=== PATIENT | male | born 1960 | race Caucasian/White ===

== ENCOUNTER 2020-05-07 07:28 | Outpatient (REF) | payer OTHER, SELFPAY | END 2020-05-07 07:29 | disposition home or self-care (01) | LOC: HO.LAB 07:28 | PROVIDERS: Visit Provider Internal Medicine | DX: Z20.828 Contact with and (suspected) exposure to other viral communicable diseases (principal) | CPT/HCPCS: C9803; U0003 ==

== ENCOUNTER → 2020-07-27 07:18 | Outpatient (REF) | payer OTHER, SELFPAY ==
--- NOTE | 2020-07-27 07:35 | US_ITS ---
EXAMINATION: US ABDOMEN COMPLETE CLINICAL INFORMATION: Elevated LFTs.. COMPARISON: None TECHNIQUE: Real-time imaging of the abdominal viscera. FINDINGS: PANCREAS: Normal. ABDOMINAL AORTA: The proximal and distal segments are normal in caliber. The mid segment is not visualized INFERIOR VENA CAVA: Visualized portions are normal. LIVER: The liver is normal size, shape with mild increased echogenicity. No focal hepatic lesion. There is no intrahepatic biliary duct dilatation seen. GALLBLADDER: Normal. The gallbladder is physiologically distended without evidence of stones, sludge, polyps, wall thickening or pericholecystic fluid. COMMON BILE DUCT: Normal in caliber measuring 0.73 cm in diameter. RIGHT KIDNEY: Normal. No hydronephrosis. No renal calculi or focal parenchymal lesions. The kidney measures 11.5 cm in maximum dimension. LEFT KIDNEY: Normal. No hydronephrosis. No renal calculi or focal parenchymal lesions. The kidney measures 12.2 cm in maximum dimension. SPLEEN: Normal. The spleen measures 10.9 cm in maximum dimension. FREE FLUID: None. US/US abdomen complete IMPRESSION: Mildly echogenic liver likely fatty infiltration. No focal lesion seen. Rest of the abdominal ultrasound is unremarkable.
== END ==
LOC: HO.SL 07:18
PROVIDERS: PCP Family Medicine; Visit Provider Family Medicine
DX: R74.01 Elevation of levels of liver transaminase levels (principal); G47.33 Obstructive sleep apnea (adult) (pediatric); R49.0 Dysphonia; R63.5 Abnormal weight gain
CPT/HCPCS: 76700; 95806

== ENCOUNTER → 2020-12-09 13:26 | Outpatient (BNVA) | payer OTHER, SELFPAY | PROVIDERS: PCP Family Medicine; Visit Provider Nurse Practitioner Family | DX: M53.3 Sacrococcygeal disorders, not elsewhere classified (principal); M47.816 Spondylosis without myelopathy or radiculopathy, lumbar region | CPT/HCPCS: 99202 ==

== ENCOUNTER → 2021-08-31 12:29 | Outpatient (BNVA) | payer OTHER, SELFPAY | PROVIDERS: PCP Family Medicine; Visit Provider Nurse Practitioner Family | DX: M53.3 Sacrococcygeal disorders, not elsewhere classified (principal); M47.816 Spondylosis without myelopathy or radiculopathy, lumbar region | CPT/HCPCS: 99212 ==

== ENCOUNTER 2021-09-16 10:02 | Outpatient (REF) | payer OTHER, SELFPAY ==
--- NOTE | ~2021-09-16 | XR_ITS ---
EXAMINATION: XR HAND, LEFT CLINICAL INFORMATION: Pain status-post injury. COMPARISON: Radiographs dated 07/06/2011. TECHNIQUE: PA, lateral, and oblique views of the left hand. FINDINGS: The bones and soft tissues are normal. No fracture. Alignment is anatomic. Joint spaces are maintained. No erosions or soft tissue calcifications. XR/XR hand LT 2V IMPRESSION: Normal left hand.
== END 2021-09-16 10:03 | disposition home or self-care (01) ==
LOC: HO.XRAY 10:02
PROVIDERS: PCP Family Medicine; Visit Provider Registered Nurse Community Health
DX: M79.645 Pain in left finger(s) (principal)
CPT/HCPCS: 73120

== ENCOUNTER → 2021-10-19 09:46 | Outpatient (BNVA) | payer OTHER, SELFPAY | PROVIDERS: PCP Family Medicine; Visit Provider Physician Assistant | DX: M79.645 Pain in left finger(s) (principal) | CPT/HCPCS: 99202 ==

== ENCOUNTER → 2021-10-28 14:15 | Outpatient (RCR) | payer OTHER, SELFPAY | END | disposition home or self-care (01) | LOC: HO.PTCHIC 04-01 13:31 | PROVIDERS: PCP Family Medicine; Visit Provider Emergency Medicine | DX: M54.41 Lumbago with sciatica, right side (principal) | CPT/HCPCS: 97014; 97110; 97140 ==

== ENCOUNTER 2021-11-10 12:27 | Day surgery (SDC) | payer OTHER, SELFPAY ==
[2021-11-04 11:41] VITALS: BMI 40.2
--- NOTE | 2021-11-09 09:32 | HO.ANESPROP2 ---
Documented by User: Kelsie Bustos NP 11/09/21 09:33 HPI - Anesthesia Eval Consult details Narrative: 61yo M for Bilateral Sacroiliac Joint Steroid Injection PMFSH Active Problems Active Problems: All Active Problems (Updated 11/04/21 @ 11:33 by Kathi Trammell RN) Sacroiliac joint pain (Acute) Spondylosis of lumbar region without myelopathy or radiculopathy (Acute) Pain of left thumb (Acute) Past Medical History Medical History Asthma Elevated cholesterol GERD (gastroesophageal reflux disease) Hearing impairment HTN (hypertension) Mood disorder Sleep apnea Surgical History Surgical History H/O colonoscopy History of esophagogastroduodenoscopy (EGD) Hx laparoscopic cholecystectomy Hx of hemorrhoidectomy Social History Social History Patient Tobacco Use Status: Former Tobacco user Quit Date: 25 years ago Use of substances other than those prescribed or required for medical reasons: No Are you DNR?: No Advance Directives: No Advance Directives Information Provided: Yes Current occupational status: disabled Meds Allergies Allergy/AdvReac Type Severity Reaction Status Date / Time atorvastatin Allergy Intermediate Muscle Pain Verified 11/04/21 11:26 gemfibrozil Allergy Intermediate itching Verified 11/04/21 11:26 simvastatin Allergy Intermediate GI Verified 11/04/21 11:26 discomfort topiramate [Topiramate] Allergy Intermediate RASH,HIVES Verified 10/19/21 10:05 Home Medications Medication Instructions Recorded Confirmed Last Taken Type acetaminophen 325 mg capsule 650 mg PO Q6H PRN 12/09/20 11/04/21 Unknown History albuterol sulfate 90 mcg/actuation 2 puff INHALATION Q4-6H PRN 12/09/20 11/04/21 Unknown History aerosol inhaler (Ventolin HFA) cholecalciferol (vitamin D3) 1,250 1,250 mcg PO QWEEK 12/09/20 11/04/21 Unknown History mcg (50,000 unit) tablet famotidine 40 mg tablet 40 mg PO BEDTIME 12/09/20 11/04/21 Unknown History fluticasone propionate 110 1 puff INHALATION BID 12/09/20 11/10/21 11/10/21 10:00 History mcg/actuation HFA aerosol inhaler (Flovent HFA) fluticasone propionate 50 1 spray INTRANASAL DAILY 12/09/20 11/04/21 Unknown History mcg/actuation nasal spray,suspension gabapentin 300 mg capsule 300 mg PO BID 12/09/20 11/04/21 Unknown History ketotifen fumarate 0.025 % (0.035 1 drp OPHTHALMIC (EYE) BID 12/09/20 11/04/21 Unknown History %) eye drops levothyroxine 75 mcg capsule 75 mcg PO DAILY 12/09/20 11/04/21 Unknown History loratadine 10 mg tablet (Allergy 10 mg PO DAILY 12/09/20 11/04/21 Unknown History Relief (loratadine)) meclizine 25 mg tablet 25 mg PO BID 12/09/20 11/04/21 Unknown History olanzapine 2.5 mg tablet (Zyprexa) 5 mg PO DAILY tab 12/09/20 11/04/21 Unknown History omeprazole 40 mg capsule,delayed 40 mg PO DAILY 12/09/20 11/04/21 Unknown History release rosuvastatin 40 mg tablet (Crestor) 40 mg PO DAILY 12/09/20 11/04/21 Unknown History simethicone 125 mg capsule (Gas 125 mg PO TID-QID PRN 12/09/20 11/04/21 Unknown History Relief (simethicone)) sucralfate 1 gram tablet 1 g PO QIDACHS 12/09/20 11/04/21 Unknown History tamsulosin 0.4 mg capsule 0.4 mg PO BEDTIME 12/09/20 11/04/21 Unknown History tizanidine 4 mg capsule 4 mg PO Q8H PRN 12/09/20 11/04/21 Unknown History venlafaxine 150 mg 150 mg PO BEDTIME 12/09/20 11/04/21 Unknown History capsule,extended release 24 hr (Effexor XR) zaleplon 10 mg capsule 10 mg PO BEDTIME cap 12/09/20 11/04/21 Unknown History Exam Exam Date and Time: November 09, 2021 0932 Height,Weight and Vital Signs: Height 5 ft 5 in Weight 109.769 kg Assessment and Plan Assessment Anesthesia Assessment: Chart Reviewed Documented by User: Niurka Barber MD 11/10/21 15:07 PMFSH Past Medical History Medical History Asthma Elevated cholesterol GERD (gastroesophageal reflux disease) Hearing impairment HTN (hypertension) Mood disorder Sleep apnea Functional capacity: independent ambulation Family History Family history of problems with anesthesia: No Surgical History Surgical History H/O colonoscopy History of esophagogastroduodenoscopy (EGD) Hx laparoscopic cholecystectomy Hx of hemorrhoidectomy History of Problems with Anesthesia: No Social History Social History Patient Tobacco Use Status: Former Tobacco user Quit Date: 25 years ago Use of substances other than those prescribed or required for medical reasons: No Are you DNR?: No Advance Directives: No Advance Directives Information Provided: Yes Current occupational status: disabled Meds Allergies Allergy/AdvReac Type Severity Reaction Status Date / Time atorvastatin Allergy Intermediate Muscle Pain Verified 11/04/21 11:26 gemfibrozil Allergy Intermediate itching Verified 11/04/21 11:26 simvastatin Allergy Intermediate GI Verified 11/04/21 11:26 discomfort topiramate [Topiramate] Allergy Intermediate RASH,HIVES Verified 10/19/21 10:05 Home Medications Medication Instructions Recorded Confirmed Last Taken Type acetaminophen 325 mg capsule 650 mg PO Q6H PRN 12/09/20 11/04/21 Unknown History albuterol sulfate 90 mcg/actuation 2 puff INHALATION Q4-6H PRN 12/09/20 11/04/21 Unknown History aerosol inhaler (Ventolin HFA) cholecalciferol (vitamin D3) 1,250 1,250 mcg PO QWEEK 12/09/20 11/04/21 Unknown History mcg (50,000 unit) tablet famotidine 40 mg tablet 40 mg PO BEDTIME 12/09/20 11/04/21 Unknown History fluticasone propionate 110 1 puff INHALATION BID 12/09/20 11/10/21 11/10/21 10:00 History mcg/actuation HFA aerosol inhaler (Flovent HFA) fluticasone propionate 50 1 spray INTRANASAL DAILY 12/09/20 11/04/21 Unknown History mcg/actuation nasal spray,suspension gabapentin 300 mg capsule 300 mg PO BID 12/09/20 11/04/21 Unknown History ketotifen fumarate 0.025 % (0.035 1 drp OPHTHALMIC (EYE) BID 12/09/20 11/04/21 Unknown History %) eye drops levothyroxine 75 mcg capsule 75 mcg PO DAILY 12/09/20 11/04/21 Unknown History loratadine 10 mg tablet (Allergy 10 mg PO DAILY 12/09/20 11/04/21 Unknown History Relief (loratadine)) meclizine 25 mg tablet 25 mg PO BID 12/09/20 11/04/21 Unknown History olanzapine 2.5 mg tablet (Zyprexa) 5 mg PO DAILY tab 12/09/20 11/04/21 Unknown History omeprazole 40 mg capsule,delayed 40 mg PO DAILY 12/09/20 11/04/21 Unknown History release rosuvastatin 40 mg tablet (Crestor) 40 mg PO DAILY 12/09/20 11/04/21 Unknown History simethicone 125 mg capsule (Gas 125 mg PO TID-QID PRN 12/09/20 11/04/21 Unknown History Relief (simethicone)) sucralfate 1 gram tablet 1 g PO QIDACHS 12/09/20 11/04/21 Unknown History tamsulosin 0.4 mg capsule 0.4 mg PO BEDTIME 12/09/20 11/04/21 Unknown History tizanidine 4 mg capsule 4 mg PO Q8H PRN 12/09/20 11/04/21 Unknown History venlafaxine 150 mg 150 mg PO BEDTIME 12/09/20 11/04/21 Unknown History capsule,extended release 24 hr (Effexor XR) zaleplon 10 mg capsule 10 mg PO BEDTIME cap 12/09/20 11/04/21 Unknown History Exam Airway Mallampati Class: IV TM Dist: >3cm Neck ROM: Full Heart: RRR Lungs: CTA Other: CTA Assessment and Plan Final Anesthetic Review Family History of Problems with Anesthesia: No History of Problems with Anesthesia: No ASA Class: III Final Preanesthetic Review: No Changes in Pt Med Stat, Meds/Allgs Chart Reviewed, Consent Obtained/Reviewed and Anes Risks/Benef Reviewed Patient Risk: Low Anesthetic Plan Anesthetic Plan: MAC: Disposition: Standard PACU
--- NOTE | ~2021-11-10 | FL_ITS ---
EXAMINATION: XR FLUOROSCOPY WITH IMAGES CLINICAL INFORMATION: Pelvic pain. COMPARISON: None TECHNIQUE: Fluoroscopy performed by Dr. Thurman. Fluoroscopy time: 0.7 minutes DAP: 6.96 mGycm2 Images: 4 FINDINGS: There are at least 4 images of the SI joint obtained. There is a needle positioned along the left and right SI joints. The SI joints are otherwise symmetrical and normal. Visualized lower lumbar disc levels, L4, L5 and the sacral vertebral bodies are normal. FL/FL guidance in OR IMPRESSION: Fluoroscopy was provided to referring physician for pain management.
[2021-11-10 13:45] VITALS: BP 128/71; PULSE 54; RESP 18; TEMP 36.3; O2SAT 97; BMI 40.4
[2021-11-10] MEDS: Lactated Ringers 1,000 ML 100 ML IVCONT (13:52)
[2021-11-10 15:42] VITALS: BP 108/65; PULSE 63; RESP 12; TEMP 36.4; O2SAT 96
--- NOTE | 2021-11-10 15:48 | MHC.SHP ---
Pre-Procedural Eval Section A Date of Service: 11/10/21 The patient is an INPATIENT: No The History & Physical has been completed within 30 days and I have reviewed it.: Yes Section B Chief Complaint: Sacrococcygeal disorders, Relevant Family History (Specify if Yes): No Relevant Social History: None Present Medications: see Short Stay Collaborative assessment Medical History: No relevant PMH History of Previous Operations: No relevant previous surgery Allergies: Allergies Allergy/AdvReac Type Severity Reaction Status Date / Time atorvastatin Allergy Intermediate Muscle Pain Verified 11/04/21 11:26 gemfibrozil Allergy Intermediate itching Verified 11/04/21 11:26 simvastatin Allergy Intermediate GI Verified 11/04/21 11:26 discomfort topiramate [Topiramate] Allergy Intermediate RASH,HIVES Verified 10/19/21 10:05 Plan Diagnosis/Plan: Unchanged I have reviewed the history and physical and performed a pertinent physical examination on my patient. No changes have occurred unless specified.
--- NOTE | 2021-11-10 15:49 | PM.OP ---
Brief Operative Note Date of Service: 11/10/21 Pre-op diagnosis: Sacroiliitis Post-op diagnosis: same Procedure: Bilateral intra-articular sacroiliac joint corticosteroid injection Surgeon: Olman Parish MD Anesthesia: MAC Was an District Court Judge used for this Procedure?: No Estimated blood loss (mL): 1 Pathology: none sent Condition: stable Disposition: PACU
--- NOTE | 2021-11-10 15:50 | P.OP_ITS ---
Operative Note Operative Note Date of Service: 11/10/21 Narrative: Sacroiliac Joint Injection, Bilateral The procedure, its benefits, and its risks were explained and written informed consent was obtained from the patient. Immediately prior to starting the procedure, a time-out safety check was conducted. The patient's identification, procedure name, procedure site, and procedure laterality were confirmed with the patient. ? Patient was placed prone on the fluoroscopy table and the lumbosacral area was prepped using ChloraPrep and draped with sterile drapein standard fashion. The C-arm was rotated in a contralateral oblique fashion until the medial border of the iliac crest no longer foreshadowed the posterior sacroiliac joint line. The skin and subcutaneous tissue was anesthetized using 1 mL of 0.75% plain lidocaine with 1.5-inch 25-gauge needle in the middle region of the joint line.? A 3.5-inch 22-gauge spinal needle with small bend on the tip was slowly advanced towards the joint line, coaxial to the x-ray beam. Once bony content was obtained, the needle was easily slid into the intra-articular space.? Intra- articular needle position was confirmed using lateral fluoroscopy.? A total volume of 2 mL of solution containing 40 mg Depomedrol and rest 0.5% of ropivacaine was injected intra-articularly. The stylet was reinserted and needle was removed. The patient tolerated the procedure well. Patient denied any lower extremity weakness or numbness. Patient was observed for 30 min and was discharged after fulfilling the standard discharge criteria.
[2021-11-10 15:57] VITALS: BP 120/76; PULSE 52; RESP 12; O2SAT 96
[2021-11-10 16:12] VITALS: BP 119/75; PULSE 52; RESP 12; O2SAT 98
[2021-11-10 16:27] VITALS: BP 114/71; PULSE 56; RESP 19; TEMP 36.3; O2SAT 98
[2021-11-10 16:42] VITALS: BP 119/70; PULSE 50; RESP 18; TEMP 36.3; O2SAT 98
== END 2021-11-10 17:01 | disposition home or self-care (01) ==
PROVIDERS: PCP Family Medicine; Visit Provider Internal Medicine
PROC: 3E0U33Z Introduction of Anti-inflammatory into Joints, Percutaneous Approach (ICD-10-PCS; CPT 27096; principal; 2021-11-10 14:40)
DX: M53.3 Sacrococcygeal disorders, not elsewhere classified (principal); M47.816 Spondylosis without myelopathy or radiculopathy, lumbar region; M54.50 Low back pain, unspecified; I10 Essential (primary) hypertension; J45.909 Unspecified asthma, uncomplicated; R73.01 Impaired fasting glucose; Z79.51 Long term (current) use of inhaled steroids; Z79.899 Other long term (current) drug therapy; Z88.8 Allergy status to other drugs, medicaments and biological substances; Z87.891 Personal history of nicotine dependence
CPT/HCPCS: G0260; J1040; J2250; J2795; J3010

== ENCOUNTER → 2021-12-22 12:51 | Outpatient (BNVA) | payer OTHER, SELFPAY | PROVIDERS: PCP Family Medicine; Visit Provider Nurse Practitioner Family | DX: M48.061 Spinal stenosis, lumbar region without neurogenic claudication (principal); M53.3 Sacrococcygeal disorders, not elsewhere classified; M47.816 Spondylosis without myelopathy or radiculopathy, lumbar region; M53.9 Dorsopathy, unspecified | CPT/HCPCS: 99212 ==

== ENCOUNTER 2022-03-02 11:39 | Day surgery (SDC) | payer OTHER, SELFPAY ==
[2022-02-24 09:22] VITALS: BMI 36.6
--- NOTE | 2022-03-01 14:09 | HO.ANESPROP2 ---
Documented by User: Kelsie Bustos NP 03/01/22 14:10 HPI - Anesthesia Eval Consult details Narrative: 61yo M for Interlaminar Epidural Steroid Injection L5-S1 s/p sacroiliac joint injection 10/2021 with MAC PMFSH Active Problems Active Problems: All Active Problems (Updated 02/24/22 @ 09:15 by Kathi Trammell RN) Sacroiliac joint pain (Acute) Spondylosis of lumbar region without myelopathy or radiculopathy (Acute) Pain of left thumb (Acute) Stenosis, spinal, lumbar (Acute) Multilevel degenerative disc disease (Acute) Past Medical History Medical History (Updated 02/24/22 @ 09:15 by Kathi Trammell RN) Asthma Elevated cholesterol GERD (gastroesophageal reflux disease) Hearing impairment HTN (hypertension) Mood disorder Sacroiliac joint pain Sleep apnea Family History Family history of problems with anesthesia: No Surgical History Surgical History H/O colonoscopy History of esophagogastroduodenoscopy (EGD) Hx laparoscopic cholecystectomy Hx of hemorrhoidectomy History of Problems with Anesthesia: No Social History Social History Patient Tobacco Use Status: Former Tobacco user Quit Date: 25 years ago Use of substances other than those prescribed or required for medical reasons: No Are you DNR?: No Advance Directives: No Advance Directives Information Provided: Yes Current occupational status: disabled Meds Allergies Allergy/AdvReac Type Severity Reaction Status Date / Time atorvastatin Allergy Intermediate Muscle Pain Verified 12/22/21 12:56 gemfibrozil Allergy Intermediate itching Verified 12/22/21 12:56 simvastatin Allergy Intermediate GI Verified 12/22/21 12:56 discomfort topiramate [Topiramate] Allergy Intermediate RASH,HIVES Verified 12/22/21 12:56 Home Medications Medication Instructions Recorded Confirmed Last Taken Type acetaminophen 325 mg capsule 650 mg PO Q6H PRN Pain 12/09/20 02/24/22 Unknown History albuterol sulfate 90 mcg/actuation 2 puff inhalation Q4-6H PRN 12/09/20 02/24/22 03/02/22 History aerosol inhaler (Ventolin HFA) Wheezing cholecalciferol (vitamin D3) 1,250 1,250 mcg PO QWEEK 12/09/20 02/24/22 Unknown History mcg (50,000 unit) tablet famotidine 40 mg tablet 40 mg PO BEDTIME 12/09/20 02/24/22 Unknown History fluticasone propionate 110 1 puff inhalation BID 12/09/20 02/24/22 11/10/21 10:00 History mcg/actuation HFA aerosol inhaler (Flovent HFA) fluticasone propionate 50 1 spray intranasal DAILY 12/09/20 02/24/22 Unknown History mcg/actuation nasal spray,suspension gabapentin 300 mg capsule 300 mg PO BID 12/09/20 02/24/22 Unknown History ketotifen fumarate 0.025 % (0.035 1 drp ophthalmic (eye) BID 12/09/20 02/24/22 Unknown History %) eye drops levothyroxine 75 mcg capsule 75 mcg PO DAILY 12/09/20 02/24/22 03/02/22 History loratadine 10 mg tablet (Allergy 10 mg PO DAILY 12/09/20 02/24/22 Unknown History Relief (loratadine)) meclizine 25 mg tablet 25 mg PO BID 12/09/20 02/24/22 Unknown History olanzapine 2.5 mg tablet (Zyprexa) 5 mg PO DAILY 12/09/20 02/24/22 Unknown History omeprazole 40 mg capsule,delayed 40 mg PO DAILY 12/09/20 02/24/22 Unknown History release rosuvastatin 40 mg tablet (Crestor) 40 mg PO DAILY 12/09/20 02/24/22 Unknown History simethicone 125 mg capsule (Gas 125 mg PO TID-QID PRN 12/09/20 02/24/22 Unknown History Relief (simethicone)) Gastrointestinal Spasms Or Cramping sucralfate 1 gram tablet 1 g PO QIDACHS 12/09/20 02/24/22 Unknown History tamsulosin 0.4 mg capsule 0.4 mg PO BEDTIME 12/09/20 02/24/22 Unknown History tizanidine 4 mg capsule 4 mg PO Q8H PRN Muscle Spasm 12/09/20 02/24/22 Unknown History venlafaxine 150 mg 150 mg PO BEDTIME 12/09/20 02/24/22 Unknown History capsule,extended release 24 hr (Effexor XR) zaleplon 10 mg capsule 10 mg PO BEDTIME 12/09/20 02/24/22 Unknown History Exam Exam Date and Time: March 01, 2022 1409 Height,Weight and Vital Signs: Height 5 ft 5 in Weight 99.79 kg Assessment and Plan Assessment Anesthesia Assessment: Chart Reviewed Final Anesthetic Review Family History of Problems with Anesthesia: No History of Problems with Anesthesia: No Documented by User: Slick Cedeno MD 03/02/22 12:41 [facility] Past Medical History Medical History (Updated 02/24/22 @ 09:15 by Kathi Trammell RN) Asthma Elevated cholesterol GERD (gastroesophageal reflux disease) Hearing impairment HTN (hypertension) Mood disorder Sacroiliac joint pain Sleep apnea Surgical History Surgical History H/O colonoscopy History of esophagogastroduodenoscopy (EGD) Hx laparoscopic cholecystectomy Hx of hemorrhoidectomy Social History Social History Patient Tobacco Use Status: Former Tobacco user Quit Date: 25 years ago Use of substances other than those prescribed or required for medical reasons: No Are you DNR?: No Advance Directives: No Advance Directives Information Provided: Yes Current occupational status: disabled Meds Allergies Allergy/AdvReac Type Severity Reaction Status Date / Time atorvastatin Allergy Intermediate Muscle Pain Verified 12/22/21 12:56 gemfibrozil Allergy Intermediate itching Verified 12/22/21 12:56 simvastatin Allergy Intermediate GI Verified 12/22/21 12:56 discomfort topiramate [Topiramate] Allergy Intermediate RASH,HIVES Verified 12/22/21 12:56 Home Medications Medication Instructions Recorded Confirmed Last Taken Type acetaminophen 325 mg capsule 650 mg PO Q6H PRN Pain 12/09/20 02/24/22 Unknown History albuterol sulfate 90 mcg/actuation 2 puff inhalation Q4-6H PRN 0602/24/22 03/02/22 History aerosol inhaler (Ventolin HFA) Wheezing cholecalciferol (vitamin D3) 1,250 1,250 mcg PO QWEEK 12/09/20 02/24/22 Unknown History mcg (50,000 unit) tablet famotidine 40 mg tablet 40 mg PO BEDTIME 12/09/20 02/24/22 Unknown History fluticasone propionate 110 1 puff inhalation BID 12/09/20 02/24/22 11/10/21 10:00 History mcg/actuation HFA aerosol inhaler (Flovent HFA) fluticasone propionate 50 1 spray intranasal DAILY 12/09/20 02/24/22 Unknown History mcg/actuation nasal spray,suspension gabapentin 300 mg capsule 300 mg PO BID 12/09/20 02/24/22 Unknown History ketotifen fumarate 0.025 % (0.035 1 drp ophthalmic (eye) BID 12/09/20 02/24/22 Unknown History %) eye drops levothyroxine 75 mcg capsule 75 mcg PO DAILY 12/09/20 02/24/22 03/02/22 History loratadine 10 mg tablet (Allergy 10 mg PO DAILY 12/09/20 02/24/22 Unknown History Relief (loratadine)) meclizine 25 mg tablet 25 mg PO BID 12/09/20 02/24/22 Unknown History olanzapine 2.5 mg tablet (Zyprexa) 5 mg PO DAILY 12/09/20 02/24/22 Unknown History omeprazole 40 mg capsule,delayed 40 mg PO DAILY 12/09/20 02/24/22 Unknown History release rosuvastatin 40 mg tablet (Crestor) 40 mg PO DAILY 12/09/20 02/24/22 Unknown History simethicone 125 mg capsule (Gas 125 mg PO TID-QID PRN 12/09/20 02/24/22 Unknown History Relief (simethicone)) Gastrointestinal Spasms Or Cramping sucralfate 1 gram tablet 1 g PO QIDACHS 12/09/20 02/24/22 Unknown History tamsulosin 0.4 mg capsule 0.4 mg PO BEDTIME 12/09/20 02/24/22 Unknown History tizanidine 4 mg capsule 4 mg PO Q8H PRN Muscle Spasm 12/09/20 02/24/22 Unknown History venlafaxine 150 mg 150 mg PO BEDTIME 12/09/20 02/24/22 Unknown History capsule,extended release 24 hr (Effexor XR) zaleplon 10 mg capsule 10 mg PO BEDTIME 12/09/20 02/24/22 Unknown History Exam Airway Mallampati Class: IV TM Dist: >3cm Neck ROM: Full Partial: Upper and Lower Loose/Missing/Broken Teeth: Yes, Upper and Lower Heart: rrr Lungs: clear Assessment and Plan Final Anesthetic Review NPO: Yes ASA Class: III Final Preanesthetic Review: No Changes in Pt Med Stat, Meds/Allgs Chart Reviewed, Consent Obtained/Reviewed and Anes Risks/Benef Reviewed Patient Risk: Intermediate Procedure Risk: Low Anesthetic Plan Anesthetic Plan: MAC: Disposition: Standard PACU
--- NOTE | ~2022-03-02 | FL_ITS ---
EXAMINATION: XR FLUOROSCOPY WITH IMAGES CLINICAL INFORMATION: Pain. COMPARISON: None. TECHNIQUE: Fluoroscopy performed by Dr. Olman Parish. Fluoroscopy time: 0.2 minutes. Cumulative Dose: 7.06 mGy. DAP: 0.760 Gy-cm2. Images: 2. FINDINGS: There are 2 images obtained of lumbar spine with needle positioned at L5-S1 disc level and contrast opacifying the epidural space. Visualized L5 vertebral bodies are unremarkable. FL/FL guidance in OR IMPRESSION: Fluoroscopy guidance was provided to the referring physician for pain management.
[2022-03-02 12:08] VITALS: BP 141/71; PULSE 61; RESP 16; TEMP 36.5; O2SAT 97
[2022-03-02] MEDS: Lactated Ringers 1,000 ML 100 ML IVCONT (12:14)
--- NOTE | 2022-03-02 13:08 | MHC.SHP ---
Pre-Procedural Eval Section A Date of Service: 03/02/22 The patient is an INPATIENT: No Changes since office visit: Yes Patient answered all questions The History & Physical has been completed within 30 days and I have reviewed it.: No Section B Chief Complaint: spinal stenosis Relevant Family History (Specify if Yes): No Relevant Social History: None Present Medications: see Short Stay Collaborative assessment Medical History: No relevant PMH History of Previous Operations: No relevant previous surgery Allergies: Allergies Allergy/AdvReac Type Severity Reaction Status Date / Time atorvastatin Allergy Intermediate Muscle Pain Verified 12/22/21 12:56 gemfibrozil Allergy Intermediate itching Verified 12/22/21 12:56 simvastatin Allergy Intermediate GI Verified 12/22/21 12:56 discomfort topiramate [Topiramate] Allergy Intermediate RASH,HIVES Verified 12/22/21 12:56 Review of Systems Sugical H&P ROS: Negative: Constitution, Cardiovascular and Respiratory Exam Surgical H&P Exam: Normal: HEENT, Normal: Heart and Normal: Lungs Plan Diagnosis/Plan: Unchanged I have reviewed the history and physical and performed a pertinent physical examination on my patient. No changes have occurred unless specified.
--- NOTE | 2022-03-02 13:10 | P.BOP_ITS ---
Brief Operative Note Date of Service: 03/02/22 Pre-op diagnosis: Lumbar radiculopathy Post-op diagnosis: same Procedure: Lumbar interlaminar epidural steroid injection L5/S1 Implants: None Surgeon: Olman Parish MD Anesthesia: MAC Was an Senior Project Leader/Team Lead used for this Procedure?: No Estimated blood loss (mL): 1 Pathology: none sent Condition: stable Disposition: PACU
--- NOTE | 2022-03-02 13:11 | W.PM.OPN ---
Operative Note Operative Note Date of Service: 03/02/22 Narrative: Interlaminar epidural steroid injection, L5/S1, left parasaggital approach towards midline After obtaining written consent, pre-procedure blood pressure and heart rate were stable and recorded in the nursing record. Standard monitors were applied. Patient was sedated by the school standards coach. The patient was placed in the prone position. The lumbar area was widely prepped with chloraprep and draped in sterile fashion. Fluoroscopic guidance was used to identify the desired interlaminar space and for needle placement. Subcutaneous 0.5% lidocaine was used to anesthetize the skin overlying the target. A 20-gauge Garcia needle was advanced to the epidural space using loss of resistance to contrast technique under fluoroscopic AP and contralateral oblique views. There was no evidence of heme or CSF and no paresthesias were elicited with needle placement. Confirmation of epidural needle placement was performed with 1cc of omnipaque 180. Next 3 ml 0.5% lidocaine mixed with 80 mg methylprednisolone was administered epidurally with no pain elicited on injection. The needle tract tubing was then cleared with 1 ml of 0.5% lidocaine. The needle was removed, skin cleansed and a sterile bandage was applied. The patient tolerated the procedure well and no complications were encountered. Following the procedure the patient's vital signs were stable. The patient was discharged home in good condition with post-procedural instructions. Time Out: Immediately prior to the procedure, the following was verbally confirmed that there is a signed consent form and that the correct patient, planned procedure, site and side are consistent with documentation and that necessary equipment and/or blood products are available prior to the start of the case. Complications: none EBL: <1 cc
[2022-03-02 13:20] VITALS: BP 103/59; PULSE 77; RESP 20; TEMP 36; O2SAT 95
[2022-03-02 13:35] VITALS: BP 106/72; PULSE 65; RESP 20; O2SAT 95
[2022-03-02 13:50] VITALS: BP 117/74; PULSE 65; RESP 20; TEMP 36; O2SAT 96
== END 2022-03-02 14:29 | disposition home or self-care (01) ==
PROVIDERS: PCP Family Medicine; Visit Provider Internal Medicine
PROC: 3E0R33Z Introduction of Anti-inflammatory into Spinal Canal, Percutaneous Approach (ICD-10-PCS; CPT 62323; principal; 2022-03-02 12:30)
DX: M48.061 Spinal stenosis, lumbar region without neurogenic claudication (principal); M47.816 Spondylosis without myelopathy or radiculopathy, lumbar region; M54.50 Low back pain, unspecified; M53.9 Dorsopathy, unspecified; M53.3 Sacrococcygeal disorders, not elsewhere classified; I10 Essential (primary) hypertension; E78.00 Pure hypercholesterolemia, unspecified; G47.33 Obstructive sleep apnea (adult) (pediatric); F39 Unspecified mood [affective] disorder; R73.01 Impaired fasting glucose; H91.93 Unspecified hearing loss, bilateral; Z79.51 Long term (current) use of inhaled steroids; Z79.899 Other long term (current) drug therapy; Z88.8 Allergy status to other drugs, medicaments and biological substances; Z90.49 Acquired absence of other specified parts of digestive tract; Z87.891 Personal history of nicotine dependence
CPT/HCPCS: 62323; J2250; J3300

== ENCOUNTER → 2022-04-05 10:12 | Outpatient (BNVA) | payer OTHER, SELFPAY | PROVIDERS: PCP Family Medicine; Visit Provider Nurse Practitioner Family | DX: M53.3 Sacrococcygeal disorders, not elsewhere classified (principal); M53.9 Dorsopathy, unspecified; M48.061 Spinal stenosis, lumbar region without neurogenic claudication; M46.1 Sacroiliitis, not elsewhere classified | CPT/HCPCS: 99212 ==

== ENCOUNTER 2022-06-15 13:06 | Day surgery (SDC) | payer OTHER, SELFPAY ==
[2022-06-10 14:51] VITALS: BMI 38.4
--- NOTE | 2022-06-14 09:21 | P.CONAN_ITS ---
Documented by User: Kelsie Bustos NP 06/14/22 09:25 HPI - Anesthesia Eval Consult details Narrative: 61yo M for Left Sacroiliac Joint Steroid Injection with Lidocaine s/p epidural injection 02/2022 with MAC PMFSH Active Problems Active Problems: All Active Problems (Updated 04/05/22 @ 10:56 by ARMINDA Mahoney) Sacroiliitis (Acute) Sacroiliac joint pain (Acute) Spondylosis of lumbar region without myelopathy or radiculopathy (Acute) Pain of left thumb (Acute) Stenosis, spinal, lumbar (Acute) Multilevel degenerative disc disease (Acute) Past Medical History Medical History Asthma Elevated cholesterol GERD (gastroesophageal reflux disease) Hearing impairment HTN (hypertension) Mood disorder Sacroiliac joint pain Sleep apnea Family History Family history of problems with anesthesia: No Surgical History Surgical History H/O colonoscopy History of esophagogastroduodenoscopy (EGD) Hx laparoscopic cholecystectomy Hx of hemorrhoidectomy History of Problems with Anesthesia: No Social History Social History Patient Tobacco Use Status: Former Tobacco user Quit Date: 25 years ago Tobacco use type: Cigarette Use of substances other than those prescribed or required for medical reasons: No Are you DNR?: No Advance Directives: No Advance Directives Information Provided: Yes Current occupational status: disabled Meds Allergies Allergy/AdvReac Type Severity Reaction Status Date / Time atorvastatin Allergy Intermediate Muscle Pain Verified 04/05/22 10:24 gemfibrozil Allergy Intermediate itching Verified 04/05/22 10:24 simvastatin Allergy Intermediate GI Verified 04/05/22 10:24 discomfort topiramate [Topiramate] Allergy Intermediate RASH,HIVES Verified 04/05/22 10:24 Home Medications Medication Instructions Recorded Confirmed Last Taken Type acetaminophen 325 mg capsule 650 mg PO Q6H PRN Pain 12/09/20 02/24/22 Unknown History albuterol sulfate 90 mcg/actuation 2 puff inhalation Q4-6H PRN 12/09/20 02/24/22 03/02/22 History aerosol inhaler (Ventolin HFA) Wheezing cholecalciferol (vitamin D3) 1,250 1,250 mcg PO QWEEK 12/09/20 02/24/22 Unknown History mcg (50,000 unit) tablet famotidine 40 mg tablet 40 mg PO BEDTIME 12/09/20 02/24/22 Unknown History fluticasone propionate 110 1 puff inhalation BID 12/09/20 02/24/22 11/10/21 10:00 History mcg/actuation HFA aerosol inhaler (Flovent HFA) fluticasone propionate 50 1 spray intranasal DAILY 12/09/20 02/24/22 Unknown History mcg/actuation nasal spray,suspension gabapentin 300 mg capsule 300 mg PO BID 12/09/20 02/24/22 Unknown History ketotifen fumarate 0.025 % (0.035 1 drp ophthalmic (eye) BID 12/09/20 02/24/22 Unknown History %) eye drops levothyroxine 75 mcg capsule 75 mcg PO DAILY 12/09/20 06/15/22 06/15/22 History loratadine 10 mg tablet (Allergy 10 mg PO DAILY 12/09/20 02/24/22 Unknown History Relief (loratadine)) meclizine 25 mg tablet 25 mg PO BID 12/09/20 02/24/22 Unknown History olanzapine 2.5 mg tablet (Zyprexa) 5 mg PO DAILY 12/09/20 02/24/22 Unknown History omeprazole 40 mg capsule,delayed 40 mg PO DAILY 12/09/20 02/24/22 Unknown History release rosuvastatin 40 mg tablet (Crestor) 40 mg PO DAILY 12/09/20 02/24/22 Unknown History simethicone 125 mg capsule (Gas 125 mg PO TID-QID PRN 12/09/20 02/24/22 Unknown History Relief (simethicone)) Gastrointestinal Spasms Or Cramping sucralfate 1 gram tablet 1 g PO QIDACHS 12/09/20 02/24/22 Unknown History tamsulosin 0.4 mg capsule 0.4 mg PO BEDTIME 12/09/20 02/24/22 Unknown History tizanidine 4 mg capsule 4 mg PO Q8H PRN Muscle Spasm 12/09/20 02/24/22 Unknown History venlafaxine 150 mg 150 mg PO BEDTIME 12/09/20 02/24/22 Unknown History capsule,extended release 24 hr (Effexor XR) zaleplon 10 mg capsule 10 mg PO BEDTIME 12/09/20 02/24/22 Unknown History clotrimazole 1 % topical cream appl topical 04/05/22 Unknown History hydroxyzine HCl 25 mg tablet 25 mg PO BID 04/05/22 Unknown History tizanidine 4 mg tablet 4 mg PO TID 04/05/22 Unknown History Exam Exam Date and Time: June 14, 2022920 Height,Weight and Vital Signs: Height 5 ft 5 in Weight 104.78 kg Assessment and Plan Assessment Anesthesia Assessment: Chart Reviewed Final Anesthetic Review Family History of Problems with Anesthesia: No History of Problems with Anesthesia: No Documented by User: Giselle Pelayo MD 06/15/22 14:57 [facility] Active Problems Active Problems: All Active Problems (Updated 04/05/22 @ 10:56 by ARMINDA Mahoney) Sacroiliitis (Acute) Sacroiliac joint pain (Acute) Spondylosis of lumbar region without myelopathy or radiculopathy (Acute) Pain of left thumb (Acute) Stenosis, spinal, lumbar (Acute) Multilevel degenerative disc disease (Acute) JOLANTA. Not using CPAP Past Medical History Medical History Asthma Elevated cholesterol GERD (gastroesophageal reflux disease) Hearing impairment HTN (hypertension) Mood disorder Sacroiliac joint pain Sleep apnea Surgical History Surgical History H/O colonoscopy History of esophagogastroduodenoscopy (EGD) Hx laparoscopic cholecystectomy Hx of hemorrhoidectomy Social History Social History Patient Tobacco Use Status: Former Tobacco user Quit Date: 25 years ago Tobacco use type: Cigarette Use of substances other than those prescribed or required for medical reasons: No Are you DNR?: No Advance Directives: No Advance Directives Information Provided: Yes Current occupational status: disabled Meds Allergies Allergy/AdvReac Type Severity Reaction Status Date / Time atorvastatin Allergy Intermediate Muscle Pain Verified 04/05/22 10:24 gemfibrozil Allergy Intermediate itching Verified 04/05/22 10:24 simvastatin Allergy Intermediate GI Verified 04/05/22 10:24 discomfort topiramate [Topiramate] Allergy Intermediate RASH,HIVES Verified 04/05/22 10:24 Home Medications Medication Instructions Recorded Confirmed Last Taken Type acetaminophen 325 mg capsule 650 mg PO Q6H PRN Pain 12/09/20 02/24/22 Unknown History albuterol sulfate 90 mcg/actuation 2 puff inhalation Q4-6H PRN 12/09/20 02/24/22 03/02/22 History aerosol inhaler (Ventolin HFA) Wheezing cholecalciferol (vitamin D3) 1,250 1,250 mcg PO QWEEK 12/09/20 02/24/22 Unknown History mcg (50,000 unit) tablet famotidine 40 mg tablet 40 mg PO BEDTIME 12/09/20 02/24/22 Unknown History fluticasone propionate 110 1 puff inhalation BID 12/09/20 02/24/22 11/10/21 10:00 History mcg/actuation HFA aerosol inhaler (Flovent HFA) fluticasone propionate 50 1 spray intranasal DAILY 12/09/20 02/24/22 Unknown History mcg/actuation nasal spray,suspension gabapentin 300 mg capsule 300 mg PO BID 12/09/20 02/24/22 Unknown History ketotifen fumarate 0.025 % (0.035 1 drp ophthalmic (eye) BID 12/09/20 02/24/22 Unknown History %) eye drops levothyroxine 75 mcg capsule 75 mcg PO DAILY 12/09/20 06/15/22 06/15/22 History loratadine 10 mg tablet (Allergy 10 mg PO DAILY 12/09/20 02/24/22 Unknown History Relief (loratadine)) meclizine 25 mg tablet 25 mg PO BID 12/09/20 02/24/22 Unknown History olanzapine 2.5 mg tablet (Zyprexa) 5 mg PO DAILY 12/09/20 02/24/22 Unknown History omeprazole 40 mg capsule,delayed 40 mg PO DAILY 12/09/20 02/24/22 Unknown History release rosuvastatin 40 mg tablet (Crestor) 40 mg PO DAILY 12/09/20 02/24/22 Unknown History simethicone 125 mg capsule (Gas 125 mg PO TID-QID PRN 12/09/20 02/24/22 Unknown History Relief (simethicone)) Gastrointestinal Spasms Or Cramping sucralfate 1 gram tablet 1 g PO QIDACHS 12/09/20 02/24/22 Unknown History tamsulosin 0.4 mg capsule 0.4 mg PO BEDTIME 12/09/20 02/24/22 Unknown History tizanidine 4 mg capsule 4 mg PO Q8H PRN Muscle Spasm 12/09/20 02/24/22 Unknown History venlafaxine 150 mg 150 mg PO BEDTIME 12/09/20 02/24/22 Unknown History capsule,extended release 24 hr (Effexor XR) zaleplon 10 mg capsule 10 mg PO BEDTIME 12/09/20 02/24/22 Unknown History clotrimazole 1 % topical cream appl topical 04/05/22 Unknown History hydroxyzine HCl 25 mg tablet 25 mg PO BID 04/05/22 Unknown History tizanidine 4 mg tablet 4 mg PO TID 04/05/22 Unknown History Exam Height,Weight and Vital Signs: Height 5 ft 5 in Weight 104.78 kg Vital Signs Temp Pulse Resp BP Pulse Ox O2 Del Method 06/15/22 14:17 97.6 F 75 16 142/84 H 96 Room Air Airway Mallampati Class: III TM Dist: >3cm Neck ROM: Full (Short neck) Partial: Upper and Lower Loose/Missing/Broken Teeth: No (Denies broken or loose teeth) Heart: RRR Lungs: CTAB Assessment and Plan Assessment Anesthesia Assessment: Anesthesia Plan Discussed Final Anesthetic Review NPO: Yes ASA Class: III Final Preanesthetic Review: No Changes in Pt Med Stat, Meds/Allgs Chart Reviewed, Consent Obtained/Reviewed and Anes Risks/Benef Reviewed Patient Risk: Intermediate Procedure Risk: Low Assessment/Block/Sedation in SS: Assess/Block/Sedation-SS Anesthetic Plan Anesthetic Plan: MAC: Disposition: Standard PACU
--- NOTE | ~2022-06-15 | FL_ITS ---
EXAMINATION: XR FLUOROSCOPY WITH IMAGES CLINICAL INFORMATION: Low back/pelvic pain. Pain management procedure. COMPARISON: Fluoroscopic spot views 03/02/2022, 11/10/2021 TECHNIQUE: Fluoroscopy Supervised By: Dr. Olman Parish. Fluoroscopy Time: 0.1 minutes. Cumulative Dose: 8.18 mGy. DAP: 1.13 Gycm2. Images: 1. FINDINGS: Single lateral view coned to upper sacrum demonstrates spinal needle overlying upper sacrum from posterior approach with tip at mid sacral depth. There are mild degenerative disc changes lumbosacral junction. FL/FL guidance in OR IMPRESSION: Fluoroscopy for pain management procedure.
[2022-06-15 14:06] VITALS: BMI 41.3
[2022-06-15 14:17] VITALS: BP 142/84; PULSE 75; RESP 16; TEMP 36.4; O2SAT 96
[2022-06-15] MEDS: Lactated Ringers 1,000 ML 100 ML IVCONT (14:29)
[2022-06-15 15:23] VITALS: BP 93/55; PULSE 75; RESP 18; TEMP 36.4; O2SAT 97
[2022-06-15 15:38] VITALS: BP 140/82; PULSE 71; RESP 18; TEMP 36.1; O2SAT 97
--- NOTE | 2022-06-15 15:45 | MHC.SHP ---
Pre-Procedural Eval Section A Date of Service: 06/15/22 The patient is an INPATIENT: No Changes since office visit: Yes Patient answered all questions The History & Physical has been completed within 30 days and I have reviewed it.: Yes Section B Chief Complaint: Sacroiliitis,Sacrococcygeal disorders, Relevant Family History (Specify if Yes): No Relevant Social History: None Present Medications: see Short Stay Collaborative assessment Medical History: No relevant PMH History of Previous Operations: No relevant previous surgery Allergies: Allergies Allergy/AdvReac Type Severity Reaction Status Date / Time atorvastatin Allergy Intermediate Muscle Pain Verified 04/05/22 10:24 gemfibrozil Allergy Intermediate itching Verified 04/05/22 10:24 simvastatin Allergy Intermediate GI Verified 04/05/22 10:24 discomfort topiramate [Topiramate] Allergy Intermediate RASH,HIVES Verified 04/05/22 10:24 Review of Systems Sugical H&P ROS: Negative: Constitution, Cardiovascular and Respiratory Exam Surgical H&P Exam: Normal: HEENT, Normal: Heart and Normal: Lungs Plan Diagnosis/Plan: Unchanged I have reviewed the history and physical and performed a pertinent physical examination on my patient. No changes have occurred unless specified. Time Spent With Patient Time: Total time managing care of this patient today ____ minutes.
--- NOTE | 2022-06-15 15:46 | PM.OP ---
Brief Operative Note Date of Service: 06/15/22 Pre-op diagnosis: Sacroiliitis Post-op diagnosis: same Procedure: Intra-articular sacroiliac joint steroid injection Surgeon: Olman Parish MD Anesthesia: MAC Was an Employee Operations Examiner used for this Procedure?: No Estimated blood loss (mL): 0 Pathology: none sent Condition: stable Disposition: PACU
--- NOTE | 2022-06-15 15:46 | W.PM.OPN ---
Operative Note Operative Note Date of Service: 06/15/22 Narrative: Sacroiliac Joint Injection, Left The procedure, its benefits, and its risks were explained and written informed consent was obtained from the patient. Immediately prior to starting the procedure, a time-out safety check was conducted. The patient's identification, procedure name, procedure site, and procedure laterality were confirmed with the patient. ? Patient was placed prone on the fluoroscopy table and sedated by the corn cutter operator. The lumbosacral area was prepped using ChloraPrep and draped with sterile draped in standard fashion. The C-arm was rotated in a contralateral oblique fashion until the medial border of the iliac crest no longer foreshadowed the posterior sacroiliac joint line. The skin and subcutaneous tissue was anesthetized using 1 mL of 0.75% plain lidocaine with 1.5-inch 25-gauge needle in the middle region of the joint line.? A 3.5-inch 22-gauge spinal needle with small bend on the tip was slowly advanced towards the joint line, coaxial to the x-ray beam. Once bony content was obtained, the needle was easily slid into the intra-articular space.? Intra-articular needle position was confirmed using lateral fluoroscopy.? A total volume of 2.5mL of solution containing 40 mg Triamcinilone and rest 0.5% of ropivacaine was injected intra-articularly. The needle was flushed with lidocaine and removed. The patient tolerated the procedure well. Patient denied any lower extremity weakness or numbness. Patient was observed for 30 min in the PACU and was discharged after fulfilling the standard discharge criteria.
== END 2022-06-15 16:47 | disposition home or self-care (01) ==
PROVIDERS: PCP Family Medicine; Visit Provider Internal Medicine
PROC: 3E0U33Z Introduction of Anti-inflammatory into Joints, Percutaneous Approach (ICD-10-PCS; CPT 27096; principal; 2022-06-15 14:30)
DX: M46.1 Sacroiliitis, not elsewhere classified (principal); M53.3 Sacrococcygeal disorders, not elsewhere classified; M48.061 Spinal stenosis, lumbar region without neurogenic claudication; M53.9 Dorsopathy, unspecified; G47.33 Obstructive sleep apnea (adult) (pediatric); R73.01 Impaired fasting glucose; I10 Essential (primary) hypertension; J45.909 Unspecified asthma, uncomplicated; H91.93 Unspecified hearing loss, bilateral; H81.10 Benign paroxysmal vertigo, unspecified ear; Z79.899 Other long term (current) drug therapy; Z88.8 Allergy status to other drugs, medicaments and biological substances; Z87.891 Personal history of nicotine dependence
CPT/HCPCS: G0260; J2250; J2795; J3301; Q9965

== ENCOUNTER → 2022-07-25 14:01 | Outpatient (BNVA) | payer OTHER, SELFPAY | PROVIDERS: PCP Family Medicine; Visit Provider Internal Medicine | DX: M53.3 Sacrococcygeal disorders, not elsewhere classified (principal) | CPT/HCPCS: Q3014 ==

== ENCOUNTER 2023-01-11 19:13 | Emergency (ER) | payer OTHER, SELFPAY ==
[2023-01-11 19:33] VITALS: BP 139/83; PULSE 87; RESP 18; TEMP 36.4; O2SAT 97; BMI 41.5
--- NOTE | 2023-01-11 19:36 | ED.SKABFB ---
HPI - Skin/Abscess/Foreign Bdy General Chief complaint: Skin/Abscess/Foreign Body Stated complaint: nail in left foot Time Seen by Provider: 01/11/23 19:36 Source: patient Mode of arrival: ambulatory Limitations: no limitations History of Present Illness HPI narrative: 62-year-old male with history of sacroiliitis, multilevel degenerative disc disease, obesity who presents to the ER for evaluation after he stepped on a nail his left foot while wearing his shoes earlier today. He states he took a shower, cleaned out the wound and then came to the ER for further evaluation. He states the nail went directly through the shoe and into the foot. He was able to fully remove the nail with no residual foreign body. He is not diabetic. He reports some mild ongoing pain at the puncture site but he is ambulatory. He states his last tetanus shot was about 10 years ago complaint: other (Plantar puncture wound) Onset (ago): hour(s) Tetanus up to date: no Location: L foot Severity: mild Severity scale (1-10): 3 Quality: aching Pain Consistency: other (Improving since the injury) Relieving factors: rest Exacerbating factors: palpation Associated symptoms: denies other symptoms Treatments prior to arrival: other (Clean with soap and water) Related Data Home Medications Medication Instructions Recorded Confirmed acetaminophen 325 mg capsule 650 mg PO Q6H PRN Pain 12/09/20 02/24/22 albuterol sulfate 90 mcg/actuation 2 puff inhalation Q4-6H PRN 12/09/20 02/24/22 aerosol inhaler (Ventolin HFA) Wheezing cholecalciferol (vitamin D3) 1,250 1,250 mcg PO QWEEK 12/09/20 02/24/22 mcg (50,000 unit) tablet famotidine 40 mg tablet 40 mg PO BEDTIME 12/09/20 02/24/22 fluticasone propionate 110 1 puff inhalation BID 12/09/20 02/24/22 mcg/actuation HFA aerosol inhaler (Flovent HFA) fluticasone propionate 50 1 spray intranasal DAILY 12/09/20 02/24/22 mcg/actuation nasal spray,suspension gabapentin 300 mg capsule 300 mg PO BID 12/09/20 02/24/22 ketotifen fumarate 0.025 % (0.035 1 drp ophthalmic (eye) BID 12/09/20 02/24/22 %) eye drops levothyroxine 75 mcg capsule 75 mcg PO DAILY 12/09/20 06/15/22 loratadine 10 mg tablet (Allergy 10 mg PO DAILY 12/09/20 02/24/22 Relief (loratadine)) meclizine 25 mg tablet 25 mg PO BID 12/09/20 02/24/22 olanzapine 2.5 mg tablet (Zyprexa) 5 mg PO DAILY 12/09/20 02/24/22 omeprazole 40 mg capsule,delayed 40 mg PO DAILY 12/09/20 02/24/22 release rosuvastatin 40 mg tablet (Crestor) 40 mg PO DAILY 12/09/20 02/24/22 simethicone 125 mg capsule (Gas 125 mg PO TID-QID PRN 12/09/20 02/24/22 Relief (simethicone)) Gastrointestinal Spasms Or Cramping sucralfate 1 gram tablet 1 g PO QIDACHS 12/09/20 02/24/22 tamsulosin 0.4 mg capsule 0.4 mg PO BEDTIME 12/09/20 02/24/22 tizanidine 4 mg capsule 4 mg PO Q8H PRN Muscle Spasm 12/09/20 02/24/22 venlafaxine 150 mg 150 mg PO BEDTIME 12/09/20 02/24/22 capsule,extended release 24 hr (Effexor XR) zaleplon 10 mg capsule 10 mg PO BEDTIME 12/09/20 02/24/22 clotrimazole 1 % topical cream appl topical 04/05/22 hydroxyzine HCl 25 mg tablet 25 mg PO BID 04/05/22 tizanidine 4 mg tablet 4 mg PO TID 04/05/22 Previous Rx's Medication Instructions Recorded levofloxacin 500 mg tablet 500 mg PO DAILY #5 tabs 01/11/23 Allergies Allergy/AdvReac Type Severity Reaction Status Date / Time atorvastatin Allergy Intermediate Muscle Pain Verified 04/05/22 10:24 gemfibrozil Allergy Intermediate itching Verified 04/05/22 10:24 simvastatin Allergy Intermediate GI Verified 04/05/22 10:24 discomfort topiramate [Topiramate] Allergy Intermediate RASH,HIVES Verified 04/05/22 10:24 Review of Systems Review of Systems: Yes all other systems are reviewed and are negative PMFSH Past Medical History Medical History Asthma Elevated cholesterol GERD (gastroesophageal reflux disease) Hearing impairment HTN (hypertension) Mood disorder Sacroiliac joint pain Sleep apnea Surgical History H/O colonoscopy History of esophagogastroduodenoscopy (EGD) Hx laparoscopic cholecystectomy Hx of hemorrhoidectomy Social History Social History Patient Tobacco Use Status: Former Tobacco user Quit Date: 25 years ago Tobacco use type: Cigarette Current occupational status: disabled Physical Exam Vital Signs: Vital Signs: Last Vital Signs Temp 97.5 F 01/11/23 19:33 Pulse 87 01/11/23 19:33 Resp 18 01/11/23 19:33 BP 139/83 01/11/23 19:33 Pulse Ox 97 01/11/23 19:33 O2 Del Method Room Air 01/11/23 19:33 BMI result Body Mass Index 41.5 Appearance: Alert. Oriented X3. No acute distress. HEENT: normal inspection CVS: Normal heart rate and rhythm. Pulses normal. Respiratory: No respiratory distress. Skin: Skin warm and dry. Normal skin color. Normal skin turgor. No rashes. Extremities: plantar aspect of the left foot on the lateral ball of the foot there is a small subcentimeter puncture site with mild tenderness and redness, no drainage, no palpable FB Neuro: Oriented X 3. grossly normal Medical Decision Making Medical Decision Making MDM Narrative: 62-year-old male presents to the ER for evaluation of left plantar puncture wound after stepping on a nail through his shoe. He has tenderness and erythema to the puncture site. He is not diabetic. Area was cleaned with soap and water prior to arrival. Given the fact that the nail went through the shoe, will treat for Pseudomonas and Staph. Patient is stable for discharge home after his tetanus shot. Patient counseled on wound care and worrisome signs and symptoms that should prompt urgent re-evaluation. Differential Diagnosis Differential Diagnoses: The differential diagnosis associated with the presentation includes Puncture wound, retained foreign body, cellulitis, fracture External Record Review External record reviewed: Outpatient record and Prior outpatient labs Tests considered The following testing was considered but not selected: X-ray considered however no evidence of retained foreign body Prescription Management I considered prescription management with: Antibiotic Critical Care Time Critical Care Time Critical Care Time: No Discharge Plan Discharge Clinical Impression: Puncture wound of foot Patient Disposition: Home, Self-Care Instructions: Puncture Wound in the Foot (ED) Additional Instructions: Soak your foot in warm soapy water when you get home. Use antibiotic ointment like Neosporin or bacitracin to the area 2 times per day. Take the prescribed antibiotic as directed, complete the entire course to help prevent infection. If you develop new or worsening symptoms call 911 or come back to the ER for further evaluation. Remoje jeffries pie en agua jabonosa tibia cuando llegue a casa. Use pomada antibi?lydia dayron Neosporin o bacitracina en el ?nikki 2 veces al d?a. [place] el antibi?geneva recetado seg?n las indicaciones, complete todo el curso para ayudar a prevenir infecciones. Si desarrolla s?ntomas nuevos o que empeoran, llame al 911 o regrese a la debbie de emergencias para ly evaluaci?n adicional. Prescriptions: New levofloxacin 500 mg tablet 500 mg PO DAILY Qty: 5 0RF No Action zaleplon 10 mg capsule 10 mg PO BEDTIME tamsulosin 0.4 mg capsule 0.4 mg PO BEDTIME venlafaxine [Effexor XR] 150 mg capsule,extended release 24hr 150 mg PO BEDTIME olanzapine [Zyprexa] 2.5 mg tablet 5 mg PO DAILY cholecalciferol (vitamin D3) 1,250 mcg (50,000 unit) tablet 1,250 mcg PO QWEEK Flovent HFA 110 mcg/actuation HFA aerosol inhaler 1 puff inhalation BID loratadine [Allergy Relief (loratadine)] 10 mg tablet 10 mg PO DAILY acetaminophen 325 mg capsule 650 mg PO Q6H PRN (Reason: Pain) albuterol sulfate [Ventolin HFA] 90 mcg/actuation HFA aerosol inhaler 2 puff inhalation Q4-6H PRN (Reason: Wheezing) famotidine 40 mg tablet 40 mg PO BEDTIME meclizine 25 mg tablet 25 mg PO BID tizanidine 4 mg capsule 4 mg PO Q8H PRN (Reason: Muscle Spasm) omeprazole 40 mg capsule,delayed release(DR/EC) 40 mg PO DAILY sucralfate 1 gram tablet 1 g PO QIDACHS ketotifen fumarate 0.025 % (0.035 %) drops 1 drp ophthalmic (eye) BID Rx Instructions: administer at least 8 hours apart simethicone [Gas Relief (simethicone)] 125 mg capsule 125 mg PO TID-QID PRN (Reason: Gastrointestinal Spasms Or Cramping) gabapentin 300 mg capsule 300 mg PO BID fluticasone propionate 50 mcg/actuation spray,suspension 1 spray intranasal DAILY Rx Instructions: administer into each nostril levothyroxine 75 mcg capsule 75 mcg PO DAILY rosuvastatin [Crestor] 40 mg tablet 40 mg PO DAILY clotrimazole 1 % cream topical hydroxyzine HCl 25 mg tablet 25 mg PO BID tizanidine 4 mg tablet 4 mg PO TID
[2023-01-11] MEDS: Diphth,Pertus(ACell),Tet Adult 0.5 ML SYRINGE IM (20:04)
== END 2023-01-11 20:15 | disposition home or self-care (01) ==
LOC: HO.ED 20:06
PROVIDERS: Emergency Provider Internal Medicine
DX: S91.332A Puncture wound without foreign body, left foot, initial encounter (principal); W45.0XXA Nail entering through skin, initial encounter; Y93.9 Activity, unspecified; Y92.9 Unspecified place or not applicable; Y99.9 Unspecified external cause status
CPT/HCPCS: 90471; 90715; 99282; 99284

== ENCOUNTER 2023-03-28 09:36 | Outpatient (REF) | payer OTHER, SELFPAY ==
[2023-03-28 12:59] LABS: Free T4 (Free Thyroxine) 0.82 ng/dL (0.71-1.85); Thyroid Stimulating Hormone 5.33 uIU/mL (0.32-4.0)
== END 2023-03-28 09:37 | disposition home or self-care (01) ==
LOC: HO.HHCL 09:36
PROVIDERS: Visit Provider Family Medicine
DX: E03.8 Other specified hypothyroidism (principal); E06.3 Autoimmune thyroiditis
CPT/HCPCS: 36415; 84439; 84443

== ENCOUNTER 2023-03-31 12:43 | Outpatient (REF) | payer OTHER, SELFPAY ==
--- NOTE | ~2023-03-31 | US_ITS ---
EXAMINATION: US FOOT, SOFT TISSUES, LEFT CLINICAL INDICATION: Lateral plantar foot pain following stepping upon a nail 6 weeks prior; question radiopaque foreign body. COMPARISON: None available. TECHNIQUE: Using a linear transducer with grayscale and color modalities, ultrasound examination is performed of the area of clinical concern in the lateral plantar soft tissues of the left forefoot. FINDINGS: At the area of clinical concern within or immediately deep to the dermal surface, there is a small hyperechoic focus without associated color Doppler flow. This may represent a small focus of scarring or resolving hematoma. No foreign body is seen. There is no mass or fluid collection noted. US/US extremity nonvascular IMPRESSION: No radiopaque foreign body is noted.
== END 2023-03-31 12:44 | disposition home or self-care (01) ==
LOC: HO.HMGCX 12:43
PROVIDERS: PCP Family Medicine; Visit Provider Registered Nurse
DX: M79.672 Pain in left foot (principal)
CPT/HCPCS: 76882

== ENCOUNTER 2023-04-10 13:43 | Outpatient (AMB) | payer OTHER, SELFPAY ==
--- NOTE | 2023-04-10 14:13 | MHC.OFFVIS ---
Intake Vital Signs 04/10/23 14:18 Height 5 ft 4 in Weight 246 lb 3 oz BMI 42.3 BP 124/69 Blood Pressure Location Rt brachial Position Sitting Pulse 79 Pulse Source Pulse Oximeter Pulse Oximetry (%) 98 Oxygen Delivery Method Room Air Intake Visit Reasons: Back pain Allergies atorvastatin Allergy (Intermediate, Verified 04/10/23 14:18) Muscle Pain gemfibrozil Allergy (Intermediate, Verified 04/10/23 14:18) itching simvastatin Allergy (Intermediate, Verified 04/10/23 14:18) GI discomfort topiramate [Topiramate] Allergy (Intermediate, Verified 04/10/23 14:18) RASH,HIVES HPI HPI Comments History of Present Illness Details Patient presents today for follow for return of his lower back pain with radiation to both of his lower extremities laterally and posteriorly. He also presents with significant left SIJ and mild right SIJ pain. Denies any recent trauma, injury or falls. Patient was last seen in our office on 07/25/[address] Parish. Patient requests to repeat previous therapeutic injections under sedation only. He experiences spine-stenosis related pain with walking, prolonged standing, bending, twisting, changing positions and cold weather changes. Declined to update his lumbar spine MRI, will update lower back imaging with sacroiliac joint views. Patient reports I'm claustrophobic and I will not have back surgery. Denies any recent cough, cold, infection, fever or other significant changes in medical history since last office visit. Patient denies any bladder or bowel incontinence or saddle anesthesia. Ambulates without assisting devices, reports mild weakness in his lower extremities, worse on the left. Past Procedures: 06/15/22: Left SIJ Steroid Injection - 90% relief. 03/02/22: L5-S1 Interlaminar KELSEY ? 100% relief. 11/10/21: Bilateral Therapeutic SIJ Injections ? Minimal relief. PRIOR: Patient is a pleasant 61 years old Turkmen speaking male who presents today to assess his response to L5-S1 interlaminar KELSEY on 03/02/[address] Parish. Patient reports 100% ongoing pain relief post procedure. Patient reports his back pain is gone and denies radiation of pain to his lower extremities. He endorses significant left sacroiliac joint pain and would like to repeat therapeutic left SIJ injection. We reviewed his prevous bilateral SIJ injections with ropivucaine that provided him minimal results. Patient reports his left upper buttock and lateral hip have been increasing. Hip exam was normal and all provocative maneuvers for left SIJ were positive today. Patient would like to schedule his injection under sedation. He denies right SIJ pain. PRIOR 12/22/21 [employer]: Tristen returns to review the effectiveness of bilateral therapeutic SIJ injections performed on 11/10/[address] Parish. Unfortunately, he reported minimal relief s/p procedure. He again notes his back is located across the lower back, typically worse on the left. He does report more constant pain with radiation into BLE, L>R and would like to discuss another intervention to target this. PRIOR: Tristen is a pleasant 60 year old male who presents to the office with complaints of low back pain. He states the pain started years ago without any inciting events, but in the past few months has been more exacerbated. He reports the pain starts midline and radiates across the low back. He notes radiation to posterior bilateral legs to the level of the knee and often feels like his legs are falling asleep. Denies any numbness, tingling of bilateral feet. Denies any bowel/bladder dysfunction or weakness. The pain is worse in the morning and less severe at night time. He reports pain onset was gradual. constant and rates the pain a 10/10. He reports his pain is exacerbated by activity as well as prolonged sitting and when driving. His pain is partially alleviated with laying flat. He states the pain is interfering with sleep, activities of daily living and he cannot function normally. He has tried OTC medications without any improvement in his pain. Previously he has tried physical therapy, the last being about four months ago. After a few sessions the patient felt his symptoms were exacerbated and could not tolerate it. Denies any chiropractic manipulation, massage or acupuncture. Denies any previous back injections or surgery. He last had imaging of his lumbar spine in 2019, this report is in his chart. He presents today to discuss injections with sedation. He was evaluated at [facility] and was given ativan prior to the procedure but states his anxiety was so elevated he could not proceed with the procedure. Their office recommended he come to this office to have a procedure with sedation. His past medical history is significant for GERD, Impaired fasting glucose, BPPV, mood disorder, cholcystectomy, bilateral hearing impairment, asthma and HTN. He denies current tobacco and alcohol use. [facility] Medical History Asthma Elevated cholesterol GERD (gastroesophageal reflux disease) Hearing impairment HTN (hypertension) Mood disorder Sacroiliac joint pain Sleep apnea Surgical History H/O colonoscopy History of esophagogastroduodenoscopy (EGD) Hx laparoscopic cholecystectomy Hx of hemorrhoidectomy Social History Patient Tobacco Use Status: Former Tobacco user Quit Date: 25 years ago Tobacco use type: Cigarette Current occupational status: disabled Review of Systems Const All systems reviewed & are unremarkable except as noted in HPI and below Physical Exam Vital Signs: Last Vital Signs Pulse 79 04/10/23 14:18 BP 124/69 04/10/23 14:18 Pulse Ox 98 04/10/23 14:18 Oxygen Delivery Method Room Air 04/10/23 14:18 BMI result Body Mass Index 42.3 General: Appears afebrile. Alert and oriented. Mood and affect appropriate. Follows and participates in conversation appropriately. Respiratory effort is unlabored. Able to transition from sit to stand unassisted. Ambulates with bilaterally normal heel strike and toe off. Back/Spine/Pelvis Cervical Spine: cervical ROM normal and No Cervical spine tenderness Thoracic/Lumbar Spine: thoracic and lumbar spine normal to inspection, Lasegue's sign positive bilateral and diffuse, pain with thoraco-lumbar ROM, paraspinal muscle tenderness, thoraco-lumbar ROM limited, No thoracic spinal tenderness, lumbar spinal tenderness and straight leg raise positive bilateral at 50 degrees Sacroiliac joints: bilaterally (L>R, +Venu's, +Bennie's, +Pelvic compression, +Stinchfield) tender to palpation Results Reviewed Results Reviewed: Assessment & Plan Assessment & Plan (1) Multilevel degenerative disc disease: Code(s): M53.9 - Dorsopathy, unspecified (2) Stenosis, spinal, lumbar: Code(s): M48.061 - Spinal stenosis, lumbar region without neurogenic claudication (3) Lumbosacral spondylosis: Code(s): M47.817 - Spondylosis without myelopathy or radiculopathy, lumbosacral region (4) Sacroiliitis: Code(s): M46.1 - Sacroiliitis, not elsewhere classified (5) Sacroiliac joint pain: Code(s): M53.3 - Sacrococcygeal disorders, not elsewhere classified (6) Muscle spasm of back: Code(s): M62.830 - Muscle spasm of back Plan Lumbar spine and sacroiliac joint imaging to assess degree of degenerative changes, any subluxation, listhesis, compression fractures or pars defects. Patient had excellent results with recent L5-S1 interlaminar KELSEY on 03/02/22 and left SIJ steroid injection on 06/15/[address] Parish. Both pain generators have returned with radicular back pain worse than SIJ. Will schedule him for L5-S1 Interlaminar KELSEY injection with under sedation and with fluoroscopy per patient' request. Patient reports tizanidine causes him significant drowsiness. Will stop this and start patient on methocarbamol. Side effects and precautions were reviewed with patient. All questions were answered today and patient agreed with the plan. Follow up after injection and sooner if needed. Justification for interventional therapy: ? Patient with average pain > 6/10 ? Patient has exhausted conservative therapy The risks, consequences, alternatives, and benefits of various treatment options were discussed with the patient in great detail, including conservative management, injections and procedures. I have informed patient of hyperglycemic effects of steroids. Orders: Orders XR lumbar spine 4V min Today M47.817 - Spondylosis without myelopathy or radiculopathy, lumbosacral region, M48.061 - Spinal stenosis, lumbar region without neurogenic claudication, M53.9 - Dorsopathy, unspecified XR sacroiliac joint min 3V Today M46.1 - Sacroiliitis, not elsewhere classified, M47.817 - Spondylosis without myelopathy or radiculopathy, lumbosacral region, M53.3 - Sacrococcygeal disorders, not elsewhere classified Medications: New methocarbamol 750 mg PO Q8H PRN 90 tabs 0RF muscle spasm M47.817 - Spondylosis without myelopathy or radiculopathy, lumbosacral region, M48.061 - Spinal stenosis, lumbar region without neurogenic claudication, M62.830 - Muscle spasm of back lidocaine 5% leave on most painful area for up to 12 hrs topically daily; 30 ea 2RF pain M47.817 - Spondylosis without myelopathy or radiculopathy, lumbosacral region, M48.061 - Spinal stenosis, lumbar region without neurogenic claudication, M53.9 - Dorsopathy, unspecified Coding Level of Care Code Est Pt Level 4 (98104) Diagnoses Multilevel degenerative disc disease M53.9 Stenosis, spinal, lumbar M48.061 Lumbosacral spondylosis M47.817 Sacroiliitis M46.1 Sacroiliac joint pain M53.3 Muscle spasm of back M62.830
[2023-04-10 14:18] VITALS: BP 124/69; PULSE 79; O2SAT 98; BMI 42.3
== END 2023-04-10 14:32 | disposition home or self-care (01) ==
PROVIDERS: PCP Family Medicine; Visit Provider Nurse Practitioner Family
DX: M53.9 Dorsopathy, unspecified (principal); M48.061 Spinal stenosis, lumbar region without neurogenic claudication; M47.817 Spondylosis without myelopathy or radiculopathy, lumbosacral region; M46.1 Sacroiliitis, not elsewhere classified; M53.3 Sacrococcygeal disorders, not elsewhere classified; M62.830 Muscle spasm of back
CPT/HCPCS: 99214

== ENCOUNTER 2023-04-10 13:43 | Outpatient (REF) | payer OTHER, SELFPAY ==
--- NOTE | ~2023-04-10 | XR_ITS ---
EXAMINATION: XR LUMBOSACRAL SPINE WITH OBLIQUES CLINICAL INFORMATION: Pain. COMPARISON: 08/17/2015 TECHNIQUE: AP, both oblique, and lateral views of the lumbar spine. Lateral view of the lumbosacral junction. FINDINGS: There is straightening of lumbar lordosis and mild narrowing of L5-S1 intervertebral disc space as well as mild narrowing of L2-L1 intervertebral disc space. There is minimal marginal spurring along the lumbar spine. Oblique views revealed mild facets arthropathy at the level of L5-S1 bilaterally. Sacroiliac joints unremarkable. Soft tissues are normal. XR/XR lumbar spine 4V min IMPRESSION: Mild degenerative changes
--- NOTE | ~2023-04-10 | XR_ITS ---
EXAMINATION: XR SACROILIAC JOINTS CLINICAL INFORMATION: Radiculopathy COMPARISON: None available. TECHNIQUE: 3 views of the sacroiliac joints FINDINGS: Bones and soft tissues are normal. No fracture. Alignment is anatomic. Sacroiliac joint spaces are well-maintained without erosions or surrounding sclerosis. XR/XR sacroiliac joint min 3V IMPRESSION: Normal sacroiliac joints.
== END 2023-04-10 13:44 | disposition home or self-care (01) ==
LOC: HO.XRAY 13:43
PROVIDERS: PCP Family Medicine; Visit Provider Nurse Practitioner Family
DX: M53.9 Dorsopathy, unspecified (principal); M48.061 Spinal stenosis, lumbar region without neurogenic claudication; M46.1 Sacroiliitis, not elsewhere classified; M53.3 Sacrococcygeal disorders, not elsewhere classified; M47.817 Spondylosis without myelopathy or radiculopathy, lumbosacral region
CPT/HCPCS: 72110; 72202; 99212

== ENCOUNTER 2023-05-08 09:43 | Outpatient (REF) | payer OTHER, SELFPAY ==
[2023-05-08 11:52] LABS: Free T4 (Free Thyroxine) 0.71 ng/dL (0.71-1.85); Thyroid Stimulating Hormone 4.55 uIU/mL (0.32-4.0)
== END 2023-05-08 09:44 | disposition home or self-care (01) ==
LOC: HO.HHCL 09:43
PROVIDERS: Visit Provider Family Medicine
DX: E03.8 Other specified hypothyroidism (principal); E06.3 Autoimmune thyroiditis
CPT/HCPCS: 36415; 84439; 84443

== ENCOUNTER 2023-06-28 10:20 | Day surgery (SDC) | payer OTHER, SELFPAY ==
[2023-06-23 13:16] VITALS: BMI 42.2
--- NOTE | 2023-06-27 10:02 | HO.ANESPROP2 ---
Documented by User: Kelsie Bustos NP 06/27/23 10:03 HPI - Anesthesia Eval Consult details Narrative: 62yo M for L5-S1 Interlaminar Epidural Steroid Injection s/p same 05/2022 with [facility] Active Problems Active Problems: All Active Problems (Updated 04/10/23 @ 14:29 by ARMINDA Mahoney) Muscle spasm of back (Acute) Lumbosacral spondylosis (Acute) Sacroiliitis (Acute) Sacroiliac joint pain (Acute) Spondylosis of lumbar region without myelopathy or radiculopathy (Acute) Pain of left thumb (Acute) Stenosis, spinal, lumbar (Acute) Multilevel degenerative disc disease (Acute) Past Medical History Medical History Sacroiliac joint pain Hearing impairment Asthma Mood disorder HTN (hypertension) Sleep apnea Elevated cholesterol GERD (gastroesophageal reflux disease) Family History Family history of problems with anesthesia: No Surgical History Surgical History Hx laparoscopic cholecystectomy Hx of hemorrhoidectomy History of esophagogastroduodenoscopy (EGD) H/O colonoscopy History of Problems with Anesthesia: No Social History Social History Patient Tobacco Use Status: Former Tobacco user Quit Date: 25 years ago Tobacco use type: Cigarette Use of substances other than those prescribed or required for medical reasons: No Are you DNR?: No Advance Directives: No Advance Directives Information Provided: Yes Current occupational status: disabled Meds Allergies Allergy/AdvReac Type Severity Reaction Status Date / Time atorvastatin Allergy Intermediate Muscle Pain Verified 04/10/23 14:18 gemfibrozil Allergy Intermediate itching Verified 04/10/23 14:18 simvastatin Allergy Intermediate GI Verified 04/10/23 14:18 discomfort topiramate [Topiramate] Allergy Intermediate RASH,HIVES Verified 04/10/23 14:18 Home Medications Medication Instructions Recorded Confirmed Last Taken Type acetaminophen 325 mg capsule 650 mg PO Q6H PRN Pain 12/09/20 02/24/22 Unknown History albuterol sulfate 90 mcg/actuation 2 puff inhalation Q4-6H PRN 12/09/20 02/24/2222 History aerosol inhaler (Ventolin HFA) Wheezing cholecalciferol (vitamin D3) 1,250 1,250 mcg PO QWEEK 12/09/20 02/24/22 Unknown History mcg (50,000 unit) tablet famotidine 40 mg tablet 40 mg PO BEDTIME 12/09/20 02/24/22 Unknown History fluticasone propionate 110 1 puff inhalation BID 12/09/20 02/24/22 11/10/21 10:00 History mcg/actuation HFA aerosol inhaler (Flovent HFA) fluticasone propionate 50 1 spray intranasal DAILY 12/09/20 02/24/22 Unknown History mcg/actuation nasal spray,suspension levothyroxine 75 mcg capsule 75 mcg PO DAILY 12/09/20 06/15/22 06/28/23 06:00 History loratadine 10 mg tablet (Allergy 10 mg PO DAILY 12/09/20 02/24/22 Unknown History Relief (loratadine)) meclizine 25 mg tablet 25 mg PO BID 12/09/20 02/24/22 Unknown History olanzapine 2.5 mg tablet (Zyprexa) 5 mg PO DAILY 12/09/20 02/24/22 Unknown History omeprazole 40 mg capsule,delayed 40 mg PO DAILY 12/09/20 02/24/22 Unknown History release rosuvastatin 40 mg tablet (Crestor) 40 mg PO DAILY 12/09/20 02/24/22 Unknown History simethicone 125 mg capsule (Gas 125 mg PO TID-QID PRN 12/09/20 02/24/22 Unknown History Relief (simethicone)) Gastrointestinal Spasms Or Cramping sucralfate 1 gram tablet 1 g PO QIDACHS 12/09/20 02/24/22 Unknown History tamsulosin 0.4 mg capsule 0.4 mg PO BEDTIME 12/09/20 02/24/22 Unknown History venlafaxine 150 mg 150 mg PO BEDTIME 12/09/20 02/24/22 Unknown History capsule,extended release 24 hr (Effexor XR) zaleplon 10 mg capsule 10 mg PO BEDTIME 12/09/20 02/24/22 Unknown History clotrimazole 1 % topical cream appl topical 04/05/22 Unknown History hydroxyzine HCl 25 mg tablet 25 mg PO BID 04/05/22 Unknown History melatonin 5 mg tablet 5 mg PO BEDTIME 04/10/23 Unknown History Exam Height,Weight and Vital Signs: Height 5 ft 4 in Weight 111.584 kg Assessment and Plan Assessment Anesthesia Assessment: Chart Reviewed Final Anesthetic Review Family History of Problems with Anesthesia: No History of Problems with Anesthesia: No Documented by User: Crista Carmona MD 06/28/23 14:22 [facility] Past Medical History Medical History Sacroiliac joint pain Hearing impairment Asthma Mood disorder HTN (hypertension) Sleep apnea Elevated cholesterol GERD (gastroesophageal reflux disease) Surgical History Surgical History Hx laparoscopic cholecystectomy Hx of hemorrhoidectomy History of esophagogastroduodenoscopy (EGD) H/O colonoscopy Social History Social History Patient Tobacco Use Status: Former Tobacco user Quit Date: 25 years ago Tobacco use type: Cigarette Use of substances other than those prescribed or required for medical reasons: No Are you DNR?: No Advance Directives: No Advance Directives Information Provided: Yes Current occupational status: disabled Meds Allergies Allergy/AdvReac Type Severity Reaction Status Date / Time atorvastatin Allergy Intermediate Muscle Pain Verified 04/10/23 14:18 gemfibrozil Allergy Intermediate itching Verified 04/10/23 14:18 simvastatin Allergy Intermediate GI Verified 04/10/23 14:18 discomfort topiramate [Topiramate] Allergy Intermediate RASH,HIVES Verified 04/10/23 14:18 Home Medications Medication Instructions Recorded Confirmed Last Taken Type acetaminophen 325 mg capsule 650 mg PO Q6H PRN Pain 12/09/20 02/24/22 Unknown History albuterol sulfate 90 mcg/actuation 2 puff inhalation Q4-6H PRN 12/09/20 02/24/22 03/02/22 History aerosol inhaler (Ventolin HFA) Wheezing cholecalciferol (vitamin D3) 1,250 1,250 mcg PO QWEEK 12/09/20 02/24/22 Unknown History mcg (50,000 unit) tablet famotidine 40 mg tablet 40 mg PO BEDTIME 12/09/20 02/24/22 Unknown History fluticasone propionate 110 1 puff inhalation BID 12/09/20 02/24/22 11/10/21 10:00 History mcg/actuation HFA aerosol inhaler (Flovent HFA) fluticasone propionate 50 1 spray intranasal DAILY 12/09/20 02/24/22 Unknown History mcg/actuation nasal spray,suspension levothyroxine 75 mcg capsule 75 mcg PO DAILY 12/09/20 06/15/22 06/28/23 06:00 History loratadine 10 mg tablet (Allergy 10 mg PO DAILY 12/09/20 02/24/22 Unknown History Relief (loratadine)) meclizine 25 mg tablet 25 mg PO BID 12/09/20 02/24/22 Unknown History olanzapine 2.5 mg tablet (Zyprexa) 5 mg PO DAILY 12/09/20 02/24/22 Unknown History omeprazole 40 mg capsule,delayed 40 mg PO DAILY 12/09/20 02/24/22 Unknown History release rosuvastatin 40 mg tablet (Crestor) 40 mg PO DAILY 12/09/20 02/24/22 Unknown History simethicone 125 mg capsule (Gas 125 mg PO TID-QID PRN 12/09/20 02/24/22 Unknown History Relief (simethicone)) Gastrointestinal Spasms Or Cramping sucralfate 1 gram tablet 1 g PO QIDACHS 12/09/20 02/24/22 Unknown History tamsulosin 0.4 mg capsule 0.4 mg PO BEDTIME 12/09/20 02/24/22 Unknown History venlafaxine 150 mg 150 mg PO BEDTIME 12/09/20 02/24/22 Unknown History capsule,extended release 24 hr (Effexor XR) zaleplon 10 mg capsule 10 mg PO BEDTIME 12/09/20 02/24/22 Unknown History clotrimazole 1 % topical cream appl topical 04/05/22 Unknown History hydroxyzine HCl 25 mg tablet 25 mg PO BID 04/05/22 Unknown History melatonin 5 mg tablet 5 mg PO BEDTIME 04/10/23 Unknown History Exam Airway Mallampati Class: II TM Dist: <=3cm Neck ROM: Limited Heart: rrr Lungs: cta Assessment and Plan Assessment Anesthesia Assessment: Anesthesia Plan Discussed Final Anesthetic Review NPO: Yes ASA Class: III Final Preanesthetic Review: No Changes in Pt Med Stat, Meds/Allgs Chart Reviewed, Consent Obtained/Reviewed and Anes Risks/Benef Reviewed Patient Risk: Low Procedure Risk: Low Anesthetic Plan Anesthetic Plan: MAC: Disposition: Standard PACU
--- NOTE | ~2023-06-28 | FL_ITS ---
EXAMINATION: XR FLUOROSCOPY WITH IMAGES CLINICAL INFORMATION: L5-S1 interlaminar epidural steroid injection. COMPARISON: None available. TECHNIQUE: Fluoroscopy Supervised By: Dr. Olman Parish. Fluoroscopy Time: 0.5 minutes. Cumulative Dose: 37.2 mGy. DAP: 3.84 Gycm2. Images: 2. FINDINGS: Images demonstrate needle / probe placement and contrast injection over the lower lumbar sacral spine FL/FL guidance in OR IMPRESSION: Fluoroscopy guidance for pain management procedure.
[2023-06-28 13:14] VITALS: BMI 42.0
[2023-06-28 13:23] VITALS: BP 124/65; PULSE 66; RESP 16; O2SAT 97
--- NOTE | 2023-06-28 15:17 | PM.OP ---
Brief Operative Note Date of Service: 06/28/23 Pre-op diagnosis: Lumbar radiculopathy Post-op diagnosis: same Procedure: Attempted L5-S1 interlaminar epidural steroid injection Surgeon: Olman Parish MD Anesthesia: MAC Was an Pillowcase Sewer used for this Procedure?: No Estimated blood loss (mL): 1 Pathology: none sent Condition: stable Disposition: PACU
[2023-06-28 15:18] VITALS: BP 109/63; PULSE 72; RESP 16; TEMP 36.3; O2SAT 98
--- NOTE | 2023-06-28 15:18 | MHC.SHP ---
Pre-Procedural Eval Section A Date of Service: 06/28/23 The patient is an INPATIENT: No Changes since office visit: Yes Patient answered all questions The History & Physical has been completed within 30 days and I have reviewed it.: No Section B Chief Complaint: Other intervertebral disc degeneration,spinal sten Relevant Family History (Specify if Yes): No Relevant Social History: None Present Medications: see Short Stay Collaborative assessment Medical History: No relevant PMH History of Previous Operations: No relevant previous surgery Allergies: Allergies Allergy/AdvReac Type Severity Reaction Status Date / Time atorvastatin Allergy Intermediate Muscle Pain Verified 04/10/23 14:18 gemfibrozil Allergy Intermediate itching Verified 04/10/23 14:18 simvastatin Allergy Intermediate GI Verified 04/10/23 14:18 discomfort topiramate [Topiramate] Allergy Intermediate RASH,HIVES Verified 04/10/23 14:18 Review of Systems Sugical H&P ROS: Negative: Constitution, Cardiovascular and Respiratory Exam Surgical H&P Exam: Normal: HEENT, Normal: Heart and Normal: Lungs Plan Diagnosis/Plan: Unchanged I have reviewed the history and physical and performed a pertinent physical examination on my patient. No changes have occurred unless specified. Time Spent With Patient Time: Total time managing care of this patient today ____ minutes.
--- NOTE | 2023-06-28 15:19 | W.PM.OPN ---
Operative Note Operative Note Date of Service: 06/28/23 Narrative: Interlaminar epidural steroid injection, L5-S1 After obtaining written consent, pre-procedure blood pressure and heart rate were stable and recorded in the nursing record. Standard monitors were applied. The patient was placed in the prone position. Patient was sedated by the exhibits manager. The lumbar area was widely prepped with chloraprep and draped in sterile fashion. Fluoroscopic guidance was used to identify the desired interlaminar space and for needle placement. Subcutaneous 0.5% lidocaine was used to anesthetize the skin overlying the target. A 20-gauge Garcia needle was advanced to the epidural space using loss of resistance to contrast technique under fluoroscopic AP and contralateral oblique views. There was no evidence of heme or CSF and no paresthesias were elicited with needle placement, however contrast pattern was consistent with intrathecal spread. The needle was removed and readvanced in the L5-S1 interspace and then in the L4-5 interspace as well. Each time there was adequate loss of resistance to saline, however the contrast pattern was nonreassuring. Decision was made to abort the procedure without injecting any corticosteroid. We will reschedule the patient for potentially a caudal epidural steroid injection under sedation in the future. Following the procedure the patient's vital signs were stable. The patient was discharged home in good condition with post-procedural instructions. Time Out: Immediately prior to the procedure, the following was verbally confirmed that there is a signed consent form and that the correct patient, planned procedure, site and side are consistent with documentation and that necessary equipment and/or blood products are available prior to the start of the case. Complications: Possible dural puncture EBL: <5 cc
[2023-06-28 15:33] VITALS: BP 124/72; PULSE 61; RESP 18; TEMP 36.6; O2SAT 96
== END 2023-06-28 15:57 | disposition home or self-care (01) ==
PROVIDERS: PCP Family Medicine; Visit Provider Internal Medicine
PROC: 3E0R33Z Introduction of Anti-inflammatory into Spinal Canal, Percutaneous Approach (ICD-10-PCS; CPT 64483; principal; 2023-06-28 14:00)
DX: M51.36 Other intervertebral disc degeneration, lumbar region (principal); Z53.8 Procedure and treatment not carried out for other reasons; M48.061 Spinal stenosis, lumbar region without neurogenic claudication; M47.817 Spondylosis without myelopathy or radiculopathy, lumbosacral region; M62.830 Muscle spasm of back; M53.3 Sacrococcygeal disorders, not elsewhere classified; M46.1 Sacroiliitis, not elsewhere classified; M53.9 Dorsopathy, unspecified; G47.33 Obstructive sleep apnea (adult) (pediatric); I10 Essential (primary) hypertension; E78.00 Pure hypercholesterolemia, unspecified; J45.909 Unspecified asthma, uncomplicated
CPT/HCPCS: 64483; J1040; J2250; J2704; Q9967

== ENCOUNTER → 2023-06-28 10:20 | Outpatient (BNV) | payer OTHER, SELFPAY | PROVIDERS: PCP Family Medicine; Visit Provider Internal Medicine | DX: M48.061 Spinal stenosis, lumbar region without neurogenic claudication (principal); M51.36 Other intervertebral disc degeneration, lumbar region | CPT/HCPCS: 62323 ==

== ENCOUNTER 2023-07-17 12:20 | Outpatient (AMB) | payer OTHER, SELFPAY ==
--- NOTE | 2023-07-17 12:59 | A.OFFVIS_ITS ---
Intake Vital Signs 07/17/23 13:00 Height 5 ft 4 in Weight 245 lb 9.519 oz BMI 42.2 BP 129/71 Blood Pressure Location Lt brachial Position Sitting Pulse 75 Intake Visit Reasons: Puncture wound left foot Intake Note: This patient presents for a puncture wound on the left foot assessment. Patient c/o; reports discomfort, left foot, reports had stepped on a nail. 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 He extensive workup through the Emergency Department including tetanus shot antibiotics. He was doing well up until the last few weeks we now complaining of pain of the left forefoot. He is unclear if this is related to his puncture site. He has had no other symptoms. Chart was reviewed and patient evaluated. Patient presents with a sister. [facility] Medical History Sacroiliac joint pain Hearing impairment Asthma Mood disorder HTN (hypertension) Sleep apnea Elevated cholesterol GERD (gastroesophageal reflux disease) Surgical History Hx laparoscopic cholecystectomy Hx of hemorrhoidectomy History of esophagogastroduodenoscopy (EGD) H/O colonoscopy Social History Patient Tobacco Use Status: Former Tobacco user Quit Date: 25 years ago Tobacco use type: Cigarette Current occupational status: disabled Physical Exam Vital Signs: Last Vital Signs Pulse 75 07/17/23 13:00 BP 129/71 07/17/23 13:00 BMI result Body Mass Index 42.2 Extrem Other: Left lower extremity grossly neurovascularly intact. Patient has an indurated area of the mid left forefoot which is consistent with a plantar wart type process. There is no evidence of erythema or fluctuance. Tender to palpation. Assessment & Plan Assessment & Plan (1) Plantar wart of left foot: Code(s): B07.0 - Plantar wart Plan Current plan is to refer the patient to podiatry for further evaluation. All questions answered. Arrangements were made for this. Patient otherwise follow- up p.r.n.. Coding Level of Care Code New Pt Level 3 (73646) Diagnoses Plantar wart of left foot B07.0
[2023-07-17 13:00] VITALS: BP 129/71; PULSE 75; BMI 42.2
== END 2023-07-17 13:42 | disposition home or self-care (01) ==
PROVIDERS: PCP Family Medicine; Visit Provider Surgery
DX: B07.0 Plantar wart (principal)
CPT/HCPCS: 99203

== ENCOUNTER → 2023-07-17 12:20 | Outpatient (BNVA) | payer OTHER, SELFPAY | PROVIDERS: PCP Family Medicine; Visit Provider Surgery | DX: B07.0 Plantar wart (principal) | CPT/HCPCS: 99202 ==

== ENCOUNTER 2023-09-05 10:23 | Outpatient (REF) | payer OTHER, SELFPAY ==
--- NOTE | ~2023-09-05 | XR_ITS ---
EXAMINATION: XR ELBOW, LEFT CLINICAL INFORMATION: Pain COMPARISON: None available. TECHNIQUE: AP, lateral, and oblique views of the left elbow. FINDINGS: No acute fracture or dislocation. Insertional enthesopathy at the olecranon. XR/XR elbow LT min 3V IMPRESSION: No acute fracture or dislocation. Insertional enthesopathy at the olecranon.
== END 2023-09-05 10:24 | disposition home or self-care (01) ==
LOC: HO.HHCX 10:23
PROVIDERS: Visit Provider Family Medicine
DX: M25.522 Pain in left elbow (principal); G89.29 Other chronic pain
CPT/HCPCS: 73080

== ENCOUNTER 2023-10-04 08:34 | Outpatient (REF) | payer OTHER, SELFPAY ==
--- NOTE | ~2023-10-04 | US_ITS ---
EXAMINATION: US COMPLETE ABDOMEN WITH LIVER ELASTOGRAPHY CLINICAL INFORMATION: Nonalcoholic fatty liver disease. COMPARISON: Abdominal ultrasound 07/27/2020. TECHNIQUE: Real-time imaging of the abdominal viscera. Noninvasive ultrasound liver fibrosis assessment is performed using [place] ElastPQ point quantification shear wave elastography (2D-SWE) with a C5-2 MHz transducer. Multiple elastography samples are obtained. FINDINGS: PANCREAS: Normal. The visualized pancreatic head and body are normal in appearance. The remainder of the pancreas is obscured from visualization by the overlying bowel gas. ABDOMINAL AORTA: Visualized segments are normal in caliber. INFERIOR VENA CAVA: Visualized portions are normal. LIVER: Liver echogenicity is increased consistent with hepatic steatosis. No discrete liver mass or ductal dilatation. The right lobe measures 18.8 cm in length. The left lobe measures 10.6 cm in length. Portal flow is hepatopedal. Shear wave liver elastography median stiffness is 1.29 m/s (reference: normal median stiffness is 1.3 m/s or less). IQR/median stiffness to assess sampling precision is 0.11 (reference: good quality data set is IQR/median stiffness of 0.15 or less). GALLBLADDER: Cholecystectomy. COMMON BILE DUCT: Normal in caliber measuring 0.6 cm in diameter. RIGHT KIDNEY: Normal. No hydronephrosis. No renal calculi or focal parenchymal lesions. The kidney measures 9.9 cm in maximum dimension. LEFT KIDNEY: Normal. No hydronephrosis. No renal calculi or focal parenchymal lesions. The kidney measures 10.9 cm in maximum dimension. SPLEEN: Normal. The spleen measures 9.9 cm in maximum dimension. FREE FLUID: None. US/US abdomen comp w elastography IMPRESSION: 1. Increased hepatic echogenicity consistent with steatosis. 2. Liver elastography: Measurements are consistent with a high probability of normal liver stiffness. REFERENCE: Society of Radiologists in Ultrasound Liver Stiffness Thresholds (2020): LIVER STIFFNESS THRESHOLDS: *Liver Stiffness equal or less than 1.3 m/s: High probability of being normal. *Liver Stiffness less than 1.7 m/s: In the absence of other known clinical signs, rules out compensated advanced chronic liver disease. *Liver Stiffness 1.7-2.1 m/s: Suggestive of compensated advanced chronic liver disease but need further test for confirmation. *Liver Stiffness over 2.1 m/s: Rules in compensated advanced chronic liver disease. *Liver Stiffness over 2.4 m/s: Suggestive of clinically significant portal hypertension. QUALITY OF DATA SET: *IQR/Median value equal or less than 0.15 implies a quality data set. *IQR/Median value over 0.15 implies a poor quality data set. SIGNIFICANT CHANGE FROM PRIOR EXAM: Significant change if liver stiffness measurement is 10% or greater from prior exam. OTHER CONSIDERATIONS: The stage of liver fibrosis may be overestimated in the setting of acute hepatitis, liver inflammation, elevated liver function tests, hepatic vascular congestion, obstructive cholestasis, non-fasting state, and infiltrative diseases such as amyloidosis and lymphoma. In some patients with NAFLD, the liver stiffness thresholds for compensated advanced chronic liver disease may be lower. In causes other than viral hepatitis and NAFLD, liver stiffness thresholds are not well established.
== END 2023-10-04 08:35 | disposition home or self-care (01) ==
LOC: HO.US 08:34
PROVIDERS: PCP Family Medicine; Visit Provider Family Medicine
DX: K76.0 Fatty (change of) liver, not elsewhere classified (principal)
CPT/HCPCS: 76700; 76981

== ENCOUNTER 2023-10-11 21:50 | Emergency (ER) | payer OTHER, SELFPAY ==
[2023-10-11 22:36] VITALS: BP 151/78; PULSE 61; RESP 16; TEMP 36.6; O2SAT 96; BMI 44.1
[2023-10-12 00:52] LABS: MANUAL DIFF FLAG NO
[2023-10-12 00:57] LABS: Basophils Absolute Auto 0.1 X10*3/uL (0.0-0.2); Basophils Percent Auto 0.7 % (0-2); Eosinophils Absolute Auto 0.4 X10*3/uL (0.0-0.4); Hematocrit 47.4 % (42.0-52.0); Hemoglobin 16.2 g/dl (14.0-18.0); Imm Gran Abs Auto 0.04 X10*3/uL (0.00-0.03); Imm Gran Pct Auto 0.6 % (0.0-0.4); Lymphocytes Absolute Auto 2.3 X10*3/uL (1.2-4.9); Lymphocytes Percent Auto 31.4 % (20-40); Mean Corpuscular HGB Conc 34.2 g/dl (31.0-36.0); Mean Corpuscular Volume 90.6 fL (80.0-98.0); Mean Platelet Volume 10.2 fL (9.4-12.4); Monocytes Absolute Auto 0.9 X10*3/uL (0.1-1.2); Monocytes Percent Auto 12.4 % (2-11); Neutrophils Absolute Auto 3.6 x10*3/uL (2.0-8.3); Neutrophils Percent Auto 49.9 % (45-73); Platelet Count 175 X10*3/uL (160-400); Red Blood Count 5.23 X10*6/uL (4.60-5.80); Red Cell Distribution Width 12.3 % (11.0-16.0); White Blood Count 7.2 X10*3/uL (4.8-10.8)
[2023-10-12 00:58] LABS: Appearance Urine Turbid; Color Urine Yellow; Glucose Urine UA Negative (Negative); Leukocyte Esterase Urine Negative (Negative); Nitrite Urine Negative (Negative); PH 7.5 (5.0-9.0); Specific Gravity - Urine 1.025 (1.005-1.025); UMIC TRIGGER UACC YES; Urine Blood Negative (Negative); Urine Ketones Negative (Negative); Urine Protein 100 (2+) mg/dL (Neg-Trace)
[2023-10-12 01:00] LABS: Bacteria Urine None Seen (None Seen); Hyaline Casts Urine 0-2 /LPF (0-2); RBC Urine 0-2 /HPF (0-2); Squamous Epithelial Cell Urine 0-2 /HPF (0-2); WBC Urine 0-5 /HPF (0-5)
[2023-10-12 01:08] LABS: Anion Gap 13 (12-20); Blood Urea Nitrogen 17 mg/dL (9-16); Calcium 9.3 mg/dL (8.4-10.2); Carbon Dioxide 24 mmol/L (22-29); Chloride 108 mmol/L (96-108); Creatinine Clr Calc Pharmacy 55.9; Estimated Glomerular Filt Rate 48; Glucose Random 97 mg/dL (60-115); Lipase 24 U/L (8-78); Potassium 3.9 mmol/L (3.3-5.1); Sodium 141 mmol/L (135-145)
[2023-10-12 02:08] VITALS: BP 142/91; PULSE 65; RESP 18; TEMP 36.9; O2SAT 95
--- NOTE | 2023-10-12 02:53 | ED.ABDPAIN ---
HPI - Abdominal Pain General Chief Complaint: Abdominal Pain Stated Complaint: abd pain Time Seen by Provider: 10/12/23 02:15 Source: patient Mode of arrival: ambulatory Limitations: no limitations History of Present Illness HPI narrative: 63-year-old male history of gastritis and H pylori, patient presented with 8 days of epigastric abdominal pain feels like burning, worsening with food and fluid intake, feels better if he eats small meals, patient had similar pain in the past and was diagnosed with gastritis. Declined using any alcohol, had a history of cholecystectomy. No lower abdominal pain or discomfort. Been having frequent bowel movement loose watery no blood or black stool. Related Data Home Medications ?Medication ?Instructions ?Recorded ?Confirmed acetaminophen 325 mg capsule 650 mg PO Q6H PRN Pain 12/09/20 02/24/22 albuterol sulfate 90 mcg/actuation 2 puff inhalation Q4-6H PRN 12/09/20 02/24/22 aerosol inhaler (Ventolin HFA) Wheezing cholecalciferol (vitamin D3) 1,250 1,250 mcg PO QWEEK 12/09/20 02/24/22 mcg (50,000 unit) tablet famotidine 40 mg tablet 40 mg PO BEDTIME 12/09/20 02/24/22 fluticasone propionate 110 1 puff inhalation BID 12/09/20 02/24/22 mcg/actuation HFA aerosol inhaler (Flovent HFA) fluticasone propionate 50 1 spray intranasal DAILY 12/09/20 02/24/22 mcg/actuation nasal spray,suspension levothyroxine 75 mcg capsule 75 mcg PO DAILY 12/09/20 06/15/22 loratadine 10 mg tablet (Allergy 10 mg PO DAILY 12/09/20 02/24/22 Relief (loratadine)) meclizine 25 mg tablet 25 mg PO BID 12/09/20 02/24/22 olanzapine 2.5 mg tablet (Zyprexa) 5 mg PO DAILY 12/09/20 02/24/22 omeprazole 40 mg capsule,delayed 40 mg PO DAILY 12/09/20 02/24/22 release rosuvastatin 40 mg tablet (Crestor) 40 mg PO DAILY 12/09/20 02/24/22 simethicone 125 mg capsule (Gas 125 mg PO TID-QID PRN 12/09/20 02/24/22 Relief (simethicone)) Gastrointestinal Spasms Or Cramping sucralfate 1 gram tablet 1 g PO QIDACHS 12/09/20 02/24/22 tamsulosin 0.4 mg capsule 0.4 mg PO BEDTIME 12/09/20 02/24/22 venlafaxine 150 mg 150 mg PO BEDTIME 12/09/20 02/24/22 capsule,extended release 24 hr (Effexor XR) zaleplon 10 mg capsule 10 mg PO BEDTIME 12/09/20 02/24/22 clotrimazole 1 % topical cream appl topical 04/05/22 hydroxyzine HCl 25 mg tablet 25 mg PO BID 04/05/22 melatonin 5 mg tablet 5 mg PO BEDTIME 04/10/23 Previous Rx's ?Medication ?Instructions ?Recorded levofloxacin 500 mg tablet 500 mg PO DAILY #5 tabs 01/11/23 lidocaine 5 % topical patch See Rx Instructions topical DAILY 04/10/23 pain #30 ea omeprazole 40 mg capsule,delayed 40 mg PO DAILY #14 caps 10/12/23 release Allergies Allergy/AdvReac Type Severity Reaction Status Date / Time atorvastatin Allergy Intermediate Muscle Pain Verified 10/11/23 22:41 gemfibrozil Allergy Intermediate itching Verified 10/11/23 22:41 simvastatin Allergy Intermediate GI Verified 10/11/23 22:41 discomfort topiramate [Topiramate] Allergy Intermediate RASH,HIVES Verified 10/11/23 22:41 Review of Systems Review of Systems All other systems are reviewed and are negative Constitutional: Reports as per HPI and Reports no additional constitutional complaints Eyes: Reports as per HPI and Reports no additional eye complaints Reports system reviewed and no additional complaints, except as documented Cardiovascular: Reports as per HPI and Reports no additional cardiovascular complaints Respiratory: Reports as per HPI and Reports no additional respiratory complaints Gastrointestinal: Reports as per HPI and Reports no additional gastrointestinal complaints Genitourinary: Reports no additional female genitourinary complaints Musculoskeletal: Reports no additional musculoskeletal complaints Skin/Breast: Reports system reviewed and no additional complaints, except as docu Psychiatric: Reports no additional psychiatric complaints Endocrine: Reports no additional endocrine complaints Hematologic/Lymphatic: Reports no additional hematologic/lymphatic complaints Allergic/Immunologic: Reports no additional allergic/immunologic complaints Reports system reviewed and no additional complaints, except as documented and Reports Abnormal speech present [facility] Past Medical History Medical History Sacroiliac joint pain Hearing impairment Asthma Mood disorder HTN (hypertension) Sleep apnea Elevated cholesterol GERD (gastroesophageal reflux disease) Surgical History Hx laparoscopic cholecystectomy Hx of hemorrhoidectomy History of esophagogastroduodenoscopy (EGD) H/O colonoscopy Social History Social History Patient Tobacco Use Status: Former Tobacco user Quit Date: 25 years ago Tobacco use type: Cigarette Advance Directives: No Advance Directives Information Provided: Yes Current occupational status: disabled Physical Exam ED Vital Signs: Vital Signs - 24 hr 10/11/23 22:36 10/12/23 02:08 10/12/23 06:00 Temperature 97.8 F 98.4 F 98.7 F Pulse Rate 61 65 63 Respiratory Rate 16 18 18 Blood Pressure 151/78 H 142/91 H 113/72 Pulse Oximetry 96 95 96 Oxygen Delivery Method Room Air Room Air Room Air BMI result Body Mass Index 44.1 Vital signs have been reviewed and appear to be correct. Blood pressure elevated. Heart rate normal. Respiratory rate normal. Temperature normal. Oxygen saturation normal. Appearance: Alert. Oriented X3. No acute distress. Head: Normal external exam. Normocephalic. Atraumatic. No Griffin signs noted. No raccoon eyes noted Eyes: PERRLA. EOMI. Conjunctiva and sclera normal. Eyelids normal. ENT: TM's Normal. Pharynx normal. Uvula midline. Moist mucous membranes. No trismus noted. No drooling noted. No muffled voice noted. Neck: Normal inspection. Neck supple. FROM. No adenopathy. Thyroid Normal. No meningeal signs. No neck mass noted. CVS: Normal heart rate and rhythm. Heart sound normal. No murmurs noted. Pulses normal throughout. Respiratory: No respiratory distress. Painless inspiration. Breath sounds normal. No wheezes/rales/rhonchi noted. Chest nontender. No accessory muscle usage noted or decreased air movement noted. Abdomen: Soft, mild epigastric tenderness, no guarding, no rebound tenderness. Bowel sounds normal in all 4 quadrants. No distention noted. No organomegaly noted. No visible injury noted. Back: No CVA tenderness. Full range of motion noted. Skin: Skin warm and dry. Normal skin color. Normal skin turgor. No rashes/lesions/lacerations noted. Extremities: No lower extremity edema. Extremities exhibit normal range of motion. Extremities nontender. Neuro: Oriented X 3. Cranial nerve exam: II-XII are grossly intact No motor deficit. No sensory deficit. Reflexes normal. Course Reevaluation(s) Reevaluation #1: Patient found to be in BIANCA admit to using creatinine at go to his job patient also admits that he has not drinking enough fluid, I explained to the patient to stop taking external creatinine add started Reg plenty of fluids, BUN/creatinine has improved after IV hydration. Patient original symptoms has improved with Maalox/Pepcid in the ED patient was instructed to follow-up with his GI to arrange for upper endoscopy, will start the patient on Prilosec. Time: 06:22 Medical Decision Making Differential Diagnosis Differential Diagnoses: The differential diagnosis associated with the presentation includes (BIANCA, electrolyte derangement, severe anemia, gastritis, ACS, dehydration.) Admission/Observation Consideration of admission/observation: Escalation of care including admission/observation considered Lab Data MDM Lab Attestation statement: I reviewed the patient's lab results. 10/12/23 00:47 10/12/23 04:27 Labs: Lab Results 10/12/23 10/12/23 10/12/23 Range/Units 00:47 00:48 04:27 WBC 7.2 (4.8-10.8) X10*3/uL RBC 5.23 (4.60-5.80) X10*6/uL Hgb 16.2 (14.0-18.0) g/dl Hct 47.4 (42.0-52.0) % MCV 90.6 (80.0-98.0) fL MCH 31.0 (27.0-33.0) pg MCHC 34.2 (31.0-36.0) g/dl RDW 12.3 (11.0-16.0) % Plt Count 175 (160-400) X10*3/uL MPV 10.2 (9.4-12.4) fL Immature Gran % (Auto) 0.6 H (0.0-0.4) % Neut % (Auto) 49.9 (45-73) % Lymph % (Auto) 31.4 (20-40) % [place] % (Auto) 12.4 H (2-11) % Eos % (Auto) 5.0 H (0-4) % Baso % (Auto) 0.7 (0-2) % Lymph # (Auto) 2.3 (1.2-4.9) X10*3/uL [place] # (Auto) 0.9 (0.1-1.2) X10*3/uL Eos # (Auto) 0.4 (0.0-0.4) X10*3/uL Baso # (Auto) 0.1 (0.0-0.2) X10*3/uL Abs Immat Gran (auto) 0.04 H (0.00-0.03) X10*3/uL Absolute Neuts (auto) 3.6 (2.0-8.3) x10*3/uL Absolute Nucleated RBC 0.000 (0.0-0.012) X10*3/uL Nucleated RBC % (auto) 0.0 (0.0-0.2) /100WBC Sodium 141 141 (135-145) mmol/L Potassium 3.9 3.8 (3.3-5.1) mmol/L Chloride 108 110 H (96-108) mmol/L Carbon Dioxide 24 24 (22-29) mmol/L Anion Gap 13 11 L (12-20) BUN 17 H 18 H (9-16) mg/dL Creatinine 1.48 H 1.38 (0.5-1.4) mg/dL Estim Creat Clear Calc 55.9 60.0 Estimated GFR 48 52 Random Glucose 97 133 H (60-115) mg/dL Calcium 9.3 8.8 (8.4-10.2) mg/dL Troponin I High Sens < 2.7 (<3.5-35.0) ng/L Lipase 24 (8-78) U/L Urine Color Yellow Urine Appearance Turbid Urine pH 7.5 (5.0-9.0) Ur Specific [place] 1.025 (1.005-1.025) Urine Protein 100 (2+) H (Neg-Trace) mg/dL Urine Glucose (UA) Negative (Negative) mg/dL Urine Ketones Negative (Negative) mg/dL Urine Blood Negative (Negative) Urine Nitrite Negative (Negative) Ur Leukocyte Esterase Negative (Negative) Urine RBC 0-2 (0-2) /HPF Urine WBC 0-5 (0-5) /HPF Ur Squamous Epith Cells 0-2 (0-2) /HPF Urine Bacteria None Seen (None Seen) Hyaline Casts 0-2 (0-2) /LPF Chronic Conditions Patient?s care impacted by: Other (Gastritis) Medications Administered Discontinued Medications Generic Name Dose Route Start Last Admin Trade Name Zachq PRN Reason Stop Dose Admin Al Hydroxide/Mg Hydroxide 30 ml 10/12/23 02:52 10/12/23 03:16 Magnesium Hydrox/Alum Hydrox 30 Ml Oral.Susp PO 10/12/23 02:53 30 ml ONCE ONE Administration Famotidine 20 mg 10/12/23 02:52 10/12/23 03:16 Famotidine/Pf 20 Mg/2 Ml Vial IVPUSH 10/12/23 02:53 20 mg ONCE ONE Administration Sodium Chloride 1,000 mls @ 999 mls/hr 10/12/23 02:52 10/12/23 04:15 Ns IV 10/12/23 03:52 Infused .Q1H1M ONE Infusion Discharge Plan Discharge Clinical Impression: Gastritis, Acute dehydration, BIANCA (acute kidney injury) Patient Disposition: Home, Self-Care Instructions: Dehydration (ED), Acute Kidney Injury (DC) Additional Instructions: Drink plenty of fluids. Stop taking creatinine orally and drink plenty of fluids. Prescriptions: New omeprazole 40 mg capsule,delayed release(DR/EC) 40 mg PO DAILY Qty: 14 0RF No Action levofloxacin 500 mg tablet 500 mg PO DAILY Qty: 5 0RF zaleplon 10 mg capsule 10 mg PO BEDTIME tamsulosin 0.4 mg capsule 0.4 mg PO BEDTIME venlafaxine [Effexor XR] 150 mg capsule,extended release 24hr 150 mg PO BEDTIME olanzapine [Zyprexa] 2.5 mg tablet 5 mg PO DAILY cholecalciferol (vitamin D3) 1,250 mcg (50,000 unit) tablet 1,250 mcg PO QWEEK Flovent HFA 110 mcg/actuation HFA aerosol inhaler 1 puff inhalation BID loratadine [Allergy Relief (loratadine)] 10 mg tablet 10 mg PO DAILY acetaminophen 325 mg capsule 650 mg PO Q6H PRN (Reason: Pain) albuterol sulfate [Ventolin HFA] 90 mcg/actuation HFA aerosol inhaler 2 puff inhalation Q4-6H PRN (Reason: Wheezing) famotidine 40 mg tablet 40 mg PO BEDTIME meclizine 25 mg tablet 25 mg PO BID omeprazole 40 mg capsule,delayed release(DR/EC) 40 mg PO DAILY sucralfate 1 gram tablet 1 g PO QIDACHS simethicone [Gas Relief (simethicone)] 125 mg capsule 125 mg PO TID-QID PRN (Reason: Gastrointestinal Spasms Or Cramping) fluticasone propionate 50 mcg/actuation spray,suspension 1 spray intranasal DAILY Rx Instructions: administer into each nostril levothyroxine 75 mcg capsule 75 mcg PO DAILY rosuvastatin [Crestor] 40 mg tablet 40 mg PO DAILY clotrimazole 1 % cream topical hydroxyzine HCl 25 mg tablet 25 mg PO BID melatonin 5 mg tablet 5 mg PO BEDTIME lidocaine 5 % adhesive patch,medicated See Rx Instructions topical DAILY Qty: 30 2RF Rx Instructions: leave on most painful area for up to 12 hrs topically daily; Referrals: Cynthia Minor MD [Primary Care Provider] - Print Language: Venezuelan
--- NOTE | 2023-10-12 02:55 | ECG_ITS ---
Test Reason : ABD PAIN Blood Pressure : / mmHG Vent. Rate : 057 BPM Atrial Rate : 057 BPM P-R Int : 154 ms QRS Dur : 072 ms QT Int : 410 ms P-R-T Axes : 043 063 048 degrees QTc Int : 399 ms Sinus bradycardia Otherwise normal ECG No significant changes when compared with the previous EKG of 19 jul 2017 Referred By: Ashley Luna Electronically Signed By:YASMIN CURRY
[2023-10-12] MEDS: 0.9 % Sodium Chloride 1,000 ML 999 ML IV (03:15)
[2023-10-12] MEDS: Magnesium Hydrox/Alum Hydrox 30 ML ORAL.SUSP PO (03:16)
[2023-10-12] MEDS: Famotidine/PF 20 MG/2 ML VIAL IVPUSH (03:16)
[2023-10-12 03:24] LABS: Troponin-I High Sensitivity < 2.7 ng/L (<3.5-35.0)
[2023-10-12 04:44] LABS: Anion Gap 11 (12-20); Blood Urea Nitrogen 18 mg/dL (9-16); Calcium 8.8 mg/dL (8.4-10.2); Carbon Dioxide 24 mmol/L (22-29); Chloride 110 mmol/L (96-108); Estimated Glomerular Filt Rate 52; Glucose Random 133 mg/dL (60-115); Potassium 3.8 mmol/L (3.3-5.1); Sodium 141 mmol/L (135-145)
[2023-10-12 06:00] VITALS: BP 113/72; PULSE 63; RESP 18; TEMP 37.1; O2SAT 96
[2023-10-12 07:04] VITALS: BP 113/72; PULSE 63; RESP 18; TEMP 37.1; O2SAT 96
== END 2023-10-12 07:05 | disposition home or self-care (01) ==
PROVIDERS: Emergency Provider Emergency Medicine; PCP Family Medicine
DX: K29.70 Gastritis, unspecified, without bleeding (principal); E86.0 Dehydration; N17.9 Acute kidney failure, unspecified; I10 Essential (primary) hypertension; J45.909 Unspecified asthma, uncomplicated
CPT/HCPCS: 36415; 80048; 81001; 83690; 84484; 85025; 93005; 96361; 96374; 99284

== ENCOUNTER → 2023-10-12 02:55 | Outpatient (BNV) | payer OTHER, SELFPAY | PROVIDERS: Emergency Provider Emergency Medicine; PCP Family Medicine; Visit Provider Internal Medicine | DX: R00.1 Bradycardia, unspecified (principal) | CPT/HCPCS: 93010 ==

== ENCOUNTER 2023-10-13 11:57 | Outpatient (REF) | payer OTHER, SELFPAY | END 2023-10-13 11:58 | disposition home or self-care (01) | LOC: HO.HHCLNP 11:57 | PROVIDERS: Visit Provider Emergency Medicine | DX: Z13.89 Encounter for screening for other disorder (principal) ==

== ENCOUNTER 2023-11-02 09:33 | Outpatient (AMB) | payer OTHER, SELFPAY ==
--- NOTE | 2023-11-02 09:43 | A.OFFVIS_ITS ---
Vital Signs 11/02/23 09:44 Height 5 ft 2 in Weight 240 lb BMI 43.9 Intake Visit Reasons: New Prob - Left Elbow Pain Intake Note: Tristen is a 63 year old male who presents today for a evaluation of his left elbow pain. Patient reports ongoing pain for more than a year with no previous treatment. He states that his pain is on the whole elbow and he finds some relief with ice. Pain is worse when applying weight to his elbow and when lifting heavy items. Allergies atorvastatin Allergy (Intermediate, Verified 11/02/23 09:46) Muscle Pain gemfibrozil Allergy (Intermediate, Verified 11/02/23 09:46) itching simvastatin Allergy (Intermediate, Verified 11/02/23 09:46) GI discomfort topiramate [Topiramate] Allergy (Intermediate, Verified 11/02/23 09:46) RASH,HIVES HPI HPI New Prob - Left Elbow Pain: Details: 63-year-old right hand dominant male who presents in the office today for an evaluation left elbow pain. Patient reports ongoing pain for more than a year, since 2022. He denies any prior treatments. He claims the pain is located in the area of the triceps attachment posterior elbow. Confirms relief with ice. Increase in pain when weight is applied to the elbow. He does not recall any injury to the left elbow. Reports a good amount of inflammation and states he has not taken any medication for this. Denies numbness or tingling in the left hand. Patient confirms a medical history with kidney complications. Patient is not interested in a cortisone injection. FORMERLY [facility], [facility]1983 Medical History Sacroiliac joint pain Hearing impairment Asthma Mood disorder HTN (hypertension) Sleep apnea Elevated cholesterol GERD (gastroesophageal reflux disease) Surgical History Hx laparoscopic cholecystectomy Hx of hemorrhoidectomy History of esophagogastroduodenoscopy (EGD) H/O colonoscopy Social History Patient Tobacco Use Status: Former Tobacco user Quit Date: 25 years ago Tobacco use type: Cigarette Current occupational status: disabled Review of Systems Const All systems reviewed & are unremarkable except as noted in HPI and below Physical Exam Vital Signs: BMI result Body Mass Index 43.9 Const General: cooperative, healthy appearing and no acute distress Resp Effort & Inspection: normal respiratory effort and able to speak in complete sen tences Cardio Rate: regular rate Peripheral pulses: Peripheral pulses 2+ throughout GI Palpation (GI): Soft to palpation Skin Lesions: no lesions Rashes: no rashes Extrem Other: Left elbow: Normal to inspection. No ecchymosis, erythema, or edema. No tenderness to palpation over the olecranon. No tenderness to the medial or lateral epicondyle. Slight tenderness to palpation over the triceps attachment. NVI. Assessment & Plan Assessment & Plan (1) Tendinitis of left triceps: Code(s): M77.8 - Other enthesopathies, not elsewhere classified Category: Medical Plan Mr. Georges Villeda is a 63-year-old right hand dominant male who presents in the office today for an evaluation left elbow pain. Patient reports ongoing pain for more than a year, since 2022. He denies any prior treatments. He claims the pain is located in the area of the triceps attachment posterior elbow. Confirms relief with ice. Increase in pain when weight is applied to the elbow. He does not recall any injury to the left elbow. Reports a good amount of inflammation and states he has not taken any medication for this. Denies numbness or tingling in the left hand. Patient confirms a medical history with kidney complications. Patient is not interested in a cortisone injection. A referral for PT will be placed in the office today to work on ROM and strengthening of the left elbow. Follow up will be in 6-8 weeks, or sooner if needed. X-rays of the left elbow which were obtained while in the office today and were reviewed by me, Chaya Stephens PA-C, revealed no acute fracture or dislocation. Patient Instructions: Scribed by Gini Restrepo diploma medical assistant, for Chaya Stephens PA-C on 11/02/2023 at 9:38 am, EST. Coding Level of Care Code Est Pt Level 3 (77063) Diagnoses Tendinitis of left triceps M77.8
[2023-11-02 09:44] VITALS: BMI 43.9
== END 2023-11-02 09:55 | disposition home or self-care (01) ==
PROVIDERS: PCP Family Medicine; Visit Provider Physician Assistant
DX: M77.8 Other enthesopathies, not elsewhere classified (principal)
CPT/HCPCS: 99213

== ENCOUNTER → 2023-11-02 09:33 | Outpatient (BNVA) | payer OTHER, SELFPAY | PROVIDERS: PCP Family Medicine; Visit Provider Physician Assistant | DX: M77.8 Other enthesopathies, not elsewhere classified (principal) | CPT/HCPCS: 99212 ==

== ENCOUNTER 2023-12-05 09:21 | Outpatient (REF) | payer OTHER, SELFPAY ==
[2023-12-05 11:16] LABS: MANUAL DIFF FLAG NO
[2023-12-05 11:22] LABS: Appearance Urine Clear; Color Urine Yellow; Glucose Urine UA Negative (Negative); Leukocyte Esterase Urine Negative (Negative); Nitrite Urine Negative (Negative); PH 5.5 (5.0-9.0); UMIC TRIGGER UACC YES; Urine Blood Negative (Negative); Urine Ketones Negative (Negative); Urine Protein 100 (2+) mg/dL (Neg-Trace)
[2023-12-05 11:25] LABS: Bacteria Urine None Seen (None Seen); Hyaline Casts Urine 0-2 /LPF (0-2); RBC Urine 0-2 /HPF (0-2); Squamous Epithelial Cell Urine 0-2 /HPF (0-2); WBC Urine 0-5 /HPF (0-5)
[2023-12-05 11:28] LABS: Basophils Absolute Auto 0.1 X10*3/uL (0.0-0.2); Basophils Percent Auto 0.8 % (0-2); Eosinophils Absolute Auto 0.3 X10*3/uL (0.0-0.4); Eosinophils Percent Auto 4.1 % (0-4); Hematocrit 47.3 % (42.0-52.0); Hemoglobin 16.9 g/dl (14.0-18.0); Imm Gran Abs Auto 0.06 X10*3/uL (0.00-0.03); Imm Gran Pct Auto 0.8 % (0.0-0.4); Lymphocytes Absolute Auto 1.9 X10*3/uL (1.2-4.9); Lymphocytes Percent Auto 27.2 % (20-40); Mean Corpuscular HGB Conc 35.7 g/dl (31.0-36.0); Mean Corpuscular Hemoglobin 32.2 pg (27.0-33.0); Mean Corpuscular Volume 90.1 fL (80.0-98.0); Mean Platelet Volume 10.9 fL (9.4-12.4); Monocytes Absolute Auto 0.7 X10*3/uL (0.1-1.2); Neutrophils Absolute Auto 4.1 x10*3/uL (2.0-8.3); Neutrophils Percent Auto 57.1 % (45-73); Platelet Count 182 X10*3/uL (160-400); Red Blood Count 5.25 X10*6/uL (4.60-5.80); Red Cell Distribution Width 12.3 % (11.0-16.0); White Blood Count 7.1 X10*3/uL (4.8-10.8)
[2023-12-05 11:33] LABS: Estimated Average Glucose 111 mg/dL; Hemoglobin A1c % 5.5 % (<6.0)
[2023-12-05 12:04] LABS: Syphilis Screen Nonreactive (Nonreactive)
[2023-12-05 12:14] LABS: Folate 10.8 ng/mL (> or = 4.0); Vitamin B12 586 pg/mL (200-900)
[2023-12-05 12:20] LABS: Alanine Aminotransferase 25 U/L (0-40); Albumin Level 4.4 g/dL (3.5-5.0); Alkaline Phosphatase 65 U/L (39-117); Anion Gap 9 (12-20); Aspartate Amino Transferase 30 U/L (5-37); Bilirubin Total 0.6 mg/dL (0.0-1.0); Blood Urea Nitrogen 14 mg/dL (9-16); Calcium 9.6 mg/dL (8.4-10.2); Carbon Dioxide 32 mmol/L (22-29); Chloride 105 mmol/L (96-108); Cholesterol 119 mg/dL (<200); Estimated Glomerular Filt Rate > 60; Glucose Random 95 mg/dL (60-115); HDL Cholesterol 46 mg/dL (>40); LDL Cholesterol Calculated 56 mg/dL (<100); Sodium 142 mmol/L (135-145); Total Protein 7.4 g/dL (6.5-8.0); Triglycerides 85 mg/dL (<150)
[2023-12-05 12:21] LABS: Free T4 (Free Thyroxine) 0.83 ng/dL (0.71-1.85); Thyroid Stimulating Hormone 4.75 uIU/mL (0.32-4.0)
[2023-12-05 12:54] LABS: Reflex LDLD? No
== END 2023-12-05 09:22 | disposition home or self-care (01) ==
LOC: HO.HHCL 09:21
PROVIDERS: Visit Provider Family Medicine
DX: G31.84 Mild cognitive impairment of uncertain or unknown etiology (principal); E03.8 Other specified hypothyroidism; E06.3 Autoimmune thyroiditis; R73.03 Prediabetes; E78.2 Mixed hyperlipidemia; E78.5 Hyperlipidemia, unspecified
CPT/HCPCS: 36415; 80053; 80061; 81001; 82607; 82746; 83036; 84439; 84443; 85025; 86780

== ENCOUNTER 2024-01-17 08:38 | Outpatient (REF) | payer OTHER, SELFPAY ==
[2024-01-17 12:32] LABS: TSH reflex Free T4 4.32 uIU/mL (0.32-4.0)
[2024-01-17 14:38] LABS: Free T4 (Free Thyroxine) 0.89 ng/dL (0.71-1.85)
== END 2024-01-17 08:39 | disposition home or self-care (01) ==
LOC: HO.HHCL 08:38
PROVIDERS: Visit Provider Family Medicine
DX: E03.8 Other specified hypothyroidism (principal); E06.3 Autoimmune thyroiditis
CPT/HCPCS: 36415; 84439; 84443

== ENCOUNTER 2024-01-21 19:13 | Emergency (ER) | payer OTHER, SELFPAY ==
[2024-01-21 19:18] VITALS: BP 154/87; PULSE 85; RESP 20; TEMP 37.1; O2SAT 95; BMI 42.5
[2024-01-21 19:56] VITALS: BP 145/85; PULSE 86; RESP 20; TEMP 37.2; O2SAT 95
[2024-01-21 20:07] LABS: IDNOW Serial# 08D9AD1C; Strep A Nucleic Acid Negative (Negative)
--- NOTE | 2024-01-21 20:20 | ED.GENADULT ---
HPI - General Adult General Chief complaint: Upper Respiratory Symptoms Stated complaint: sinus pressure Time Seen by Provider: 01/21/24 19:48 Source: patient Mode of arrival: ambulatory Limitations: no limitations History of Present Illness ED Provider: Miki Nation PA-C HPI narrative: 63 yold male Multilevel degenerative disc disease, GERD, high cholesterol presents to the ED for sinus pressure. Patient states no fever or chills. patient denies shortness of breath, coughing, headache, head truama, loss of vision, chest pain, coughing, dizziness, nuasea, vomitting, slurrred speech, facial droop, or paralyis of extremites. Patient states sinus pressure occurred after exposure to cleaning products. patient states also sinus congestion. patient denies drug use. Patient admits to history of rhinosinusitits due to pollen and dirt during spring and summer that usually improves with nasal steroids. Patient believes he may have another sinusitis flare up. Related Data Home Medications ?Medication ?Instructions ?Recorded ?Confirmed acetaminophen 325 mg capsule 650 mg PO Q6H PRN Pain 12/09/20 02/24/22 albuterol sulfate 90 mcg/actuation 2 puff inhalation Q4-6H PRN 12/09/20 02/24/22 aerosol inhaler (Ventolin HFA) Wheezing cholecalciferol (vitamin D3) 1,250 1,250 mcg PO QWEEK 12/09/20 02/24/22 mcg (50,000 unit) tablet famotidine 40 mg tablet 40 mg PO BEDTIME 12/09/20 02/24/22 fluticasone propionate 110 1 puff inhalation BID 12/09/20 02/24/22 mcg/actuation HFA aerosol inhaler (Flovent HFA) fluticasone propionate 50 1 spray intranasal DAILY 12/09/20 02/24/22 mcg/actuation nasal spray,suspension levothyroxine 75 mcg capsule 75 mcg PO DAILY 12/09/20 06/15/22 loratadine 10 mg tablet (Allergy 10 mg PO DAILY 12/09/20 02/24/22 Relief (loratadine)) meclizine 25 mg tablet 25 mg PO BID 12/09/20 02/24/22 olanzapine 2.5 mg tablet (Zyprexa) 5 mg PO DAILY 12/09/20 02/24/22 omeprazole 40 mg capsule,delayed 40 mg PO DAILY 12/09/20 02/24/22 release rosuvastatin 40 mg tablet (Crestor) 40 mg PO DAILY 12/09/20 02/24/22 simethicone 125 mg capsule (Gas 125 mg PO TID-QID PRN 12/09/20 02/24/22 Relief (simethicone)) Gastrointestinal Spasms Or Cramping sucralfate 1 gram tablet 1 g PO QIDACHS 12/09/20 02/24/22 tamsulosin 0.4 mg capsule 0.4 mg PO BEDTIME 12/09/20 02/24/22 venlafaxine 150 mg 150 mg PO BEDTIME 12/09/20 02/24/22 capsule,extended release 24 hr (Effexor XR) zaleplon 10 mg capsule 10 mg PO BEDTIME 12/09/20 02/24/22 clotrimazole 1 % topical cream appl topical 04/05/22 hydroxyzine HCl 25 mg tablet 25 mg PO BID 04/05/22 melatonin 5 mg tablet 5 mg PO BEDTIME 04/10/23 Previous Rx's ?Medication ?Instructions ?Recorded levofloxacin 500 mg tablet 500 mg PO DAILY #5 tabs 01/11/23 lidocaine 5 % topical patch See Rx Instructions topical DAILY 04/10/23 pain #30 ea omeprazole 40 mg capsule,delayed 40 mg PO DAILY #14 caps 10/12/23 release triamcinolone acetonide 55 mcg 2 spray intranasal DAILY 1 week 01/21/24 nasal spray aerosol (Nasacort) #16.9 mL Allergies Allergy/AdvReac Type Severity Reaction Status Date / Time atorvastatin Allergy Intermediate Muscle Pain Verified 01/21/24 19:23 gemfibrozil Allergy Intermediate itching Verified 01/21/24 19:23 simvastatin Allergy Intermediate GI Verified 01/21/24 19:23 discomfort topiramate [Topiramate] Allergy Intermediate RASH,HIVES Verified 01/21/24 19:23 Review of Systems Review of Systems: Yes all other systems are reviewed and are negative PMFSH Past Medical History Medical History Sacroiliac joint pain Hearing impairment Asthma Mood disorder HTN (hypertension) Sleep apnea Elevated cholesterol GERD (gastroesophageal reflux disease) Surgical History Hx laparoscopic cholecystectomy Hx of hemorrhoidectomy History of esophagogastroduodenoscopy (EGD) H/O colonoscopy Social History Social History Patient Tobacco Use Status: Former Tobacco user Tobacco use type: Cigarette Advance Directives: No Advance Directives Information Provided: No Current occupational status: disabled Physical Exam ED Vital Signs: Vital Signs - 24 hr 01/21/24 19:18 01/21/24 19:56 Temperature 98.7 F 98.9 F Pulse Rate 85 86 Respiratory Rate 20 20 Blood Pressure 154/87 H 145/85 H Pulse Oximetry 95 95 Oxygen Delivery Method Room Air Room Air BMI result Body Mass Index 42.5 Const General: cooperative, healthy appearing, comfortable and no acute distress Orientation/consciousness: patient oriented x3 HENMT Head: Yes normal to inspection, Yes No palpable skull fracture present, Yes normocephalic and Yes atraumatic Ears: hearing grossly normal bilaterally, external ears normal, TM's normal bilaterally, TM normal on the right, TM normal on the left, EAC's normal, mastoids normal and no periauricular adenopathy Face and sinus: Yes sinus tenderness (maxillary) Throat: Yes posterior oropharynx normal, Yes tonsils normal and Yes uvula midline Eyes General: appearance normal, both eyes and all related structures Neck Neck: Yes normal visual inspection, Yes full ROM, Yes no lymphadenopathy, Yes no meningeal signs, Yes trachea midline, Yes supple, No anterior neck swelling and No tender Chest Chest palpation & inspection: normal inspection of the chest and normal palpation of entire chest wall Resp Effort & Inspection: normal respiratory effort and able to speak in complete sentences Auscultation: clear to auscultation bilaterally Cardio Jugular venous distension: no JVD Heart sounds: S1 normal heart sound present and S2 normal heart sound present GI Inspection: Yes normal to inspection Palpation (GI): Soft to palpation, not firm, nontender, no guarding and not rigid General: No CVA tenderness and Yes no CVA tenderness Back/Spine/Pelvis Back: no CVA tenderness, No CVA tenderness and No back tenderness Skin General skin exam: no rashes or lesions noted, elasticity normal and turgor normal Neuro General: patient oriented x3, gait normal, tone normal, moves all extremities, no meningeal signs, no focal motor deficits, CN's II-XI intact bilaterally and normal sensation to monofilament Extrem General: Yes normal to inspection, Yes full ROM and Yes capillary refill normal Psych Appearance: grossly normal, well kempt and not disheveled Medical Decision Making Medical Decision Making MDM Narrative: 63 male presents to ED for sinus pressure and nasal congestion without any fever, chills, chest pain, shortness of breath, slurred speech, facial droop, paralysis of extremities, headache, weakness, or dizziness. Physical exam normal and benign besides maxillary sinus tenderness on palpation. Patient believes symptoms started after placing plaster on the ground, but has history of rhinosusitis and believes summer heat/pollen is causing another exacerbation.. SARs strep negative. Patient explained worrisome signs informed to follow up with primary care provider. Not suspecting osteomyelitis, brain bleed, skull fracture, foreign body, myocardial infarction, smoke inhalation, stroke, glaucoma, temporal arteritis, cluster headache, meningitis, episcleritis, globe rupture, nasal fracture, pnuemonia, air bone disease/particle exposure, severe sinusitis, peritonsillar abscess, cellulitis, or any other life-threatening etiology Differential Diagnosis Differential Diagnoses: The differential diagnosis associated with the presentation includes (Sinusitis, COVID, influenza) Admission/Observation Consideration of admission/observation: Escalation of care including admission/observation considered Lab Data [facility] Lab Attestation statement: I reviewed the patient's lab results. Labs: Lab Results 01/21/24 Range/Units 19:53 Influenza Type A (PCR) NEGATIVE (Negative) Influenza Type B (PCR) NEGATIVE (Negative) RSV RNA Qual (PCR) NEGATIVE (Negative) SARS-CoV-2 RNA (RT-PCR) NEGATIVE (Negative) S. pyogenes GrpA ROSELIA Negative (Negative) Independent Historian Clinical information obtained from an independent historian. History obtained from or confirmed by: Other (patient) External Record Review External record reviewed: Other (prior visists) Prescription Management I considered prescription management with: Other (nasacort) Discharge Plan Discharge Clinical Impression: Sinusitis Patient Disposition: Home, Self-Care Instructions: Sinusitis (ED) Additional Instructions: Recommend follow-up with your primary care provider. Return to the ED for nasal discharge/drainage, headache, eye pain, photophobia, fever, chills, headache, dizziness, chest pain, shortness of breath, worsening facial pain, or any other concerning symptoms. Prescriptions: New triamcinolone acetonide [Nasacort] 55 mcg aerosol,spray 2 spray intranasal DAILY 7 Days Qty: 16.9 0RF Rx Instructions: administer into each nostril No Action levofloxacin 500 mg tablet 500 mg PO DAILY Qty: 5 0RF omeprazole 40 mg capsule,delayed release(DR/EC) 40 mg PO DAILY Qty: 14 0RF zaleplon 10 mg capsule 10 mg PO BEDTIME tamsulosin 0.4 mg capsule 0.4 mg PO BEDTIME venlafaxine [Effexor XR] 150 mg capsule,extended release 24hr 150 mg PO BEDTIME olanzapine [Zyprexa] 2.5 mg tablet 5 mg PO DAILY cholecalciferol (vitamin D3) 1,250 mcg (50,000 unit) tablet 1,250 mcg PO QWEEK Flovent HFA 110 mcg/actuation HFA aerosol inhaler 1 puff inhalation BID loratadine [Allergy Relief (loratadine)] 10 mg tablet 10 mg PO DAILY acetaminophen 325 mg capsule 650 mg PO Q6H PRN (Reason: Pain) albuterol sulfate [Ventolin HFA] 90 mcg/actuation HFA aerosol inhaler 2 puff inhalation Q4-6H PRN (Reason: Wheezing) famotidine 40 mg tablet 40 mg PO BEDTIME meclizine 25 mg tablet 25 mg PO BID omeprazole 40 mg capsule,delayed release(DR/EC) 40 mg PO DAILY sucralfate 1 gram tablet 1 g PO QIDACHS simethicone [Gas Relief (simethicone)] 125 mg capsule 125 mg PO TID-QID PRN (Reason: Gastrointestinal Spasms Or Cramping) fluticasone propionate 50 mcg/actuation spray,suspension 1 spray intranasal DAILY Rx Instructions: administer into each nostril levothyroxine 75 mcg capsule 75 mcg PO DAILY rosuvastatin [Crestor] 40 mg tablet 40 mg PO DAILY clotrimazole 1 % cream topical hydroxyzine HCl 25 mg tablet 25 mg PO BID melatonin 5 mg tablet 5 mg PO BEDTIME lidocaine 5 % adhesive patch,medicated See Rx Instructions topical DAILY Qty: 30 2RF Rx Instructions: leave on most painful area for up to 12 hrs topically daily; Interventions: ED Discharge Assessment Last Done: 01/21/24 21:19 Discharge Date/Time: 01/21/24 21:20 Print Language: Icelandic
[2024-01-21 20:38] LABS: Influenza A PCR NEGATIVE (Negative); Influenza B PCR NEGATIVE (Negative); Resp Syncy Virus RNA Qual PCR NEGATIVE (Negative); SARS COV2 PCR INHOUSE NEGATIVE (Negative)
[2024-01-21 21:19] VITALS: BP 145/85; PULSE 86; RESP 20; TEMP 37.2; O2SAT 95
== END 2024-01-21 21:20 | disposition home or self-care (01) ==
PROVIDERS: Emergency Provider Emergency Medicine; PCP Family Medicine
DX: J32.9 Chronic sinusitis, unspecified (principal); Z03.818 Encounter for observation for suspected exposure to other biological agents ruled out
CPT/HCPCS: 0241U; 87651; 99282

== ENCOUNTER 2024-03-13 09:28 | Outpatient (REF) | payer OTHER, SELFPAY ==
[2024-03-13 11:53] LABS: Hepatitis A Antibody IgG REACTIVE (Nonreactive); ~Hepatitis A Antibody IgG 12.46 S/CO (0.00-0.99)
[2024-03-13 12:33] LABS: TSH reflex Free T4 2.11 uIU/mL (0.32-4.0)
== END 2024-03-13 09:29 | disposition home or self-care (01) ==
LOC: HO.HHCL 09:28
PROVIDERS: Visit Provider Family Medicine
DX: Z01.84 Encounter for antibody response examination (principal); E03.8 Other specified hypothyroidism; E06.3 Autoimmune thyroiditis
CPT/HCPCS: 36415; 84443; 86708

== ENCOUNTER 2024-06-28 13:24 | Outpatient (REF) | payer OTHER, SELFPAY ==
[2024-06-28 17:56] LABS: Influenza A PCR NEGATIVE (Negative); Influenza B PCR NEGATIVE (Negative); Resp Syncy Virus RNA Qual PCR NEGATIVE (Negative); SARS COV2 PCR INHOUSE NEGATIVE (Negative)
== END 2024-06-28 13:25 | disposition home or self-care (01) ==
LOC: HO.LAB 13:24
PROVIDERS: PCP Family Medicine; Visit Provider Physician Assistant
DX: J06.9 Acute upper respiratory infection, unspecified (principal)
CPT/HCPCS: 0241U; 99202

== ENCOUNTER 2024-06-28 13:24 | Outpatient (AMB) | payer OTHER, SELFPAY ==
--- NOTE | 2024-06-28 14:11 | AM.OFFWIN_ITS ---
Intake Vital Signs 06/28/24 14:13 Height 5 ft 2 in Weight 242 lb BMI 44.3 BP 140/80 H Blood Pressure Location Lt brachial Position Sitting Pulse 68 Pulse Source Pulse Oximeter Temp 97.4 F Temp Source Oral Pulse Oximetry (%) 98 Oxygen Delivery Method Room Air Intake Visit Reasons: EP dry cough, tight chest, congested Intake Note: Patient here for dry cough, chest tightness, congestion since 06/19 Patient Tobacco Use Status: Former Tobacco user Allergies atorvastatin Allergy (Intermediate, Verified 06/28/24 14:13) Muscle Pain gemfibrozil Allergy (Intermediate, Verified 06/28/24 14:13) itching simvastatin Allergy (Intermediate, Verified 06/28/24 14:13) GI discomfort topiramate [Topiramate] Allergy (Intermediate, Verified 06/28/24 14:13) RASH,HIVES Do you need a note to return to daycare/school/sports/work: No HPI HPI Comments History of Present Illness Details History - The patient is a 63-year-old male pres enting with an acute cough and associated symptoms. - The cough started on June 19 and has intensified, particularly at night, affecting his sleep. - He experiences nasal congestion and th roat discomfort, with cough-related chest pressure. - The patient has attempted using NyQuil and nasal sprays, without noted improvement. - He reported having a fever on June 21, which has now resolved. - There is no recent COVID-19 test, but a past COVID-19 infection was reported and resolved. - He has a history of asthma, with recen t inhaler use providing no symptom relief. - He lives alone and no other household members are reported to be sick. Physical Exam General: Cooperative, healthy appearing, comfortable and no acute distress Orientation/consciousness: Patient oriented x3 Limitations: No limitations Head: Normal to inspection Ears: Hearing grossly normal bilaterally, external ears normal. Right TM with fluid, left TM with bulging and erythema Nose: Normal external nose present, Normal nares present and No nasal discharge present Face and sinus: Normal facial exam and Yes sinuses nontender Mouth: Normal oral and palatal mucosa present and moist mucous membranes Throat: Yes tonsils normal, Yes uvula midline. Posterior oropharynx erythema Eyes: Appearance normal, both eyes and all related structures Neck: Normal visual inspection Respiratory: Clear to auscultation bilaterally. Normal respiratory effort, able to speak in complete sentences, Actively coughing, no respiratory distress, not tachypneic, no tripod positioning and no use of accessory muscles Cardiovascular: Regular rate and rhythm. Normal S1 and S2 Skin: No rashes or lesions noted Neuro: Patient oriented x3 Extremities: Normal to inspection and Yes no clubbing, cyanosis or edema PFSH Medical History Sacroiliac joint pain Hearing impairment Asthma Mood disorder HTN (hypertension) Sleep apnea Elevated cholesterol GERD (gastroesophageal reflux disease) Surgical History Hx laparoscopic cholecystectomy Hx of hemorrhoidectomy History of esophagogastroduodenoscopy (EGD) H/O colonoscopy Social History Patient Tobacco Use Status: Former Tobacco user Tobacco use type: Cigarette Current occupational status: disabled Review of Systems Const All systems reviewed & are unremarkable except as noted in HPI and below Physical Exam Vital Signs: Last Vital Signs Temp 97.4 F 06/28/24 14:13 Pulse 68 06/28/24 14:13 BP 140/80 H 06/28/24 14:13 Pulse Ox 98 06/28/24 14:13 Oxygen Delivery Method Room Air 06/28/24 14:13 BMI result Body Mass Index 44.3 Assessment & Plan Assessment & Plan (1) URI, acute: Code(s): J06.9 - Acute upper respiratory infection, unspecified Plan: as below (2) Otitis media of left ear: Code(s): H66.92 - Otitis media, unspecified, left ear Qualifiers: Otitis media type: mucoid Chronicity: acute Qualified Code(s): H65.192 - Other acute nonsuppurative otitis media, left ear Plan: I plan to address the patient?s symptomatology by prescribing Amoxicillin for the left ear infection and providing a nighttime cough suppressant. Continued use of qchf-byr-hhywplo medications, such as NyQuil, is recommended for symptom management. A [id number] diagnostic test for flu, COVID-19, and RSV is conducted, with follow-up on the result planned. The patient should continue using his inhaler before bed to manage asthma symptoms. If viral test results indicate a positive test, further treatment adjustments will be considered based on viral etiology. Patient was informed and verbally consented to the use of an ambient scribe for clinic note documentation during this visit Orders: Orders SARS-CoV2/FLU/RSV Today J06.9 - Acute upper respiratory infection, unspecified Medications: New benzonatate 200 mg PO TID PRN 14 caps 0RF cough amoxicillin 875 mg PO Q12H 10 tabs 0RF Coding Level of Care Code New Pt Level 4 (64331) Diagnoses URI, acute J06.9 Acute mucoid otitis media of left ear H65.192 Otitis media type: mucoid Chronicity: acute
[2024-06-28 14:13] VITALS: BP 140/80; PULSE 68; TEMP 36.3; O2SAT 98; BMI 44.3
== END 2024-06-28 14:39 | disposition home or self-care (01) ==
PROVIDERS: PCP Family Medicine; Visit Provider Physician Assistant
DX: J06.9 Acute upper respiratory infection, unspecified (principal); H65.192 Other acute nonsuppurative otitis media, left ear

== ENCOUNTER 2024-07-02 09:46 | Outpatient (REF) | payer OTHER, SELFPAY ==
[2024-07-02 11:55] LABS: Estimated Average Glucose 117 mg/dL; Hemoglobin A1C 147.4393 umol/L; Hemoglobin A1c % 5.7 % (<6.0); Total Hemoglobin (HGBA1C) 3829.0907 umol/L
[2024-07-02 11:57] LABS: Alanine Aminotransferase 39 U/L (0-40); Albumin Level 4.3 g/dL (3.5-5.0); Anion Gap 11 (12-20); Aspartate Amino Transferase 61 U/L (5-37); Bilirubin Total 0.5 mg/dL (0.0-1.0); Blood Urea Nitrogen 20 mg/dL (9-16); Calcium 9.2 mg/dL (8.4-10.2); Carbon Dioxide 26 mmol/L (22-29); Chloride 107 mmol/L (96-108); Cholesterol 123 mg/dL (<200); Estimated Glomerular Filt Rate > 60; Glucose Random 133 mg/dL (60-115); HDL Cholesterol 40 mg/dL (>40); LDL Cholesterol Calculated 54 mg/dL (<100); Potassium 3.9 mmol/L (3.3-5.1); Sodium 140 mmol/L (135-145); Total Protein 7.4 g/dL (6.5-8.0); Triglycerides 147 mg/dL (<150)
[2024-07-02 12:24] LABS: Alkaline Phosphatase 58 U/L (39-117); TSH reflex Free T4 5.71 uIU/mL (0.32-4.0)
[2024-07-02 13:20] LABS: Reflex LDLD? No
[2024-07-02 14:06] LABS: Free T4 (Free Thyroxine) 0.94 ng/dL (0.71-1.85)
== END 2024-07-02 09:47 | disposition home or self-care (01) ==
LOC: HO.HHCL 09:46
PROVIDERS: Visit Provider Family Medicine
DX: E78.2 Mixed hyperlipidemia (principal); E78.5 Hyperlipidemia, unspecified; R73.03 Prediabetes; E06.3 Autoimmune thyroiditis
CPT/HCPCS: 36415; 80053; 80061; 83036; 84439; 84443

== ENCOUNTER 2024-09-17 12:36 | Outpatient (REF) | payer OTHER, SELFPAY ==
[2024-09-17 14:52] LABS: TSH reflex Free T4 2.68 uIU/mL (0.32-4.0)
== END 2024-09-17 12:37 | disposition home or self-care (01) ==
LOC: HO.HHCL 12:36
PROVIDERS: Visit Provider Family Medicine
DX: E06.3 Autoimmune thyroiditis (principal)
CPT/HCPCS: 36415; 84443

== ENCOUNTER 2025-01-06 13:46 | Outpatient (AMB) | payer OTHER, SELFPAY ==
--- NOTE | 2025-01-06 13:49 | A.OFFVIS_ITS ---
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 Services: Paint Mixer Hand Present Paint Mixer Hand Name: Angel #[id number] Information Interpreted: non-clinical & clinical Accompanied by: Self / Same As Patient Allergies atorvastatin Allergy (Intermediate, Verified 01/06/25 13:56) Muscle Pain gemfibrozil Allergy (Intermediate, Verified 01/06/25 13:56) itching simvastatin Allergy (Intermediate, Verified 01/06/25 13:56) GI discomfort topiramate (Topiramate) Allergy (Intermediate, Verified 01/06/25 13:56) RASH,HIVES Medication List - Last Reconciled 01/06/25 by ARMINDA Mahoney acetaminophen 650 mg PO Q6H PRN albuterol sulfate 90 mcg/actuation (Ventolin HFA) 2 puffs inhalation Q4-6H PRN amoxicillin 875 mg PO Q12H benzonatate 200 mg PO TID PRN cholecalciferol (vitamin D3) 1,250 mcg PO QWEEK clotrimazole 1% appl topical cyclobenzaprine 5 mg PO BID PRN famotidine 40 mg PO BEDTIME fluticasone propionate 50 mcg/actuation 1 spray intranasal DAILY fluticasone propionate 110 mcg/actuation (Flovent HFA) 1 puff inhalation BID hydroxyzine HCl 25 mg PO BID levofloxacin 500 mg PO DAILY levothyroxine 112 mcg PO QAM lidocaine 5% leave on most painful area for up to 12 hrs topically daily; loratadine (Allergy Relief (loratadine)) 10 mg PO DAILY meclizine 25 mg PO BID melatonin 5 mg PO BEDTIME olanzapine (Zyprexa) 5 mg PO DAILY omeprazole 40 mg PO DAILY omeprazole 40 mg PO DAILY rosuvastatin (Crestor) 40 mg PO DAILY simethicone (Gas Relief (simethicone)) 125 mg PO TID-QID PRN sucralfate 1 g PO QIDACHS tamsulosin 0.4 mg PO BEDTIME triamcinolone acetonide (Nasacort) 2 sprays intranasal DAILY 1 week venlafaxine ER (Effexor XR) 150 mg PO BEDTIME zaleplon 10 mg PO BEDTIME HPI Comments Details: The patient is a 64-year-old male presenting with chronic low back pain. The pain initially improved following an L5-S1 interlaminar injection administered on June 28, 2023, but has recently returned. The patient reports that the pain has been recurring for about a week, and it is exacerbated by sitting and certain movements. Denies any recent trauma, injury or falls. The patient also experiences leg pain with numbness and tingling, which sometimes affects his ability to stand properly. He denies using a cane for ambulation. Denies any recent cough, cold, infection, fever or any significant changes in medical history since last office visit. The patient has a history of thyroid disorder for which he takes levothyroxine 112 mg daily. He reports weight loss associated with this medication. - Onset: Pain returned approximately one week ago, chronic - Quality: Pain is exacerbated by sitting and certain movements; shooting, throbbing, aching, heavy - Location: Pain in the lower back, radiating to the legs posteriorly - Radiation: Pain radiates to the legs with associated numbness and tingling - Interference: Pain affects ability to stand properly, sleep, perform daily activities - Affect: Pain impacts daily activities, particularly sitting and standing - Analgesia: Previously used methocarbamol, now prescribed Flexeril - Adverse Effects: Insurance issues with medication coverage (methocarbamol) - Activities of Daily Living: Pain interferes with sitting, bending, lifting and standing - Aberrant Drug Related Behaviors: None reported Past Procedures: 06/28/23: Interlaminar epidural steroid injection, L5-S1-100% for >12 months 06/15/22: Left SIJ Steroid Injection - 90% relief. 03/02/22: L5-S1 Interlaminar KELSEY ? 100% relief. 11/10/21: Bilateral Therapeutic SIJ Injections ? Minimal relief. PRIOR: Patient is a pleasant 61 years old Uzbek speaking male who presents today to assess his response to L5-S1 interlaminar KELSEY on 03/02/[address] Parish. Patient reports 100% ongoing pain relief post procedure. Patient reports his back pain is gone and denies radiation of pain to his lower extremities. He endorses significant left sacroiliac joint pain and would like to repeat therapeutic left SIJ injection. We reviewed his prevous bilateral SIJ injections with ropivucaine that provided him minimal results. Patient reports his left upper buttock and lateral hip have been increasing. Hip exam was normal and all provocative maneuvers for left SIJ were positive today. Patient would like to schedule his injection under sedation. He denies right SIJ pain. 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 Parish. Unfortunately, he reported minimal relief s/p procedure. He again notes his back is located across the lower back, typically worse on the left. He does report more constant pain with radiation into BLE, L>R and would like to discuss another intervention to target this. PRIOR: Tristen is a pleasant 60 year old male who presents to the office with complaints of low back pain. He states the pain started years ago without any inciting events, but in the past few months has been more exacerbated. He reports the pain starts midline and radiates across the low back. He notes radiation to posterior bilateral legs to the level of the knee and often feels like his legs are falling asleep. Denies any numbness, tingling of bilateral feet. Denies any bowel/bladder dysfunction or weakness. The pain is worse in the morning and less severe at night time. He reports pain onset was gradual. constant and rates the pain a 10/10. He reports his pain is exacerbated by activity as well as prolonged sitting and when driving. His pain is partially alleviated with laying flat. He states the pain is interfering with sleep, activities of daily living and he cannot function normally. He has tried OTC medications without any improvement in his pain. Previously he has tried physical therapy, the last being about four months ago. After a few sessions the patient felt his symptoms were exacerbated and could not tolerate it. Denies any chiropractic manipulation, massage or acupuncture. Denies any previous back injections or surgery. He last had imaging of his lumbar spine in 2019, this report is in his chart. He presents today to discuss injections with sedation. He was evaluated at [facility] and was given ativan prior to the procedure but states his anxiety was so elevated he could not proceed with the procedure. Their office recommended he come to this office to have a procedure with sedation. His past medical history is significant for GERD, Impaired fasting glucose, BPPV, mood disorder, cholcystectomy, bilateral hearing impairment, asthma and HTN. He denies current tobacco and alcohol use. [facility] Medical History Sacroiliac joint pain Hearing impairment Asthma Mood disorder HTN (hypertension) Sleep apnea Elevated cholesterol GERD (gastroesophageal reflux disease) Surgical History Hx laparoscopic cholecystectomy Hx of hemorrhoidectomy History of esophagogastroduodenoscopy (EGD) H/O colonoscopy Social History Patient Tobacco Use Status: Former Tobacco user Tobacco use type: Cigarette Current occupational status: disabled Review of Systems Const Details: - Musculoskeletal: Reports chronic low back pain, leg pain with numbness and tingling - Neurological: Reports numbness and tingling in legs, denies use of cane. Denies weakness, footdrop, bladder or bowel dysfunction or saddle anesthesia. - Endocrine: Reports weight loss with levothyroxine use All systems reviewed & are unremarkable except as noted in HPI and below Physical Exam Vital Signs: Last Vital Signs Pulse 67 01/06/25 13:55 BP 134/71 01/06/25 13:55 Pulse Ox 98 01/06/25 13:55 Oxygen Delivery Method Room Air 01/06/25 13:55 BMI result Body Mass Index 42.1 General: Appears afebrile. Alert and oriented. Mood and affect appropriate. Follows and participates in conversation appropriately. Respiratory effort is unlabored. Able to transition from sit to stand unassisted. Ambulates with bilaterally normal heel strike and toe off. Back/Spine/Pelvis Other: Limited lumbar ROM due to pain. Lumbar extension and flexion reproduces moderate pain, unable to bend forward due to pain. Demonstrates 5/5 strength of quadriceps bilaterally as well as flexion/dorsiflexion of bilateral feet against resistance. 2+ pedal pulses bilaterally. Straight leg rise with dorsiflexion positive bilaterally. +1 patellar and achilles reflexes bilaterally. Facet loading test positive bilaterally. Venu sign, Bennie?s, Gaenslen, Pelvic compression and Stinchfield tests are positive bilaterally. No groin pain with I/E hip rotations. Valsalva maneuver is positive for pain increase. Cervical Spine: cervical ROM normal and No Cervical spine tenderness Thoracic/Lumbar Spine: thoracic and lumbar spine normal to inspection, Lasegue's sign positive bilateral and localized, pain with thoraco-lumbar ROM, paraspinal muscle tenderness, thoraco-lumbar ROM limited, No thoracic spinal tenderness and lumbar spinal tenderness (L4-S1) Sacroiliac joints: bilaterally (left>right) tender to palpation Results Reviewed Results Reviewed: Assessment & Plan Assessment & Plan (1) Stenosis, spinal, lumbar: Code(s): M48.061 - Spinal stenosis, lumbar region without neurogenic claudication Category: Medical (2) Multilevel degenerative disc disease: Code(s): M53.9 - Dorsopathy, unspecified Category: Medical (3) Lumbosacral spondylosis: Code(s): M47.817 - Spondylosis without myelopathy or radiculopathy, lumbosacral region Category: Medical (4) Muscle spasm of back: Code(s): M62.830 - Muscle spasm of back Category: Medical (5) Chronic low back pain with sciatica: Code(s): M54.40 - Lumbago with sciatica, unspecified side; G89.29 - Other chronic pain Category: Medical Plan Continue Flexeril as a muscle relaxant to manage his chronic low back pain, replacing the previously used metocarbamol due to insurance coverage issues. An updated MRI is recommended to assess the current status of the lumbar spine and follow up on previous MRI findings, given the recurrence of pain and previous L5-S1 interlaminar injection. The patient will be contacted for a follow-up appointment to discuss the MRI results and potential adjustments to the treatment plan, including the possibility of further injections vs neurosurgical evaluation if necessary. Patient is aware to call if pain worsens or if he develops any red flag symptoms to seek emergency care. Patient denies any cauda equina syndrome symptoms at this time. Patient was informed and verbally consented to the use of an ambient scribe for clinic note documentation during this visit. Orders: Orders 2 MR lumbar spine wo con 01/06/25 G89.29 - Other chronic pain, M47.817 - Spondylosis without myelopathy or radiculopathy, lumbosacral region, M48.061 - Spinal stenosis, lumbar region without neurogenic claudication, M53.9 - Dorsopathy, unspecified, M54.40 - Lumbago with sciatica, unspecified side Medications: New 2 cyclobenzaprine 5 mg PO BID PRN 60 tabs 0RF muscle spasm M47.817 - Spondylosis without myelopathy or radiculopathy, lumbosacral region, M48.061 - Spinal stenosis, lumbar region without neurogenic claudication, M53.9 - Dorsopathy, unspecified, M62.830 - Muscle spasm of back Coding Level of Care Code Est Pt Level 4 (39009) Complex EM visit Add On G2211 Diagnoses Stenosis, spinal, lumbar M48.061 Multilevel degenerative disc disease M53.9 Lumbosacral spondylosis M47.817 Muscle spasm of back M62.830 Chronic low back pain with sciatica M54.40; G89.29
[2025-01-06 13:55] VITALS: BP 134/71; PULSE 67; O2SAT 98; BMI 42.1
--- OUTSIDE RECORDS SUMMARY | 2025-01-06 14:59 | XMS_ITS | Patient Health Record ---
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 RINSE MOUTH AFTER USING. Inhalation; Duration: 30 Days Active Gas Relief Extra Strength 125 MG TAKE 1 CAPSULE BY MOUTH UP TO THREE TIMES DAILY WITH MEALS NEEDED Oral; Duration: 30 Days Active Vitamin C Active Fiber Active Mometasone Furoate 0.1 % External; Durat ion: 30 Days Active Zaleplon 10 MG Oral; Duration: 30 Days Active Fluconazole 150 MG Oral; Duration: 1 Days Active Social History Tobacco Use: Social History Observation Description Date Details (start date - stop date) Former Smoker NA - NA Tobacco Use/Smoking Question Answer Notes Are you a: former smoker Additional Findings: Tobacco Non-User Current no n-smoker Alcohol Screen Question Answer Notes Did you have a drink containing alcohol in the p ast year? No Points 0 Interpretation Negative Tobacco use other than smoking: Question Answer Notes Are you an other tobacco user? No Problems Problem Type SNOMED Code ICD Code Onset Dates Problem Status W/U Status Risk Notes Problem Plantar wart (41683217) Plantar wart (B07.0) Active confirmed Encounters Encounter Location Date Provider Diagnosis [facility] [address] [place] [address] 11/13/2024 Mee Ellison Plan Of Treatment Pending Test Test Name Order Date X ray : Foot, left 3V 10/10/2023 Next Appt Details Provider Name:Mee Ott Derrick ott, 01/24/2025 12:30:00 PM, [address] [facility], [place], [address], Insurance Providers Payer Name Payer Address Payer Phone Subscriber Number Group Number Insured Name Patient Relationship to Insured Coverage Start Date Coverage End Date [facility] [employer] Claims [address] [place] [id number] Tristen Su Self - patient is the insured Medical (General) History Medical History History ICD Code Anxiety Back,Hip,and Knee pain Depression Headaches/Migraines Liver disease Chicken pox Surgical History Surgery Date(Month/Year) Hand Surgery 1991 Gall bladder surgery 2018 colonoscopy Hospitalization History Reason Date(Month/Year) [facility] 10/11/23
--- OUTSIDE RECORDS SUMMARY | 2025-01-06 14:59 | XMS_ITS | Encounter Summary ---
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 Name Role Phone Cynthia Minor MD Primary Care Provider [phone] Encounter Details Date Type Department Care Team ([facility] Contact Info) Description 12/06/2023 Orders Only [facility] [address], [place] [phone] Cynthia Minor MD [address], [place] [phone] Social History Tobacco Use Types Packs/Day Years Used Date Smoking Tobacco: Never Passive Smoke Exposure: Never Smokeless Tobacco: Never Alcohol Use Standard Drinks/Week Comments Never 0 (1 standard drink = 0.6 oz pur e alcohol) Depression Answer Date Recorded Patient Health Questionnaire-9 Score 0 03/28/2023 Housing Stability Answer Date Recorded What is your housing situation today? I have chapito apple 04/10/[address] you li ve. Do you have problems with any of the following? None of the above 04/10/2023 Food Insecurity Answer Date Recorded Within the past 12 months, y ou worried that your food would run out before you got money to buy more: Never True 04/10/2023 Within the past 12 months,th e food you bought just didn't last and you didn't have enough money to get more: Never True Transportation Answer Date Recorded In the past 12 months, has l ack of transportation kept you from medical appts, meetings, work or from getting things needed for daily living? No 04/10/2023 Utilities Answer Date Recorded In the past 12 months, has t he electric, gas, oil or water company threatened to shut off services in your home? No 04/10/2023 Depression Answer Date Recorded Patient Health Questionnaire-2 Score 0 03/28/2023 Sex and Gender Information Value Date Recorded Sex Assigned at Male 04/25/2022 10:14 AM EDT Legal Sex Male 10:14 AM EDT Gender Identity Male 04/25/2022 10:14 AM EDT Sexual Orientation Straight 04/25/2022 10 :14 AM EDT documented as of this encounter Plan of Treatment Upcoming Encounters Date Type Department Care Team (Late st Contact Info) Description 01/27/2025 9:00 AM EDT Office Visit [facility] [address] [place], [place] [phone] Macario Gonzalez DDS [address] [place] [address] 02/20/2025 10:00 AM EDT Office Visit [facility] [address] [place] [address] Bib, Catrina [address] [place] [address] documented as of this encounter Visit Diagnoses Not on filedocumented in this encounter Additional Health Concerns Assessment Noted Time PHQ-9 Depression Total Score: 0 03/28/20 23 8:55 AM EDT documented as of this encounter Care Teams Roller Skate Assembler Relationship Specialty Start Date End Date Cynthia Minor MD [address] [place] [address] PCP - General Family Medicine 06/26/18 documented as of this encounter
== END 2025-01-06 14:10 | disposition home or self-care (01) ==
LOC: HO.PMC 13:47
PROVIDERS: PCP Family Medicine; Visit Provider Nurse Practitioner Family
DX: M48.061 Spinal stenosis, lumbar region without neurogenic claudication (principal); M53.9 Dorsopathy, unspecified; M47.817 Spondylosis without myelopathy or radiculopathy, lumbosacral region; M62.830 Muscle spasm of back; M54.40 Lumbago with sciatica, unspecified side; G89.29 Other chronic pain
CPT/HCPCS: 99214; G2211

== ENCOUNTER → 2025-01-06 13:46 | Outpatient (BNVA) | payer OTHER, SELFPAY | PROVIDERS: PCP Family Medicine; Visit Provider Nurse Practitioner Family | DX: M48.061 Spinal stenosis, lumbar region without neurogenic claudication (principal); M53.9 Dorsopathy, unspecified; M47.817 Spondylosis without myelopathy or radiculopathy, lumbosacral region; M62.830 Muscle spasm of back; M54.40 Lumbago with sciatica, unspecified side; G89.29 Other chronic pain | CPT/HCPCS: 99212 ==

== ENCOUNTER 2025-03-07 09:26 | Outpatient (AMB) | payer OTHER, SELFPAY ==
--- OUTSIDE RECORDS SUMMARY | 2023-11-22 05:00 | XMS_ITS ---
Author Organization [facility] Address [address] [place] [address] Care Team Providers Care Solar Process Engineer Name Role Phone Cynthia Minor Primary Care Provider Mee Figueroa Unavailable [phone] Encounters Encounter Location Date Provider Diagnosis [address] [address] 11/22/2023 Mee Ellison Plan Of Treatment No Information Progress Notes * Mera REICHOB: 2 (64 yo M)Acc No.[id number]:11/22/2023 Patient: Tristen GUTIERREZ Provider: Latisha Ellison DPM :1960 A ge:63 Y S ex:Male Date:11/22/2023 Address:[address] [place], [place] [id number] Pcp:Cynthia Minor Subjective: * Chief Complaints: * [...] Date: 11/22/2023 Generated for Lucius ng/Faanabelg/eTransmitting on: 0 03/07/2025 10:30 AM EDT
--- OUTSIDE RECORDS SUMMARY | 2024-11-13 05:00 | XMS_ITS ---
Author Organization [facility] Address [address] [place] [address] Care Team Providers Care Typewriter Aligner Name Role Phone Cyntiha Minor Primary Care Provider Mee Figueroa Unavailable [phone] Allergies Allergen (clinical drug ingredient) Drug/Non Drug [...] Active Encounters Encounter Location Date Provider Diagnosis [facility] [address] [place] [address] 11/13/2024 Mee Ellison Plan Of Treatment No Information Progress Notes * Ricardo REICHJessicaOB: 2 (64 yo M)Acc No.[id number]:11/13/2024 Progress Note Patient: Tristen GUTIERREZ Provider: Latisha Ellison DPM :1960 A ge:64 Y S ex:Male Date:11/13/2024 Address:[address] [place] [address] [id number] Pcp:Cynthia Minor Subjective: * Chief Complaints: * [...] 11/13/2024 Generated for Lucius sawyer/Rocco/King on: 0 03/07/2025 10:30 AM EDT History and Physical Notes * HPI (History of Present Illness) Category Sub-Category Detail Notes Category Not es Skin problems Pt States PCP Visit: DATE: 03/27/2023
--- NOTE | 2025-03-07 09:41 | MHC.OFFVIS ---
Vital Signs 03/07/25 09:46 Height 5 ft 2 in Weight 230 lb 4 oz BMI 42.1 BP 137/69 Blood Pressure Location Lt brachial Position Sitting Pulse 62 Pulse Source Pulse Oximeter Pulse Oximetry (%) 98 Oxygen Delivery Method Room Air Intake Visit Reasons: Discuss MRI Results Intake Note: Pain today 04/04 Accompanied by: Self / Same As Patient Allergies atorvastatin Allergy (Intermediate, Verified 03/07/25 09:47) Muscle Pain gemfibrozil Allergy (Intermediate, Verified 03/07/25 09:47) itching simvastatin Allergy (Intermediate, Verified 03/07/25 09:47) GI discomfort topiramate (Topiramate) Allergy (Intermediate, Verified 03/07/25 09:47) RASH,HIVES HPI Comments Details: Patient presents today to discuss recent lumbar spine MRI results. He reports his symptoms have progressed from moderate to severe, causing back pain that radiates to the back of the legs. Previously, the patient received injections at the L5-S1 level, which provided temporary relief. The patient is considering further injections or surgical decompression as potential interventions. The MRI findings indicate significant narrowing at the L5 level, with nerve compression on both sides, more pronounced on the left. The patient reports that walking does not exacerbate the pain, and there is no heaviness in the legs during ambulation.Denies any recent cough, cold, infection, fever or any significant changes in medical history since last office visit. PRIOR: The patient is a 64-year-old male presenting with chronic low back pain. The pain initially improved following an L5-S1 interlaminar injection administered on June 28, 2023, but has recently returned. The patient reports that the pain has been recurring for about a week, and it is exacerbated by sitting and certain movements. Denies any recent trauma, injury or falls. The patient also experiences leg pain with numbness and tingling, which sometimes affects his ability to stand properly. He denies using a cane for ambulation. Denies any recent cough, cold, infection, fever or any significant changes in medical history since last office visit. The patient has a history of thyroid disorder for which he takes levothyroxine 112 mg daily. He reports weight loss associated with this medication. - Onset: Pain returned approximately one week ago, chronic - Quality: Pain is exacerbated by sitting and certain movements; shooting, throbbing, aching, heavy - Location: Pain in the lower back, radiating to the legs posteriorly - Radiation: Pain radiates to the legs with associated numbness and tingling - Interference: Pain affects ability to stand properly, sleep, perform daily activities - Affect: Pain impacts daily activities, particularly sitting and standing - Analgesia: Previously used methocarbamol, now prescribed Flexeril - Adverse Effects: Insurance issues with medication coverage (methocarbamol) - Activities of Daily Living: Pain interferes with sitting, bending, lifting and standing - Aberrant Drug Related Behaviors: None reported Past Procedures: 06/28/23: Interlaminar epidural steroid injection, L5-S1-100% for >12 months 06/15/22: Left SIJ Steroid Injection - 90% relief. 03/02/22: L5-S1 Interlaminar KELSEY ? 100% relief. 11/10/21: Bilateral Therapeutic SIJ Injections ? Minimal relief. PRIOR: Patient is a pleasant 61 years old Romanian speaking male who presents today to assess his response to L5-S1 interlaminar KELSEY on 03/02/[address] Parish. Patient reports 100% ongoing pain relief post procedure. Patient reports his back pain is gone and denies radiation of pain to his lower extremities. He endorses significant left sacroiliac joint pain and would like to repeat therapeutic left SIJ injection. We reviewed his prevous bilateral SIJ injections with ropivucaine that provided him minimal results. Patient reports his left upper buttock and lateral hip have been increasing. Hip exam was normal and all provocative maneuvers for left SIJ were positive today. Patient would like to schedule his injection under sedation. He denies right SIJ pain. PRIOR 12/22/21 Eun MATTHEWSP: Tristen returns to review the effectiveness of bilateral therapeutic SIJ injections performed on 11/10/[address] Parish. Unfortunately, he reported minimal relief s/p procedure. He again notes his back is located across the lower back, typically worse on the left. He does report more constant pain with radiation into BLE, L>R and would like to discuss another intervention to target this. PRIOR: Tristen is a pleasant 60 year old male who presents to the office with complaints of low back pain. He states the pain started years ago without any inciting events, but in the past few months has been more exacerbated. He reports the pain starts midline and radiates across the low back. He notes radiation to posterior bilateral legs to the level of the knee and often feels like his legs are falling asleep. Denies any numbness, tingling of bilateral feet. Denies any bowel/bladder dysfunction or weakness. The pain is worse in the morning and less severe at night time. He reports pain onset was gradual. constant and rates the pain a 10/10. He reports his pain is exacerbated by activity as well as prolonged sitting and when driving. His pain is partially alleviated with laying flat. He states the pain is interfering with sleep, activities of daily living and he cannot function normally. He has tried OTC medications without any improvement in his pain. Previously he has tried physical therapy, the last being about four months ago. After a few sessions the patient felt his symptoms were exacerbated and could not tolerate it. Denies any chiropractic manipulation, massage or acupuncture. Denies any previous back injections or surgery. He last had imaging of his lumbar spine in 2019, this report is in his chart. He presents today to discuss injections with sedation. He was evaluated at [facility] and was given ativan prior to the procedure but states his anxiety was so elevated he could not proceed with the procedure. Their office recommended he come to this office to have a procedure with sedation. His past medical history is significant for GERD, Impaired fasting glucose, BPPV, mood disorder, cholcystectomy, bilateral hearing impairment, asthma and HTN. He denies current tobacco and alcohol use. [facility] Medical History Sacroiliac joint pain Hearing impairment Asthma Mood disorder HTN (hypertension) Sleep apnea Elevated cholesterol GERD (gastroesophageal reflux disease) Surgical History Hx laparoscopic cholecystectomy Hx of hemorrhoidectomy History of esophagogastroduodenoscopy (EGD) H/O colonoscopy Social History Patient Tobacco Use Status: Former Tobacco user Tobacco use type: Cigarette Current occupational status: disabled Review of Systems Const All systems reviewed & are unremarkable except as noted in HPI and below Physical Exam Vital Signs: Last Vital Signs Pulse 62 03/07/25 09:46 BP 137/69 03/07/25 09:46 Pulse Ox 98 03/07/25 09:46 Oxygen Delivery Method Room Air 03/07/25 09:46 BMI result Body Mass Index 42.1 General: Appears afebrile. Alert and oriented. Mood and affect appropriate. Follows and participates in conversation appropriately. Respiratory effort is unlabored. Able to transition from sit to stand unassisted. Ambulates with bilaterally normal heel strike and toe off. General: Yes no CVA tenderness Back/Spine/Pelvis Other: Limited lumbar ROM due to pain. Lumbar extension and flexion reproduces moderate pain, unable to bend forward due to pain. Demonstrates 5/5 strength of quadriceps bilaterally as well as flexion/dorsiflexion of bilateral feet against resistance. 2+ pedal pulses bilaterally. Straight leg rise with dorsiflexion positive bilaterally. +1 patellar and achilles reflexes bilaterally. Facet loading test positive bilaterally. Venu sign, Bennie?s, Gaenslen, Pelvic compression and Stinchfield tests are positive bilaterally. No groin pain with I/E hip rotations. Valsalva maneuver is positive for pain increase. Back: no CVA tenderness Cervical Spine: cervical ROM normal and No Cervical spine tenderness Thoracic/Lumbar Spine: thoracic and lumbar spine normal to inspection, Lasegue's sign positive bilateral and localized, pain with thoraco-lumbar ROM, paraspinal muscle tenderness, thoraco-lumbar ROM limited, No thoracic spinal tenderness and lumbar spinal tenderness (L4-S1) Sacroiliac joints: bilaterally (left>right) tender to palpation Extrem General: Yes capillary refill normal, Yes no clubbing, cyanosis or edema and Yes no calf tenderness Results Reviewed Results Reviewed: MR LUMBAR SPINE WITHOUT CONTRAST 02/19/25 RAYUS INDICATION: Spinal stenosis, without neurogenic claudication, lumbar spondylosis TECHNIQUE: Standard lumbar spine protocol without contrast COMPARISON: Lumbar spine MRI report from March 2020. Images are not available for direct comparison, and could not be retrieved. FINDINGS: Vertebral bodies demonstrate normal height and alignment. Small right-sided renal cyst is present. Conus demonstrates normal contour and signal and terminates at L1 level. L1-2 level is unremarkable. L2-L3 level shows central and foraminal disc bulge and mild disc degeneration with endplate shows node formation. The canal and foramina are patent. L3-L4 level shows minor disc bulge, and disc desiccation with anterior endplate spurring. The canal, recesses and foramina are patent. L4-L5 level shows developing Schmorl's node formation overlying the lower L4 endplate with endplate marrow edema. Mild facet arthrosis is seen. The canal, recesses and foramina are patent. At L5-S1 level, there is central and foraminal disc osteophyte complex, mild disc degeneration and moderate facet arthrosis. Slight anterolisthesis of L5 on S1 is seen. The canal and recesses are preserved. There is moderate to severe bilateral osseous foraminal stenosis, encroaching on the exiting L5 nerve roots. Early endplate changes are seen due to mild disc degeneration. IMPRESSION: Multilevel lumbar spondylotic changes, most pronounced at L5-S1 level, where there is moderate to severe bilateral osseous foraminal stenosis as discussed. Other changes of lumbar spondylosis. No significant central canal stenosis is present. Assessment & Plan Assessment & Plan (1) Multilevel degenerative disc disease: Code(s): M53.9 - Dorsopathy, unspecified Category: Medical (2) Lumbosacral spondylosis: Code(s): M47.817 - Spondylosis without myelopathy or radiculopathy, lumbosacral region Category: Medical (3) Muscle spasm of back: Code(s): M62.830 - Muscle spasm of back Category: Medical (4) Chronic low back pain with sciatica: Code(s): M54.40 - Lumbago with sciatica, unspecified side; G89.29 - Other chronic pain Category: Medical (5) Stenosis, spinal, lumbar: Code(s): M48.061 - Spinal stenosis, lumbar region without neurogenic claudication Category: Medical Plan The plan includes considering further injections at the L5-S1 level to manage the spinal stenosis. Alternatively, referral to a Neurosurgeon for surgical decompression is an option if the patient desires a surgical option. Schedule Bilateral L5-S1 TFESI with sedation and fluoroscopy. Expectations, risks and benefits were reviewed. Patient is aware she will be contacted to schedule this procedure. Patient is aware to call if pain worsens or if he develops any red flag symptoms to seek emergency care. All questions and concerns have been answered and patient agreed with the treatment plan. Follow up after injection and sooner as needed. Patient was informed and verbally consented to the use of an ambient scribe for clinic note documentation during this visit. Coding Level of Care Code Est Pt Level 4 (32745) Complex EM visit Add On G2211 Diagnoses Multilevel degenerative disc disease M53.9 Lumbosacral spondylosis M47.817 Muscle spasm of back M62.830 Chronic low back pain with sciatica M54.40; G89.29 Stenosis, spinal, lumbar M48.061
[2025-03-07 09:46] VITALS: BP 137/69; PULSE 62; O2SAT 98; BMI 42.1
--- OUTSIDE RECORDS SUMMARY | 2025-03-07 10:30 | XMS_ITS | Encounter Summary ---
Author Organization [employer] Address [address] [facility] [address]t [place] [address] Care Team Providers Care Child Care Attendant School Name Role Phone Cynthia Minor MD Primary Care Provider [phone] Encounter Details Date Type Department Care Team ([facility] Contact Info) Description 02/02/2023 Orders Only [facility] CHC MED & PEDS [address] [place], [place] [phone] Zara Galicia LPN Social History Tobacco Use Types Packs/Day Years Used Date Smoking Tobacco: Never Passive Smoke Exposure: Never Smokeless Tobacco: Never Alcohol Use Standard Drinks/Week Comments Never 0 (1 standard drink = 0.6 oz pur e alcohol) Sex and Gender Information Value Date Recorded Sex Assigned at Male 04/25/2022 10:14 AM EDT Legal Sex Male 10:14 AM EDT Gender Identity Male 04/25/2022 10:14 AM EDT Sexual Orientation Straight 04/25/2022 10 :14 AM EDT documented as of this encounter Plan of Treatment Upcoming Encounters Date Type Department Care Team (Late Contact Info) Description 03/12/2025 9:00 AM EDT Office Visit [facility] MEDICINE [address] [place] [address] Cynthia Minor MD [address] [place] [address] 04/07/2025 10:15 AM EDT Office Visit [facility] ADULT DENTAL [address] [place] [address] Catrina Mccartney [address] [place] [address] documented as of this encounter Visit Diagnoses Not on filedocumented in this encounter Care Teams Child Care Attendant School Relationship Specialty Start Date End Date Cynthia Minor MD [address] [place] [id number] PCP - General Family Medicine 06/26/18 documented as of this encounter
--- OUTSIDE RECORDS SUMMARY | 2025-03-07 10:30 | XMS_ITS | Encounter Summary ---
Author Organization [employer] Address [address] [facility] [address] [place] [address] Care Team Providers Care Remote Operations Producer Name Role Phone Cynthia Minor MD Primary Care Provider [phone] Encounter Details Date Type Department Care Team ([facility] Contact Info) Description 12/06/2023 Orders Only [facility] MEDICINE [address] [place], [place] [phone] Cynthia Minor MD [address] [place], [place] [phone] Social History Tobacco Use Types Packs/Day Years [...] Care Team (Late st Contact Info) Description 03/12/2025 9:00 AM EDT Office Visit [facility] MEDICINE [address] [place] [address] Cynthia Minor MD [address] [place] [address] 04/07/2025 10:15 AM EDT Office Visit [facility] ADULT DENTAL [address] [place] [address] Bib, Catrina [address] [place] [address] documented as of this encounter Visit Diagnoses Not on filedocumented in this encounter Additional Health Concerns Assessment Noted Time PHQ-9 Depression Total Score: 0 03/28/20 23 8:55 AM EDT documented as of this encounter Care Teams Remote Operations Producer Relationship Specialty Start Date End Date Cynthia Minor MD [address] [place] [phone] PCP - General Family Medicine 06/26/18 documented as of this encounter
--- OUTSIDE RECORDS SUMMARY | 2025-03-07 10:31 | XMS_ITS | Encounter Summary ---
Author Organization [employer] Address [address] [facility] [address] [place] [address] Care Team Providers Care Fabrication Manager Name Role Phone Cynthia Minor MD Primary Care Provider [phone] Encounter Details Date Type Department Care Team (Late Contact Info) Description 08/01/2022 Orders Only [facility] CHC MED & PEDS [address] [place] [address] Zara Galicia LPN Social History Tobacco Use [...] Orientation Straight 04/25/2022 10 :14 AM EDT COVID-19 Exposure Response Date Recorded In the last 10 days, have yo u been in contact with someone who was confirmed or suspected to have Coronavirus/COVID-19? No / Unsure 07/12/2022 9:29 AM EST documented as of this encounter Plan of Treatment Upcoming Encounters Date Type Department Care Team ([facility] Contact Info) Description 03/12/2025 9:00 AM EDT Office Visit [facility] MEDICINE [address] [place], [place] [phone] Cynthia Minor MD [address] [place], [place] [phone] 04/07/2025 10:15 AM EDT Office Visit [facility] ADULT DENTAL [address] [place] [address] Catrina Mccartney [address] [place], [place] [phone] documented as of this encounter Visit Diagnoses Not on filedocumented in this encounter Care Teams Fabrication Manager Relationship Specialty Start Date End Date Cynthia Minor MD [address] [place] [address] PCP - General Family Medicine 06/26/18 documented as of this encounter
--- OUTSIDE RECORDS SUMMARY | 2025-03-07 10:31 | XMS_ITS | Encounter Summary ---
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 I have [employer] apple 07/02/[address] you li ve. Do you have problems with any of the following? None of the above 07/02/2024 Food Insecurity Answer Date Recorded Within the past 12 months, y ou worried that your food would run out before you got money to buy more: Never True 07/02/2024 Within the past 12 months,th e food you bought just didn't last and you didn't have enough money to get more: Never True 12/2024 Transportation Answer Date Recorded In the past 12 months, has l ack of transportation kept you from medical appts, meetings, work or from getting things needed for daily living? No 07/02/2024 Utilities Answer Date Recorded In the past 12 months, has t he electric, gas, oil or water company threatened to shut off services in your home? No 07/02/2024 Depression Answer Date Recorded Patient Health Questionnaire-2 Score 5 07/02/2024 Sex and Gender Information Value Date Recorded Sex Assigned at Male 04/25/2022 10:14 AM EDT Legal Sex Male 10:14 AM EDT Gender Identity Male 04/25/2022 10:14 AM EDT Sexual Orientation Straight 04/25/2022 10 :14 AM EDT documented as of this encounter Plan of Treatment Upcoming Encounters Date Type Department Care Team (Late st Contact Info) Description 03/12/2025 9:00 AM EDT Office Visit [facility] MEDICINE [address] [place] [address] Cynthia Minor MD [address] [place] [address] 04/07/2025 10:15 AM EDT Office Visit [facility] ADULT DENTAL [address] [place] [address] Ricky Mccartneyaris [address] [place] [address] documented as of this encounter Procedures Procedure Name Priority Date/Time Associated Diagnosis Comments TSH W/REFLEX TO FT4 Routine 09/17/2024 1 2:40 PM EDT 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 documented in this encounter Results * TSH with Reflex to Free T4 (09/17/2024 12:40 PM EDT) TSH reflex Free T4 2.68 0.32 - 4.0 uIU/mL [facility] Blood 09/17/2024 12:4 0 PM EDT 09/17/2024 2:15 PM EDT us Cynthia Minor MD LAB BLOOD ORDERABLES Final Resul t [facility] [address] [place] [address] [phone] documented in this encounter Visit Diagnoses Diagnosis 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
--- OUTSIDE RECORDS SUMMARY | 2025-03-07 10:31 | XMS_ITS | Encounter Summary ---
Author Organization [employer] Address [address] [facility] [address] [place] [address] Care Team Providers Care Pile Driving Setter Name Role Phone Cynthia Minor MD Primary Care Provider [phone] Reason for Visit * Reason Onset Date Comments Call Back Request 08/30/2023 Encounter Details Date Type Department Care Team ([facility] Contact Info) Description 08/30/2023 Telephone [facility] MEDICINE [address] [place], [place] [phone] Cynthia Minor MD [address] [place], [place] [phone] Call Back Request Social History Tobacco Use Types Packs/Day Years [...] AM EDT documented as of this encounter Miscellaneous Notes * Telephone Encounter - July Knox RN - 08/31/2023 11:51 AM EST Telephone call to patient's daughter. Patients daughter has concerns of patient being forgetful andrepeating himself--patient realizes he is repeating himself. Daughter does not know if it is memoryissues or if it might be his medications and wants them reviewed also wanted PCP to know patient istaking pre-workout power before working out. Daughter wants PCP to bring up memory in visit--so patient tells PCP about it. * Telephone Encounter - Edi Lafleur - 08/30/2023 11:47 AM EST Tc from the patients daughter calling to request a call back to discuss some concerns she feels like the patient is going through early sign a Dementia and would like to see if the patient can get evaluated please call the daughter at [phone] documented in this encounter Plan of Treatment Upcoming Encounters Date Type Department Care Team (Late st Contact Info) Description 03/12/2025 9:00 AM EDT Office Visit [facility] MEDICINE [address] [place] [address] Cynthia Minor MD [address] [place] [address] 04/07/2025 10:15 AM EDT Office Visit [facility] ADULT DENTAL [address] [place] [address] Catrina Mccartney [address] [place] [address] documented as of this encounter Visit Diagnoses Not on filedocumented in this encounter Additional Health Concerns Assessment Noted Time PHQ-9 Depression Total Score: 0 03/28/20 23 8:55 AM EDT documented as of this encounter Care Teams Pile Driving Setter Relationship Specialty Start Date End Date Cynthia Minor MD [address] [place] [address] PCP - General Family Medicine 06/26/18 documented as of this encounter
--- OUTSIDE RECORDS SUMMARY | 2025-03-07 10:31 | XMS_ITS | Clinical Summary ---
Author Organization [employer] Address [address] [place] [address] [address] [place] [address] Care Team Providers Care Hydrodynamics Professor Name Role Phone Jeanne Minor MD Primary Care Provider [phone] Allergies Active Allergy Reactions Criticality Noted Date Comments Atorvastatin 09/01/2022 Topiramate 08/08/2022 Medications hydrOXYzine HCl (Atarax) 25 MG tablet TAKE 1/2 TO 1 TABLET BY MOUTH UP TO TWICE DAILY NEEDED FOR ANXIETY 023 Active zaleplon (Sonata) 10 MG capsule Take 20 mg by mouth at bedtime. 023 Active lidocaine (Xylocaine) 5 % ointmentIndicati ons:Pain Apply to affected area once or twice daily 44 g 3 023 Active Methylcellulose, Laxative, (SM Fiber Laxative) 500 MG tabletIndication s:Constipation, unspecified constipation type Take 1 tablet by mouth 2 times daily. 60 tablet 3 023 Active melatonin 5 MG tablet Take 1 tablet by mouth at bedtime. 023 Active OLANZapine (ZyPREXA) 10 MG tablet Take 1 tablet by mouth at bedtime. 023 Active venlafaxine XR (Effexor XR) 150 MG 24 hr capsule TAKE 1 CAPSULE BY MOUTH EVERY MORNING DIRECTED 023 Active clotrimazole (Lotrimin) 1 % creamIndications :Tinea pedis, unspecified laterality APPLY TO AFFECTED AREA(S) AND SURROUNDING AREA(S) TWICE DAILY IN THE MORNING AND EVENING 60 g 1 023 Active tiZANidine (Zanaflex) 4 MG tablet TAKE 1 TABLET BY MOUTH EVERY 6 TO 8 HOURS NEEDED FOR BACKACHE NO MORE THAN 3 TABLETS DAILY 60 tablet 3 023 Active OLANZapine (ZyPREXA) 5 MG tablet TAKE 1/2 TABLET BY MOUTH EVERY DAY IN THE MORNING AND TAKE 1/2 TABLET BY MOUTH NEEDED EVERY DAY Active cetirizine (ZyrTEC) 10 MG tablet Take 1 tablet (10 mg) by mouth Once per day. 30 tablet 11 024 Active omeprazole (PriLOSEC) [address] capsule Take 1 capsule (40 mg) by mouth before breakfast. Do not crush or chew. 90 capsule 3 024 Active fluticasone (Flonase) 50 MCG/ACT nasal sprayIndications :Facial pressure Administer 1 spray into each nostril Once per day. Shake gently. Before first use, prime pump. After use, clean tip and replace cap. 16 g 11 024 Active acetaminophen (Tylenol 8 Hour) 650 MG ER tabletIndication s:Facial pressure Take 1 tablet (650 mg) by mouth every 8 (eight) hours if needed for mild pain. Do not crush, chew, or split. 30 tablet 1 024 Active Crestor 40 MG tabletIndication s:Dyslipidemia Take 1 tablet (40 mg) by mouth at bedtime. 90 tablet 3 025 Active Arnuity Ellipta 100 MCG/ACT inhaler INHALE 1 PUFF ONCE DAILY. RINSE MOUTH AFTER USING. 30 each Active Ketotifen Fumarate 0.035 % solutionIndicati ons:Pruritus of both eyes Administer 1 drop into affected eye(s) if needed in the morning and at bedtime (eye redness, itching). 10 mL 025 Active ibuprofen 600 MG tablet Take 1 tablet (600 mg) by mouth every 6 (six) hours if needed for mild pain for up to 20 doses. 20 tablet 025 Active tamsulosin (Flomax) 0.4 MG 24 hr capsuleIndicatio ns:Benign prostatic hyperplasia with urinary frequency TAKE 1 CAPSULE BY MOUTH ONCE DAILY AT BEDTIME 90 capsule 3 025 Active sucralfate (Carafate) 1 g tablet Take 1 tablet by mouth three times daily as needed 270 tablet 1 06/17/2 025 Active Ventolin HFA 108 (90 Base) MCG/ACT inhaler INHALE 2 PUFFS BY MOUTH EVERY 4 HOURS NEEDED FOR WHEEZING OR SHORTNESS OF BREATH 18 g 3 Active simethicone (GAS RELIEF) 125 MG capsuleIndicatio ns:Excessive gas TAKE 1 CAPSULE BY MOUTH THREE TIMES DAILY NEEDED WITH MEALS 90 capsule 2 Active FT Fiber Laxative 625 MG tablet TAKE 1 TABLET BY MOUTH TWICE DAILY 60 tablet 2 Active chlorhexidine (Peridex) 0.12 % solution SWISH 15 ML BY MOUTH FOR 30 SECONDS THEN SPIT OUT . USE TWICE DAILY IN THE MORNING AND IN THE EVENING AFTER BRUSHING TEETH. SPIT OUT, DO NOT SWALLOW Active oxyCODONE (Roxicodone) 5 MG immediate release tablet TAKE 1 TABLET BY MOUTH EVERY 6 HOURS NEEDED BREAKTHROUGH PAIN Active PEG [id number]-N aCl-NaSulf (PEG-3350/Electr olytes) 236 g reconstituted solution FOLLOW INSTRUCTION SHEET GIVEN TO YOU AT YOUR DOCTOR'S OFFICE DIRECTED. Active benzocaine (Orajel) 10 % mucosal gelIndications:D ry socket Use in the mouth or throat if needed for mucositis. 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 30 tablet 11 024 2024 Discontinued Active Problems Problem Noted Date Diagnosed Date Encounter for screening colonoscopy 01/21/2025 History of colonic polyps 01/21/2025 Hypertension 01/21/2025 Atypical odontalgia 10/22/2024 Fractured dental spiritism with loss of materi al 09/16/2024 Localized gingival recession 04/05/2024 Generalized gingival recession 02/05/2024 Dental plaque 02/05/2024 Missing teeth, acquired 02/05/2024 Sensitivity of root structure of tooth 4 Mild cognitive impairment 09/05/2023 Assessment & Plan (09/18/2023 5:27 AM EDT): -MMSE-2 score 13. Limited dues to patient's education level and difficulty comprehending instructions. Unable to compare to baseline. -Possibly due to stress -Consider MRI in near future or referral to neurologist -Obtain psychiatrist's opinion regarding to his cognition and behavior. Constipation 11/26/2022 Assessment & Plan (12/05/2023 9:53 AM EDT): -Cont Fiber Rich Diet -Cont Fiber supplements -Colonoscopy 01/2020; Pathology report of Tubular Adenoma, repeat in 5 yrs. -Maintain euthyroid state Assessment & Plan (11/26/2022 6:53 AM EDT): -Cont Fiber Rich Diet -Cont Fiber supplements -Colonoscopy 01/2020; Pathology report of Tubular Adenoma, repeat in 5 yrs. Chronic low back pain 11/16/2022 Assessment & Plan (12/05/2023 10:27 AM EDT): -Pt has SI joint pain and pain from Spinal Stenosis -pt was seen by [facility] provider in 04/2020, pt was scheduled for injection tx and given tizanidine but pt requested procedure to be done under general anesthesia or stronger sedation; pt was recommended to find another specialist who can treat him. -pt was seen [place] [facility] -Recieved SIJ injection treatment on 11/10/21; received Intralaminar steroid injection. -03/02/22 L5-S1 interlaminar steroid injection with sedation and fluoroscopy by Dr. Olman Parish. -continue judicious use of tizanidine -continue home back exercise -recommended physical therapy for evaluation whether recliner is appropriate; patient is requesting a home PT Assessment & Plan (11/26/2022 6:51 AM EDT): -Pt has SI joint pain and pain from Spinal Stenosis -pt was seen by [facility] provider in 04/2020, pt was scheduled for injection tx and given tizanidine but pt requested procedure to be done under general anesthesia or stronger sedation; pt was recommended to find another specialist who can treat him. -pt was seen by [facility] -Recieved SIJ injection treatment on 11/10/21; received Intralaminar steroid injection. -03/02/22 L5-S1 interlaminar steroid injection with sedation and fluoroscopy by Dr. Olman Parish. -continue judicious use of tizanidine -continue home back exercise -recommended physical therapy for evaluation whether recliner is appropriate Chronic left shoulder pain 11/16/2022 Assessment & Plan (11/16/2022 10:11 AM EDT): Will refer to Physical therapy History of kidney stones 08/14/2022 Assessment & Plan (09/17/2024 8:56 AM EDT): -adequate hydration -Flomax for BPH -patient states he will contact his urologist for an appointment Assessment & Plan (12/05/2023 9:56 AM EDT): -adequate hydration -Flomax for BPH -patient states he will contact his urologist for an appointment Assessment & Plan (11/16/2022 10:09 AM EDT): -adequate hydration -Flomax for BPH Assessment & Plan (08/14/2022 5:12 AM EST): -adequate hydration -Flomax for BPH Allergic rhinitis 08/08/2022 Anxiety 08/08/2022 History of cholecystectomy 08/08/2022 Obesity 08/08/2022 Assessment & Plan (12/10/2024 12:57 PM EDT): -He is physically active and exercises everyday -Continue staying physically active -Work on improving diet Assessment & Plan (07/03/2024 2:49 PM EST): -He is physically active and exercises everyday -Continue staying physically active -Work on improving diet Assessment & Plan (04/03/2023 5:27 PM EDT): -He is physically active and exercises everyday -Continue staying physically active -Work on improving diet Assessment & Plan (08/14/2022 5:09 AM EST): -He does not want to lose weight -He is physically active and exercises everyday -Continue staying physically active -Work on improving diet 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 Assessment & Plan (12/10/2024 9:54 AM EDT): -current replacement: levothyroxine 112 mcg daily, started in Feb 2024 -most recent thyroid function test: 09/17/24 TSH 2.68 -continue current replacement Assessment & Plan (09/17/2024 9:28 AM EDT): -current replacement: levothyroxine 112 mcg daily, started in Feb 2024 -most recent thyroid function test: 07/02/24 TSH 5.71 -continue current replacement Assessment & Plan (07/03/2024 2:50 PM EST): -current replacement: levothyroxine 88 mcg daily, started in September 2019 -most recent thyroid function test: 01/17/24 TSH 4.32 -continue current replacement Assessment & Plan (03/12/2024 11:53 AM EDT): -current replacement: levothyroxine 88 mcg daily, started in September 2019 -most recent thyroid function test: 01/17/24 TSH 4.32 -continue current replacement Assessment & Plan (12/05/2023 4:54 AM EDT): -current replacement: levothyroxine 88 mcg daily, started in September 2019 -most recent thyroid function test: 11/16/22 TSH 4.44 (08/08/22 TSH 1.80) -continue current replacement Assessment & Plan (09/05/2023 4:56 AM EDT): -current replacement: levothyroxine 88 mcg daily, started in September 2019 -most recent thyroid function test: 11/16/22 TSH 4.44 (08/08/22 TSH 1.80) -continue current replacement Assessment & Plan (04/03/2023 5:20 PM EDT): -current replacement: levothyroxine 88 mcg daily, started in September 2019 -most recent thyroid function test: 11/16/22 TSH 4.44 (08/08/22 TSH 1.80) -continue current replacement Assessment & Plan (11/26/2022 6:22 AM EDT): -current replacement: levothyroxine 88 mcg daily, started in September 2019 -most recent thyroid function test: 08/08/22 TSH 1.80 -continue current replacement Assessment & Plan (08/14/2022 5:10 AM EST): -current replacement: levothyroxine 88 mcg daily, started in September 2019 -most recent thyroid function test: 04/28/22 TSH 3.85 -continue current replacement Dyspepsia 08/08/2022 Overview (08/08/2022): Pt attributes to COVID booster (3rd vaccine). But, unlikely. -Pt has h/o GERD and asthma. -Cont treatment for GERD and asthma. -Avoid triggers such as, NSAIDs or caffiene. Assessment & Plan (11/26/2022 6:54 AM EDT): Pt attributes to COVID booster (3rd vaccine). But, unlikely. -Pt has h/o GERD and asthma. -Cont treatment for GERD and asthma. -Avoid triggers such as, NSAIDs or caffiene. -Consider referring back to [facility] for further evaluation Skin tag 08/02/2018 Asthma 10/19/2016 Assessment & Plan (09/17/2024 8:55 AM EDT): -Last exacerbation requiring steroid and/antibiotic > 1 year -Continue Flovent as maintenance. -Continue albuterol HFA as rescue. Assessment & Plan (07/03/2024 3:05 PM EST): -Last exacerbation requiring steroid and/antibiotic > 1 year -Continue Flovent as maintenance. -Continue albuterol HFA as rescue. Assessment & Plan (03/12/2024 11:42 AM EDT): -Last exacerbation requiring steroid and/antibiotic > 1 year -Continue Flovent as maintenance. -Continue albuterol HFA as rescue. Assessment & Plan (12/05/2023 4:53 AM EDT): -Last exacerbation requiring steroid and/antibiotic > 1 year -Continue Flovent as maintenance. -Continue albuterol HFA as rescue. Assessment & Plan (04/03/2023 5:07 PM EDT): -Last exacerbation requiring steroid and/antibiotic > 1 year -Continue Flovent as maintenance. -Continue albuterol HFA as rescue. Assessment & Plan (08/08/2022 11:58 AM EST): -Last exacerbation requiring steroid and/antibiotic > 1 year -Continue Flovent as maintenance. -Continue albuterol HFA as rescue. Hearing loss 04/11/2016 Benign prostatic hyperplasia 11/03/2015 Assessment & Plan (12/10/2024 9:56 AM EDT): -Followed by [facility]. Last seen in August 2024 -Continue tamsulosin -Reduce caffeine intake Assessment & Plan (09/17/2024 8:55 AM EDT): -Followed by [facility]. Last seen in November 2023. -Continue tamsulosin -Reduce caffeine intake Assessment & Plan (03/22/2024 11:12 AM EDT): -Followed by [facility]. Last seen in November 2023. -Continue tamsulosin -Reduce caffeine intake Assessment & Plan (12/05/2023 9:57 AM EDT): -Annual follow-up with urologist -Continue tamsulosin -Reduce caffeine intake Assessment & Plan (11/16/2022 10:08 AM EDT): -Annual follow-up with urologist -Continue tamsulosin -Reduce caffeine intake Assessment & Plan (08/14/2022 5:07 AM EST): -Annual follow-up with urologist -Continue tamsulosin -Reduce caffeine intake Tubular adenoma of colon 11/03/2015 Assessment & Plan (12/10/2024 12:58 PM EDT): -Followed by [facility] -Colonoscopy on 09/11/15 tubular adenoma -Colonoscopy on 09/06/19 tubular adenoma Assessment & Plan (09/17/2024 8:55 AM EDT): -Followed by [facility] -Colonoscopy on 09/11/15 tubular adenoma -Colonoscopy on 09/06/19 tubular adenoma Assessment & Plan (07/08/2024 5:29 AM EST): -Followed by [facility] -Colonoscopy on 09/11/15 tubular adenoma -Colonoscopy on 09/06/19 tubular adenoma Assessment & Plan (11/26/2022 6:53 AM EDT): -Followed by [facility] -Colonoscopy on 09/11/15 tubular adenoma -Colonoscopy on 09/06/19 tubular adenoma Assessment & Plan (08/14/2022 5:12 AM EST): -Followed by [facility] -Colonoscopy on 09/11/15 tubular adenoma -Colonoscopy on 09/06/19 tubular adenoma Benign paroxysmal positional vertigo 04/21/2015 Mood disorder 04/21/2015 Assessment & Plan (12/10/2024 12:58 PM EDT): - Diagnosis: Bipolar disorder. ?not confirmed with S provider, pt states bipolar -S provider: [facility] -Current medications: Effexor 150 mg daily; Zyprexa 5 mg qhs; Zalepron 10 mg qhs (pt also seems to be taking melatonin and hydroxyzine) -Continue current treatment plan. Assessment & Plan (09/17/2024 8:56 AM EDT): - Diagnosis: Bipolar disorder. ?not confirmed with S provider, pt states bipolar -[facility] provider: [facility] -Current medications: Effexor 150 mg daily; Zyprexa 5 mg qhs; Zalepron 10 mg qhs (pt also seems to be taking melatonin and hydroxyzine) -Continue current treatment plan. Assessment & Plan (07/03/2024 2:50 PM EST): - Diagnosis: Bipolar disorder. ?not confirmed with S provider, pt states bipolar -[facility] provider: [facility] -Current medications: Effexor 150 mg daily; Zyprexa 5 mg qhs; Zalepron 10 mg qhs (pt also seems to be taking melatonin and hydroxyzine) -Continue current treatment plan. Assessment & Plan (03/12/2024 11:46 AM EDT): - Diagnosis: Bipolar disorder. ?not confirmed with [facility] provider, pt states bipolar -[facility] provider: [facility] -Current medications: Effexor 150 mg daily; Zyprexa 5 mg qhs; Zalepron 10 mg qhs (pt also seems to be taking melatonin and hydroxyzine) -Continue current treatment plan. Assessment & Plan (12/05/2023 4:55 AM EDT): - Diagnosis: Bipolar disorder. ?not confirmed with [facility] provider, pt states bipolar -[facility] provider: [facility] -Current medications: Effexor 150 mg daily; Zyprexa 5 mg qhs; Zalepron 10 mg qhs (pt also seems to be taking melatonin and hydroxyzine) -Continue current treatment plan. Assessment & Plan (09/05/2023 4:55 AM EDT): - Diagnosis: Bipolar disorder. ?not confirmed with [facility] provider, pt states bipolar -[facility] provider: [facility] -Current medications: Effexor 150 mg daily; Zyprexa 5 mg qhs; Zalepron 10 mg qhs (pt also seems to be taking melatonin and hydroxyzine) -Continue current treatment plan. Assessment & Plan (04/03/2023 5:21 PM EDT): - Diagnosis: Bipolar disorder. ?not confirmed with S provider, pt states bipolar -S provider: [facility] -Current medications: Effexor 150 mg daily; Zyprexa 5 mg qhs; Zalepron 10 mg qhs (pt also seems to be taking melatonin and hydroxyzine) -Continue current treatment plan. Assessment & Plan (11/26/2022 6:36 AM EDT): - Diagnosis: Bipolar disorder. ?not confirmed with S provider, pt states bipolar -S provider: [facility] -Current medications: Effexor 150 mg daily; Zyprexa 5 mg qhs; Zalepron 10 mg qhs (pt also seems to be taking melatonin and hydroxyzine) -Continue current treatment plan. Metabolic dysfunction-associ ated steatotic liver disease (MASLD) 07/09/2013 Assessment & Plan (12/10/2024 12:58 PM EDT): -FIB4 index 2.04 -Most recent US with elastography on 10/06/23. Normal liver stiffness. Fatty liver. No focal lesion. -Last hepatitis profile negative in 2019 -Encouraged to work on lifestyle modifications and lose weight - on statin since 2011. Within acceptable range to continue statin therapy. Hx of alcoholic hepatitis / transaminitis in 1999. He is no longer drinking. Taking GMC protein supplement. Avoid hepatotoxic drugs, substances, and behaviors. H. pylori was negative. Assessment & Plan (09/17/2024 8:55 AM EDT): -FIB4 index 2.04 -Most recent US with elastography on 10/06/23. Normal liver stiffness. Fatty liver. No focal lesion. -Last hepatitis profile negative in 2019 -Encouraged to work on lifestyle modifications and lose weight - on statin since 2011. Within acceptable range to continue statin therapy. Hx of alcoholic hepatitis / transaminitis in 1999. He is no longer drinking. Taking GMC protein supplement. Avoid hepatotoxic drugs, substances, and behaviors. H. pylori was negative. Assessment & Plan (03/12/2024 11:42 AM EDT): -FIB4 index 2.04 -Most recent US with elastography on 10/06/23. Normal liver stiffness. Fatty liver. No focal lesion. -Last hepatitis profile negative in 2019 -Encouraged to work on lifestyle modifications and lose weight - on statin since 2011. Within acceptable range to continue statin therapy. Hx of alcoholic hepatitis / transaminitis in 1999. He is no longer drinking. Taking GMC protein supplement. Avoid hepatotoxic drugs, substances, and behaviors. H. pylori was negative. Assessment & Plan (12/06/2023 3:09 PM EDT): -FIB4 index 2.04 -Most recent US with elastography on 10/06/23. Normal liver stiffness. Fatty liver. No focal lesion. -Last hepatitis profile negative in 2019 -Encouraged to work on lifestyle modifications and lose weight - on statin since 2011. Within acceptable range to continue statin therapy. Hx of alcoholic hepatitis / transaminitis in 1999. He is no longer drinking. Taking GMC protein supplement. Avoid hepatotoxic drugs, substances, and behaviors. H. pylori was negative. Assessment & Plan (09/05/2023 4:58 AM EDT): -Most recent LFT: 11/16/22 AST 58; ALT 49 -US: 12/2016 diffuse hepatic steatosis and non-focal liver lesions -US on 07/27/20 showed mild echogenic liver, likely fatty liver, no focal lesion -Last hepatitis profile negative in 2019 -Likely non-alcoholic liver disease -Encouraged to follow up with GI and will notify -Encouraged to work on lifestyle modifications and lose weight - on statin since 2011. Within acceptable range to continue statin therapy. Hx of alcoholic hepatitis / transaminitis in 1999. He is no longer drinking. Taking GMC protein supplement. Avoid hepatotoxic drugs, substances, and behaviors. H. pylori was negative. Update abdominal US Assessment & Plan (03/12/2024 5:31 AM EDT): >>ASSESSMENT AND PLAN FOR METABOLIC DYSFUNCTION-ASSOCIATED STEATOTIC LIVER DISEASE (MASLD) WRITTEN ON 04/03/2023 5:16 PM BY JEANNE MINOR MD -Most recent LFT: 11/16/22 AST 58; ALT 49 -US: 12/2016 diffuse hepatic steatosis and non-focal liver lesions -US on 07/27/20 showed mild echogenic liver, likely fatty liver, no focal lesion -Last hepatitis profile negative in 2019 -Likely non-alcoholic liver disease -Encouraged to follow up with GI and will notify -Encouraged to work on lifestyle modifications and lose weight - on statin since 2011. Within acceptable range to continue statin therapy. Hx of alcoholic hepatitis / transaminitis in 1999. He is no longer drinking. Taking GMC protein supplement. Avoid hepatotoxic drugs, substances, and behaviors. H. pylori was negative. Update abdominal US >>ASSESSMENT AND PLAN FOR TRANSAMINITIS WRITTEN ON 04/03/2023 5:20 PM BY JEANNE MINOR MD -Most recent LFT: 11/16/22 AST 58; ALT 49 -US: 12/2016 diffuse hepatic steatosis and non-focal liver lesions -US on 07/27/20 showed mild echogenic liver, likely fatty liver, no focal lesion -Last hepatitis profile negative in 2019 -Likely non-alcoholic liver disease -Encouraged to follow up with GI and will notify -Encouraged to work on lifestyle modifications and lose weight - on statin since 2011. Within acceptable range to continue statin therapy. Hx of alcoholic hepatitis / transaminitis in 1999. He is no longer drinking. Taking GMC protein supplement. Avoid hepatotoxic drugs, substances, and behaviors. H. pylori was negative. Update abdominal US Assessment & Plan (03/12/2024 5:31 AM EDT): >>ASSESSMENT AND PLAN FOR METABOLIC DYSFUNCTION-ASSOCIATED STEATOTIC LIVER DISEASE (MASLD) WRITTEN ON 11/26/2022 6:57 AM BY JEANNE MINOR MD -Most recent LFT: 11/16/22 AST 58; ALT 49 -US: 12/2016 diffuse hepatic steatosis and non-focal liver lesions -US on 07/27/20 showed mild echogenic liver, likely fatty liver, no focal lesion -Last hepatitis profile negative in 2019 -Likely non-alcoholic liver disease -Encouraged to follow up with GI and will notify -Encouraged to work on lifestyle modifications and lose weight - on statin since 2011. Within acceptable range to continue statin therapy. Hx of alcoholic hepatitis / transaminitis in 1999. He is no longer drinking. Taking GMC protein supplement. Avoid hepatotoxic drugs, substances, and behaviors. H. pylori was negative. Update abdominal US >>ASSESSMENT AND PLAN FOR TRANSAMINITIS WRITTEN ON 11/26/2022 6:47 AM BY JEANNE MINOR MD -Most recent LFT: 11/16/22 AST 58; ALT 49 -US: 12/2016 diffuse hepatic steatosis and non-focal liver lesions -US on 07/27/20 showed mild echogenic liver, likely fatty liver, no focal lesion -Last hepatitis profile negative in 2019 -Likely non-alcoholic liver disease -Encouraged to follow up with GI and will notify -Encouraged to work on lifestyle modifications and lose weight - on statin since 2011. Within acceptable range to continue statin therapy. Hx of alcoholic hepatitis / transaminitis in 1999. He is no longer drinking. Taking GMC protein supplement. Avoid hepatotoxic drugs, substances, and behaviors. H. pylori was negative. Update abdominal US Gastroesophageal reflux disease 02/13/2012 Assessment & Plan (12/10/2024 9:55 AM EDT): - normal EGD in 2016 - continue omeprazole - Pt has been taking sucralfate 1 g with meal as needed. - Prescribed refill today Assessment & Plan (09/17/2024 8:55 AM EDT): - normal EGD in 2016 - continue omeprazole Assessment & Plan (11/26/2022 6:56 AM EDT): - normal EGD in 2016 - continue omeprazole Generalized pruritus 02/13/2012 Hemorrhoids 02/13/2012 Pre-diabetes 02/13/2012 Assessment & Plan (12/10/2024 12:58 PM EDT): - A1c 5.7% on 07/02/24 slight increase from A1c 5.5% on 12/05/2023 -[facility] hx of diabetes. -Continue annual screening -Continue working on lifestyle modifications. Assessment & Plan (09/17/2024 9:26 AM EDT): - A1c 5.7% on 07/02/24 slight increase from A1c 5.5% on 12/05/2023 -[facility] hx of diabetes. -Continue annual screening -Continue working on lifestyle modifications. Assessment & Plan (07/03/2024 2:49 PM EST): A1c 5.5% on 12/05/2023, 5.8% on 11/16/22, 5.6% on 04/28/22, 5.5% on 08/11/21, trending up -[facility] family [facility] hx of diabetes. -Continue annual screening -Continue working on lifestyle modifications. Assessment & Plan (03/12/2024 11:44 AM EDT): A1c 5.5% on 12/05/2023, 5.8% on 11/16/22, 5.6% on 04/28/22, 5.5% on 08/11/21, trending up -[facility] hx of diabetes. -Continue annual screening -Continue working on lifestyle modifications. Assessment & Plan (12/06/2023 7:44 AM EDT): A1c 5.5% on 12/05/2023, 5.8% on 11/16/22, 5.6% on 04/28/22, 5.5% on 08/11/21, trending up -[facility] family [facility] hx of diabetes. -Continue annual screening -Continue working on lifestyle modifications. Assessment & Plan (09/05/2023 4:56 AM EDT): A1c 5.8% on 11/16/22, 5.6% on 04/28/22, 5.5% on 08/11/21, trending up -[facility] hx of diabetes. -Continue annual screening -Continue working on lifestyle modifications. Assessment & Plan (04/03/2023 5:26 PM EDT): A1c 5.8% on 11/16/22, 5.6% on 04/28/22, 5.5% on 08/11/21, trending up -[facility] hx of diabetes. -Continue annual screening -Continue working on lifestyle modifications. Assessment & Plan (11/26/2022 6:22 AM EDT): A1c 5.6% on 04/28/22, stable from 5.5% on 08/11/21 -[facility] family [facility] hx of diabetes. -Continue annual screening -Continue working on lifestyle modifications. Assessment & Plan (08/08/2022 12:22 PM EST): A1c 5.6% on 04/28/22, stable from 5.5% on 08/11/21 -[facility] family [facility] hx of diabetes. -Continue screening Blood Glucose. -Continue working on lifestyle modifications. Mixed hyperlipidemia 02/13/2012 Assessment & Plan (12/10/2024 12:57 PM EDT): - last lipid profile: 07/02/24 TC 123; TG 147; HDL 40; LDL 54; AST 61; ALT 39 -Current medication: Crestor (Brand name only) 40 mg qhs -Treatment Hx: Abdominal pain with generic rosuvastatin -Continue Crestor 40mg qhs and work on lifestyle modification -According to ACC/AHA guideline, 10-year ASCVD risk is 5% with current statin therapy adherence. He is on high-intensity statin therapy. -He has Hx of transaminitis, which has been acceptable levels for statin treatment. His recent LFT shows improvement. Continue monitoring. Assessment & Plan (12/10/2024 4:48 AM EDT): >>ASSESSMENT AND PLAN FOR DYSLIPIDEMIA WRITTEN ON 03/12/2024 11:46 AM BY FILEMON TAPIA - last lipid profile: 12/05/23 TC 119; TG 85; HDL 46; LDL 56; AST 30; ALT 25 -Current medication: Crestor (Brand name only) 40 mg qhs -Treatment Hx: Abdominal pain with generic rosuvastatin -Continue Crestor 40mg qhs and work on lifestyle modification -According to ACC/AHA guideline, 10-year ASCVD risk is 5% with current statin therapy adherence. He is on high-intensity statin therapy. -He has Hx of transaminitis, which has been acceptable levels for statin treatment. His recent LFT shows improvement. Continue monitoring. Assessment & Plan (09/17/2024 9:39 AM EDT): - last lipid profile: 07/02/24 TC 123; TG 147; HDL 40; LDL 54; AST 61; ALT 39 -Current medication: Crestor (Brand name only) 40 mg qhs -Treatment Hx: Abdominal pain with generic rosuvastatin -Continue Crestor 40mg qhs and work on lifestyle modification -According to ACC/AHA guideline, 10-year ASCVD risk is 5% with current statin therapy adherence. He is on high-intensity statin therapy. -He has Hx of transaminitis, which has been acceptable levels for statin treatment. His recent LFT shows improvement. Continue monitoring. Assessment & Plan (07/03/2024 2:50 PM EST): - last lipid profile: 11/16/22 TC 125; TG 115; HDL 46; LDL 59; AST 58; ALT 49 -Current medication: Crestor (Brand name only) 40 mg qhs -Treatment Hx: Abdominal pain with generic rosuvastatin -Continue Crestor 40mg qhs and work on lifestyle modification -According to ACC/AHA guideline, 10-year ASCVD risk is 5% with current statin therapy adherence. He is on high-intensity statin therapy. -He has Hx of transaminitis, which has been acceptable levels for statin treatment. His recent LFT shows improvement. Continue monitoring. Assessment & Plan (12/10/2024 4:48 AM EDT): >>ASSESSMENT AND PLAN FOR MIXED HYPERLIPIDEMIA WRITTEN ON 12/05/2023 4:55 AM BY JEANNE MINOR MD - last lipid profile: 11/16/22 TC 125; TG 115; HDL 46; LDL 59; AST 58; ALT 49 -Current medication: Crestor (Brand name only) 40 mg qhs -Treatment Hx: Abdominal pain with generic rosuvastatin -Continue Crestor 40mg qhs and work on lifestyle modification -According to ACC/AHA guideline, 10-year ASCVD risk is 5% with current statin therapy adherence. He is on high-intensity statin therapy. -He has Hx of transaminitis, which has been acceptable levels for statin treatment. His recent LFT shows improvement. Continue monitoring. >>ASSESSMENT AND PLAN FOR DYSLIPIDEMIA WRITTEN ON 12/05/2023 4:54 AM BY JEANNE MINOR MD - last lipid profile: 11/16/22 TC 125; TG 115; HDL 46; LDL 59; AST 58; ALT 49 -Current medication: Crestor (Brand name only) 40 mg qhs -Treatment Hx: Abdominal pain with generic rosuvastatin -Continue Crestor 40mg qhs and work on lifestyle modification -According to ACC/AHA guideline, 10-year ASCVD risk is 5% with current statin therapy adherence. He is on high-intensity statin therapy. -He has Hx of transaminitis, which has been acceptable levels for statin treatment. His recent LFT shows improvement. Continue monitoring. Assessment & Plan (12/10/2024 4:48 AM EDT): >>ASSESSMENT AND PLAN FOR MIXED HYPERLIPIDEMIA WRITTEN ON 09/05/2023 4:55 AM BY JEANNE MINOR MD - last lipid profile: 11/16/22 TC 125; TG 115; HDL 46; LDL 59; AST 58; ALT 49 -Current medication: Crestor (Brand name only) 40 mg qhs -Treatment Hx: Abdominal pain with generic rosuvastatin -Continue Crestor 40mg qhs and work on lifestyle modification -According to ACC/AHA guideline, 10-year ASCVD risk is 5% with current statin therapy adherence. He is on high-intensity statin therapy. -He has Hx of transaminitis, which has been acceptable levels for statin treatment. His recent LFT shows improvement. Continue monitoring. >>ASSESSMENT AND PLAN FOR DYSLIPIDEMIA WRITTEN ON 09/05/2023 4:55 AM BY JEANNE MINOR MD - last lipid profile: 11/16/22 TC 125; TG 115; HDL 46; LDL 59; AST 58; ALT 49 -Current medication: Crestor (Brand name only) 40 mg qhs -Treatment Hx: Abdominal pain with generic rosuvastatin -Continue Crestor 40mg qhs and work on lifestyle modification -According to ACC/AHA guideline, 10-year ASCVD risk is 5% with current statin therapy adherence. He is on high-intensity statin therapy. -He has Hx of transaminitis, which has been acceptable levels for statin treatment. His recent LFT shows improvement. Continue monitoring. Assessment & Plan (12/10/2024 4:48 AM EDT): >>ASSESSMENT AND PLAN FOR MIXED HYPERLIPIDEMIA WRITTEN ON 04/03/2023 5:23 PM BY JEANNE MINOR MD - last lipid profile: 11/16/22 TC 125; TG 115; HDL 46; LDL 59; AST 58; ALT 49 -Current medication: Crestor (Brand name only) 40 mg qhs -Treatment Hx: Abdominal pain with generic rosuvastatin -Continue Crestor 40mg qhs and work on lifestyle modification -According to ACC/AHA guideline, 10-year ASCVD risk is 5% with current statin therapy adherence. He is on high-intensity statin therapy. -He has Hx of transaminitis, which has been acceptable levels for statin treatment. His recent LFT shows improvement. Continue monitoring. >>ASSESSMENT AND PLAN FOR DYSLIPIDEMIA WRITTEN ON 04/03/2023 5:24 PM BY JEANNE MINOR MD - last lipid profile: 11/16/22 TC 125; TG 115; HDL 46; LDL 59; AST 58; ALT 49 -Current medication: Crestor (Brand name only) 40 mg qhs -Treatment Hx: Abdominal pain with generic rosuvastatin -Continue Crestor 40mg qhs and work on lifestyle modification -According to ACC/AHA guideline, 10-year ASCVD risk is 5% with current statin therapy adherence. He is on high-intensity statin therapy. -He has Hx of transaminitis, which has been acceptable levels for statin treatment. His recent LFT shows improvement. Continue monitoring. Assessment & Plan (12/10/2024 4:48 AM EDT): >>ASSESSMENT AND PLAN FOR MIXED HYPERLIPIDEMIA WRITTEN ON 11/26/2022 6:40 AM BY JEANNE MINOR MD - last lipid profile: 04/28/22 TC 124 ; TG 110; HDL 46; LDL 58 -Current medication: Crestor 40 mg qhs -Treatment Hx: Abdominal pain with generic rosuvastatin -Continue Crestor 40mg qhs and work on lifestyle modification -According to ACC/AHA guideline, 10-year ASCVD risk is 5% with current statin therapy adherence. He is on high-intensity statin therapy. -He has Hx of transaminitis, which has been acceptable levels for statin treatment. His recent LFT shows improvement. Continue monitoring. --Follow-up in 3 months >>ASSESSMENT AND PLAN FOR DYSLIPIDEMIA WRITTEN ON 11/16/2022 10:08 AM BY VARGHESE MOORE FLP: 04/28/22 TC 124 ; TG 110; HDL 46; LDL 58 -Current medication: Crestor 40 mg qhs -Treatment Hx: Abdominal pain with generic rosuvastatin -Continue Crestor 40mg qhs and work on lifestyle modification -According to ACC/AHA guideline, 10-year ASCVD risk is 5% with current statin therapy adherence. He is on high-intensity statin therapy. -He has Hx of transaminitis, which has been acceptable levels for statin treatment. His recent LFT shows improvement. Continue monitoring. --Follow-up in 3 months Assessment & Plan (12/10/2024 4:48 AM EDT): >>ASSESSMENT AND PLAN FOR MIXED HYPERLIPIDEMIA WRITTEN ON 08/08/2022 12:23 PM BY VARGHESE MOORE FLP: 04/28/22 TC 124 ; TG 110; HDL 46; LDL 58 -Current medication: Crestor 40 mg qhs -Treatment Hx: Abdominal pain with generic rosuvastatin -Continue Crestor 40mg qhs and work on lifestyle modification -According to ACC/AHA guideline, 10-year ASCVD risk is 5% with current statin therapy adherence. He is on high-intensity statin therapy. -He has Hx of transaminitis, which has been acceptable levels for statin treatment. His recent LFT shows improvement. Continue monitoring. --Follow-up in 3 months >>ASSESSMENT AND PLAN FOR DYSLIPIDEMIA WRITTEN ON 08/08/2022 12:23 PM BY VARGHESE MOORE FLP: 04/28/22 TC 124 ; TG 110; HDL 46; LDL 58 -Current medication: Crestor 40 mg qhs -Treatment Hx: Abdominal pain with generic rosuvastatin -Continue Crestor 40mg qhs and work on lifestyle modification -According to ACC/AHA guideline, 10-year ASCVD risk is 5% with current statin therapy adherence. He is on high-intensity statin therapy. -He has Hx of transaminitis, which has been acceptable levels for statin treatment. His recent LFT shows improvement. Continue monitoring. --Follow-up in 3 months Allen weinberg 02/13/2012 Assessment & Plan (12/05/2023 9:56 AM EDT): - seen by newspaper deliverer in September 2023 Assessment & Plan (09/18/2023 5:25 AM EDT): Patient was referred to newspaper deliverer Resolved Problems Problem Noted Date Diagnosed Date Resolved Date Weight gain 11/16/2022 12/05/2023 Assessment & Plan (04/03/2023 5:27 PM EDT): -Will check TSH -pt recommended to stay physically active and practice healthy diet regimen -pt was interested in Weight Loss medication and will check to see if it is covered by insurance -Pt was advised that practicing exercise and healthy diet are more important than achieving BMI < 25. Assessment & Plan (11/26/2022 6:24 AM EDT): -Will check TSH -pt recommended to stay physically active and practice healthy diet regimen -pt was interested in Weight Loss medication and will check to see if it is covered by insurance -Pt was advised that practicing exercise and healthy diet are more important than achieving BMI < 25. Oral candidiasis 09/01/2022 11/26/2022 History of hypertension 08/08/2022 07/02/2025 Assessment & Plan (04/03/2023 5:23 PM EDT): -Goal BP < 150/90 per JNC-8 and < 130/80 per ACC/AHA guideline -BP within acceptable range today -Continue working on lifestyle modifications -Recommended self-monitoring BP. -He is no longer on BP med -Treatment Hx: Previously on metoprolol and isosorbide dinitrate, which he self-discontinued as his BP improved and started having hypotension -Follow up in 6 mo, sooner if any problem arises Assessment & Plan (11/26/2022 6:20 AM EDT): -Goal BP < 150/90 per JNC-8 and < 130/80 per ACC/AHA guideline -BP within acceptable range today -Continue working on lifestyle modifications -Recommended self-monitoring BP. 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 01/21/2025 5:20 PM EDT Office Visit [facility] [address] [place] [phone] Maria Del Rosario Ly MD Dry socket (Primary Dx) 01/21/2025 Travel 01/02/2025 Refill [facility] MED[facility]INE [address] [place] [phone] Jeanne Minor MD Excessive gas 12/20/2024 Refill [facility] [address] [place] [address] [phone] Jeanne Minor MD 12/10/2024 9:15 AM EDT Office Visit [facility] MEDICINE [address] [place] [address] [phone] Jeanne Minor MD Mixed hyperlipidemia (Primary Dx); Pre-diabetes; 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; Class 3 severe obesity due to excess calories with serious comorbidity and body mass index (BMI) of 40.0 to 44.9 in adult; Tubular adenoma of colon; Metabolic dysfunction-associated steatotic liver disease (MASLD); Gastroesophageal reflux disease, unspecified whether esophagitis present; Mood disorder (CMS/HCC); Benign prostatic hyperplasia with urinary frequency 12/10/2024 Telephone [facility] [address] [place] [phone] Jeanne Minor MD Record Request 12/10/2024 Travel 12/06/[address] [phone] Emilia Kebede MA chart prep from Last 3 Months Immunizations Immunization Administration Dates Next Due Hep B, adult 02/21/2007,08/30/2006,08/02/2006 INFLUENZA VACCINE QUADRIVALE NT RECOMBINANT PRESERVATIVE FREE RIV4 03/24/2021 Influenza injectable quadriv alent IIV4 with preservative 03/14/2019,04/04/2018,04/21/2015 Influenza injectable quadriv alent preservative free 03/10/2023,03/24/2022,03/13/2020,04/04,03/29/2016 Influenza, IIV3, injectable 03/25/2014,0 02/16/2011,03/18/2010,03/20,04/30/2008,05/02/2007,04/12/2006 ,05/14/2004,04/15/2003,04/17/2002,03/27,04/25/2000,03/31/1999, 8,04/08/1997,03/26/1996 Influenza, Split (incl. maribeth fied surface antigen) 03/26/2013,05/21/2012 Influenza, seasonal, injecta ble, preservative free 03/12/2024 Pfizer Covid-19 Vaccine 12+ 05/03/2024, Pfizer Covid-19 Vaccine 12+ Bivalent 05/17/2022 Pfizer Covid-19 Vaccine 12+ rick-sucrose (Amaro Cap) 11/23/2021 Pneumococcal Conjugate PCV 20 07/20/2023 Pneumococcal Polysaccharide PPSV23 10/20/2009, RSV Bivalent 07/20/2023 TD (adult), 2 Lf tetanus tox oid, preservative free, adsorbed 05/02/2007,03/05/1996 Tdap 01/11/2023,11/16/2022,05/21/2012 Zoster, Recombinant 03/30/2020,01/27/2020 Social History Tobacco Use Types Packs/Day Years Used Date Smoking Tobacco: Never Passive Smoke Exposure: Never Smokeless Tobacco: Never Tobacco Cessation:Counseling Given: Not Answered Alcohol Use Standard Drinks/Week Comments Never 0 (1 standard drink = 0.6 oz pur e alcohol) Depression Answer Date Recorded Patient Health Questionnaire-9 Score 14 07/02/2024 Patient Health Questionnaire-9 Score 14 07/02/2024 Last PHQ-9: Questionnaire Data Not on file 0 07/02/2024 Housing Stability Answer Date Recorded What is your housing situation today? I have chapito sing 07/02/[address] you li [...] Recorded Patient Health Questionnaire-2 Score 5 07/02/2024 Internet Access Answer Date Recorded Internet Access Q1 Yes 09/17/2024 Internet Access Q2 Not on file 09/17/2024 Sex and Gender Information Value Date Recorded Sex Assigned at Male 04/25/2022 10:14 AM EDT Legal Sex Male 10:14 AM EDT Gender Identity Male 04/25/2022 10:14 AM EDT Sexual Orientation Straight 04/25/2022 10 :14 AM EDT Last Filed Vital Signs Vital Sign Reading Time Taken Comments Blood Pressure 138/76 01/21/2025 5:14 PM EDT Pulse 65 01/21/2025 5:14 PM EDT Temperature 36.8 C (98.3 F) 01/21/2025 5:14 PM EDT Respiratory Rate 21 01/21/2025 5:14 PM EDT Oxygen Saturation 96% 01/21/2025 5:14 PM EDT Inhaled Oxygen Concentration - - Weight 105 kg (232 lb) 01/21/2025 5:14 PM EDT Height 162.6 cm (5' 4 ) 01/21/2025 5:14 PM EDT Body Mass Index 39.82 01/21/2025 5:14 PM EDT Plan of Treatment Upcoming Encounters Date Type Department Care Team (Late st Contact Info) Description 03/12/2025 9:00 AM EDT Office Visit [facility] MEDICINE [address] [place] [address] Jeanne Minor MD [address] [place] [address] 04/07/2025 10:15 AM EDT Office Visit [facility] ADULT DENTAL [address] [place] [phone] Catrina Mccartney [address] [place] [address] Health Maintenance Due Date Last Done Comments CT Colonography 1961 FIT DNA/Cologuard 1961 FIT 1961 FOBT 1961 Sigmoidoscopy 1961 Dental Oral Exam 08/08/2024 02/05/2024 Colonoscopy 09/05/2024 09/06/2019, 09/06/2019 Colorectal Cancer Screening 09/05/2024 Depression Monitoring 12/30/2024 07/02/2024, 025 Dental X-Ray: Bitewings 02/05/2025 02/05/2024 Dental Prophylaxis 02/14/2025 08/16/2024, 0 02/05/2024, 10/27/2022 Influenza Vaccine (#1) 2025 , 03/10/2023, 03/24/2022, Additional history exists Dental X-Ray: Full Mouth 03/22/2025 03/21/2022 Alcohol/Substance Use Screening 07/02/2025 07/02/2024 Diabetes: Hemoglobin A1C 07/02/2025 025, 12/05/2023, 11/16/2022, Additional history exists Disability Screening 09/17/2025 09/17/2024 SDOH Screening 09/17/2025 09/17/2024 Tobacco Screening 01/21/2026 01/21/2025 Lipid Panel 07/02/2029 07/02/2024, 11/24, 11/16/2022, Additional history exists DTaP/Tdap/Td Vaccines (4 - Td or Tdap) 01/11/2033 01/11/2023, 11/16/2022, 05/21/2012, Additional history exists Hepatitis B Vaccines Completed 02/21/2007, 08/30/2006, 08/02/2006 Zoster Vaccines Completed 03/30/2020, 01/27/2020 Pneumococcal Vaccine: 50+ Years Completed 07/20/2023, 10/20/2009, 03/26/1996 RSV Patients and Patients Aged 60 years or older Completed 07/20/2023 COVID-19 Vaccine Completed 05/03/2024, 07/2022, 05/17/2022, Additional history exists HIB Vaccines Aged Out No longer eligi ble based on patient's age to complete this topic HIV Screening Discontinued HPV Vaccines Aged Out No longer eligi ble based on patient's age to complete this topic Hepatitis A Vaccines Discontinued Hepatitis C Screening Discontinued IPV Vaccines Aged Out No longer eligi ble based on patient's age to complete this topic Meningococcal B Vaccine Aged Out No l onger eligible based on patient's age to complete this topic Meningococcal Vaccine Aged Out No shane ronak eligible based on patient's age to complete this topic RSV under 20 months Aged Out No longe r eligible based on patient's age to complete this topic Rotavirus Vaccines Aged Out No longer eligible based on patient's age to complete this topic Procedures Procedure Name Priority Date/Time Associated Diagnosis Comments PROPHYLAXIS - ADULT Routine 08/16/2024 1 1:00 AM EST Dental plaque LIPID PANEL WITH REFLEX TO DIRECT LDL Routine 07/02/2024 9:48 AM EST Mixed hyperlipidemia Dyslipidemia HEMOGLOBIN A1C Routine 07/02/2024 9:47 AM EST Pre-diabetes BITEWINGS - 4 RADIOGRAPHIC IMAGES Routine 02/05/2024 10:00 AM EDT Generalized gingival recession Dental plaque Missing teeth, acquired Sensitivity of root structure of tooth PERIODIC ORAL EVALUATION - ESTABLISHED PATIENT Routine 02/05/2024 10:00 AM EDT HM COLONOSCOPY Routine 09/06/2019 from Last 3 Months or Most Recently Relevant to Health Maintenance Results * (ABNORMAL) Lipid Panel with Reflex to Direct LDL (07/02/2024 9:48 AM EST) Triglycerides 147 <150 mg/dL [facility] Comment:Desirable Triglyceri de: less than 150 mg/dLBorderline High Triglyceride 150-199 mg/dLHigh Triglyceride: 200-499 mg/dLVery High Triglyceride: greater than or equal to 5OO mg/dL Cholesterol 123 <200 mg/dL [facility] Comment:Desirable Cholestero l: less than 200 mg/dLBorderline High Cholesterol: 200-239 mg/dLHigh Cholesterol: greater than 239 mg/dL LDL Cholesterol Calculated 54 <100 mg/dL [facility] Comment:Desirable LDL: less than 100 mg/dLNear Optimal/Above Optimal LDL: 110- 129 mg/dLBorderline High LDL: 130-159 mg/dLHigh LDL: 160-189 mg/dLVery High LDL: greater than or equal to 190 mg/dL HDL Cholesterol 40(L) >40 mg/dL [facility] Comment:Desirable HDL: great er than 40 mg/dL Note: This HDL assay may give artificially low results in patients with liver disease. Blood 07/02/2024 9:48 AM EST 07/02/2024 11:15 AM EST Jeanne Minor MD LAB BLOOD ORDERABLES Final Resul t Performing Organization Address [facility] Co de Phone Number [facility] [address] [place] [address] [phone] * Hemoglobin A1c (07/02/2024 9:47 AM EST) Hemoglobin A1c 5.7 <6.0 % [facility] Comment:Hemoglobin A1C Refer ence Range Adults: 4.8 - 6.0 % Non diabetic: < 6.0 % Goal: < 7.0 %Additional Action Suggested: > 8.0 %Note: Hemoglobin A1c results are invalid for patients with abnormal amounts of HbF. Blood transfusions may impact the HbA1c concentration in the patient sample. Estimated Average Glucose 117 mg/dL [facility] Comment:eAG = Estimated ave rage glucose which is %A1C expressed asaverage glucose, using the formula of the C4R-[id number] Glucose study (ADAG), Diabetes Care, Vol.31,#8,Jan. 2007 Blood Venous blood specimen / Unknown 07/02/2024 9:47 AM EST 07/02/2024 11:46 AM EST Jeanne Minor MD LAB BLOOD ORDERABLES Final Resul t Performing Organization Address [facility] Co de Phone Number [facility] [address] [place] [address] [phone] * Hm Colonoscopy (09/06/2019) Colonoscopy Normal Normal, Abnormal, BIRADS 0 , BIRADS 1 , BIRADS 2, BIRADS 3 , BIRADS 4+ us Historical Provider HEALTH MAINTENANCE Edited Result - Final from Last 3 Months or Most Recently Relevant to Health Maintenance Insurance [facility] Care Teams Hydrodynamics Professor Relationship Specialty Start Date End Date Jeanne Minor MD [address] [place] [phone] PCP - General Family Medicine 06/26/18
--- OUTSIDE RECORDS SUMMARY | 2025-03-07 10:31 | XMS_ITS | Encounter Summary ---
Author Organization [employer] Address [address] [place] [address] Care Team Providers Care Hooker Operator Name Role Phone Cynthia Minor MD Primary Care Provider [phone] Reason for Visit * Reason Comments Med Refill Encounter Details Date Type Department Care Team ([facility] Contact Info) Description 05/11/2024 Refill [facility] W[facility] [address] [place], [place] [phone] Kym Bella NP [address] [place] [address] Facial pressure Social History Tobacco Use Types Packs/Day Years [...] 9:00 AM EDT Office Visit [facility] MEDICINE [address] [place] [address] Cynthia Minor MD [address] [place] [address] 04/07/2025 10:15 AM EDT Office Visit [facility] ADULT DENTAL [address] [place] [address] Bib, Catrina [address] [place] [address] documented as of this encounter Visit Diagnoses Diagnosis Facial pressure documented in this encounter Additional Health Concerns Assessment Noted Time PHQ-9 Depression Total Score: 0 03/28/20 23 8:55 AM EDT documented as of this encounter Care Teams Hooker Operator Relationship Specialty Start Date End Date Cynthia Minor MD [address] [place] [phone] PCP - General Family Medicine 06/26/18 documented as of this encounter
--- OUTSIDE RECORDS SUMMARY | 2025-03-07 10:31 | XMS_ITS | Encounter Summary ---
Author Organization [employer] [facility] Address [address] [facility] 7t [place] [address] Care Team Providers Care Podiatrist Assistant Name Role Phone Cynthia Minor MD Primary Care Provider [phone] Encounter Details Date Type Department Care Team (Latest Contact Info) Description 09/17/2021 Abstract [facility] CONVERSIONS Dental, Provider, DDS Social History Tobacco Use Types Packs/Day Years Used Date Smoking Tobacco: Never Assessed Sex and Gender Information Value Date Recorded Sex Assigned at Male 04/25/2022 10:14 AM EDT Legal Sex Male 10:14 AM EDT Gender Identity Male 04/25/2022 10:14 AM EDT Sexual Orientation Straight 04/25/2022 10 :14 AM EDT documented as of this encounter Plan of Treatment Upcoming Encounters Date Type Department Care Team ( st Contact Info) Description 03/12/2025 9:00 AM EDT Office Visit [facility] MEDICINE [address] [place] [address] Cynthia Minor MD [address] [place] [address] 04/07/2025 10:15 AM EDT Office Visit [facility] ADULT DENTAL [address] [place] [address] Catrina Mccartney [address] [place] [address] documented as of this encounter Visit Diagnoses Not on filedocumented in this encounter Care Teams Podiatrist Assistant Relationship Specialty Start Date End Date Cynthia Minor MD [address] [place] [address] PCP - General Family Medicine 06/26/18 documented as of this encounter
--- OUTSIDE RECORDS SUMMARY | 2025-03-07 10:31 | XMS_ITS | Encounter Summary ---
Author Organization [employer] Address [address] [facility] 7t [place] [address] Care Team Providers Care Orthodontist Assistant Name Role Phone Cynthia Minor MD Primary Care Provider [phone] Encounter Details Date Type Department Care Team ([facility] Contact Info) Description 07/20/2022 Telephone [facility] MEDICINE [address] [place] [address] [phone] Cynthia Minor MD [address] [place] [address] [phone] Social History Tobacco Use Types Packs/Day Years [...] Upcoming Encounters Date Type Department Care Team ([facility] Contact Info) Description 03/12/2025 9:00 AM EDT Office Visit [facility] MEDICINE [address] [place] [address] [phone] Cynthia Minor MD [address] [place] [address] [phone] 04/07/2025 10:15 AM EDT Office Visit [facility] ADULT DENTAL [address] [place], [place] [phone] Ricky Mccartneyaris [address] [place] [address] documented as of this encounter Visit Diagnoses Not on filedocumented in this encounter Care Teams Orthodontist Assistant Relationship Specialty Start Date End Date Cynthia Minor MD [address] [place] [address] PCP - General Family Medicine 06/26/18 documented as of this encounter
--- OUTSIDE RECORDS SUMMARY | 2025-03-07 10:31 | XMS_ITS | Encounter Summary ---
Author Organization [facility] Address [address] [facility] 7t [place] [address] Care Team Providers Care Operational Trainer Name Role Phone Cynthia Minor MD Primary Care Provider [phone] Encounter Details Date Type Department Care Team (Latest Contact Info) Description 08/20/2020 Abstract [facility] CONVERSIONS Dental, Provider, DDS Social History Tobacco [...] Description 03/12/2025 9:00 AM EDT Office Visit [facility] MEDICINE [address] [place] [address] Cynthia Minor MD [address] [place] [address] 04/07/2025 10:15 AM EDT Office Visit [facility] ADULT DENTAL [address] [place] [address] Catrina Mccartney [address] [place] [address] documented as of this encounter Visit Diagnoses Not on filedocumented in this encounter Care Teams Operational Trainer Relationship Specialty Start Date End Date Cynthia Minor MD [address] [place] [address] PCP - General Family Medicine 06/26/18 documented as of this encounter
--- OUTSIDE RECORDS SUMMARY | 2025-03-07 10:31 | XMS_ITS | Encounter Summary ---
Author Organization [employer] Address [address] [facility] 7t [place] [address] Care Team Providers Care Risk Management Specialist Name Role Phone Cynthia Minor MD Primary Care Provider [phone] Encounter Details Date Type Department Care Team (Latest Contact Info) Description 07/16/2019 Abstract [facility] CONVERSIONS Dental, Provider, DDS Social History Tobacco [...] Description 03/12/2025 9:00 AM EDT Office Visit [facility] MEDICINE [address] [place] [address] Cynthia Minor MD [address] [place] [address] 04/07/2025 10:15 AM EDT Office Visit [facility] ADULT DENTAL [address] [place] [address] Catrina Mccartney [address] [place] [address] documented as of this encounter Visit Diagnoses Not on filedocumented in this encounter Care Teams Risk Management Specialist Relationship Specialty Start Date End Date Cynthia Minor MD [address] [place] [address] PCP - General Family Medicine 06/26/18 documented as of this encounter
--- OUTSIDE RECORDS SUMMARY | 2025-03-07 10:31 | XMS_ITS | Patient Health Record ---
Author Organization [facility] [place] Address [address] [place] [address] Care Team Providers Care Clam Shovel Operator Name Role Phone Mily Cynthia Primary Care Provider Mee Figueroa Unavailable [phone] Allergies Allergen (clinical drug ingredient) Drug/Non Drug Allergy documented on EMR Reaction Allergy Type Onset Date Status atorvastatin Lipitor Unknown Drug Allergy Acti ve topiramate Topamax Unknown Drug Allergy Active Reason For Referral No Information Medications Medication SIG (Take, Route, Frequency, Duration) Notes Start Date End Date Status Fiber Active Vitamin D3 Active Arnuity Ellipta 100 MCG/ACT [...] MG Oral; Duration: 1 Days Active Vitamin C Active Immunizations Vaccine Route Administration Date Status Comme nts Influenza Unknown 03/26/2024 Administered Social History Tobacco Use: Social History Observation Description Date Details (start date - stop date) Never Smoker NA - NA Alcohol Screen Question Answer Notes Did you have a drink containing alcohol in the p ast year? No Points 0 Interpretation Negative Tobacco use other than smoking: Question Answer Notes Are you an other tobacco user? No Tobacco Control (Standard) Question Answer Notes Tobacco use: Nonsmoker AUDIT-C (Standard) Question Answer Notes Did you have a drink containing alcohol in the p ast year? No Points 0 Interpretation Negative Problems Problem Type SNOMED Code ICD Code Onset Dates Problem Status W/U Status Risk Notes Problem Plantar wart (15180773) Plantar wart (B07.0) Active confirmed Vital Signs Blood pressure diastolic 81 mm Hg 01/24/2025 Height 5ft2in in 01/24/2025 Blood pressure systolic 132 mm Hg 01/24/2025 Weight 240 lbs 01/24/2025 BMI 43.89 kg/m2 01/24/2025 Encounters Encounter Location Date Provider Diagnosis [facility] [address] 01/24/2025 Mee Ellison Plantar wart B07.0 ; Metatarsalgia, left foot M77.42 ; Left foot pain M79.672 and Pain in right foot M79.[address] [address] 11/13/2024 Mee Ellison [address] [address] 01/24/2025 Mee Ellison Assessments Encounter Date Diagnosis (ICD Code) Assessment Notes Treatment Notes Treatment Clinical Notes Section Notes 01/24/2025 Plantar wart (ICD-10 - B07.0) 01/24/2025 Metatarsalgia, left foot (ICD-10 - M77.42) 01/24/2025 Left foot pain (ICD-10 - M79.672) 01/24/2025 Pain in right foot (ICD-10 - M79.671) Plan Of Treatment Pending Test Test Name Order Date X ray : Foot, left 3V 10/10/2023 Insurance Providers Payer Name Payer Address Payer Phone Subscriber Number Group Number Insured Name Patient Relationship to Insured Coverage Start Date Coverage End Date [facility] [employer] Claims [address] [place] [phone] [id number] Tristen Su Self - patient is the insured Medical (General) History Medical History History ICD Code Anxiety Back,Hip,and Knee pain Depression Headaches/Migraines Liver disease Chicken pox Surgical History Surgery Date(Month/Year) Hand Surgery 1991 Gall bladder surgery 2018 colonoscopy Hospitalization History Reason Date(Month/Year) [facility] 10/11/23
--- OUTSIDE RECORDS SUMMARY | 2025-03-07 10:31 | XMS_ITS | Encounter Summary ---
Author Organization [employer] Address [address] [facility] 7t [place] [address] Care Team Providers Care Receipt And Report Clerk Name Role Phone Cynthia Minor MD Primary Care Provider [phone] Reason for Visit * Reason Onset Date Comments Dr. Benz referral 10/21/2024 Encounter Details Date Type Department Care Team ([facility] st Contact Info) Description 10/21/2024 Telephone [facility] ADULT DENTAL [address] [place], [place] [phone] Liang Benz, ETHEL [address] [place], [place] [phone] Dr. Benz referral Social History Tobacco Use Types Packs/Day Years [...] encounter Miscellaneous Notes * Telephone Encounter - Rosalba Xiong - 10/21/2024 1:37 PM EDT Message for Dr. Benz Patient is requesting referral to go to [place] to extract tooth that he has had trouble with recently and that has been filled in the past. He doesn't want to come in. He just wanted extraction for GA in [place] documented in this encounter Plan of Treatment Upcoming Encounters Date Type Department Care Team (Late st Contact Info) Description 03/12/2025 9:00 AM EDT Office Visit [facility] MEDICINE [address] [place] [address] Cynthia Minor MD [address] [place] [address] 04/07/2025 10:15 AM EDT Office Visit [facility] ADULT DENTAL [address] [place] [address] Catrina Mccartney [address] [place] [address] documented as of this encounter Visit Diagnoses Not on filedocumented in this encounter Additional Health Concerns Assessment Noted Time PHQ-9 Depression Total Score: 14 025 9:11 AM EST documented as of this encounter Care Teams Receipt And Report Clerk Relationship Specialty Start Date End Date Cynthia Minor MD [address] [place] [address] PCP - General Family Medicine 06/26/18 documented as of this encounter
--- OUTSIDE RECORDS SUMMARY | 2025-03-07 10:31 | XMS_ITS | Encounter Summary ---
Author Organization [facility] Address [address] [place] [address] 7t [place] [address] Care Team Providers Care Truck Rental Clerk Name Role Phone Cynthia Minor MD Primary Care Provider Encounter Details Date Type Department Care Team (Late st Contact Info) Description 05/23/2022 Abstract [facility] ADULT DENTAL [address] [place] [address] Dental, Provider, DDS Social History Tobacco Use [...] Description 03/12/2025 9:00 AM EDT Office Visit [facility] MEDICINE [address] [place] [address] Cynthia Minor MD [address] [place] [address] 04/07/2025 10:15 AM EDT Office Visit [facility] ADULT DENTAL [address] [place] [address] Catrina Mccartney [address] [place] [address] documented as of this encounter Procedures Procedure Name Priority Date/Time Associated Diagnosis Comments 17 O COMPOSITE FILLING Routine 05/23/2022 12:00 AM EST 12 DO COMPOSITE FILLING Routine 05/23/2022 12:00 AM EST documented in this encounter Visit Diagnoses Not on filedocumented in this encounter Care Teams Truck Rental Clerk Relationship Specialty Start Date End Date Cnythia Minor MD [address] [place] [phone] PCP - General Family Medicine 06/26/18 documented as of this encounter
--- OUTSIDE RECORDS SUMMARY | 2025-03-07 10:31 | XMS_ITS | Encounter Summary ---
Author Organization [employer] Address [address] [place] [address] 7t [place] [address] Care Team Providers Care Adjunct Professor Name Role Phone Cynthia Minor MD Primary Care Provider [phone] Encounter Details Date Type Department Care Team (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) Social History Tobacco Use Types Packs/Day Years Used Date Smoking Tobacco: Never Passive Smoke Exposure: Never Smokeless Tobacco: Never Alcohol Use Standard Drinks/Week Comments Never 0 (1 standard drink = 0.6 oz pur e alcohol) Depression Answer Date Recorded Patient Health Questionnaire-9 Score 0 03/28/2023 Depression Answer Date Recorded Patient Health Questionnaire-2 Score 0 03/28/2023 Sex and Gender Information Value Date Recorded Sex Assigned at Male 04/25/2022 10:14 AM EDT Legal Sex Male 10:14 AM EDT Gender Identity Male 04/25/2022 10:14 AM EDT Sexual Orientation Straight 04/25/2022 10 :14 AM EDT documented as of this encounter Plan of Treatment Upcoming Encounters Date Type Department Care Team ([facility] Contact Info) Description 03/12/2025 9:00 AM EDT Office Visit [facility] MEDICINE [address] [place] [address] [phone] Cynthia Minor MD [address] [place] [address] [phone] 04/07/2025 10:15 AM EDT Office Visit [facility] ADULT DENTAL [address] [place] [address] Ricky Mccartneyaris [address] [place] [address] documented as of this encounter Procedures Procedure Name Priority Date/Time Associated Diagnosis Comments TSH Routine 05/08/2023 9:45 AM EST 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 T4, FREE Routine 05/08/2023 9:45 AM EST 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 XR SACROILIAC JOINTS 3+ VIEWS Routine 04/10/2023 3:06 PM EDT XR LUMBAR SPINE COMPLETE 4+ VIEWS Routine 04/10/2023 3:06 PM EDT US EXTREMITY NON-VASCULAR Routine 03/31/2023 1:25 PM EDT documented in this encounter Results * T4, Free (05/08/2023 9:45 AM EST) Free T4 (Free Thyroxine) 0.71 0.71 - 1.85 ng/dL [facility] Blood Venous blood specimen / Unknown 05/08/2023 9:45 AM EST 05/08/2023 10:59 AM EST us Cynthia Minor MD LAB BLOOD ORDERABLES Final Resul t [facility] [address] [place] [address] [phone] * (ABNORMAL) TSH (05/08/2023 9:45 AM EST) Thyroid Stimulating Hormone 4.55(H) 0.32 - 4.0 uIU/mL [facility] Comment:Note: A sustained TS H level above 2.5 uIU/mL may warrant further investigation. TSH 3rd Generation ([facility]) Blood Venous blood specimen / Unknown 05/08/2023 9:45 AM EST 05/08/2023 10:59 AM EST Cynthia Mnior MD LAB BLOOD ORDERABLES Final Resul t [facility] [address] [place] [phone] * XR Sacroiliac Joints 3+ Views (04/10/2023 3:06 PM EDT) Anatomical Region Laterality Modality Sacroiliac joint, Pelvis Radiogr aphic Imaging 04/10/2023 3:06 PM EDT Narrative 04/13/2023 9:52 AM EDT [address] [address] XRay Report Signed Patient: Tristen Rome MR#: [id number] : 1960 Acct:[id number] Age/Sex: 62 / M ADM Date: 04/10/23 Loc: [facility] Attending Dr: Odessa HILLIARD Ordering Physician: Odessa Ulrich Date of Service: 04/10/23 Procedure(s): XR sacroiliac joint min 3V Accession Number(s): [id number] cc: Odessa Ulrich; Cynthia Minor MD EXAMINATION: XR SACROILIAC JOINTS CLINICAL INFORMATION: Radiculopathy COMPARISON: None available. TECHNIQUE: 3 views of the sacroiliac joints FINDINGS: Bones and soft tissues are normal. No fracture. Alignment is anatomic. Sacroiliac joint spaces are well-maintained without erosions or surrounding sclerosis. XR/XR sacroiliac joint min 3V IMPRESSION: Normal sacroiliac joints. Dictated By: Kev Santos MD Signed By: <Electronically signed by Kev Santos MD in OV> 04/13/23 0948 DD/ 1506 TD/TT: Mobile Heavy Equipment Operator: Procedure Note Donotuseinterpreter, Image - 04/13/[address] [address] XRay Report Signed Patient: Tristen RomeMR#: [id number] : 1960cct:[id number] Age/Sex: 62 / MADM Date: 04/10/23 Loc: [facility] Attending Dr: Odessa HILLIARD Ordering Physician: Odessa Ulrich Date of Service: 04/10/23 Procedure(s): XR sacroiliac joint min 3V Accession Number(s): [id number] cc: Odessa Ulrich; Cynthia Minor MD EXAMINATION: XR SACROILIAC JOINTS CLINICAL INFORMATION: Radiculopathy COMPARISON: None available. TECHNIQUE: 3 views of the sacroiliac joints FINDINGS: Bones and soft tissues are normal. No fracture. Alignment is anatomic. Sacroiliac joint spaces are well-maintained without erosions or surrounding sclerosis. XR/XR sacroiliac joint min 3V IMPRESSION: Normal sacroiliac joints. Dictated By: Kev Santos MD Signed By: <Electronically signed by Kev Santos MD in OV> 04/13/23 0948 DD/ 1506 TD/TT: Mobile Heavy Equipment Operator: [facility] External Provider IMG XR PROCEDURES Final Result * XR Lumbar Spine Complete 4+ Views (04/10/2023 3:06 PM EDT) Anatomical Region Laterality Modality Spine, L-spine Radiographic Sammi ging 04/10/2023 3:06 PM EDT Narrative 04/13/2023 9:50 AM EDT [address] [address] XRay Report Signed Patient: Tristen Rome MR#: [id number] : 1960 Acct:[id number] Age/Sex: 62 / M ADM Date: 04/10/23 Loc: [facility] Attending Dr: Odessa HILLIARD Ordering Physician: Odessa Ulrich Date of Service: 04/10/23 Procedure(s): XR lumbar spine 4V min Accession Number(s): [id number] cc: Odessa Ulrich; Cynthia Minor MD EXAMINATION: XR LUMBOSACRAL SPINE WITH OBLIQUES CLINICAL INFORMATION: Pain. COMPARISON: 08/17/2015 TECHNIQUE: AP, both oblique, and lateral views of the lumbar spine. Lateral view of the lumbosacral junction. FINDINGS: There is straightening of lumbar lordosis and mild narrowing of L5-S1 intervertebral disc space as well as mild narrowing of L2-L1 intervertebral disc space. There is minimal marginal spurring along the lumbar spine. Oblique views revealed mild facets arthropathy at the level of L5-S1 bilaterally. Sacroiliac joints unremarkable. Soft tissues are normal. XR/XR lumbar spine 4V min IMPRESSION: Mild degenerative changes Dictated By: Kev Santos MD Signed By: <Electronically signed by Kev Santos MD in OV> 04/13/23 0947 DD/ 1506 TD/TT: Mobile Heavy Equipment Operator: Procedure Note Donotuseinterpreter, Image - 04/13/[address] [address] XRay Report Signed Patient: Arleen Rome#: [id number] : 1960cct:[id number] Age/Sex: 62 / MADM Date: 04/10/23 Loc: [facility] Attending Dr: Odessa HILLIARD Ordering Physician: Odessa Ulrich Date of Service: 04/10/23 Procedure(s): XR lumbar spine 4V min Accession Number(s): [id number] cc: Odessa Ulrich; Cynthia Minor MD EXAMINATION: XR LUMBOSACRAL SPINE WITH OBLIQUES CLINICAL INFORMATION: Pain. COMPARISON: 08/17/2015 TECHNIQUE: AP, both oblique, and lateral views of the lumbar spine. Lateral view of the lumbosacral junction. FINDINGS: There is straightening of lumbar lordosis and mild narrowing of L5-S1 intervertebral disc space as well as mild narrowing of L2-L1 intervertebral disc space. There is minimal marginal spurring along the lumbar spine. Oblique views revealed mild facets arthropathy at the level of L5-S1 bilaterally. Sacroiliac joints unremarkable. Soft tissues are normal. XR/XR lumbar spine 4V min IMPRESSION: Mild degenerative changes Dictated By: Kev Santos MD Signed By: <Electronically signed by Kev Santos MD in OV> 04/13/23 0947 DD/ 1506 TD/TT: Mobile Heavy Equipment Operator: us [facility] External Provider IMG XR PROCEDURES Final Result * US Extremity Non Vascular (03/31/2023 1:25 PM EDT) Anatomical Region Laterality Modality Ultrasound 03/31/2023 1:25 PM EDT Narrative 04/05/2023 7:11 PM EDT [facility] Primary Care [facility] [place] [address] Ultrasound Report Signed Patient: Tristen Rome MR#: [id number] : 1960 Acct:[id number] Age/Sex: 62 / M ADM Date: 03/31/23 Loc: HO.HMGCX Attending Dr: Hannah HILLIARD Ordering Physician: Hannah Hudson Date of Service: 03/31/23 Procedure(s): US extremity nonvascular Accession Number(s): [id number] cc: Hannah Hudson; Cynthia Minor MD EXAMINATION: US FOOT, SOFT TISSUES, LEFT CLINICAL INDICATION: Lateral plantar foot pain following stepping upon a nail 6 weeks prior; question radiopaque foreign body. COMPARISON: None available. TECHNIQUE: Using a linear transducer with grayscale and color modalities, ultrasound examination is performed of the area of clinical concern in the lateral plantar soft tissues of the left forefoot. FINDINGS: At the area of clinical concern within or immediately deep to the dermal surface, there is a small hyperechoic focus without associated color Doppler flow. This may represent a small focus of scarring or resolving hematoma. No foreign body is seen. There is no mass or fluid collection noted. US/US extremity nonvascular IMPRESSION: No radiopaque foreign body is noted. Dictated By: Jem Sun MD Signed By: <Electronically signed by Jem Sun MD in OV> 04/05/231906 DD/ 24 TD/TT: Mobile Heavy Equipment Operator: DARRYL Procedure Note Donotuseinterpreter, Image - 04/05/2023 [facility] Adult Primary Care [facility] [place] [address] Ultrasound Report Signed Patient: Tristen RomeMR#: [id number] : 2Acct:[id number] Age/Sex: 62 / MADM Date: 03/31/23 [facility]: Hannah HILLIARD Ordering Physician: Hannah Hudson Date of Service: 03/31/23 Procedure(s): US extremity nonvascular Accession Number(s): [id number] cc: Hannah Hudson; Cynthia Minor MD EXAMINATION: US FOOT, SOFT TISSUES, LEFT CLINICAL INDICATION: Lateral plantar foot pain following stepping upon a nail 6 weeks prior; question radiopaque foreign body. COMPARISON: None available. TECHNIQUE: Using a linear transducer with grayscale and color modalities, ultrasound examination is performed of the area of clinical concern in the lateral plantar soft tissues of the left forefoot. FINDINGS: At the area of clinical concern within or immediately deep to the dermal surface, there is a small hyperechoic focus without associated color Doppler flow. This may represent a small focus of scarring or resolving hematoma. No foreign body is seen. There is no mass or fluid collection noted. US/US extremity nonvascular IMPRESSION: No radiopaque foreign body is noted. Dictated By: Jem Sun MD Signed By: <Electronically signed by Jem Sun MD in OV> 04/05/231906 DD/ 1325 TD/TT: Mobile Heavy Equipment Operator: DARRYL us Hannah MATTHEWSP IMG US PROCEDURES Edited R esult - Final documented in this encounter Visit Diagnoses Diagnosis 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- Primary documented in this encounter Additional Health Concerns Assessment Noted Time PHQ-9 Depression Total Score: 0 03/28/20 23 8:55 AM EDT documented as of this encounter Care Teams Adjunct Professor Relationship Specialty Start Date End Date Cynthia Minor MD [address] [place] [address] PCP - General Family Medicine 06/26/18 documented as of this encounter
== END 2025-03-07 09:58 | disposition home or self-care (01) ==
PROVIDERS: PCP Family Medicine; Visit Provider Nurse Practitioner Family
DX: M53.9 Dorsopathy, unspecified (principal); M47.817 Spondylosis without myelopathy or radiculopathy, lumbosacral region; M62.830 Muscle spasm of back; M54.40 Lumbago with sciatica, unspecified side; G89.29 Other chronic pain; M48.061 Spinal stenosis, lumbar region without neurogenic claudication
CPT/HCPCS: 99214; G2211

== ENCOUNTER → 2025-03-07 09:26 | Outpatient (BNVA) | payer OTHER, SELFPAY | PROVIDERS: PCP Family Medicine; Visit Provider Nurse Practitioner Family | DX: Z71.2 Person consulting for explanation of examination or test findings (principal); M47.817 Spondylosis without myelopathy or radiculopathy, lumbosacral region; M62.830 Muscle spasm of back; M53.9 Dorsopathy, unspecified; M54.40 Lumbago with sciatica, unspecified side; M48.061 Spinal stenosis, lumbar region without neurogenic claudication | CPT/HCPCS: 99212 ==

== ENCOUNTER 2025-03-12 09:29 | Outpatient (REF) | payer OTHER, SELFPAY ==
--- OUTSIDE RECORDS SUMMARY | 2023-11-22 05:00 | XMS_ITS ---
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 Name Role Phone Cynthia Minor Primary Care Provider Mee Figueroa Unavailable [phone] Encounters Encounter Location Date Provider Diagnosis [address] [address] 11/22/2023 Mee Ellison Plan Of Treatment No Information Progress Notes * Mera REICHOB: 2 (64 yo M)Acc No.[id number]:11/22/2023 Patient: Tristen GUTIERREZ Provider: Latisha Ellison DPM :1960 A ge:63 Y S ex:Male Date:11/22/2023 Address:[address] [place], [place] [id number] Pcp:Cynthia Minor Subjective: * Chief Complaints: * * Medical History: Objective: * Vitals: Assessment: Plan: * Treatment: * Images: * The named appointment provid er may or may not be the originator of this progress note, and it is not deemed complete until electronically signed by the appointment provider. Sign off status: Pending * Provider: Latisha Ellison DPM Date: 11/22/2023 Generated for Lucius ng/Faanabelg/eTransmitting on: 03/12/2025 04:36 AM EDT
--- OUTSIDE RECORDS SUMMARY | 2024-11-13 05:00 | XMS_ITS ---
Author Organization [facility] Address [address] [place] [address] Care Team Providers Care Smt Operator Name Role Phone Cynthia Minor Primary Care Provider Mee Figueroa Unavailable [phone] Allergies Allergen (clinical drug ingredient) Drug/Non Drug Allergy documented on EMR Reaction Allergy Type Onset Date Status atorvastatin Lipitor Unknown Drug Allergy Acti ve topiramate Topamax Unknown Drug Allergy Active Medications Medication SIG (Take, Route, Frequency, Duration) Notes Start Date End Date Status Arnuity Ellipta 100 MCG/ACT INHALE 1 PUF F ONCE DAILY. RINSE MOUTH AFTER USING. Inhalation; Duration: 30 Days Active Gas Relief Extra Strength 125 MG TAKE 1 CAPSULE BY MOUTH UP TO THREE TIMES DAILY WITH MEALS NEEDED Oral; Duration: 30 Days Active Mometasone Furoate 0.1 % External; Durat ion: 30 Days Active Zaleplon 10 MG Oral; Duration: 30 Days Active Fluconazole 150 MG Oral; Duration: 1 Days Active Vitamin D3 Active Vitamin C Active Fiber Active Encounters Encounter Location Date Provider Diagnosis [facility] [address] [place] [address] 11/13/2024 Mee Ellison Plan Of Treatment No Information Progress Notes * Ricardo REICHJessicaOB: 2 (64 yo M)Acc No.[id number]:11/13/2024 Progress Note Patient: Tristen GUTIERREZ Provider: Latisha Ellison DPM :1960 A ge:64 Y S ex:Male Date:11/13/2024 Address:[address] [place] [address] [id number] Pcp:Cynthia Minor Subjective: * Chief Complaints: * * HPI: S kin problems: Pt States PCP Visit: Lior ATE 1 * Medical History: A nxiety, Back,Hip,and Knee pain, Depression, Headaches/Migraines, Liver disease, Chicken pox. * Medications: T aking Vitamin C , Taking Fiber , Taking Vitamin D3 , Taking Arnuity Ellipta 100 MCG/ACT Aerosol Powder Breath Activated INHALE 1 PUFF ONCE DAILY. RINSE MOUTH AFTER USING. Inhalation , Taking Gas Relief Extra Strength 125 MG Capsule TAKE 1 CAPSULE BY MOUTH UP TO THREE TIMES DAILY WITH MEALS NEEDED Oral , Taking Mometasone Furoate 0.1 % Ointment External , Taking Zaleplon 10 MG Capsule Oral , Taking Fluconazole 150 MG Tablet Oral * Allergies: L ipitor, Topamax. Objective: * Vitals: Assessment: Plan: * Treatment: * Images: * The named appointment provid er may or may not be the originator of this progress note, and it is not deemed complete until electronically signed by the appointment provider. Sign off status: Pending * Provider: Latisha Ellison DPM Date: 0 11/13/2024 Generated for Lucius sawyer/Rocco/King on: 0 03/12/2025 04:36 AM EDT History and Physical Notes * HPI (History of Present Illness) Category Sub-Category Detail Notes Category Not es Skin problems Pt States PCP Visit: DATE: 03/27/2023
--- OUTSIDE RECORDS SUMMARY | 2025-03-12 09:00 | XMS_ITS | Encounter Summary ---
Author Organization [employer] Address [address] [facility] 7t [place] [address] Care Team Providers Care Pharmacy Laboratory Technician Name Role Phone Cynthia Minor MD Primary Care Provider [phone] Encounter Details Date Type Department Care Team ([facility] st Contact Info) Description 03/12/2025 9:00 AM EDT Office Visit [facility] [address] [place], [place] [phone] Cynthia Minor MD [address] [place], [place] [phone] Elevated BP without diagnosis of hypertension (Primary Dx); Hearing loss, unspecified hearing loss type, unspecified laterality; Allergic rhinitis, unspecified seasonality, unspecified trigger; Pre-diabetes; 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; Tubular adenoma of colon; Metabolic dysfunction-associate d steatotic liver disease (MASLD); Gastroesophageal reflux disease, unspecified whether esophagitis present; Chronic low back pain, unspecified back pain laterality, unspecified whether sciatica present; Multilevel degenerative disc disease; Spondylosis of lumbosacral region without myelopathy or radiculopathy; Spinal stenosis of lumbar region without neurogenic claudication; Mixed hyperlipidemia; Dyslipidemia; Excessive gas; Benign prostatic hyperplasia with urinary frequency Social History Tobacco Use Types Packs/Day Years Used Date Smoking Tobacco: Never Passive Smoke Exposure: Never Smokeless Tobacco: Never Alcohol Use Standard Drinks/Week Comments Never 0 (1 standard drink = 0.6 oz pur e alcohol) Depression Answer Date Recorded Patient Health Questionnaire-9 Score 24 03/12/2025 Patient Health Questionnaire-9 Score 24 03/12/2025 Last PHQ-9: Questionnaire Data Not on file 0 03/12/2025 Housing Stability Answer Date Recorded What is [...] Answer Date Recorded Patient Health Questionnaire-2 Score 6 03/12/2025 Internet Access Answer Date Recorded Internet Access Q1 Yes 09/17/2024 Internet Access Q2 Not on file 09/17/2024 Sex and Gender Information Value Date Recorded Sex Assigned at Male 04/25/2022 10:14 AM EDT Legal Sex Male 10:14 AM EDT Gender Identity Male 04/25/2022 10:14 AM EDT Sexual Orientation Straight 04/25/2022 10 :14 AM EDT documented as of this encounter Last Filed Vital Signs Vital Sign Reading Time Taken Comments Blood Pressure 124/82 03/12/2025 9:03 AM EDT Pulse 65 03/12/2025 9:03 AM EDT Temperature 36 C (96.8 F) 03/12/2025 9:03 AM EDT Respiratory Rate 15 03/12/2025 9:03 AM EDT Oxygen Saturation 98% 03/12/2025 9:03 AM EDT Inhaled Oxygen Concentration - - Weight 106 kg (233 lb) 03/12/2025 9:03 AM EDT Height 162.6 cm (5' 4 ) 03/12/2025 9:03 AM EDT Body Mass Index 39.99 03/12/2025 9:03 AM EDT documented in this encounter Functional Status * Over the past 2 weeks, how often have you been bothered by any of the following problems? Question Answer Date of Assessment Author Patient Health Questionnaire -2 Score 6 03/12/2025 9:03 AM Lupe Jose MA * Little interest or pleasure in doing things Answer Date of Assessment Author Nearly every day 03/12/2025 9:03 AM Emilia Jose MA * Feeling down, depressed, or hopeless Answer Date of Assessment Author Nearly every day 03/12/2025 9:03 AM Emilia Jose MA * Trouble falling or staying asleep, or sleeping too much Answer Date of Assessment Author Nearly every day 03/12/2025 9:03 AM Emilia Jose MA * Feeling tired or having little energy Answer Date of Assessment Author Nearly every day 03/12/2025 9:03 AM Emilia Jose MA * Poor appetite or overeating Answer Date of Assessment Author Nearly every day 03/12/2025 9:03 AM Emilia Jose MA * Feeling bad about yourself - or that you are a failure or have let yourself or your family down Answer Date of Assessment Author Nearly every day 03/12/2025 9:03 AM Emilia Jose MA * Trouble concentrating on things, such as reading the newspaper or watching television Answer Date of Assessment Author Nearly every day 03/12/2025 9:03 AM Emilia Jose MA * Moving or speaking so slowly that other people could have noticed? Or the opposite - being so fidgety or restless that you have been moving around a lot more than usual. Answer Date of Assessment Author Nearly every day 03/12/2025 9:03 AM Emilia Jose MA * Thoughts that you would be better off or hurting yourself in some way Answer Date of Assessment Author Not at all 03/12/2025 9:03 AM Emilia Jose MA * Patient Health Questionnaire-9 Score Answer Date of Assessment Author 24 03/12/2025 9:03 AM Emilia Jose MA documented as of this encounter Miscellaneous Notes * Assessment & Plan Note - Cynthia Minor MD - 03/12/2025 4:46 AM EDTAssociated Problem(s): Metabolic dysfunction-associated steatotic liver disease (MASLD) -FIB4 index 2.04 -Most recent [place] with [...] substances, and behaviors. H. pylori was negative. 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 -Continue annual screening -Continue working on lifestyle modifications. * Assessment & Plan Note - Cynthia Minor MD - 03/12/2025 4:43 AM EDTAssociated Problem(s): Elevated BP without diagnosis of hypertension -Goal BP < 130/80 per ACC/AHA guideline (Treatment threshold >=140/90) -Continue working on lifestyle modifications -Recommended self-monitoring BP. 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 Expected: 03/12/2025 (Approximate), Expires: 03/12/2026 Comprehensive Metabolic Panel Lab Routine Elevated BP without diagnosis of hypertension Expected: 03/12/2025 (Approximate), Expires: 03/12/2026 Lipid Panel with Reflex to Direct LDL Lab Routine Mixed hyperlipidemia Expected: 03/12/2025 (Approximate), Expires: 03/12/2026 documented as of this encounter Visit Diagnoses Diagnosis Elevated BP without diagnosis of hypertension- Primary Hearing loss, unspecified hearing loss type, unspecified laterality Allergic rhinitis, unspecified seasonality, unspecified trigger Pre-diabetes Other abnormal glucose 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 Tubular adenoma of colon Benign neoplasm of colon Metabolic dysfunction-associated steatotic liver disease (MASLD) Gastroesophageal reflux disease, unspecified whether esophagitis present Chronic low back pain, unspecified back pain laterality, unspecified whether sciatica present Multilevel degenerative disc disease Spondylosis of lumbosacral region without myelopathy or radiculopathy Spinal stenosis of lumbar region without neurogenic claudication Mixed hyperlipidemia Dyslipidemia Other and unspecified hyperlipidemia Excessive gas Benign prostatic hyperplasia with urinary frequency documented in this encounter Additional Health Concerns Assessment Noted Time PHQ-9 Depression Total Score: 24 025 9:03 AM EDT documented as of this encounter Care Teams Pharmacy Laboratory Technician Relationship Specialty Start Date End Date Cynthia Minor MD [address] [place] [address] PCP - General Family Medicine 06/26/18 documented as of this encounter
--- OUTSIDE RECORDS SUMMARY | 2025-03-12 11:15 | XMS_ITS | Encounter Summary ---
Author Organization [employer] Address [address] [place] [address] 7t [place] [address] Care Team Providers Care Digital Strategy Manager Name Role Phone Cynthia Minor MD Primary Care Provider [phone] Encounter Details Date Type Department Care Team ([facility] Contact Info) Description 03/29/[address] 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 ADULT DENTAL [address] [place] [address] Catrina Mccartney [address] [place] [address] documented as of this encounter Procedures Procedure [...] Thyroxine) 0.71 0.71 - 1.85 ng/dL [facility] Blood Venous blood specimen / Unknown 05/08/2023 9:45 AM EST 05/08/2023 10:59 AM EST Cynthia Minor MD LAB BLOOD ORDERABLES Final Resul t Performing Organization Address City/[facility] Co de Phone Number [facility] [address] [place] [phone] * (ABNORMAL) TSH (05/08/2023 9:45 AM EST) Thyroid Stimulating Hormone 4.55(H) 0.32 - 4.0 uIU/mL [facility] Comment:Note: A sustained TS H level above 2.5 uIU/mL may warrant further investigation. TSH 3rd Generation ([facility]) Blood Venous blood specimen / Unknown 05/08/2023 9:45 AM EST 05/08/2023 10:59 AM EST Cynthia Minor MD LAB BLOOD ORDERABLES Final Resul t [facility] [address] [place] [phone] * XR Sacroiliac Joints 3+ Views (04/10/2023 3:06 PM EDT) Anatomical Region Laterality Modality Sacroiliac joint, Pelvis Radiogr aphic Imaging 04/10/2023 3:06 PM EDT Narrative 04/13/2023 9:52 AM EDT [address] [address] XRay Report Signed Patient: Tristen Rome MR#: [id number] : 1960 Acct:[id number] Age/Sex: 62 / M ADM Date: 04/10/23 Loc: EDIL[facility] Attending Dr: Odessa HILLIARD Ordering Physician: Odessa Ulrich Date of Service: 04/10/23 Procedure(s): XR sacroiliac joint min 3V Accession Number(s): [id number] cc: Odessa Ulrich; Cynthia Minor MD EXAMINATION: [...] in OV> 04/13/23 0948 DD/ 1506 TD/TT: [employer]: Procedure Note Donamyinterpreter, Image - 04/13/[address] [address] XRay Report Signed Patient: Tristen RomeMR#: [id number] : 1960cct:[id number] Age/Sex: 62 / MADM Date: 04/10/23 Loc: EDIL[facility] Attending Dr: Odessa HILLIARD Ordering Physician: Odessa Ulrich Date of Service: 04/10/23 Procedure(s): XR sacroiliac joint min 3V Accession Number(s): [id number] cc: Odessa Ulrich; Cynthia Minor MD EXAMINATION: [...] in OV> 04/13/23 0948 DD/ 1506 TD/TT: Press[employer]: [facility] External Provider IMG XR PROCEDURES Final Result * XR Lumbar Spine Complete 4+ Views (04/10/2023 3:06 PM EDT) Anatomical Region Laterality Modality Spine, L-spine Radiographic Sammi ging 04/10/2023 3:06 PM EDT Narrative 04/13/2023 9:50 AM EDT [address] [address] XRay Report Signed Patient: Tristen Rome MR#: [id number] : 1960 Acct:[id number] Age/Sex: 62 / M ADM Date: 04/10/23 Loc: EDILSON Attending Dr: Odessa HILLIARD Ordering Physician: Odessa Ulrich Date of Service: 04/10/23 Procedure(s): XR lumbar spine 4V min Accession Number(s): [id number] cc: Odessa Ulrich; Cynthia Minor MD EXAMINATION: [...] in OV> 04/13/23 0947 DD/ 1506 TD/TT: [employer]: Procedure Note Donotuseinterpreter, Image - 04/13/2023 [place] [address] XRay Report Signed Patient: Tristen Rome#: [id number] : 2Acct:[id number] Age/Sex: 62 / MADM Date: 04/10/23 Loc: EDILSON Attending Dr: Odessa HILLIARD Ordering Physician: Odessa Ulrich Date of Service: 04/10/23 Procedure(s): XR lumbar spine 4V min Accession Number(s): [id number] cc: Odessa Ulrich; Cynthia Minor MD EXAMINATION: [...] in OV> 04/13/23 0947 DD/ 1506 TD/TT: [employer]: [facility] External Provider IMG XR PROCEDURES Final Result * US Extremity Non Vascular (03/31/2023 1:25 PM EDT) Anatomical Region Laterality Modality Ultrasound 03/31/2023 1:25 PM EDT Narrative 04/05/2023 7:11 PM EDT [facility] [address] [facility] [place] [address] Ultrasound Report Signed Patient: Tristen Rome MR#: [id number] : 1960 Acct:[id number] Age/Sex: 62 / M ADM Date: 03/31/23 [facility] Dr: Hannah Hudson MECHANICAL DOOR REPAIRER Ordering Physician: Hannah Hudson Date of Service: 03/31/23 Procedure(s): US extremity nonvascular Accession Number(s): [id number] cc: Hannah HudsonP; Cynthia Minor MD EXAMINATION: US FOOT, SOFT [...] signed by Jem Sun MD in OV> 04/05/23 1907 DD/ 1325 TD/TT: [employer]: DARRYL Procedure Note Donotuseinterpreter, Image - 04/05/2023 [facility] 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
--- OUTSIDE RECORDS SUMMARY | 2025-03-12 11:15 | XMS_ITS | Encounter Summary ---
Author Organization [employer] Address [address] [facility] [address] 7t [place] [address] Care Team Providers Care Shipping & Receiving Lead Name Role Phone Cynthia Minor MD Primary Care Provider [phone] Reason for Visit * Reason Comments Med Refill Encounter Details Date Type Department Care Team ([facility] Contact Info) Description 05/11/2024 Refill [facility] [address] [place], [place] [phone] Kym Bella NP [address] [place] [address] Facial pressure Social History Tobacco Use Types [...] Description 04/07/2025 10:15 AM EDT Office Visit [facility] ADULT DENTAL [address] [place] [address] Catrina Mccartney [address] [place] [address] documented as of this encounter Visit Diagnoses Diagnosis Facial pressure documented in this encounter Additional Health Concerns Assessment Noted Time PHQ-9 Depression Total Score: 0 03/28/20 23 8:55 AM EDT documented as of this encounter Care Teams Shipping & Receiving Lead Relationship Specialty Start Date End Date Cynthia Minor MD [address] [place] [address] PCP - General Family Medicine 06/26/18 documented as of this encounter
--- OUTSIDE RECORDS SUMMARY | 2025-03-12 11:15 | XMS_ITS | Encounter Summary ---
Author Organization [employer] Address [address] [facility] 7t [place] [address] Care Team Providers Care Tow Operator Name Role Phone Cynthia Minor MD Primary Care Provider [phone] Encounter Details Date Type Department Care Team (Late Contact Info) Description 08/01/2022 Orders Only [facility]EDS [address] [place] [address] Zara Galicia LPN Social History Tobacco Use [...] Department Care Team (Late Contact Info) Description 04/07/2025 10:15 AM EDT Office Visit [facility] ADULT DENTAL [address] [place], [place] [phone] Bib, Catrina [address] [place], [place] [phone] documented as of this encounter Visit Diagnoses Not on filedocumented in this encounter Care Teams Tow Operator Relationship Specialty Start Date End Date Cynthia Minor MD [address] [place] [address] PCP - General Family Medicine 06/26/18 documented as of this encounter
--- OUTSIDE RECORDS SUMMARY | 2025-03-12 11:15 | XMS_ITS | Patient Health Record ---
Author Organization [facility] [place] Address [address] [place] [address] Care Team Providers Care Warehouse Order Selector Name Role Phone Mily Cynthia Primary Care Provider Mee Figueroa Unavailable [phone] Allergies Allergen (clinical drug ingredient) Drug/Non Drug [...] W/U Status Risk Notes Problem Plantar wart (31270903) Plantar wart (B07.0) Active confirmed Vital Signs Blood pressure diastolic 81 mm Hg 01/24/2025 Height 5ft2in in 01/24/2025 Blood pressure systolic 132 mm Hg 01/24/2025 Weight 240 lbs 01/24/2025 BMI 43.89 kg/m2 01/24/2025 Encounters Encounter Location Date Provider Diagnosis [facility] [address] 01/24/2025 Mee Ellison Plantar wart B07.0 ; Metatarsalgia, left foot M77.42 ; Left foot pain M79.672 and Pain in right foot M79.[address] [address] 11/13/2024 Mee Ellison [address] [address] 01/24/2025 Mee Ellison Assessments Encounter Date Diagnosis [...] Insured Coverage Start Date Coverage End Date [facility] [employer] Claims [address] [place] [id number] rTisten Su Self - patient is the insured Medical (General) History Medical History History ICD Code Anxiety Back,Hip,and Knee pain Depression Headaches/Migraines Liver disease Chicken pox Surgical History Surgery Date(Month/Year) Hand Surgery 1991 Gall bladder surgery 2018 colonoscopy Hospitalization History Reason Date(Month/Year) [facility], kidney 10/11/23
--- OUTSIDE RECORDS SUMMARY | 2025-03-12 11:15 | XMS_ITS | Encounter Summary ---
Author Organization [employer] Address [address] [facility] 7t [place] [address] Care Team Providers Care Prop Drawer Name Role Phone Cynthia Minor MD Primary Care Provider [phone] Encounter Details Date Type Department Care Team (Latest Contact Info) Description 07/16/2019 Abstract [facility] CONVERSIONS Dental, Provider, DDS Social History Tobacco [...] Care Team ( st Contact Info) Description 04/07/2025 10:15 AM EDT Office Visit [facility] ADULT DENTAL [address] [place] [address] Bib, Catrina [address] [place] [address] documented as of this encounter Visit Diagnoses Not on filedocumented in this encounter Care Teams Prop Drawer Relationship Specialty Start Date End Date Cynthia Minor MD [address] [place] [address] PCP - General Family Medicine 06/26/18 documented as of this encounter
--- OUTSIDE RECORDS SUMMARY | 2025-03-12 11:15 | XMS_ITS | Encounter Summary ---
Author Organization [employer] Address [address] [facility] 7t [place] [address] Care Team Providers Care Unix Engineer Name Role Phone Cynthia Minor MD Primary Care Provider [phone] Encounter Details Date Type Department Care Team ([facility] Contact Info) Description 12/06/2023 Orders Only [facility] [address] [place], [place] [phone] Cynthia Minor MD [address] [place], [place] [phone] Social History Tobacco Use Types Packs/Day Years [...] Description 04/07/2025 10:15 AM EDT Office Visit [facility] ADULT DENTAL [address] [place] [address] Catrina Mccartney [address] [place] [address] documented as of this encounter Visit Diagnoses Not on filedocumented in this encounter Additional Health Concerns Assessment Noted Time PHQ-9 Depression Total Score: 0 03/28/20 23 8:55 AM EDT documented as of this encounter Care Teams Unix Engineer Relationship Specialty Start Date End Date Cynthia Minor MD [address] [place] [address] PCP - General Family Medicine 06/26/18 documented as of this encounter
--- OUTSIDE RECORDS SUMMARY | 2025-03-12 11:15 | XMS_ITS | Encounter Summary ---
Author Organization [employer] Address [address] [facility] 7t [place] [address] Care Team Providers Care Family Independence Case Manager Name Role Phone Cynthia Minor MD Primary Care Provider [phone] Reason for Visit * Reason Onset Date Comments Call Back Request 08/30/2023 Encounter Details Date Type Department Care Team ([facility] Contact Info) Description 08/30/2023 Telephone [facility] [address] [place], [place] [phone] Cynthia Minor MD [address] [place], [place] [phone] Call Back Request Social History Tobacco Use [...] get evaluated please call the daughter at [phone] documented in this encounter Plan of Treatment Upcoming Encounters Date Type Department Care Team (Late st Contact Info) Description 04/07/2025 10:15 AM EDT Office Visit [facility] ADULT DENTAL [address] [place] [address] Bib Catrina [address] [place] [address] documented as of this encounter Visit Diagnoses Not on filedocumented in this encounter Additional Health Concerns Assessment Noted Time PHQ-9 Depression Total Score: 0 03/28/20 23 8:55 AM EDT documented as of this encounter Care Teams Family Independence Case Manager Relationship Specialty Start Date End Date Cynthia Minor MD [address] [place] [address] PCP - General Family Medicine 06/26/18 documented as of this encounter
--- OUTSIDE RECORDS SUMMARY | 2025-03-12 11:15 | XMS_ITS | Encounter Summary ---
Author Organization [employer] Address [address] [facility] 7t [place] [address] Care Team Providers Care Hosiery Mater Name Role Phone Cynthia Minor MD Primary Care Provider [phone] Encounter Details Date Type Department Care Team (Latest Contact Info) Description 03/12/2025 Travel Social History Tobacco Use Types Packs/Day Years [...] AM EDT documented as of this encounter Functional Status * Over the [...] Author Not at all 03/12/2025 9:03 AM EDT Emilia Kebede MA * Patient Health Questionnaire-9 Score Answer Date of Assessment Author 24 03/12/2025 9:03 AM EDT Emilia Kebede [place] documented as of this encounter Plan of Treatment Upcoming Encounters Date Type Department Care Team (Late st Contact Info) Description 04/07/2025 10:15 AM EDT Office Visit [facility] ADULT DENTAL [address] [place] [address] Bib Catrina [address] [place] [address] documented as of this encounter Visit Diagnoses Not on filedocumented in this encounter Additional Health Concerns Assessment Noted Time PHQ-9 Depression Total Score: 025 9:03 AM EDT documented as of this encounter Care Teams Hosiery Mater Relationship Specialty Start Date End Date Cynthia Minor MD [address] [place] [address] PCP - General Family Medicine 06/26/18 documented as of this encounter
--- OUTSIDE RECORDS SUMMARY | 2025-03-12 11:15 | XMS_ITS | Encounter Summary ---
Author Organization [employer] Address [address] [facility] 7t [place] [address] Care Team Providers Care Shoe Salesman Name Role Phone Cynthia Minor MD Primary Care Provider [phone] Encounter Details Date Type Department Care Team (Latest Contact Info) Description 08/20/2020 Abstract [facility] CONVERSIONS Dental, Provider, DDS Social History [...] Description 04/07/2025 10:15 AM EDT Office Visit [facility] ADULT DENTAL [address] [place] [address] Bib, Catrina [address] [place] [address] documented as of this encounter Visit Diagnoses Not on filedocumented in this encounter Care Teams Shoe Salesman Relationship Specialty Start Date End Date Cynthia Minor MD [address] [place] [address] PCP - General Family Medicine 06/26/18 documented as of this encounter
--- OUTSIDE RECORDS SUMMARY | 2025-03-12 11:15 | XMS_ITS | Encounter Summary ---
Author Organization [employer] Address [address] [facility] 7t [place] [address] Care Team Providers Care Solar Consultant Name Role Phone Cynthia Minor MD Primary Care Provider [phone] Encounter Details Date Type Department Care Team (Latest Contact Info) Description 09/17/2021 Abstract [facility] CONVERSIONS Dental, Provider, DDS Social History Tobacco [...] Description 04/07/2025 10:15 AM EDT Office Visit [facility] ADULT DENTAL [address] [place] [address] Bib, Catrina [address] [place] [address] documented as of this encounter Visit Diagnoses Not on filedocumented in this encounter Care Teams Solar Consultant Relationship Specialty Start Date End Date Cynthia Minor MD [address] [place] [address] PCP - General Family Medicine 06/26/18 documented as of this encounter
--- OUTSIDE RECORDS SUMMARY | 2025-03-12 11:15 | XMS_ITS | Encounter Summary ---
Author Organization [employer] Address [address] [facility] 7t [place] [address] Care Team Providers Care Hydrant Setter Name Role Phone Cynthia Minor MD Primary Care Provider [phone] Reason for Visit * Reason Onset Date Comments CHART PREP 03/11/2025 Encounter Details Date Type Department Care Team ([facility] Contact Info) Description 03/11/2025 Telephone [facility] MEDICINE [address] [place], [place] [phone] Cynthia Minor MD [address] [place], [place] [phone] CHART PREP Social History Tobacco Use Types Packs/Day Years [...] encounter Miscellaneous Notes * Telephone Encounter - Gordo Morales [place] - 03/11/2025 7:25 PM EDT Chart Prep Labs: done Images: not applicable Referrals: not applicable Vaccines due: Flu Screenings: colonoscopy Overdue care gaps: PHQ-9 documented in this encounter Plan of Treatment Upcoming Encounters Date Type Department Care Team (Late st Contact Info) Description 04/07/2025 10:15 AM EDT Office Visit [facility] ADULT DENTAL [address] [place] [address] Bib, Catrina [address] [place] [address] documented as of this encounter Visit Diagnoses Not on filedocumented in this encounter Additional Health Concerns Assessment Noted Time PHQ-9 Depression Total Score: 14 025 9:11 AM EST documented as of this encounter Care Teams Hydrant Setter Relationship Specialty Start Date End Date Cynthia Minor MD [address] [place] [address] PCP - General Family Medicine 06/26/18 documented as of this encounter
--- OUTSIDE RECORDS SUMMARY | 2025-03-12 11:15 | XMS_ITS | Encounter Summary ---
Author Organization [employer] [facility] Address [address] [place] [address] 7[address] [place] [address] Care Team Providers Care Clinical Dermatologist Name Role Phone Cynthia Minor MD Primary Care Provider [phone] Encounter Details Date Type Department Care Team (Late st Contact Info) Description 05/23/2022 Abstract [facility] ADULT DENTAL [address] [place] [address] Dental, Provider, DDS Social History Tobacco Use [...] Description 04/07/2025 10:15 AM EDT Office Visit [facility] ADULT DENTAL [address] [place] [address] Catrina Mccartney [address] [place] [address] documented as of this encounter Procedures Procedure Name Priority Date/Time Associated Diagnosis Comments 17 O COMPOSITE FILLING Routine 05/23/2022 12:00 AM EST 12 DO COMPOSITE FILLING Routine 05/23/2022 12:00 AM EST documented in this encounter Visit Diagnoses Not on filedocumented in this encounter Care Teams Clinical Dermatologist Relationship Specialty Start Date End Date Cynthia Minor MD [address] [place], [place] [phone] PCP - General Family Medicine 06/26/18 documented as of this encounter
--- OUTSIDE RECORDS SUMMARY | 2025-03-12 11:15 | XMS_ITS | Encounter Summary ---
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) [...] Description 04/07/2025 10:15 AM EDT Office Visit [facility] ADULT DENTAL [address] [place] [address] Bib, Catrina [address] [place] [address] documented as of this encounter Procedures Procedure Name Priority Date/Time Associated Diagnosis Comments TSH W/REFLEX TO FT4 Routine 09/17/2024 1 2:40 PM EDT 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 documented in this encounter Results * TSH with Reflex to Free T4 (09/17/2024 12:40 PM EDT) TSH reflex Free T4 2.68 0.32 - 4.0 uIU/mL [facility] Blood 09/17/2024 12:4 0 PM EDT 09/17/2024 2:15 PM EDT us Cynthia Minor MD LAB BLOOD ORDERABLES Final Resul t [facility] [address] [place] [address] [phone] documented in this encounter Visit Diagnoses Diagnosis 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- Primary documented in this encounter Additional Health Concerns Assessment Noted Time PHQ-9 Depression Total Score: 14 025 9:11 AM EST documented as of this encounter Care Teams Entry Level Accountant Relationship Specialty Start Date End Date Cynthia Minor MD [address] [place] [address] PCP - General Family Medicine 06/26/18 documented as of this encounter
--- OUTSIDE RECORDS SUMMARY | 2025-03-12 11:15 | XMS_ITS | Encounter Summary ---
Author Organization [employer] Address [address] [facility] 7t [place] [address] Care Team Providers Care Surgery Attendant Name Role Phone Cynthia Minor MD Primary Care Provider [phone] Encounter Details Date Type Department Care Team ([facility] Contact Info) Description 07/20/2022 Telephone [facility] MEDICINE [address] [place], [place] [phone] Cynthia Minor MD [address] [place], [place] [phone] Social History Tobacco Use Types Packs/Day Years [...] Upcoming Encounters Date Type Department Care Team ([facility] Contact Info) Description 04/07/2025 10:15 AM EDT Office Visit [facility] ADULT DENTAL [address] [place], [place] [phone] Catrina Mccartney [address] [place], [place] [phone] documented as of this encounter Visit Diagnoses Not on filedocumented in this encounter Care Teams Surgery Attendant Relationship Specialty Start Date End Date Cynthia Minor MD [address] [place] [address] PCP - General Family Medicine 06/26/18 documented as of this encounter
--- OUTSIDE RECORDS SUMMARY | 2025-03-12 11:15 | XMS_ITS | Encounter Summary ---
Author Organization [employer] Address [address] [facility] 7t [place] [address] Care Team Providers Care Emergency Dispatcher Name Role Phone Cynthia Minor MD Primary Care Provider [phone] Reason for Visit * Reason Onset Date Comments Dr. Benz referral 10/21/2024 Encounter Details Date Type Department Care Team ([facility] st Contact Info) Description 10/21/2024 Telephone [facility] ADULT DENTAL [address] [place], [place] [phone] Liang Benz, ETHEL [address] [place], [place] [phone] Dr. Benz referral Social History Tobacco Use [...] Patient is requesting referral to go to [place] to extract tooth that he has had trouble with recently and that has been filled in the past. He doesn't want to come in. He just wanted extraction for GA in [place] documented in this encounter Plan of Treatment Upcoming Encounters Date Type Department Care Team (Late st Contact Info) Description 04/07/2025 10:15 AM EDT Office Visit [facility] ADULT DENTAL [address] [place] [address] Bib, Catrina [address] [place] [address] documented as of this encounter Visit Diagnoses Not on filedocumented in this encounter Additional Health Concerns Assessment Noted Time PHQ-9 Depression Total Score: 14 025 9:11 AM EST documented as of this encounter Care Teams Emergency Dispatcher Relationship Specialty Start Date End Date Cynthia Minor MD [address] [place] [address] PCP - General Family Medicine 06/26/18 documented as of this encounter
--- OUTSIDE RECORDS SUMMARY | 2025-03-12 11:15 | XMS_ITS | Clinical Summary ---
Author Organization [employer] Address [address] [place] [address] [address] [place] [address] Care Team Providers Care Insulation Foreman Name Role Phone Cynthia Minor MD Primary Care Provider [phone] Allergies Active Allergy Reactions Criticality Noted Date [...] mouth Once per day. 30 tablet 11 Active fluticasone (Flonase) 50 MCG/ACT nasal sprayIndications :Facial pressure Administer 1 spray into each nostril Once per day. Shake gently. Before first use, prime pump. After use, clean tip and replace cap. 16 g Active acetaminophen (Tylenol 8 Hour) 650 MG ER tabletIndication s:Facial pressure Take 1 tablet (650 mg) by mouth every 8 (eight) hours if needed for mild pain. Do not crush, chew, or split. 30 tablet 1 Active Arnuity Ellipta 100 MCG/ACT inhaler INHALE [...] to 20 doses. 20 tablet 025 Active sucralfate (Carafate) 1 g tablet Take 1 tablet by mouth three times daily as needed 270 tablet 1 025 Active Ventolin HFA 108 (90 Base) MCG/ACT inhaler INHALE 2 PUFFS BY MOUTH EVERY 4 HOURS NEEDED FOR WHEEZING OR SHORTNESS OF BREATH 18 g 3 025 Active FT Fiber Laxative 625 MG tablet TAKE 1 TABLET BY MOUTH TWICE DAILY 60 tablet 2 025 Active chlorhexidine (Peridex) 0.12 % solution SWISH 15 ML BY MOUTH FOR 30 SECONDS THEN SPIT OUT . USE TWICE DAILY IN THE MORNING AND IN THE EVENING AFTER BRUSHING TEETH. SPIT OUT, DO NOT SWALLOW Active PEG [id number]-N aCl-NaSulf (PEG-3350/Electr olytes) 236 g reconstituted solution FOLLOW INSTRUCTION SHEET GIVEN TO YOU AT YOUR DOCTOR'S OFFICE DIRECTED. Active benzocaine (Orajel) 10 % mucosal gelIndications:D ry socket Use in the mouth or throat if needed for mucositis. 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 90 tablet 3 Active simethicone (GAS RELIEF) 125 MG capsuleIndicatio ns:Excessive gas TAKE 1 CAPSULE BY MOUTH THREE TIMES DAILY NEEDED WITH MEALS 90 capsule 2 Active tamsulosin (Flomax) 0.4 MG 24 hr capsuleIndicatio ns:Benign prostatic hyperplasia with urinary frequency TAKE 1 CAPSULE BY MOUTH ONCE DAILY AT BEDTIME 90 capsule 3 025 Active omeprazole (PriLOSEC) [address] capsule TAKE 1 CAPSULE BY MOUTH EVERY DAY BEFORE BREAKFAST. DO NOT BREAK, CRUSH, DISSOLVE OR CHEW. 90 capsule 3 025 Active omeprazole (PriLOSEC) [address] capsule Take 1 capsule (40 mg) by mouth before breakfast. Do not crush or chew. 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 30 tablet 11 024 2024 Discontinued Crestor 40 MG tabletIndication s:Dyslipidemia Take 1 tablet (40 mg) by mouth at bedtime. 90 tablet 3 025 2024 Discontinued(R eorder (will not trigger notification to Pharmacy)) tamsulosin (Flomax) 0.4 MG 24 hr capsuleIndicatio ns:Benign prostatic hyperplasia with urinary frequency TAKE 1 CAPSULE BY MOUTH ONCE DAILY AT BEDTIME 90 capsule 3 025 2024 Discontinued(R eorder (will not trigger notification to Pharmacy)) simethicone (GAS RELIEF) 125 MG capsuleIndicatio ns:Excessive gas TAKE 1 CAPSULE BY MOUTH THREE TIMES DAILY NEEDED WITH MEALS 90 capsule 2 025 2024 Discontinued(R eorder (will not trigger notification to Pharmacy)) oxyCODONE (Roxicodone) 5 MG immediate release tablet TAKE 1 TABLET BY MOUTH EVERY 6 HOURS NEEDED BREAKTHROUGH PAIN 025 2024 Discontinued(M ed list cleanup (will not trigger notification to Pharmacy)) omeprazole (PriLOSEC) [address] capsule TAKE 1 CAPSULE BY MOUTH EVERY DAY BEFORE BREAKFAST. DO NOT BREAK, CRUSH, DISSOLVE OR CHEW. 90 capsule 3 025 2024 Discontinued(R eorder (will not trigger notification to Pharmacy)) Active Problems Problem Noted Date Diagnosed Date Multilevel degenerative disc disease 03/12/2025 Lumbosacral spondylosis 03/12/2025 Spinal stenosis of lumbar region 03/12/2025 Encounter for screening colonoscopy 01/21/2025 Elevated BP without diagnosis of hypertension Assessment & Plan (03/12/2025 4:43 AM EDT): -Goal BP < 130/80 per ACC/AHA guideline (Treatment threshold >=140/90) -Continue working on lifestyle modifications -Recommended self-monitoring BP. -Continue current medications: -Treatment Hx: Atypical odontalgia 10/22/2024 Fractured dental worship with loss of materi al 09/16/2024 Localized gingival recession 04/05/2024 Generalized gingival recession 02/05/2024 Dental plaque 02/05/2024 Missing teeth, acquired 02/05/2024 Sensitivity of root structure of tooth Mild cognitive impairment 09/05/2023 Assessment & Plan [...] can treat him. -pt was seen by [facility] paint coating machine operator -Recieved SIJ injection treatment on 11/10/21; received [...] from Spinal Stenosis -pt was seen by [facility] provider in 04/2020, pt was scheduled for injection tx and given tizanidine but pt requested procedure to be done under general anesthesia or stronger sedation; pt was recommended to find another specialist who can treat him. -pt was seen by [facility] paint coating machine operator -Recieved SIJ injection treatment on 11/10/21; received [...] due to Ashley's thyroiditis Assessment & Plan (03/12/2025 4:45 AM EDT): -current replacement: levothyroxine 112 mcg daily, started in Feb 2024 -most recent thyroid function test: 09/17/24 TSH 2.68 -continue current replacement Assessment & Plan (12/10/2024 9:54 AM EDT): [...] NSAIDs or caffiene. -Consider referring back to [facility] for further evaluation Skin tag [...] Plan (12/10/2024 9:56 AM EDT): -Followed by [facility]. Last seen in August 2024 -Continue tamsulosin -Reduce caffeine intake Assessment & Plan (09/17/2024 8:55 AM EDT): -Followed by [facility]. Last seen in November 2023. -Continue tamsulosin -Reduce caffeine intake Assessment & Plan (03/22/2024 11:12 AM EDT): -Followed by [facility]. Last seen in November 2023. -Continue [...] adenoma of colon 11/03/2015 Assessment & Plan (03/12/2025 4:45 AM EDT): -Followed by [facility] -Colonoscopy on 09/11/15 tubular adenoma -Colonoscopy on 09/06/19 tubular adenoma Assessment & Plan (12/10/2024 12:58 PM EDT): [...] S provider, pt states bipolar -S provider: Yovany Enriquez -Current medications: Effexor 150 mg daily; Zyprexa 5 mg qhs; Zalepron 10 mg qhs (pt also seems to be taking melatonin and hydroxyzine) -Continue current treatment plan. Assessment & Plan (09/17/2024 8:56 AM EDT): - Diagnosis: Bipolar disorder. ?not confirmed with S provider, pt states bipolar -[facility] provider: [facility] -Current medications: Effexor 150 mg daily; Zyprexa 5 mg qhs; Zalepron 10 mg qhs (pt also seems to be taking melatonin and hydroxyzine) -Continue current treatment plan. Assessment & Plan (07/03/2024 2:50 PM EST): - Diagnosis: Bipolar disorder. ?not confirmed with S provider, pt states bipolar -[facility] provider: [facility] -Current medications: Effexor 150 mg daily; Zyprexa 5 mg qhs; Zalepron 10 mg qhs (pt also seems to be taking melatonin and hydroxyzine) -Continue current treatment plan. Assessment & Plan (03/12/2024 11:46 AM EDT): - Diagnosis: Bipolar disorder. ?not confirmed with [facility] provider, pt states bipolar -[facility] provider: [facility] -Current medications: Effexor 150 mg daily; Zyprexa 5 mg qhs; Zalepron 10 mg qhs (pt also seems to be taking melatonin and hydroxyzine) -Continue current treatment plan. Assessment & Plan (12/05/2023 4:55 AM EDT): - Diagnosis: Bipolar disorder. ?not confirmed with S provider, pt states bipolar -[facility] provider: [facility] -Current medications: Effexor 150 mg daily; Zyprexa 5 mg qhs; Zalepron 10 mg qhs (pt also seems to be taking melatonin and hydroxyzine) -Continue current treatment plan. Assessment & Plan (09/05/2023 4:55 AM EDT): - Diagnosis: Bipolar disorder. ?not confirmed with S provider, pt states bipolar -[facility] provider: [facility] -Current medications: Effexor 150 mg daily; Zyprexa 5 mg qhs; Zalepron 10 mg qhs (pt also seems to be taking melatonin and hydroxyzine) -Continue current treatment plan. Assessment & Plan (04/03/2023 5:21 PM EDT): - Diagnosis: Bipolar disorder. ?not confirmed with S provider, pt states bipolar -[facility] provider: [facility] -Current medications: Effexor 150 mg daily; Zyprexa 5 mg qhs; Zalepron 10 mg qhs (pt also seems to be taking melatonin and hydroxyzine) -Continue current treatment plan. Assessment & Plan (11/26/2022 6:36 AM EDT): - Diagnosis: Bipolar disorder. ?not confirmed with S provider, pt states bipolar -[facility] provider: [facility] -Current medications: Effexor 150 mg daily; Zyprexa 5 mg qhs; Zalepron 10 mg qhs (pt also seems to be taking melatonin and hydroxyzine) -Continue current treatment plan. Metabolic dysfunction-associ ated steatotic liver disease (MASLD) 07/09/2013 Assessment & Plan (03/12/2025 4:46 AM EDT): -FIB4 index 2.04 -Most recent [...] H. pylori was negative. Assessment & Plan (12/10/2024 12:58 PM EDT): [...] focal lesion. -Last hepatitis profile negative in 2018 -Encouraged to work on lifestyle modifications and [...] focal lesion. -Last hepatitis profile negative in 2018 -Encouraged to work on lifestyle modifications and [...] (MASLD) WRITTEN ON 04/03/2023 5:16 PM BY CYNTHIA MINOR MD -Most recent LFT: 11/16/22 AST [...] TRANSAMINITIS WRITTEN ON 04/03/2023 5:20 PM BY CYNTHIA MINOR MD -Most recent LFT: 11/16/22 AST [...] (MASLD) WRITTEN ON 11/26/2022 6:57 AM BY CYNTHIA MINOR MD -Most recent LFT: 11/16/22 AST [...] TRANSAMINITIS WRITTEN ON 11/26/2022 6:47 AM BY CYNTHIA MINOR MD -Most recent LFT: 11/16/22 AST [...] Hemorrhoids 02/13/2012 Pre-diabetes 02/13/2012 Assessment & Plan (03/12/2025 4:45 AM EDT): - A1c 5.7% on 07/02/24 slight increase from A1c 5.5% on 12/05/2023 -Strong family medical hx of diabetes. -Continue annual screening -Continue working on lifestyle modifications. Assessment & Plan (12/10/2024 12:58 PM EDT): [...] HYPERLIPIDEMIA WRITTEN ON 12/05/2023 4:55 AM BY CYNTHIA MINOR MD - last lipid profile: 11/16/22 [...] DYSLIPIDEMIA WRITTEN ON 12/05/2023 4:54 AM BY CYNTHIA MINOR MD - last lipid profile: 11/16/22 [...] HYPERLIPIDEMIA WRITTEN ON 09/05/2023 4:55 AM BY CYNTHIA MINOR MD - last lipid profile: 11/16/22 [...] DYSLIPIDEMIA WRITTEN ON 09/05/2023 4:55 AM BY CYNTHIA MINOR MD - last lipid profile: 11/16/22 [...] HYPERLIPIDEMIA WRITTEN ON 04/03/2023 5:23 PM BY CYNTHIA MINOR MD - last lipid profile: 11/16/22 [...] DYSLIPIDEMIA WRITTEN ON 04/03/2023 5:24 PM BY CYNTHIA MINOR MD - last lipid profile: 11/16/22 [...] HYPERLIPIDEMIA WRITTEN ON 11/26/2022 6:40 AM BY CYNTHIA MINOR MD - last lipid profile: 04/28/22 [...] (12/05/2023 9:56 AM EDT): - seen by kitchen bath designer in September 2023 Assessment & Plan (09/18/2023 5:25 AM EDT): Patient was referred to kitchen bath designer Resolved Problems Problem Noted Date Diagnosed Date [...] Oral candidiasis 09/01/2022 11/26/2022 History of hypertension 08/08/2022/02/2025 Assessment & Plan (04/03/2023 5:23 PM EDT): [...] Encounters Date Type Department Care Team Description 03/12/2025 9:00 AM EDT Office Visit [address] [address] Cynthia Minor MD Elevated BP without diagnosis of hypertension (Primary Dx); Hearing loss, unspecified hearing loss type, unspecified laterality; Allergic rhinitis, unspecified seasonality, unspecified trigger; Pre-diabetes; 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; Tubular adenoma of colon; Metabolic dysfunction-associated steatotic liver disease (MASLD); Gastroesophageal reflux disease, unspecified whether esophagitis present; Chronic low back pain, unspecified back pain laterality, unspecified whether sciatica present; Multilevel degenerative disc disease; Spondylosis of lumbosacral region without myelopathy or radiculopathy; Spinal stenosis of lumbar region without neurogenic claudication; Mixed hyperlipidemia; Dyslipidemia; Excessive gas; Benign prostatic hyperplasia with urinary frequency 03/12/2025 Travel 03/11/[address] [address] Cynthia Minor MD CHART PREP 03/10/2025 Refill [facility] [address] [place] [address] Cynthia Minor MD 02/22/2025 Refill [facility] [address] [place] [phone] Cynthia Minor MD 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 01/21/2025 5:20 PM EDT Office Visit [facility] [address] [place] [phone] Maria Del Rosario Ly MD Dry socket (Primary Dx) 01/21/2025 Travel 01/02/2025 Refill [facility] [address] [place] [phone] Cynthia Minor MD Excessive gas 12/20/2024 Refill [facility] [address] [place] [address] [phone] Cynthia Minor MD 12/10/2024 9:15 AM EDT Office Visit [facility] [address] [place] [phone] Cynthia Minor MD Mixed hyperlipidemia (Primary Dx); Pre-diabetes; 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; Class 3 severe obesity due to excess calories with serious comorbidity and body mass index (BMI) of 40.0 to 44.9 in adult; Tubular adenoma of colon; Metabolic dysfunction-associated steatotic liver disease (MASLD); Gastroesophageal reflux disease, unspecified whether esophagitis present; Mood disorder (CMS/HCC); Benign prostatic hyperplasia with urinary frequency 12/10/2024 Telephone [facility] [address] [place] [address] [phone] Cynthia Minor MD Record Request 12/10/2024 Travel from Last 3 Months Immunizations Immunization Administration [...] Mass Index 39.99 03/12/2025 9:03 AM EDT Plan of Treatment Upcoming Encounters Date Type Department Care Team (Late st Contact Info) Description 04/07/2025 10:15 AM EDT Office Visit [facility] [address] [place] [address] Bib Catrina [address] [place] [address] Health Maintenance Due Date Last Done Comments CT Colonography 1961 FIT DNA/Cologuard 1961 FIT 1961 FOBT 1961 Sigmoidoscopy 1961 Dental Oral Exam 08/08/2024 02/05/2024 Colonoscopy 09/05/2024 09/06/2019, 09/06/2019 Colorectal Cancer Screening 09/05/2024 Dental X-Ray: Bitewings 02/05/2025 02/05/2024 Dental Prophylaxis 02/14/2025 08/16/2024, 0 02/05/2024, 10/27/2022 Influenza Vaccine (#1) 2025 , 03/10/2023, 03/24/2022, Additional history exists Dental X-Ray: Full Mouth 03/22/2025 03/21/2022 Alcohol/Substance Use Screening 07/02/2025 07/02/2024 Diabetes: Hemoglobin A1C 07/02/2025 025, 12/05/2023, 11/16/2022, Additional history exists Depression Monitoring 09/09/2025 03/12/2025, 025 Disability Screening 09/17/2025 09/17/2024 SDOH Screening 09/17/2025 09/17/2024 Tobacco Screening 03/12/2026 03/12/2025 Lipid Panel 07/02/2029 07/02/2024, 11/24, 11/16/2022, Additional [...] 9:48 AM EST) Triglycerides 147 <150 mg/dL [facility] Comment:Desirable Triglyceri de: less than 150 mg/dLBorderline High Triglyceride 150-199 mg/dLHigh Triglyceride: 200-499 mg/dLVery High Triglyceride: greater than or equal to 5OO mg/dL Cholesterol 123 <200 mg/dL [facility] Comment:Desirable Cholestero l: less than 200 mg/dLBorderline High Cholesterol: 200-239 mg/dLHigh Cholesterol: greater than 239 mg/dL LDL Cholesterol Calculated 54 <100 mg/dL [facility] Comment:Desirable LDL: less than 100 mg/dLNear Optimal/Above Optimal LDL: 110- 129 mg/dLBorderline High LDL: 130-159 mg/dLHigh LDL: 160-189 mg/dLVery High LDL: greater than or equal to 190 mg/dL HDL Cholesterol 40(L) >40 mg/dL [facility] Comment:Desirable HDL: great er than 40 mg/dL Note: This HDL assay may give artificially low results in patients with liver disease. Blood 07/02/2024 9:48 AM EST 07/02/2024 11:15 AM EST Cynthia Minor MD LAB BLOOD ORDERABLES Final Resul t Performing Organization Address [facility] Co de Phone Number [facility] [address] [place] [phone] * Hemoglobin A1c (07/02/2024 9:47 AM EST) Hemoglobin A1c 5.7 <6.0 % [facility] Comment:Hemoglobin A1C Refer ence Range Adults: 4.8 - 6.0 % Non diabetic: < 6.0 % Goal: < 7.0 %Additional Action Suggested: > 8.0 %Note: Hemoglobin A1c results are invalid for patients with abnormal amounts of HbF. Blood transfusions may impact the HbA1c concentration in the patient sample. Estimated Average Glucose 117 mg/dL [facility] Comment:eAG = Estimated ave rage glucose which is %A1C expressed asaverage glucose, using the formula of the L1R-KivnmuvGebusmz Glucose study (ADAG), Diabetes Care, Vol.31,#8,Aug. 2007 Blood Venous blood specimen / Unknown 07/02/2024 9:47 AM EST 07/02/2024 11:46 AM EST Cynthia Minor MD LAB BLOOD ORDERABLES Final Resul t Performing Organization Address [facility] Co de Phone Number [facility] [address] [place] [phone] * Colonoscopy (09/06/2019) Colonoscopy Normal Normal, Abnormal, BIRADS 0 , BIRADS 1 , BIRADS 2, BIRADS 3 , BIRADS 4+ Vandana Provider HEALTH MAINTENANCE Edited Result - Final from Last 3 Months or Most Recently Relevant to Health Maintenance Insurance [facility] ONE [facility] < [address] [facility] Care Teams Insulation Foreman Relationship Specialty Start Date End Date Cynthia Minor MD [address] [place] [phone] PCP - General Family Medicine 06/26/18
--- OUTSIDE RECORDS SUMMARY | 2025-03-12 11:15 | XMS_ITS | Encounter Summary ---
Author Organization [employer] Address [address] [facility] [address] [place] [address] Care Team Providers Care Research And Development Specialist Name Role Phone Cynthia Minor MD Primary Care Provider [phone] Encounter Details Date Type Department Care Team ([facility] Contact Info) Description 02/02/2023 Orders Only [facility] [address] [place] [address] Zara Galicia LPN Social History Tobacco Use [...] 04/07/2025 10:15 AM EDT Office Visit [facility] [address] [place] [address] Bib, Catrina [address] [place] [address] documented as of this encounter Visit Diagnoses Not on filedocumented in this encounter Care Teams Research And Development Specialist Relationship Specialty Start Date End Date Cynthia Minor MD [address] [place], [place] [phone] PCP - General Family Medicine 06/26/18 documented as of this encounter
--- OUTSIDE RECORDS SUMMARY | 2025-03-12 11:15 | XMS_ITS | Encounter Summary ---
Author Organization [employer] Address [address] [facility] [address] [place] [address] Care Team Providers Care Heavy Equipment Operator Apprentice Name Role Phone Cynthia Minor MD Primary Care Provider [phone] Reason for Visit * Reason Comments Med Refill Encounter Details Date Type Department Care Team ([facility] Contact Info) Description 03/10/2025 Refill [facility] [address] [place], [place] [phone] Cynthia Minor MD [address] [place], [place] [phone] Social History Tobacco Use Types Packs/Day Years [...] Description 04/07/2025 10:15 AM EDT Office Visit [facility] [address] [place] [address] Bib, Catrina [address] [place] [address] documented as of this encounter Visit Diagnoses Not on filedocumented in this encounter Additional Health Concerns Assessment Noted Time PHQ-9 Depression Total Score: 14 025 9:11 AM EST documented as of this encounter Care Teams Heavy Equipment Operator Apprentice Relationship Specialty Start Date End Date Cynthia Minor MD [address] [place] [address] PCP - General Family Medicine 06/26/18 documented as of this encounter
[2025-03-12 11:52] LABS: Alanine Aminotransferase 35 U/L (0-40); Albumin Level 4.5 g/dL (3.5-5.0); Alkaline Phosphatase 57 U/L (39-117); Anion Gap 8 (12-20); Aspartate Amino Transferase 43 U/L (5-37); Blood Urea Nitrogen 18 mg/dL (9-16); Calcium 9.2 mg/dL (8.4-10.2); Carbon Dioxide 30 mmol/L (22-29); Chloride 106 mmol/L (96-108); Cholesterol 139 mg/dL (<200); Estimated Glomerular Filt Rate > 60; HDL Cholesterol 46 mg/dL (>40); Potassium 4.2 mmol/L (3.3-5.1); Sodium 140 mmol/L (135-145); Total Protein 7.3 g/dL (6.5-8.0); Triglycerides 89 mg/dL (<150)
[2025-03-12 12:56] LABS: Reflex LDLD? No
[2025-03-12 13:05] LABS: Free T4 (Free Thyroxine) 0.92 ng/dL (0.71-1.85)
== END 2025-03-12 09:30 | disposition home or self-care (01) ==
LOC: HO.HHCL 09:29
PROVIDERS: PCP Family Medicine; Visit Provider Family Medicine
DX: E06.3 Autoimmune thyroiditis (principal); E78.2 Mixed hyperlipidemia; R03.0 Elevated blood-pressure reading, without diagnosis of hypertension
CPT/HCPCS: 36415; 80053; 80061; 84439; 84443

== ENCOUNTER 2025-04-18 07:28 | Day surgery (SDC) | payer OTHER, SELFPAY ==
--- OUTSIDE RECORDS SUMMARY | 2023-11-22 05:00 | XMS_ITS ---
Author Organization [facility] Address [address] [place] [address] Care Team Providers Care Shift Supervisor Film Processing Name Role Phone Cynthia Minor Primary Care Provider Mee Figueroa Unavailable [phone] Encounters Encounter Location Date Provider Diagnosis [address] [address] 11/22/2023 Mee Ellison Plan Of Treatment No Information Progress Notes * Mera REICHOB: 2 (64 yo M)Acc No.[id number]:11/22/2023 Patient: Tristen GUTIERREZ Provider: Latisha Ellison DPM :1960 A ge:63 Y S ex:Male Date:11/22/2023 Address:[address] [place], [place] [id number] Pcp:Cynthia Minor Subjective: * Chief Complaints: * * Medical History: Objective: * Vitals: Assessment: Plan: * Treatment: * Images: * The named appointment provid er may or may not be the originator of this progress note, and it is not deemed complete until electronically signed by the appointment provider. Sign off status: Pending * Provider: Latisha Ellison DPM Date: 0 11/22/2023 Generated for Faisali ng/Faanabelg/eTransmitting on: 1 06:31 PM EDT
--- OUTSIDE RECORDS SUMMARY | 2024-11-13 05:00 | XMS_ITS ---
Author Organization [facility] Address [address] [place] [address] Care Team Providers Care Private Sector Executive Name Role Phone Cynthia Minor Primary Care Provider Mee Figueroa Unavailable [phone] Allergies Allergen (clinical drug ingredient) Drug/Non Drug [...] Active Encounters Encounter Location Date Provider Diagnosis [facility] [address] [place] [address] 11/13/2024 Mee Ellison Plan Of Treatment No Information Progress Notes * Ricardo REICHJessicaOB: 2 (64 yo M)Acc No.[id number]:11/13/2024 Progress Note Patient: Tristen GUTIERREZ Provider: Latisha Ellison DPM :1960 A ge:64 Y S ex:Male Date:11/13/2024 Address:[address] [place] [address] [id number] Pcp:Cynthia Minor Subjective: * Chief Complaints: * [...] 11/13/2024 Generated for Lucius sawyer/Rocco/King on: 1 06:31 PM EDT History and Physical Notes * HPI (History of Present Illness) Category Sub-Category Detail Notes Category Not es Skin problems Pt States PCP Visit: DATE: 03/27/2023
--- OUTSIDE RECORDS SUMMARY | 2025-04-07 10:15 | XMS_ITS | Encounter Summary ---
Author Organization [employer] Address [address] [facility] [address] [place] [address] Care Team Providers Care Superintendent Laundry Name Role Phone Cynthia Minor MD Primary Care Provider [phone] Reason for Visit * Reason Comments Dental Exam Routine Cleaning X-rays Encounter Details Date Type Department Care Team ([facility] st Contact Info) Description 04/07/2025 10:15 AM EDT Office Visit [facility] ADULT DENTAL [address] [place], [place] [phone] Bib, Catrina [address] [place] [address] Dental plaque (Primary Dx); Generalized gingival recession; Missing teeth, acquired; Sensitivity of root structure of tooth; Atypical odontalgia Social History Tobacco Use Types Packs/Day Years [...] Sign Reading Time Taken Comments Blood Pressure 120/78 04/07/2025 10:04 AM EDT Pulse 84 04/07/2025 10:04 AM EDT Temperature - - Respiratory Rate - - Oxygen Saturation - - Inhaled Oxygen Concentration - - Weight - - Height - - Body Mass Index - - documented in this encounter Progress Notes * Catrina Mccartney - 04/07/2025 10:15 AM EDT Patient ID: Tristen Villeda is a 64 y.o. male. Time Out: Timeout Date: 04/07/25, Timeout Time: 1018 (Dental exam / prophylaxis / x-rays) Location: [facility] Tooth: Maxilla and Mandible Procedure: Exam, X-rays, Prophylaxis, and Perio chart Verified the above with patient, clinical nursing assistant, and provider. Confirmed via patient's chart, intraorally and by radiographs. Retail Assistant Manager: not applicable Medical Hx: Vitals: Blood pressure 120/78, pulse 84. Medications, Med Hx reviewed with patient and updated in chart. Treatment Provided Dental procedures in this visit D1330 - ORAL HYGIENE INSTRUCTIONS (Completed) Service provider: Catrina Mccartney [place] provider: Liang Benz DDS D9450 - CASE PRESENTATION, DETAILED AND EXTENSIVE TREATMENT PLANNING (Completed) Service provider: Catrina Mccartney Billing provider: Liang Benz DDS D0210 - INTRAORAL - COMPLETE SERIES OF RADIOGRAPHIC IMAGES (Completed) Service provider: Catrina Mccartney [place] provider: Liang Benz DDS D1110 - PROPHYLAXIS - ADULT (Completed) Service provider: Catrina Mccartney [place] provider: Liang Benz DDS D1206 - TOPICAL APPLICATION OF FLUORIDE VARNISH (Completed) Service provider: Catrina Mccartney Billing provider: Liang Benz DDS Instruments Used: Hand Scalers and Prophy angle Fluoride: 5% NaF varnish applied and POI given Oral Cancer Screening: No lesions Head/Neck Exam: No Lesions Calculus: light to moderate Plaque: Light to moderate Stain: discolored exposed roots Bleeding: Light Gingiva: Recession- generalized, ink OH: Good Perio Chart: Completed Oral hygiene instructions provided to patient including brushing technique and flossing. Recommendations: La Vernia two times daily, modified jennings technique, Floss daily, Electric toothbrush, Soft bristle toothbrush, [place] Tongue, Anti-sensitivity toothpaste Recall Frequency: 6 mo months prophy. NV: Dr. Benz for add ooth to maxillary partials Hygienist: Catrina Mccartney RDH * Liang Benz DDS - 04/07/2025 10:15 AM EDT Dental procedures in this visit D1330 - ORAL HYGIENE INSTRUCTIONS (Completed) Service provider: Catrina Hatch provider: Liang Benz DDS D9450 - CASE PRESENTATION, DETAILED AND EXTENSIVE TREATMENT PLANNING (Completed) Service provider: Catrina Mccartney [place] provider: Liang Benz DDS D0210 - INTRAORAL - COMPLETE SERIES OF RADIOGRAPHIC IMAGES (Completed) Service provider: Catrina Mccartney [place] provider: Liang Benz DDS D1110 - PROPHYLAXIS - ADULT (Completed) Service provider: Catrina Mccartney [place] provider: Liang Benz DDS D1206 - TOPICAL APPLICATION OF FLUORIDE VARNISH (Completed) Service provider: Catrina Mccartney [place] provider: Liang Benz DDS D0120 - PERIODIC ORAL EVALUATION - ESTABLISHED PATIENT (Completed) Service provider: Liang Benz DDS [place] provider: Liang Benz DDS Patient ID: Tristen Villeda is a 64 y.o. male. Time Out: Timeout Date: 04/07/25, Timeout Time: 1018 (Dental exam / prophylaxis / x-rays) Location: [facility] Tooth: Maxilla and Mandible Procedure: Exam, X-rays, and Prophylaxis Verified the above with patient, clinical nursing assistant, and provider. Confirmed via patient's chart, intraorally and by radiographs. Retail Assistant Manager: not applicable Chief Complaint Patient presents with Dental Exam Routine Cleaning X-rays Medical Hx: Vitals: Blood pressure 120/78, pulse 84. Medical History[1] Medications: Encounter Medications[2] Objective HPI Asymptomatic, slight discomfort on pressure at max. Right side Head and Neck Exam: Lymph Nodes, Lips, Palate, Buccal Mucosa, Floor of Mouth, Tongue, Tonsils, Alveolar Ridges, Oropharynx, Salivary Ducts, and Vestibules normal appearance Details: Skin NSF OCS: negative Dental Exam As charted Plaque Missing teeth acquired Gen. Recession Reference tooth chart for additional findings. Oral Cancer Risk: Low Risk Oral Hygiene Instructions: La Vernia two times daily, modified jennings technique, Floss daily, Electric toothbrush, Soft bristle toothbrush, [place]ia Tongue, Anti- sensitivity toothpaste Caries Risk Assessment: Medium- one risk factor Assessment/Plan HALLE X ray Prophy Fluoride Repair RPD (Max.) Patient tolerated procedure well, all questions answered and expressed understanding. Dismissed in good condition. NV: Imp. / Repair, add tooth to existing Web Site Developer: Catrina Mccartney Dentist: Liang Benz DDS [1] Past Medical History: Diagnosis Date Anxiety Asthma Disease of thyroid gland Dyspepsia 08/08/2022 Pt attributes to COVID booster (3rd vaccine). But, unlikely. -Pt has h/o GERD and asthma. -Cont treatment for GERD and asthma. -Avoid triggers such as, NSAIDs or caffiene. Hypertension Oral candidiasis 09/01/2022 [2] Outpatient Encounter Medications as of 04/07/2025 Medication Sig Dispense Refill acetaminophen (Tylenol 8 Hour) 650 MG ER tablet Take 1 tablet (650 mg) by mouth every 8 (eight) hours if needed for mild pain. Do not crush, chew, or split. 30 tablet 1 Arnuity Ellipta 100 MCG/ACT inhaler INHALE 1 PUFF ONCE DAILY. RINSE MOUTH AFTER USING. 30 each 11 benzocaine (Orajel) 10 % mucosal gel Use in the mouth or throat if needed for mucositis. 5.3 g 0 chlorhexidine (Peridex) 0.12 % solution SWISH 15 ML BY MOUTH FOR 30 SECONDS THEN SPIT OUT . USE TWICE DAILY IN THE MORNING AND IN THE EVENING AFTER BRUSHING TEETH. SPIT OUT, DO NOT SWALLOW clotrimazole (Lotrimin) 1 % cream APPLY TO AFFECTED AREA(S) AND SURROUNDING AREA(S) TWICE DAILY IN THE MORNING AND EVENING 60 g 1 Crestor 40 MG tablet Take 1 tablet (40 mg) by mouth at bedtime. 90 tablet 3 fluticasone (Flonase) 50 MCG/ACT nasal spray Administer 1 spray into each nostril Once per day. Shake gently. Before first use, prime pump. After use, clean tip and replace cap. 16 g 11 FT Fiber Laxative 625 MG tablet TAKE 1 TABLET BY MOUTH TWICE DAILY 60 tablet 2 hydrOXYzine HCl (Atarax) 25 MG tablet TAKE 1/2 TO 1 TABLET BY MOUTH UP TO TWICE DAILY NEEDED FORANXIETY ibuprofen 600 MG tablet Take 1 tablet (600 mg) by mouth every 6 (six) hours if needed for mild painfor up to 20 doses. 20 tablet 0 Ketotifen Fumarate 0.035 % solution Administer 1 drop into affected eye(s) if needed in the morningand at bedtime (eye redness, itching). 10 mL 0 levothyroxine (Synthroid) 125 MCG tablet Take 1 tablet (125 mcg) by mouth before breakfast. Take atleast 40 minutes before any other medication and food 30 tablet 11 levothyroxine (Synthroid, Levoxyl) 112 MCG tablet TAKE 1 TABLET BY MOUTH EVERY DAY BEFORE [id number] tablet 11 lidocaine (Xylocaine) 5 % ointment Apply to affected area once or twice daily 44 g 3 melatonin 5 MG tablet Take 1 tablet by mouth at bedtime. Methylcellulose, Laxative, (SM Fiber Laxative) 500 MG tablet Take 1 tablet by mouth 2 times daily. 60 tablet 3 mometasone (Elocon) 0.1 % ointment APPLY TO ARMS AND LEGS TWICE DAILY NEEDED FOR FLARE, DECREASETO EVERY DAY OR EVERY OTHER DAY WHEN SYMPTOMS IMPROVE OLANZapine (ZyPREXA) 10 MG tablet Take 1 tablet by mouth at bedtime. OLANZapine (ZyPREXA) 5 MG tablet TAKE 1/2 TABLET BY MOUTH EVERY DAY IN THE MORNING AND TAKE 1/2 TABLET BY MOUTH NEEDED EVERY DAY omeprazole (PriLOSEC) [address] capsule TAKE 1 CAPSULE BY MOUTH EVERY DAY BEFORE BREAKFAST. DO NOT BREAK, CRUSH, DISSOLVE OR CHEW. 90 capsule 3 PEG [id number] (PEG-3350/Electrolytes) 236 g reconstituted solution FOLLOW INSTRUCTION SHEET GIVEN TO YOU AT YOUR DOCTOR'S OFFICE DIRECTED. simethicone (GAS RELIEF) 125 MG capsule TAKE 1 CAPSULE BY MOUTH THREE TIMES DAILY NEEDED WITH MEALS 90 capsule 2 sucralfate (Carafate) 1 g tablet Take 1 tablet by mouth three times daily as needed 270 tablet 1 tamsulosin (Flomax) 0.4 MG 24 hr capsule TAKE 1 CAPSULE BY MOUTH ONCE DAILY AT BEDTIME 90 capsule 3 tiZANidine (Zanaflex) 4 MG tablet TAKE 1 TABLET BY MOUTH EVERY 6 TO 8 HOURS NEEDED FOR BACKACHE NO MORE THAN 3 TABLETS DAILY 60 tablet 3 venlafaxine XR (Effexor XR) 150 MG 24 hr capsule TAKE 1 CAPSULE BY MOUTH EVERY MORNING DIRECTED Ventolin HFA 108 (90 Base) MCG/ACT inhaler INHALE 2 PUFFS BY MOUTH EVERY 4 HOURS NEEDED FOR WHEEZING OR SHORTNESS OF BREATH 18 g 3 zaleplon (Sonata) 10 MG capsule Take 20 mg by mouth at bedtime. cetirizine (ZyrTEC) 10 MG tablet Take 1 tablet (10 mg) by mouth Once per day. 30 tablet 11 No facility-administered encounter medications on file as of 04/07/2025. documented in this encounter Plan of Treatment Upcoming Encounters Date Type Department Care Team (Late st Contact Info) Description 04/29/2025 11:00 AM EST Office Visit [facility] ADULT DENTAL [address] [place] [address] Liang Benz DDS [address] [place] [address] 10/07/2025 9:30 AM EDT Office Visit [facility] ADULT DENTAL [address] [place] [address] Catrina Mccartney [address] [place] [address] Scheduled Orders Name Type Priority Associated Diagnoses Orde r Schedule DENTURE IMPRESSION Dental Routine 1 Occu rrences starting 04/07/2025 PROPHYLAXIS - ADULT Dental Routine 1 Occ urrences starting 04/07/2025 TOPICAL APPLICATION OF FLUORIDE VARNISH Dental Routine 1 Occurrences s tarting 04/07/2025 CASE PRESENTATION, DETAILED AND EXTENSIVE TREATMENT PLANNING Dental Routine 1 Occurrences starting 04/07/2025 ORAL HYGIENE INSTRUCTIONS Dental Routine 1 Occurrences starting 04/07/2025 6 6 ADD TOOTH TO EXISTING PARTIAL DENTURE Dental Routine [address] arting 04/07/2025 documented as of this encounter Procedures Procedure Name Priority Date/Time Associated Diagnosis Comments TOPICAL APPLICATION OF FLUORIDE VARNISH Routine 04/07/2025 10:15 AM EDT Generalized gingival recession Sensitivity of root structure of tooth PROPHYLAXIS - ADULT Routine 04/07/2025 1 0:15 AM EDT Dental plaque PERIODIC ORAL EVALUATION - ESTABLISHED PATIENT Routine 04/07/2025 10:15 AM EDT ORAL HYGIENE INSTRUCTIONS Routine 04/07/2025 10:15 AM EDT Dental plaque Generalized gingival recession Missing teeth, acquired Sensitivity of root structure of tooth INTRAORAL - COMPLETE SERIES OF RADIOGRAPHIC IMAGES Routine 04/07/2025 10:15 AM EDT Generalized gingival recession Missing teeth, acquired CASE PRESENTATION, DETAILED AND EXTENSIVE TREATMENT PLANNING Routine 04/07/2025 10:15 AM EDT Dental plaque Generalized gingival recession Missing teeth, acquired Sensitivity of root structure of tooth 6 EXTRACTION Routine 04/07/2025 12:00 AM EDT documented in this encounter Visit Diagnoses Diagnosis Dental plaque- Primary Accretions on teeth Generalized gingival recession Gingival recession, generalized Missing teeth, acquired Sensitivity of root structure of tooth Atypical odontalgia documented in this encounter Additional Health Concerns Assessment Noted Time PHQ-9 Depression Total Score: 24 03/12/ 025 9:03 AM EDT documented as of this encounter Care Teams Superintendent Laundry Relationship Specialty Start Date End Date Cynthia Minor MD [address] [place] [address] PCP - General Family Medicine 06/26/18 documented as of this encounter
--- OUTSIDE RECORDS SUMMARY | 2025-04-09 18:30 | XMS_ITS | Encounter Summary ---
Author Organization [employer] Address [address] [facility] 7t [place] [address] Care Team Providers Care It Infrastructure Engineer Name Role Phone Cynthia Minor MD Primary Care Provider [phone] Encounter Details Date Type Department Care Team ([facility] Contact Info) Description 12/06/2023 Orders Only [facility] MEDICINE [address] [place], [place] [phone] Cynthia Minor MD [address] [place], [place] [phone] Social History Tobacco Use Types Packs/Day Years [...] Description 04/29/2025 11:00 AM EST Office Visit [facility] ADULT DENTAL [address] [place] [address] Liang Benz DDS [address] [place] [address] 10/07/2025 9:30 AM EDT Office Visit [facility] ADULT DENTAL [address] [place] [address] Catrina Mccartney [address] [place] [address] documented as of this encounter Visit Diagnoses Not on filedocumented in this encounter Additional Health Concerns Assessment Noted Time PHQ-9 Depression Total Score: 0 03/28/20 23 8:55 AM EDT documented as of this encounter Care Teams It Infrastructure Engineer Relationship Specialty Start Date End Date Cynthia Minor MD [address] [place] [address] PCP - General Family Medicine 06/26/18 documented as of this encounter
--- OUTSIDE RECORDS SUMMARY | 2025-04-09 18:31 | XMS_ITS | Encounter Summary ---
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) [...] Description 04/29/2025 11:00 AM EST Office Visit [facility] ADULT DENTAL [address] [place] [address] Liang Benz DDS [address] [place] [address] 10/07/2025 9:30 AM EDT Office Visit [facility] ADULT DENTAL [address] [place] [address] Catrina Mccartney [address] [place] [address] documented as of this encounter Procedures Procedure Name Priority Date/Time Associated Diagnosis Comments TSH W/REFLEX TO FT4 Routine 09/17/2024 1 2:40 PM EDT 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 documented in this encounter Results * TSH with Reflex to Free T4 (09/17/2024 12:40 PM EDT) TSH reflex Free T4 2.68 0.32 - 4.0 uIU/mL [facility] Blood 09/17/2024 12:4 0 PM EDT 09/17/2024 2:15 PM EDT us Cynthia Minor MD LAB BLOOD ORDERABLES Final Resul t [facility] [address] [place] [address] [phone] documented in this encounter Visit Diagnoses Diagnosis 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- Primary documented in this encounter Additional Health Concerns Assessment Noted Time PHQ-9 Depression Total Score: 14 025 9:11 AM EST documented as of this encounter Care Teams Renewable Energy Consultant Relationship Specialty Start Date End Date Cynthia Minor MD [address] [place] [address] PCP - General Family Medicine 06/26/18 documented as of this encounter
--- OUTSIDE RECORDS SUMMARY | 2025-04-09 18:31 | XMS_ITS | Encounter Summary ---
Author Organization [employer] [facility] Address [address] [place] [address] 7t [place] [address] Care Team Providers Care Power Originator Name Role Phone Cynthia Minor MD Primary Care Provider [phone] Encounter Details Date Type Department Care Team (Latest Contact Info) Description 07/16/2019 Abstract [facility] CONVERSIONS Dental, Provider, DDS Social History [...] Care Team ( st Contact Info) Description 04/29/2025 11:00 AM EST Office Visit [facility] ADULT DENTAL [address] [place] [address] Liang Benz DDS [address] [place] [address] 10/07/2025 9:30 AM EDT Office Visit [facility] ADULT DENTAL [address] [place] [address] Catrina Mccartney [address] [place] [address] documented as of this encounter Visit Diagnoses Not on filedocumented in this encounter Care Teams Power Originator Relationship Specialty Start Date End Date Cynthia Minor MD [address] [place] [address] PCP - General Family Medicine 06/26/18 documented as of this encounter
--- OUTSIDE RECORDS SUMMARY | 2025-04-09 18:31 | XMS_ITS | Encounter Summary ---
Author Organization [employer] Address [address] [facility] 7t [place] [address] Care Team Providers Care Home Care Rn Name Role Phone Cynthia Minor MD Primary Care Provider [phone] Reason for Visit * Reason Onset Date Comments Call Back Request 08/30/2023 Encounter Details Date Type Department Care Team ([facility] Contact Info) Description 08/30/2023 Telephone [facility] MEDICINE [address] [place], [place] [phone] Cynthia Minor MD [address] [place], [place] [phone] Call Back Request Social History Tobacco Use [...] get evaluated please call the daughter at [phone] documented in this encounter Plan of Treatment Upcoming Encounters Date Type Department Care Team (Late st Contact Info) Description 04/29/2025 11:00 AM EST Office Visit [facility] ADULT DENTAL [address] [place] [address] Liang Benz DDS [address] [place] [address] 10/07/2025 9:30 AM EDT Office Visit [facility] ADULT DENTAL [address] [place] [address] Catrina Mccartney [address] [place] [address] documented as of this encounter Visit Diagnoses Not on filedocumented in this encounter Additional Health Concerns Assessment Noted Time PHQ-9 Depression Total Score: 0 03/28/20 23 8:55 AM EDT documented as of this encounter Care Teams Home Care Rn Relationship Specialty Start Date End Date Cynthia Minor MD [address] [place] [address] PCP - General Family Medicine 06/26/18 documented as of this encounter
--- OUTSIDE RECORDS SUMMARY | 2025-04-09 18:31 | XMS_ITS | Encounter Summary ---
Author Organization [employer] Address [address] [facility] 7t [place] [address] Care Team Providers Care Bonding Equipment Operator Name Role Phone Cynthia Minor MD Primary Care Provider [phone] Encounter Details Date Type Department Care Team ([facility] Contact Info) Description 07/20/2022 Telephone [facility] MEDICINE [address] [place], [place] [phone] Cynthia Minor MD [address] [place], [place] [phone] Social History Tobacco Use Types Packs/Day Years [...] Upcoming Encounters Date Type Department Care Team ([facility] Contact Info) Description 04/29/2025 11:00 AM EST Office Visit [facility] ADULT DENTAL [address] [place], [place] [phone] Liang Benz DDS [address] [place], [place] [phone] 10/07/2025 9:30 AM EDT Office Visit [facility] ADULT DENTAL [address] [place], [place] [phone] Catrina Mccartney [address] [place] [address] documented as of this encounter Visit Diagnoses Not on filedocumented in this encounter Care Teams Bonding Equipment Operator Relationship Specialty Start Date End Date Cynthia Minor MD [address] [place] [address] PCP - General Family Medicine 06/26/18 documented as of this encounter
--- OUTSIDE RECORDS SUMMARY | 2025-04-09 18:31 | XMS_ITS | Encounter Summary ---
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) [...] Upcoming Encounters Date Type Department Care Team ([facility] Contact Info) Description 04/29/2025 11:00 AM EST Office Visit [facility] ADULT DENTAL [address] [place], [place] [phone] Liang Benz DDS [address] [place], [place] [phone] 10/07/2025 9:30 AM EDT Office Visit [facility] ADULT DENTAL [address] [place] [address] Bib Catrina [address] [place] [address] documented as of this encounter Procedures Procedure [...] (Free Thyroxine) 0.71 0.71 - 1.85 ng/dL [facility] Blood Venous blood specimen / Unknown 05/08/2023 9:45 AM EST 05/08/2023 10:59 AM EST us Cynthia Minor MD LAB BLOOD ORDERABLES Final Resul t [facility] [address] [place] [phone] * (ABNORMAL) TSH (05/08/2023 9:45 AM EST) Thyroid Stimulating Hormone 4.55(H) 0.32 - 4.0 uIU/mL [facility] Comment:Note: A sustained TS H level above 2.5 uIU/mL may warrant further investigation. TSH 3rd Generation ([facility]) Blood Venous blood specimen / Unknown 05/08/2023 9:45 AM EST 05/08/2023 10:59 AM EST Cynthia Minor MD LAB BLOOD ORDERABLES Final Resul t [facility] [address] [place] [phone] * XR Sacroiliac Joints 3+ Views (04/10/2023 3:06 PM EDT) Anatomical Region Laterality Modality Sacroiliac joint, Pelvis Radiogr aphic Imaging 04/10/2023 3:06 PM EDT Narrative 04/13/2023 9:52 AM EDT [address] [address] XRay Report Signed Patient: Tristen Rome MR#: [id number] : 1960 Acct:[id number] Age/Sex: 62 / M ADM Date: 04/10/23 Loc: EDILSON Attending Dr: Odessa HILLIARD Ordering Physician: Odessa Ulrich Date of Service: 04/10/23 Procedure(s): XR sacroiliac joint min 3V Accession Number(s): [id number] cc: Odessa Ulrich; Cynthia Minor MD EXAMINATION: [...] in OV> 04/13/23 0948 DD/ 1506 TD/TT: Paste Worker: Procedure Note Donotuseinterpreter, Image - 04/13/[address] [address] XRay Report Signed Patient: Tristen RomeMR#: [id number] : 1960cct:[id number] Age/Sex: 62 / MADM Date: 04/10/23 Loc: EDILSON Attending Dr: Odessa HILLIARD Ordering Physician: Odessa Ulrich Date of Service: 04/10/23 Procedure(s): XR sacroiliac joint min 3V Accession Number(s): [id number] cc: Odessa Ulrich; Cynthia Minor MD EXAMINATION: [...] in OV> 04/13/23 0948 DD/ 1506 TD/TT: Paste Worker: us [facility] External Provider IMG XR PROCEDURES Final Result * XR Lumbar Spine Complete 4+ Views (04/10/2023 3:06 PM EDT) Anatomical Region Laterality Modality Spine, L-spine Radiographic Sammi ging 04/10/2023 3:06 PM EDT Narrative 04/13/2023 9:50 AM EDT [address] [address] XRay Report Signed Patient: Tristen Rome MR#: [id number] : 1960 Acct:[id number] Age/Sex: 62 / M ADM Date: 04/10/23 Loc: EDILSON Attending Dr: Odessa HILLIARD Ordering Physician: Odessa Ulrich Date of Service: 04/10/23 Procedure(s): XR lumbar spine 4V min Accession Number(s): [id number] cc: Odessa Ulrich; Cynthia Minor MD EXAMINATION: [...] in OV> 04/13/23 0947 DD/ 1506 TD/TT: Paste Worker: Procedure Note Donotuseinterpreter, Image - 04/13/[address] [address] XRay Report Signed Patient: Arleen Rome#: [id number] : 2Acct:[id number] Age/Sex: 62 / MADM Date: 04/10/23 Loc: EDILSON Attending Dr: Odessa HILLIARD Ordering Physician: Odessa Ulrich Date of Service: 04/10/23 Procedure(s): XR lumbar spine 4V min Accession Number(s): [id number] cc: Odessa Ulrich; Cynthia Minor MD EXAMINATION: [...] in OV> 04/13/23 0947 DD/ 1506 TD/TT: Paste Worker: us [facility] External Provider IMG XR PROCEDURES Final Result * US Extremity Non Vascular (03/31/2023 1:25 PM EDT) Anatomical Region Laterality Modality Ultrasound 03/31/2023 1:25 PM EDT Narrative 04/05/2023 7:11 PM EDT [facility] [address] [place] [address] Ultrasound Report Signed Patient: Tristen Rome MR#: [id number] : 1960 Acct:[id number] Age/Sex: 62 / M ADM Date: 03/31/23 Loc: HO.HMGCX Attending Dr: Hannah HILLIARD Ordering Physician: Hannah Hudson Date of Service: 03/31/23 Procedure(s): US extremity nonvascular Accession Number(s): [id number] cc: Hannah Hudson; Cynthia Minor MD EXAMINATION: [...] MD in OV> 04/05/231906 DD/ 24 TD/TT: Paste Worker: DARRYL Procedure Note Donotuseinterpreter, Image - 04/05/2023 [facility] [employer] [place] [address] Ultrasound Report Signed Patient: Tristen RomeMR#: [id number] : 1960cct:[id number] Age/Sex: 62 / MADM Date: 03/31/23 [facility]: Hannah HILLIARD Ordering Physician: Hannah Hudson Date of Service: 03/31/23 Procedure(s): US extremity nonvascular Accession Number(s): [id number] cc: Hannah Hudson; Cynthia Minor MD EXAMINATION: [...] MD in OV> 04/05/231906 DD/ 1325 TD/TT: Paste Worker: DARRYL us Hannah HILLIARD IMG US PROCEDURES Edited R esult - Final documented in this encounter Visit Diagnoses Diagnosis 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- Primary documented in this encounter Additional Health Concerns Assessment Noted Time PHQ-9 Depression Total Score: 0 03/28/20 23 8:55 AM EDT documented as of this encounter Care Teams Real Estate Associate Attorney Relationship Specialty Start Date End Date Cynthia Minor MD [address] [place] [address] PCP - General Family Medicine 06/26/18 documented as of this encounter
--- OUTSIDE RECORDS SUMMARY | 2025-04-09 18:31 | XMS_ITS | Encounter Summary ---
Author Organization [employer] [facility] Address [address] [place] [address] 7t [place] [address] Care Team Providers Care Insulation Board Back Tender Name Role Phone Cynthia Minor MD Primary Care Provider Encounter Details Date Type Department Care Team (Late st Contact Info) Description 05/23/2022 Abstract [facility] ADULT DENTAL [address] [place] [address] Dental, Provider, DDS Social History Tobacco Use [...] Description 04/29/2025 11:00 AM EST Office Visit [facility] ADULT DENTAL [address] [place] [address] Liang Benz DDS [address] [place] [address] 10/07/2025 9:30 AM EDT Office Visit [facility] ADULT DENTAL [address] [place] [address] Catrina Mccartney [address] [place] [address] documented as of this encounter Procedures Procedure Name Priority Date/Time Associated Diagnosis Comments 17 O COMPOSITE FILLING Routine 05/23/2022 12:00 AM EST 12 DO COMPOSITE FILLING Routine 05/23/2022 12:00 AM EST documented in this encounter Visit Diagnoses Not on filedocumented in this encounter Care Teams Insulation Board Back Tender Relationship Specialty Start Date End Date Cynthia Minor MD [address] [place] [phone] PCP - General Family Medicine 06/26/18 documented as of this encounter
--- OUTSIDE RECORDS SUMMARY | 2025-04-09 18:31 | XMS_ITS | Encounter Summary ---
Author Organization [employer] [facility] Address [address] [place] [address] 7t [place] [address] Care Team Providers Care Candle Molder Machine Name Role Phone Cynthia Minor MD Primary Care Provider [phone] Encounter Details Date Type Department Care Team (Latest Contact Info) Description 09/17/2021 Abstract [facility] CON[facility] Dental, Provider, DDS Social History [...] Description 04/29/2025 11:00 AM EST Office Visit [facility] ADULT DENTAL [address] [place] [address] Liang Benz DDS [address] [place] [address] 10/07/2025 9:30 AM EDT Office Visit [facility] ADULT DENTAL [address] [place] [address] Catrina Mccartney [address] [place] [address] documented as of this encounter Visit Diagnoses Not on filedocumented in this encounter Care Teams Candle Molder Machine Relationship Specialty Start Date End Date Cynthia Minor MD [address] [place] [address] PCP - General Family Medicine 06/26/18 documented as of this encounter
--- OUTSIDE RECORDS SUMMARY | 2025-04-09 18:31 | XMS_ITS | Encounter Summary ---
Author Organization [employer] Address [address] [facility] 7t [place] [address] Care Team Providers Care Radio Communications Superintendent Name Role Phone Cynthia Minor MD Primary Care Provider [phone] Encounter Details Date Type Department Care Team ([facility] Contact Info) Description 02/02/2023 Orders Only [facility] CHC MED & PEDS [address] [place], [place] [phone] Zara Galicia LPN Social History Tobacco Use [...] Department Care Team (Late Contact Info) Description 04/29/2025 11:00 AM EST Office Visit [facility] ADULT DENTAL [address] [place] [address] Liang Benz DDS [address] [place] [address] 10/07/2025 9:30 AM EDT Office Visit [facility] ADULT DENTAL [address] [place] [address] Catrina Mccartney [address] [place] [address] documented as of this encounter Visit Diagnoses Not on filedocumented in this encounter Care Teams Radio Communications Superintendent Relationship Specialty Start Date End Date Cynthia Minor MD [address] [place] [address] PCP - General Family Medicine 06/26/18 documented as of this encounter
--- OUTSIDE RECORDS SUMMARY | 2025-04-09 18:31 | XMS_ITS | Encounter Summary ---
Author Organization [employer] Address [address] [facility] 7t [place] [address] Care Team Providers Care Programming Director Name Role Phone Cynthia Minor MD Primary Care Provider Encounter Details Date Type Department Care Team (Late Contact Info) Description 08/01/2022 Orders Only [facility] CHC MED & PEDS [address] [place] [address] Zara Galicia LPN Social History Tobacco Use [...] Description 04/29/2025 11:00 AM EST Office Visit [facility] ADULT DENTAL [address] [place] [address] Liang Benz DDS [address] [place] [address] 10/07/2025 9:30 AM EDT Office Visit [facility] ADULT DENTAL [address] [place] [address] Catrina Mccartney [address] [place], [place] [phone] documented as of this encounter Visit Diagnoses Not on filedocumented in this encounter Care Teams Programming Director Relationship Specialty Start Date End Date Cynthia Minor MD [address] [place] [address] PCP - General Family Medicine 06/26/18 documented as of this encounter
--- OUTSIDE RECORDS SUMMARY | 2025-04-09 18:31 | XMS_ITS | Patient Health Record ---
Author Organization [facility] [place] Address [address] [place] [address] Care Team Providers Care Tapper Supervisor Name Role Phone Mily Cynthia Primary Care Provider Mee Figueroa Unavailable [phone] Allergies Allergen (clinical drug ingredient) Drug/Non Drug [...] W/U Status Risk Notes Problem Plantar wart (20099258) Plantar wart (B07.0) Active confirmed Vital Signs Blood pressure diastolic 81 mm Hg 01/24/2025 Height 5ft2in in 01/24/2025 Blood pressure systolic 132 mm Hg 01/24/2025 Weight 240 lbs 01/24/2025 BMI 43.89 kg/m2 01/24/2025 Encounters Encounter Location Date Provider Diagnosis [facility] [address] 01/24/2025 Mee Ellison Plantar wart B07.0 ; Metatarsalgia, left foot M77.42 ; Left foot pain M79.672 and Pain in right foot M79.[address] [address] 11/13/2024 Mee Ellison [address] [address] 01/24/2025 Mee Ellison Assessments Encounter Date Diagnosis [...] Insured Coverage Start Date Coverage End Date [facility] [employer] Claims [address] [place] [id number] Tristen Su Self - patient is the insured Medical (General) History Medical History History ICD Code Anxiety Back,Hip,and Knee pain Depression Headaches/Migraines Liver disease Chicken pox Surgical History Surgery Date(Month/Year) Hand Surgery 1991 Gall bladder surgery 2018 colonoscopy Hospitalization History Reason Date(Month/Year) [facility], kidney 10/11/23
--- OUTSIDE RECORDS SUMMARY | 2025-04-09 18:31 | XMS_ITS | Encounter Summary ---
Author Organization [employer] [facility] Address [address] [place] [address] 7t [place] [address] Care Team Providers Care Animal Treatment Investigator Name Role Phone Cynthia Minor MD Primary Care Provider [phone] Encounter Details Date Type Department Care Team (Latest Contact Info) Description 08/20/[address] [facility] CONVERSIONS Dental, Provider, DDS Social History [...] Description 04/29/2025 11:00 AM EST Office Visit [facility] ADULT DENTAL [address] [place] [address] Liang Benz DDS [address] [place] [address] 10/07/2025 9:30 AM EDT Office Visit [facility] ADULT DENTAL [address] [place] [address] Catrina Mccartney [address] [place] [address] documented as of this encounter Visit Diagnoses Not on filedocumented in this encounter Care Teams Animal Treatment Investigator Relationship Specialty Start Date End Date Cynthia Minor MD [address] [place] [address] PCP - General Family Medicine 06/26/18 documented as of this encounter
--- OUTSIDE RECORDS SUMMARY | 2025-04-09 18:32 | XMS_ITS | Encounter Summary ---
Author Organization [employer] Address [address] [facility] [address] [address] 7t [place] [address] Care Team Providers Care [employer] Special Education Teacher Name Role Phone Cynthia Minor MD Primary Care Provider [phone] Reason for Visit * Reason Comments Med Refill Encounter Details Date Type Department Care Team ([facility] Contact Info) Description 05/11/2024 Refill [facility] [address] [place], [place] [phone] Kym Bella NP [address] [place] [address] Facial pressure Social History Tobacco Use Types [...] 11:00 AM EST Office Visit [facility] ADULT DENTAL [address] [place] [address] Liang Benz DDS [address] [place] [address] 10/07/2025 9:30 AM EDT Office Visit [facility] ADULT DENTAL [address] [place] [address] Catrina Mccartney [address] [place] [address] documented as of this encounter Visit Diagnoses Diagnosis Facial pressure documented in this encounter Additional Health Concerns Assessment Noted Time PHQ-9 Depression Total Score: 0 03/28/20 23 8:55 AM EDT documented as of this encounter Care Teams [employer] Special Education Teacher Relationship Specialty Start Date End Date Cynthia Minor MD [address] [place] [address] PCP - General Family Medicine 06/26/18 documented as of this encounter
--- OUTSIDE RECORDS SUMMARY | 2025-04-09 18:32 | XMS_ITS | Encounter Summary ---
Author Organization [employer] Address [address] [facility] 7t [place] [address] Care Team Providers Care Pharmacy Picking Tech Name Role Phone Cynthia Minor MD Primary Care Provider [phone] Reason for Visit * Reason Onset Date Comments Dr. Benz referral 10/21/2024 Encounter Details Date Type Department Care Team ([facility] st Contact Info) Description 10/21/2024 Telephone [facility] ADULT DENTAL [address] [place], [place] [phone] Liang Benz, ETHEL [address] [place], [place] [phone] Dr. Benz referral Social History Tobacco Use [...] Patient is requesting referral to go to [place] to extract tooth that he has had trouble with recently and that has been filled in the past. He doesn't want to come in. He just wanted extraction for GA in [place] documented in this encounter Plan of Treatment Upcoming Encounters Date Type Department Care Team (Late st Contact Info) Description 04/29/2025 11:00 AM EST Office Visit [facility] ADULT DENTAL [address] [place] [address] Liang Benz DDS [address] [place] [address] 10/07/2025 9:30 AM EDT Office Visit [facility] ADULT DENTAL [address] [place] [address] Catrina Mccartney [address] [place] [address] documented as of this encounter Visit Diagnoses Not on filedocumented in this encounter Additional Health Concerns Assessment Noted Time PHQ-9 Depression Total Score: 14 025 9:11 AM EST documented as of this encounter Care Teams Pharmacy Picking Tech Relationship Specialty Start Date End Date Cynthia Minor MD [address] [place] [address] PCP - General Family Medicine 06/26/18 documented as of this encounter
--- OUTSIDE RECORDS SUMMARY | 2025-04-09 18:32 | XMS_ITS | Clinical Summary ---
Author Organization [employer] Address [address] [place] [address] [address] [place] [address] Care Team Providers Care Insurance Healthcare Consultant Name Role Phone Cynthia Bains MD Primary Care Provider [phone] Allergies Active Allergy Reactions Criticality Noted Date [...] SPIT OUT, DO NOT SWALLOW Active PEG 5390-CLf-ZfCgy-N aCl-NaSulf (PEG-3350/Electr olytes) 236 g reconstituted solution [...] EVERY DAY BEFORE BREAKFAST 30 tablet 11 Active mometasone (Elocon) 0.1 % ointment APPLY [...] ONCE DAILY AT BEDTIME 90 capsule 3 Active omeprazole (PriLOSEC) [address] capsule TAKE 1 CAPSULE BY MOUTH EVERY DAY BEFORE BREAKFAST. DO NOT BREAK, CRUSH, DISSOLVE OR CHEW. 90 capsule 3 Active levothyroxine (Synthroid) 125 MCG tablet Take 1 tablet (125 mcg) by mouth before breakfast. Take at least 40 minutes before any other medication and food 30 tablet 025 2025 Active Crestor 40 MG tabletIndication s:Dyslipidemia Take [...] Active Problems Problem Noted Date Diagnosed Date Depression 03/24/2025 Assessment & Plan (03/24/2025 5:34 AM EDT): - PHQ-9 score 24 on 03/12/2025. - [facility] provider: [facility] - Diagnoses: Bipolar, per patient - Current medications: Zaleplon; olanzapine - Patient was able to contract for safety today. Patient exercise and has healthy coping skills. Patient knows crisis number and [phone]. Multilevel degenerative disc disease 03/12/2025 Lumbosacral spondylosis 03/12/2025 Spinal stenosis of lumbar region 03/12/2025 Encounter for screening colonoscopy 01/21/2025 Elevated BP without diagnosis of hypertension Assessment & Plan (03/24/2025 5:24 AM EDT): -Goal BP < 130/80 per ACC/AHA guideline (Treatment threshold >=140/90) -within acceptable range -Continue working on lifestyle modifications -Recommended self-monitoring BP. -Continue current medications: -Treatment Hx: Atypical odontalgia 10/22/2024 Fractured dental tenriism with loss of materi al 09/16/2024 Localized [...] low back pain 11/16/2022 Assessment & Plan (03/24/2025 5:40 AM EDT): -Pt has SI joint pain and pain from Spinal Stenosis - Most recent MRI in January 2025 ([facility]): Multilevel lumbar spondylotic changes, most pronounced at L5-S1 level, moderate to severe bilateral osseous foraminal stenosis -pt was seen by [facility] provider in 04/2020, pt was scheduled for injection tx and given tizanidine but pt requested procedure to be done under general anesthesia or stronger sedation; pt was recommended to find another specialist who can treat him. - Currently following with [facility] banner painter, last seen in February 2025 -Recieved SIJ injection treatment on 11/10/21; received Intralaminar steroid injection. -03/02/22 L5-S1 interlaminar steroid injection with sedation and fluoroscopy by Dr. Olman Parish. - Interlaminar epidural steroid injection, L5-S1 in 2023, which was effective and lasted for 1 year - Being scheduled for bilateral L5-S1 transforaminal epidural steroid injection -continue judicious use of tizanidine -continue home back exercise -patient was seen by PT for recliner as DME and it was approved Assessment & Plan (12/05/2023 10:27 AM EDT): -Pt has SI joint pain and pain from Spinal Stenosis -pt was seen by [facility] provider in 04/2020, pt was scheduled for injection tx and given tizanidine but pt requested procedure to be done under general anesthesia or stronger sedation; pt was recommended to find another specialist who can treat him. -pt was seen by [facility] banner painter -Recieved SIJ injection treatment on 11/10/21; [...] from Spinal Stenosis -pt was seen by [facility] provider in 04/2020, pt was scheduled for injection tx and given tizanidine but pt requested procedure to be done under general anesthesia or stronger sedation; pt was recommended to find another specialist who can treat him. -pt was seen by [facility] banner painter -Recieved SIJ injection treatment on 11/10/21; [...] due to Ashley's thyroiditis Assessment & Plan (03/24/2025 5:26 AM EDT): -current replacement: levothyroxine 112 mcg daily, started in Feb 2024 -most recent thyroid function test: 09/17/24 TSH 2.68 -continue current replacement Addendum: Lab from today came back still subtherapeutic. Will increase levothyroxine to 125 mg daily. Assessment & Plan (12/10/2024 9:54 AM EDT): [...] recent thyroid function test: 11/16/22 TSH 4.44 (2 TSH 1.80) -continue current replacement Assessment & Plan (04/03/2023 5:20 PM EDT): -current replacement: levothyroxine 88 mcg daily, started in September 2019 -most recent thyroid function test: 11/16/22 TSH 4.44 (2 TSH 1.80) -continue current replacement Assessment & [...] NSAIDs or caffiene. -Consider referring back to [facility] for further evaluation Skin tag [...] Benign prostatic hyperplasia 11/03/2015 Assessment & Plan (03/13/2025 9:39 PM EDT): -Followed by [facility]. Last seen in August 2024 -Continue tamsulosin -Reduce caffeine intake Assessment & Plan (12/10/2024 9:56 AM EDT): -Followed by [facility]. Last seen in August 2024 -Continue tamsulosin -Reduce caffeine intake Assessment & Plan (09/17/2024 8:55 AM EDT): -[facility] Last seen in November 2023. -Continue tamsulosin -Reduce caffeine intake Assessment & Plan (03/22/2024 11:12 AM EDT): -Followed by [facility]. Last seen in November 2023. -Continue tamsulosin [...] adenoma of colon 11/03/2015 Assessment & Plan (03/24/2025 5:29 AM EDT): -Followed by [facility] -Colonoscopy on 09/11/15 tubular adenoma -Colonoscopy on 09/06/19 tubular adenoma Last seen by GI in September 2024, the plan was to repeat a colonoscopy and the patient was given prep medications. Still waiting for colonoscopy. Assessment & Plan (12/10/2024 12:58 PM EDT): -Followed by [facility] -Colonoscopy on 09/11/15 tubular adenoma -Colonoscopy on 09/06/19 tubular adenoma Assessment & Plan (09/17/2024 8:55 AM EDT): -Followed by [facility] -Colonoscopy on 09/11/15 tubular adenoma -Colonoscopy on 09/06/19 tubular adenoma Assessment & Plan (07/08/2024 5:29 AM EST): -Followed by [facility] -Colonoscopy on 09/11/15 tubular adenoma -Colonoscopy on 09/06/19 tubular adenoma Assessment & Plan (11/26/2022 6:53 AM EDT): -Followed by [facility] -Colonoscopy on 09/11/15 tubular adenoma -Colonoscopy on 09/06/19 tubular adenoma Assessment & Plan (08/14/2022 5:12 AM EST): -Followed by [facility] -Colonoscopy on 09/11/15 tubular adenoma -Colonoscopy on 09/06/19 tubular adenoma Benign paroxysmal positional vertigo 04/21/2015 Mood disorder 04/21/2015 Assessment & Plan (03/24/2025 5:31 AM EDT): - Diagnosis: Bipolar disorder. ?not confirmed with S provider, pt states bipolar -S provider: Yovany Enriquez - PHQ-9 score 24 on 03/12/2025. No suicidal ideation. - STACEY-7 score 6 on 09/17/2024. -Current medications: Effexor 150 mg daily; Zyprexa 5 mg qhs; Zalepron 10 mg qhs (pt also seems to be taking melatonin and hydroxyzine) -Continue current treatment plan. Assessment & Plan (12/10/2024 12:58 PM EDT): - Diagnosis: Bipolar disorder. ?not confirmed with S provider, pt states bipolar -[facility] provider: [facility] -Current medications: Effexor 150 mg daily; Zyprexa 5 mg qhs; Zalepron 10 mg qhs (pt also seems to be taking melatonin and hydroxyzine) -Continue current treatment plan. Assessment & Plan (09/17/2024 8:56 AM EDT): - Diagnosis: Bipolar disorder. ?not confirmed with S provider, pt states bipolar -[facility] provider: [facility] -Current medications: Effexor 150 mg daily; Zyprexa 5 mg qhs; Zalepron 10 mg qhs (pt also seems to be taking melatonin and hydroxyzine) -Continue current treatment plan. Assessment & Plan (07/03/2024 2:50 PM EST): - Diagnosis: Bipolar disorder. ?not confirmed with S provider, pt states bipolar -[facility] provider: [facility] -Current medications: Effexor 150 mg daily; Zyprexa 5 mg qhs; Zalepron 10 mg qhs (pt also seems to be taking melatonin and hydroxyzine) -Continue current treatment plan. Assessment & Plan (03/12/2024 11:46 AM EDT): - Diagnosis: Bipolar disorder. ?not confirmed with S provider, pt states bipolar -[facility] provider: [facility] -Current medications: Effexor 150 mg daily; Zyprexa 5 mg qhs; Zalepron 10 mg qhs (pt also seems to be taking melatonin and hydroxyzine) -Continue current treatment plan. Assessment & Plan (12/05/2023 4:55 AM EDT): - Diagnosis: Bipolar disorder. ?not confirmed with S provider, pt states bipolar -[facility] provider: [facility] -Current medications: Effexor 150 mg daily; Zyprexa 5 mg qhs; Zalepron 10 mg qhs (pt also seems to be taking melatonin and hydroxyzine) -Continue current treatment plan. Assessment & Plan (09/05/2023 4:55 AM EDT): - Diagnosis: Bipolar disorder. ?not confirmed with S provider, pt states bipolar -[facility] provider: [facility] -Current medications: Effexor 150 mg daily; Zyprexa 5 mg qhs; Zalepron 10 mg qhs (pt also seems to be taking melatonin and hydroxyzine) -Continue current treatment plan. Assessment & Plan (04/03/2023 5:21 PM EDT): - Diagnosis: Bipolar disorder. ?not confirmed with S provider, pt states bipolar -[facility] provider: [facility] -Current medications: Effexor 150 mg daily; Zyprexa 5 mg qhs; Zalepron 10 mg qhs (pt also seems to be taking melatonin and hydroxyzine) -Continue current treatment plan. Assessment & Plan (11/26/2022 6:36 AM EDT): - Diagnosis: Bipolar disorder. ?not confirmed with S provider, pt states bipolar -[facility] provider: [facility] -Current medications: Effexor 150 mg daily; Zyprexa [...] WRITTEN ON 04/03/2023 5:16 PM BY CYNTHIA BAINS MD -Most recent LFT: 11/16/22 AST 58; [...] WRITTEN ON 04/03/2023 5:20 PM BY CYNTHIA BAINS MD -Most recent LFT: 11/16/22 AST 58; [...] WRITTEN ON 11/26/2022 6:57 AM BY CYNTHIA BAINS MD -Most recent LFT: 11/16/22 AST 58; [...] WRITTEN ON 11/26/2022 6:47 AM BY CYNTHIA BAINS MD -Most recent LFT: 11/16/22 AST 58; [...] Gastroesophageal reflux disease 02/13/2012 Assessment & Plan (03/13/2025 9:39 PM EDT): - normal EGD in 2016 - continue omeprazole - Pt has been taking sucralfate 1 g with meal as needed. - Prescribed refill today Assessment & Plan (12/10/2024 9:55 AM EDT): [...] modifications. Mixed hyperlipidemia 02/13/2012 Assessment & Plan (03/13/2025 9:37 PM EDT): - last lipid profile: 03/12/25 TC 139; TG 89; HDL 46; LDL 76; AST 43; ALT 35 -Current medication: Crestor (Brand name only) 40 [...] improvement. Continue monitoring. Assessment & Plan (12/10/2024 12:57 PM EDT): [...] WRITTEN ON 12/05/2023 4:55 AM BY CYNTHIA BAINS MD - last lipid profile: 11/16/22 TC [...] WRITTEN ON 12/05/2023 4:54 AM BY CYNTHIA BAINS MD - last lipid profile: 11/16/22 TC [...] WRITTEN ON 09/05/2023 4:55 AM BY CYNTHIA BAINS MD - last lipid profile: 11/16/22 TC [...] WRITTEN ON 09/05/2023 4:55 AM BY CYNTHIA BAINS MD - last lipid profile: 11/16/22 TC [...] WRITTEN ON 04/03/2023 5:23 PM BY CYNTHIA BAINS MD - last lipid profile: 11/16/22 TC [...] WRITTEN ON 04/03/2023 5:24 PM BY CYNTHIA BAINS MD - last lipid profile: 11/16/22 TC [...] WRITTEN ON 11/26/2022 6:40 AM BY CYNTHIA BAINS MD - last lipid profile: 04/28/22 TC [...] improvement. Continue monitoring. --Follow-up in 3 months Plantar wart 02/13/2012 Assessment & Plan (12/05/2023 9:56 AM EDT): - seen by underground roof bolter in September 2023 Assessment & Plan (09/18/2023 5:25 AM EDT): Patient was referred to [facility] Resolved Problems Problem Noted Date Diagnosed Date [...] Encounters Date Type Department Care Team Description 04/07/2025 10:15 AM EDT Office Visit [facility] [place] [address] Catrina Mccartney Dental plaque (Primary Dx); Generalized gingival recession; Missing teeth, acquired; Sensitivity of root structure of tooth; Atypical odontalgia 03/14/2025 Telephone [facility] [place] [address] Cynthia Bains MD Telephone call 03/12/2025 9:00 AM EDT Office Visit [facility] [place] [address] Cynthia Bains MD Elevated BP without diagnosis of hypertension (Primary Dx); Pre-diabetes; 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; Tubular [...] Excessive gas; Benign prostatic hyperplasia with urinary frequency; Mood disorder (CMS/HCC); Anxiety; Depression, unspecified depression type 03/12/2025 Results [address]Up [address] [place] [address] Cynthia Bains MD TSH with Reflex to Free T4, Comprehensive Metabolic Panel, Lipid Panel with Reflex to Direct LDL 03/12/2025 Orders Only [facility] [place] [address] Cynthia Bains MD 03/12/2025 Travel 03/11/2025 Telephone [facility] [place] [address] Cynthia Bains MD CHART PREP 03/10/[address] [address] Cynthia Bains MD 02/22/[address] [place] [address] Cynthia Bains MD 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 01/21/2025 5:20 PM EDT Office Visit [facility] [address] [place] [address] Maria Del Rosario Ly MD Dry socket (Primary Dx) 01/21/2025 Travel from Last 3 Months Immunizations Immunization [...] Pulse 84 04/07/2025 10:04 AM EDT Temperature 36 C (96.8 F) [...] Description 04/29/2025 11:00 AM EST Office Visit [facility] ADULT [facility] [address] [place] [address] Liang Benz, LARISAS [address] [place] [address] 10/07/2025 9:30 AM EDT Office Visit [facility]ULT [facility] [address] [place] [address] Catrina Mccartney [address] [place] [address] Health Maintenance Due Date Last Done Comments CT Colonography 1961 FIT DNA/Cologuard 1961 FIT 1961 FOBT 1961 Sigmoidoscopy 1961 Colonoscopy 09/05/2024 09/06/2019, 09/06/2019 Colorectal Cancer Screening 09/05/2024 Influenza Vaccine (#1) 2025 , 03/10/2023, 03/24/2022, Additional history exists Alcohol/Substance Use Screening 07/02/2025 07/02/2024 Diabetes: Hemoglobin A1C 07/02/2025 025, 12/05/2023, 11/16/2022, Additional history exists Depression Monitoring 09/09/2025 03/12/2025, 025 Disability Screening 09/17/2025 09/17/2024 SDOH Screening 09/17/2025 09/17/2024 Dental Oral Exam 10/07/2025 04/07/2025, 02/05/2024 Dental Prophylaxis 10/07/2025 04/07/2025, 0 08/16/2024, 02/05/2024, Additional history exists Tobacco Screening 04/07/2026 04/07/2025 Dental X-Ray: Bitewings 04/08/2026 04/07/2025, 02/04 Dental X-Ray: Full Mouth 04/08/2028 04/07/2025, 09/2 11/2021 Lipid Panel 03/12/2030 03/12/2025, 01/0 12/2024, 12/05/2023, Additional history exists DTaP/Tdap/Td Vaccines (4 - [...] Procedure Name Priority Date/Time Associated Diagnosis Comments PERIODIC ORAL EVALUATION - ESTABLISHED PATIENT Routine 04/07/2025 10:15 AM EDT TOPICAL APPLICATION OF FLUORIDE VARNISH Routine 04/07/2025 10:15 AM EDT Generalized gingival recession Sensitivity of root structure of tooth PROPHYLAXIS - ADULT Routine 04/07/2025 1 0:15 AM EDT Dental plaque INTRAORAL - COMPLETE SERIES OF RADIOGRAPHIC IMAGES Routine 04/07/2025 10:15 AM EDT Generalized gingival recession Missing teeth, acquired CASE PRESENTATION, DETAILED AND EXTENSIVE TREATMENT PLANNING Routine 04/07/2025 10:15 AM EDT Dental plaque Generalized gingival recession Missing teeth, acquired Sensitivity of root structure of tooth ORAL HYGIENE INSTRUCTIONS Routine 04/07/2025 10:15 AM EDT Dental plaque Generalized gingival recession Missing teeth, acquired Sensitivity of root structure of tooth 6 EXTRACTION Routine 04/07/2025 12:00 AM EDT T4, FREE Routine 03/12/2025 9:36 AM EDT LIPID PANEL WITH REFLEX TO DIRECT LDL Routine 03/12/2025 9:36 AM EDT Mixed hyperlipidemia COMPREHENSIVE METABOLIC PANEL Routine 03/12/2025 9:36 AM EDT Elevated BP without diagnosis of hypertension TSH W/REFLEX TO FT4 Routine 03/12/2025 9 :36 AM EDT 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 Blood 03/12/2025 9:36 AM EDT 03/12/2025 11:14 AM EDT us Cynthia Bains MD LAB BLOOD ORDERABLES Final Resul t [facility] [address] [place] [phone] * Lipid Panel with Reflex to Direct LDL (03/12/2025 9:36 AM EDT) Triglycerides 89 <150 mg/dL [facility] Comment:Desirable Triglyceri de: less than 150 mg/dLBorderline High Triglyceride 150-199 mg/dLHigh Triglyceride: 200-499 mg/dLVery High Triglyceride: greater than or equal to 5OO mg/dL Cholesterol 139 <200 mg/dL [facility] Comment:Desirable Cholestero l: less than 200 mg/dLBorderline High Cholesterol: 200-239 mg/dLHigh Cholesterol: greater than 239 mg/dL LDL Cholesterol Calculated 76 <100 mg/dL [facility] Comment:Desirable LDL: less than 100 mg/dLNear Optimal/Above Optimal LDL: 110- 129 mg/dLBorderline High LDL: 130-159 mg/dLHigh LDL: 160-189 mg/dLVery High LDL: greater than or equal to 190 mg/dL HDL Cholesterol 46 >40 mg/dL [facility] Comment:Desirable HDL: great er than 40 mg/dL Note: This HDL assay may give artificially low results in patients with liver disease. Blood 03/12/2025 9:36 AM EDT 03/12/2025 11:14 AM EDT Cynthia Bains MD LAB BLOOD ORDERABLES Final Resul t Performing Organization Address City/[facility]/ZIP Co de Phone Number [facility] [address] [place] [phone] * T4, Free (03/12/2025 9:36 AM EDT) Free T4 (Free Thyroxine) 0.92 0.71 - 1.85 ng/dL [facility] 03/12/2025 9:36 AM EDT 03/12/2025 11:14 AM EDT Cynthia Bains MD LAB BLOOD ORDERABLES Final Resul t Performing Organization Address [facility] Co de Phone Number [facility] [address] [place] [phone] * (ABNORMAL) Comprehensive Metabolic Panel (03/12/2025 9:36 AM EDT) Sodium 140 135 - 145 mmol/L [facility] Potassium 4.2 3.3 - 5.1 mmol/L [facility] Chloride 106 96 - 108 mmol/L [facility] Carbon Dioxide 30(H) 22 - 29 mmol/L [facility] Anion Gap 8(L) 12 - 20 [facility] Urea Nitrogen (BUN) 18(H) 9 - 16 mg/dL [facility] Creatinine, Serum 1.07 0.5 - 1.4 mg/dL [facility] Estimated Glomerular Filt Rate >60 [facility] Comment:Chronic Kidney Disea se: Estimated GFR < 60 mL/min/[id number] Kidney Disease: Estimated GFR < 15 mL/min/1.73m2 Glucose 111 60 - 115 mg/dL [facility] Calcium 9.2 8.4 - 10.2 mg/dL [facility] Bilirubin, Total 0.6 0.0 - 1.0 mg/dL [facility] Aspartate Amino Transferase 43(H) 5 - 37 U/L [facility] Alanine Aminotransferase 35 0 - 40 U/L [facility] Total Protein 7.3 6.5 - 8.0 g/dL [facility] Albumin Level 4.5 3.5 - 5.0 g/dL [facility] Alkaline Phosphatase 57 39 - 117 U/L [facility] Blood Venous blood specimen / Unknown 03/12/2025 9:36 AM EDT 03/12/2025 11:14 AM EDT us Cynthia Bains MD LAB BLOOD ORDERABLES Final Resul t [facility] [address] [place] [phone] [phone] * Hemoglobin A1c (07/02/2024 9:47 AM EST) Hemoglobin A1c 5.7 <6.0 % [facility] Comment:Hemoglobin A1C Refer ence Range Adults: 4.8 - 6.0 % Non diabetic: < 6.0 % Goal: < 7.0 %Additional Action Suggested: > 8.0 %Note: Hemoglobin A1c results are invalid for patients with abnormal amounts of HbF. Blood transfusions may impact the HbA1c concentration in the patient sample. Estimated Average Glucose 117 mg/dL [facility] Comment:eAG = Estimated ave rage glucose which is %A1C expressed asaverage glucose, using the formula of the [id number]-[id number] Glucose study (ADAG), Diabetes Care, Vol.31,#8,Jan. 2007 Blood Venous blood specimen / Unknown 07/02/2024 9:47 AM EST 07/02/2024 11:46 AM EST Cynthia Bains MD LAB BLOOD ORDERABLES Final Resul t [facility] [address] [place] [phone] [phone] * Colonoscopy (09/06/2019) Colonoscopy Normal Normal, Abnormal, BIRADS 0 , BIRADS 1 , BIRADS 2, BIRADS 3 , BIRADS 4+ Historical Provider HEALTH MAINTENANCE Edited Result - Final from Last 3 Months or Most Recently Relevant to Health Maintenance Insurance [facility] < 65 [place] [id number] DENTAL - [facility] Care Teams Insurance Healthcare Consultant Relationship Specialty Start Date End Date Cynthia Bains MD [address] [place] [phone] PCP - General Family Medicine 06/26/18
--- NOTE | 2025-04-16 11:46 | HO.ANESPROP2 ---
Documented by User: Nai Allen NP 04/16/25 11:46 HPI - Anesthesia Eval Consult details Narrative: 64 yr old male for bilateral L5-S1 Transforaminal Epidural Steroid Injection PMFSH Active Problems Active Problems: All Active Problems (Updated 01/06/25 @ 14:06 by ARMINDA Mahoney) Chronic low back pain with sciatica (Acute) Otitis media of left ear (Acute) URI, acute (Acute) Tendinitis of left triceps (Acute) Plantar wart of left foot (Acute) Muscle spasm of back (Acute) Lumbosacral spondylosis (Acute) Sacroiliitis (Acute) Sacroiliac joint pain (Acute) Spondylosis of lumbar region without myelopathy or radiculopathy (Acute) Pain of left thumb (Acute) Stenosis, spinal, lumbar (Acute) Multilevel degenerative disc disease (Acute) Past Medical History Medical History Depression Mild cognitive impairment Pre-diabetes Hx of renal calculi Liver disease Benign prostate hyperplasia Benign paroxysmal positional vertigo Anxiety Thyroid disease Sacroiliac joint pain Hearing impairment Asthma Mood disorder HTN (hypertension) Sleep apnea Elevated cholesterol GERD (gastroesophageal reflux disease) Family History Family history of problems with anesthesia: No Surgical History Surgical History Hx laparoscopic cholecystectomy Hx of hemorrhoidectomy History of esophagogastroduodenoscopy (EGD) H/O colonoscopy History of Problems with Anesthesia: No Social History Social History Patient Tobacco Use Status: Former Tobacco user Tobacco use type: Cigarette Use of substances other than those prescribed or required for medical reasons: No Advance Directives: No Advance Directives Information Provided: Yes Current occupational status: disabled Meds Allergies Allergy/AdvReac Type Severity Reaction Status Date / Time atorvastatin Allergy Intermediate Muscle Pain Verified 03/07/25 09:47 gemfibrozil Allergy Intermediate itching Verified 03/07/25 09:47 simvastatin Allergy Intermediate GI Verified 03/07/25 09:47 discomfort topiramate (Topiramate) Allergy Intermediate RASH,HIVES Verified 03/07/25 09:47 Home Medications ?Medication ?Instructions ?Recorded ?Confirmed ?Last Taken ?Type acetaminophen 325 mg capsule 650 mg PO Q8H PRN Pain 12/09/20 04/16/25 Unknown History albuterol sulfate 90 mcg/actuation 2 puff inhalation Q4-6H PRN 12/09/20 04/16/25 03/02/22 History aerosol inhaler (Ventolin HFA) Wheezing cholecalciferol (vitamin D3) 1,250 1,250 mcg PO QWEEK 12/09/20 01/06/25 Unknown History mcg (50,000 unit) tablet famotidine 40 mg tablet 40 mg PO BEDTIME 12/09/20 01/06/25 Unknown History fluticasone propionate 50 1 spray intranasal DAILY 12/09/20 04/16/25 Unknown History mcg/actuation nasal spray,suspension loratadine 10 mg tablet (Allergy 10 mg PO DAILY 12/09/20 01/06/25 Unknown History Relief (loratadine)) meclizine 25 mg tablet 25 mg PO BID 12/09/20 01/06/25 Unknown History olanzapine 2.5 mg tablet (Zyprexa) 2.5 mg PO BID 12/09/20 04/16/25 Unknown History rosuvastatin 40 mg tablet (Crestor) 40 mg PO DAILY 12/09/20 04/16/25 Unknown History simethicone 125 mg capsule (Gas 125 mg PO TID-QID PRN 12/09/20 04/16/25 Unknown History Relief (simethicone)) Gastrointestinal Spasms Or Cramping sucralfate 1 gram tablet 1 g PO QIDACHS 12/09/20 04/16/25 Unknown History tamsulosin 0.4 mg capsule 0.4 mg PO BEDTIME 12/09/20 04/16/25 Unknown History venlafaxine 150 mg 150 mg PO BEDTIME 12/09/20 04/16/25 Unknown History capsule,extended release 24 hr (Effexor XR) zaleplon 10 mg capsule 10 mg PO BEDTIME 12/09/20 04/16/25 Unknown History clotrimazole 1 % topical cream appl topical 04/05/22 01/06/25 Unknown History melatonin 5 mg tablet 5 mg PO BEDTIME 04/10/23 04/16/25 Unknown History levothyroxine 112 mcg tablet 112 mcg PO QAM 01/06/25 04/16/25 Unknown History fluticasone furoate 100 1 inh inhalation DAILY 04/16/25 04/16/25 Unknown History mcg/actuation blister powder for inhalation (Arnuity Ellipta) hydroxyzine HCl 25 mg tablet 25 mg PO BID PRN Anxiety 04/16/25 04/16/25 Unknown History ibuprofen 600 mg tablet 600 mg PO Q6-8H PRN Pain 04/16/25 04/16/25 Unknown History tizanidine 4 mg capsule (Zanaflex) 4 mg PO Q8H PRN Pain 04/16/25 04/16/25 Unknown History Assessment and Plan Final Anesthetic Review Family History of Problems with Anesthesia: No History of Problems with Anesthesia: No Documented by User: Crista Carmona MD 04/18/25 08:17 [facility] Past Medical History Medical History Depression Mild cognitive impairment Pre-diabetes Hx of renal calculi Liver disease Benign prostate hyperplasia Benign paroxysmal positional vertigo Anxiety Thyroid disease Sacroiliac joint pain Hearing impairment Asthma Mood disorder HTN (hypertension) Sleep apnea Elevated cholesterol GERD (gastroesophageal reflux disease) Surgical History Surgical History Hx laparoscopic cholecystectomy Hx of hemorrhoidectomy History of esophagogastroduodenoscopy (EGD) H/O colonoscopy Social History Social History Patient Tobacco Use Status: Former Tobacco user Tobacco use type: Cigarette Use of substances other than those prescribed or required for medical reasons: No Advance Directives: No Advance Directives Information Provided: Yes Current occupational status: disabled Meds Allergies Allergy/AdvReac Type Severity Reaction Status Date / Time atorvastatin Allergy Intermediate Muscle Pain Verified 03/07/25 09:47 gemfibrozil Allergy Intermediate itching Verified 03/07/25 09:47 simvastatin Allergy Intermediate GI Verified 03/07/25 09:47 discomfort topiramate (Topiramate) Allergy Intermediate RASH,HIVES Verified 03/07/25 09:47 Home Medications ?Medication ?Instructions ?Recorded ?Confirmed ?Last Taken ?Type acetaminophen 325 mg capsule 650 mg PO Q8H PRN Pain 12/09/20 04/16/25 Unknown History albuterol sulfate 90 mcg/actuation 2 puff inhalation Q4-6H PRN 12/09/20 04/16/25 03/02/22 History aerosol inhaler (Ventolin HFA) Wheezing cholecalciferol (vitamin D3) 1,250 1,250 mcg PO QWEEK 12/09/20 01/06/25 Unknown History mcg (50,000 unit) tablet famotidine 40 mg tablet 40 mg PO BEDTIME 12/09/20 01/06/25 Unknown History fluticasone propionate 50 1 spray intranasal DAILY 12/09/20 04/16/25 Unknown History mcg/actuation nasal spray,suspension loratadine 10 mg tablet (Allergy 10 mg PO DAILY 12/09/20 01/06/25 Unknown History Relief (loratadine)) meclizine 25 mg tablet 25 mg PO BID 12/09/20 01/06/25 Unknown History olanzapine 2.5 mg tablet (Zyprexa) 2.5 mg PO BID 12/09/20 04/16/25 Unknown History rosuvastatin 40 mg tablet (Crestor) 40 mg PO DAILY 12/09/20 04/16/25 Unknown History simethicone 125 mg capsule (Gas 125 mg PO TID-QID PRN 12/09/20 04/16/25 Unknown History Relief (simethicone)) Gastrointestinal Spasms Or Cramping sucralfate 1 gram tablet 1 g PO QIDACHS 12/09/20 04/16/25 Unknown History tamsulosin 0.4 mg capsule 0.4 mg PO BEDTIME 12/09/20 04/16/25 Unknown History venlafaxine 150 mg 150 mg PO BEDTIME 12/09/20 04/16/25 Unknown History capsule,extended release 24 hr (Effexor XR) zaleplon 10 mg capsule 10 mg PO BEDTIME 12/09/20 04/16/25 Unknown History clotrimazole 1 % topical cream appl topical 04/05/22 01/06/25 Unknown History melatonin 5 mg tablet 5 mg PO BEDTIME 04/10/23 04/16/25 Unknown History levothyroxine 112 mcg tablet 112 mcg PO QAM 01/06/25 04/16/25 Unknown History fluticasone furoate 100 1 inh inhalation DAILY 04/16/25 04/16/25 Unknown History mcg/actuation blister powder for inhalation (Arnuity Ellipta) hydroxyzine HCl 25 mg tablet 25 mg PO BID PRN Anxiety 04/16/25 04/16/25 Unknown History ibuprofen 600 mg tablet 600 mg PO Q6-8H PRN Pain 04/16/25 04/16/25 Unknown History tizanidine 4 mg capsule (Zanaflex) 4 mg PO Q8H PRN Pain 04/16/25 04/16/25 Unknown History Exam Airway Mallampati Class: III TM Dist: >3cm Neck ROM: Full Heart: rrr Lungs: cta Assessment and Plan Assessment Anesthesia Assessment: Anesthesia Plan Discussed and Chart Reviewed Final Anesthetic Review NPO: Yes ASA Class: III Final Preanesthetic Review: No Changes in Pt Med Stat, Meds/Allgs Chart Reviewed, Consent Obtained/Reviewed and Anes Risks/Benef Reviewed Patient Risk: Intermediate Procedure Risk: Low Anesthetic Plan Anesthetic Plan: MAC: Disposition: Standard PACU
[2025-04-16 15:54] VITALS: BMI 42.1
--- NOTE | ~2025-04-18 | FL_ITS ---
EXAMINATION: FL GUIDANCE ONLY HISTORY: l5-s1 transforaminal epidural steroid injection COMPARISON: None available. TECHNIQUE: Fluoroscopy time: 23.5 seconds. Cumulative Dose: 12.719 mGy. DAP: 4.1460 Gycm2 Images: 2. FINDINGS: Fluoroscopic spot films of the lumbar spine demonstrate a needle and contrast material in the region of the right L5 pedicle. FL/FL guidance in OR IMPRESSION: Fluoroscopy during procedure. Please see procedure report for additional information. Electronically signed by: Jesus Matta MD 04/18/2025 09:43 AM EDT
[2025-04-18 07:49] VITALS: BMI 43.2
[2025-04-18 08:03] VITALS: BP 140/80; PULSE 64; RESP 16; TEMP 36.4; O2SAT 96
[2025-04-18] MEDS: Lactated Ringers 1,000 ML 100 ML IVCONT (08:05)
--- NOTE | 2025-04-18 08:47 | MHC.SHP ---
Pre-Procedural Eval Section A - 24 Hr Update-Section A only Date of Service: 04/18/25 The patient is an INPATIENT: No Changes since office visit: Yes Patient answered all questions The patient has been examined within 24 hours of the surgical procedure. The History & Physical has been completed within 30 days and I have reviewed it.: No Section B - Complete if H&P > 30 days Chief Complaint: Spondylosis without myelopathy or radiculopathy, Relevant Family History (Specify if Yes): No Relevant Social History: None Present Medications: see Short Stay Collaborative assessment Medical History: No relevant PMH History of Previous Operations: No relevant previous surgery Allergies: Allergies Allergy/AdvReac Type Severity Reaction Status Date / Time atorvastatin Allergy Intermediate Muscle Pain Verified 03/07/25 09:47 gemfibrozil Allergy Intermediate itching Verified 03/07/25 09:47 simvastatin Allergy Intermediate GI Verified 03/07/25 09:47 discomfort topiramate (Topiramate) Allergy Intermediate RASH,HIVES Verified 03/07/25 09:47 Review of Systems Sugical H&P ROS: Negative: Constitution, Cardiovascular and Respiratory Exam Surgical H&P Exam: Normal: HEENT, Normal: Heart and Normal: Lungs Plan Diagnosis/Plan: Unchanged I have reviewed the history and physical and performed a pertinent physical examination on my patient. No changes have occurred unless specified. Time Spent With Patient Time: Total time managing care of this patient today ____ minutes.
--- NOTE | 2025-04-18 09:20 | W.PM.OPN ---
Operative Note Operative Note Date of Service: 04/18/25 Narrative: Transforaminal right L5-S1 epidural steroid injection and attempt to do left L5- S1 transforaminal KELSEY Informed consent was thoroughly explained to the patient before the procedure.? The patient came to the operating room.? He was positioned prone on operating table with a pillow under his abdomen.? Time-out was performed delineating correct site and side of the procedure, nature of the injection, name and date of of the patient. The patient expressed a desire to be deeply sedated for this procedure. The lower back of the patient was prepped with ChloraPrep..While moderately sedated during the prep with chloroprep the patient was not staying still. I informed the patient that the chloroprep solution is moderately cold, patient expressed understanding and yet when I start prepping him he became very restless on the operating table. The field was draped with sterile selfadhesive utility towels. C-arm was brought over the operating field and sq picture of L5 vertebra was demonstrated on the screen.? The right side was chosen as the side of the injection 1st.? Tilting machine ipsilateral to the left at the level of L5 the most prominent picture of the superior articular process of S1 was demonstrated on the screen. Lateral border of the of the superior articular process of S1 on the right projection to the skin small amount of lidocaine 1% 2 cc was injected to anesthetize the skin.?He again was very restless on simple scin injection despite additional doses of propofol provided by our nurse physics and astronomy professor. After that 5 in 22 gauge Quincke point needle was inserted through the skin wheal and was advanced toward the right L5-S1 foramina on anterior posterior , lateral and oblique views intermittently.?The advansement was very difficult again because the patient coninued to move on the operating table. When tip of the needle gently touched lateral border of superior articular process of S1 on the left the needle was deviated slightly lateral and after that advanced 3 mm and deviated slightly medial. Injection of the contrast was performed demonstrating epidural spread of the contrast. No intravascular nor intrathecal spread of the contrast was noted. After that preservative-free lidocaine 1% 2 mL mixed with Kenalog 40 mg was injected into the needle. At this moment the patient started to move again, the needle was withdrawn and sterile bandaid was applied . The patient again was restless when I started to approach the left side. The decision was made to stop the procedure because of possible risk of the patient falling off the OR table. The patient was awaken, transferred to the stretched and moved to PACU.
--- NOTE | 2025-04-18 09:21 | PM.OP ---
Brief Operative Note Date of Service: 04/18/25 Pre-op diagnosis: Radiculopathy lumbar Post-op diagnosis: same Procedure: Transforaminal L5-S1 epidural steroid injection on the right. Surgeon: Milton Drake MD Anesthesia: MAC Was an Grinder Set Up Operator Thread used for this Procedure?: No Estimated blood loss (mL): 0 Condition: stable Disposition: PACU
[2025-04-18 09:22] VITALS: BP 111/60; PULSE 67; RESP 16; TEMP 36.4; O2SAT 92
[2025-04-18 09:30] VITALS: BP 101/44; PULSE 70; RESP 16; TEMP 36.4; O2SAT 97
== END 2025-04-18 09:57 | disposition home or self-care (01) ==
PROVIDERS: PCP Family Medicine; Visit Provider Anesthesiology
PROC: (CPT 64483; principal; 2025-04-18 09:20)
DX: M47.26 Other spondylosis with radiculopathy, lumbar region (principal); M48.061 Spinal stenosis, lumbar region without neurogenic claudication; M54.40 Lumbago with sciatica, unspecified side; G89.29 Other chronic pain; M51.9 Unspecified thoracic, thoracolumbar and lumbosacral intervertebral disc disorder; M62.830 Muscle spasm of back; I10 Essential (primary) hypertension; E78.00 Pure hypercholesterolemia, unspecified; J45.909 Unspecified asthma, uncomplicated; R73.01 Impaired fasting glucose; K21.9 Gastro-esophageal reflux disease without esophagitis; E07.9 Disorder of thyroid, unspecified; F39 Unspecified mood [affective] disorder; G47.33 Obstructive sleep apnea (adult) (pediatric); H81.10 Benign paroxysmal vertigo, unspecified ear; H91.90 Unspecified hearing loss, unspecified ear; Z88.8 Allergy status to other drugs, medicaments and biological substances; Z79.899 Other long term (current) drug therapy; Z90.49 Acquired absence of other specified parts of digestive tract; Z87.891 Personal history of nicotine dependence
CPT/HCPCS: 64483; J2003; J2250; J2405; J2704; J3301; Q9967

== ENCOUNTER → 2025-04-18 07:28 | Outpatient (BNV) | payer OTHER, SELFPAY | PROVIDERS: PCP Family Medicine; Visit Provider Anesthesiology | DX: M54.16 Radiculopathy, lumbar region (principal) | CPT/HCPCS: 64483; 64484 ==

== ENCOUNTER 2025-04-25 08:30 | Outpatient (REF) | payer OTHER, SELFPAY ==
--- OUTSIDE RECORDS SUMMARY | 2023-11-22 05:00 | XMS_ITS ---
Author Organization [facility] Address [address] [place] [address] Care Team Providers Care Webbing Weaver Name Role Phone Cynthia Minor Primary Care Provider Mee Figueroa Unavailable [phone] Encounters Encounter Location Date Provider Diagnosis [address] [address] 11/22/2023 Mee Ellison Plan Of Treatment No Information Progress Notes * Mera REICHOB: 2 (64 yo M)Acc No.[id number]:11/22/2023 Patient: Tristen GUTIERREZ Provider: Latisha Ellison DPM :1960 A ge:63 Y S ex:Male Date:11/22/2023 Address:[address] [place], [place] [id number] Pcp:Cynthia Minor Subjective: * Chief Complaints: * * Medical History: Objective: * Vitals: Assessment: Plan: * Treatment: * Images: * The named appointment provid er may or may not be the originator of this progress note, and it is not deemed complete until electronically signed by the appointment provider. Sign off status: Pending * Provider: Latisha Ellison DPM Date: 0 11/22/2023 Generated for Lucius ng/Faaashish/eTransmitting on: 1 08:44 AM EDT
--- OUTSIDE RECORDS SUMMARY | 2024-11-13 05:00 | XMS_ITS ---
Author Organization [facility] Address [address] [place] [address] Care Team Providers Care Integrity Director Name Role Phone Cynthia Minor Primary Care Provider Mee Figueroa Unavailable [phone] Allergies Allergen (clinical drug ingredient) Drug/Non Drug [...] Active Encounters Encounter Location Date Provider Diagnosis [facility] [address] [place] [address] 11/13/2024 Mee Ellison Plan Of Treatment No Information Progress Notes * Mera REICHOB: 2 (64 yo M)Acc No.[id number]:11/13/2024 Progress Note Patient: Tristen GUTIERREZ Provider: Latisha Ellison DPM :1960 A ge:64 Y S ex:Male Date:11/13/2024 Address:[address] [place] [address] [id number] Pcp:Cynthia Minor Subjective: * Chief Complaints: * [...] 0 11/13/2024 Generated for Lucius sawyer/Rocco/King on: 1 08:44 AM EDT History and Physical Notes * HPI (History of Present Illness) Category Sub-Category Detail Notes Category Not es Skin problems Pt States PCP Visit: DATE: 03/27/2023
--- OUTSIDE RECORDS SUMMARY | 2025-04-25 08:44 | XMS_ITS | Encounter Summary ---
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) [...] Upcoming Encounters Date Type Department Care Team ([facility] Contact Info) Description 04/29/2025 11:00 AM EST Office Visit [facility] ADULT DENTAL [address], [place] [phone] Liang Benz DDS [address], [place] [phone] 10/07/2025 9:30 AM EDT Office Visit [facility] ADULT DENTAL [address] [place] [address] Bib Catrina [address] [place] [address] documented as of this encounter Procedures Procedure [...] (Free Thyroxine) 0.71 0.71 - 1.85 ng/dL [facility] Blood Venous blood specimen / Unknown 05/08/2023 9:45 AM EST 05/08/2023 10:59 AM EST us Cynthia Minor MD LAB BLOOD ORDERABLES Final Resul t [facility] [address] [place] [address] [phone] * (ABNORMAL) TSH (05/08/2023 9:45 AM EST) Thyroid Stimulating Hormone 4.55(H) 0.32 - 4.0 uIU/mL [facility] Comment:Note: A sustained TS H level above 2.5 uIU/mL may warrant further investigation. TSH 3rd Generation ([facility]) Blood Venous blood specimen / Unknown 05/08/2023 9:45 AM EST 05/08/2023 10:59 AM EST Cynthia Minor MD LAB BLOOD ORDERABLES Final Resul t [facility] [address] [place] [phone] * XR Sacroiliac Joints 3+ Views (04/10/2023 3:06 PM EDT) Anatomical Region Laterality Modality Sacroiliac joint, Pelvis Radiogr aphic Imaging 04/10/2023 3:06 PM EDT Narrative 04/13/2023 9:52 AM EDT [address] [address] XRay Report Signed Patient: Tristen Rome MR#: [id number] : 1960 Acct:[id number] Age/Sex: 62 / M ADM Date: 04/10/23 Loc: [facility]IL[facility] Attending Dr: Odessa HILLIARD Ordering Physician: Odessa Ulrich Date of Service: 04/10/23 Procedure(s): XR sacroiliac joint min 3V Accession Number(s): [id number] cc: Odessa Ulrich; Cynthia Minor MD EXAMINATION: [...] in OV> 04/13/23 0948 DD/ 1506 TD/TT: Booth Manager: Procedure Note Donotuseinterpreter, Image - 04/13/[address] [address] XRay Report Signed Patient: Tristen RomeMR#: [id number] : 1960cct:[id number] Age/Sex: 62 / MADM Date: 04/10/23 Loc: EDIL[facility] Attending Dr: Odessa HILLIARD Ordering Physician: Odessa Ulrich Date of Service: 04/10/23 Procedure(s): XR sacroiliac joint min 3V Accession Number(s): [id number] cc: Odessa Ulrich; Cynthia Minor MD EXAMINATION: [...] in OV> 04/13/23 0948 DD/ 1506 TD/TT: Booth Manager: us [facility] External Provider IMG XR PROCEDURES Final Result * XR Lumbar Spine Complete 4+ Views (04/10/2023 3:06 PM EDT) Anatomical Region Laterality Modality Spine, L-spine Radiographic Sammi ging 04/10/2023 3:06 PM EDT Narrative 04/13/2023 9:50 AM EDT [address] [address] XRay Report Signed Patient: Tristen Rome MR#: [id number] : 1960 Acct:[id number] Age/Sex: 62 / M ADM Date: 04/10/23 Loc: EDIL[facility] Attending Dr: Odessa HILLIARD Ordering Physician: Odessa Ulrich Date of Service: 04/10/23 Procedure(s): XR lumbar spine 4V min Accession Number(s): [id number] cc: Odessa Ulrich; Cynthia Minor MD EXAMINATION: [...] in OV> 04/13/23 0947 DD/ 1506 TD/TT: Booth Manager: Procedure Note Donotuseinterpreter, Image - 04/13/[address] [address] XRay Report Signed Patient: Arleen Rome#: [id number] : 2Acct:[id number] Age/Sex: 62 / MADM Date: 04/10/23 Loc: EDIL[facility] Attending Dr: Odessa HILLIARD Ordering Physician: Odessa Ulrich Date of Service: 04/10/23 Procedure(s): XR lumbar spine 4V min Accession Number(s): [id number] cc: Odessa Ulrich; Cynthia Minor MD EXAMINATION: [...] in OV> 04/13/23 0947 DD/ 1506 TD/TT: Booth Manager: us [facility] External Provider IMG XR PROCEDURES Final Result * US Extremity Non Vascular (03/31/2023 1:25 PM EDT) Anatomical Region Laterality Modality Ultrasound 03/31/2023 1:25 PM EDT Narrative 04/05/2023 7:11 PM EDT [facility] [address] [facility] [place] [address] Ultrasound Report Signed Patient: Tristen Rome MR#: [id number] : 1960 Acct:[id number] Age/Sex: 62 / M ADM Date: 03/31/23 Loc: HO.HMGCX Attending Dr: Hannah HILLIARD Ordering Physician: Hannah Hudson Date of Service: 03/31/23 Procedure(s): US extremity nonvascular Accession Number(s): [id number] cc: Hannah Hudson; Cynthia Minor MD EXAMINATION: [...] MD in OV> 04/05/231906 DD/ 24 TD/TT: Booth Manager: DARRYL Procedure Note Donotuseinterpreter, Image - 04/05/2023 [facility] 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
--- OUTSIDE RECORDS SUMMARY | 2025-04-25 08:44 | XMS_ITS | Encounter Summary ---
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) [...] [facility] ADULT DENTAL [address] [place] [address] Liang Benz DDS [address] [place] [address] 10/07/2025 9:30 AM EDT Office Visit [facility] ADULT DENTAL [address] [place] [address] Catrina Mccartney [address] [place] [address] documented as of this encounter Procedures Procedure Name Priority Date/Time Associated Diagnosis Comments TSH W/REFLEX TO FT4 Routine 09/17/2024 1 2:40 PM EDT 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 documented in this encounter Results * TSH with Reflex to Free T4 (09/17/2024 12:40 PM EDT) TSH reflex Free T4 2.68 0.32 - 4.0 uIU/mL [facility] Blood 09/17/2024 12:4 0 PM EDT 09/17/2024 2:15 PM EDT us Cynthia Minor MD LAB BLOOD ORDERABLES Final Resul t [facility] [address] [place] [address] [phone] documented in this encounter Visit Diagnoses Diagnosis 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
--- OUTSIDE RECORDS SUMMARY | 2025-04-25 08:44 | XMS_ITS | Patient Health Record ---
Author Organization [facility] Address [address] [place] [address] Care Team Providers Care National Sales Manager Name Role Phone Mily Cynthia Primary Care Provider Mee Figueroa Unavailable [phone] Allergies Allergen (clinical drug ingredient) Drug/Non Drug [...] W/U Status Risk Notes Problem Plantar wart (15918210) Plantar wart (B07.0) Active confirmed Vital Signs Blood pressure diastolic 81 mm Hg 01/24/2025 Height 5ft2in in 01/24/2025 Blood pressure systolic 132 mm Hg 01/24/2025 Weight 240 lbs 01/24/2025 BMI 43.89 kg/m2 01/24/2025 Encounters Encounter Location Date Provider Diagnosis [facility] [address] 01/24/2025 Mee Ellison Plantar wart B07.0 ; Metatarsalgia, left foot M77.42 ; Left foot pain M79.672 and Pain in right foot M79.[address] [address] 11/13/2024 Mee Ellison [address] [address] 01/24/2025 Mee Ellison Assessments Encounter Date Diagnosis [...] Insured Coverage Start Date Coverage End Date [facility] [employer] Claims [address] [place] [id number] Tristen Su Self - patient is the insured Medical (General) History Medical History History ICD Code Anxiety Back,Hip,and Knee pain Depression Headaches/Migraines Liver disease Chicken pox Surgical History Surgery Date(Month/Year) Hand Surgery 1991 Gall bladder surgery 2018 colonoscopy Hospitalization History Reason Date(Month/Year) [facility] 10/11/23
--- OUTSIDE RECORDS SUMMARY | 2025-04-25 08:44 | XMS_ITS | Encounter Summary ---
Author Organization [employer] Address [address] [facility] [address] [place] [address] Care Team Providers Care Telecom Engineer Name Role Phone Cynthia Minor MD Primary Care Provider [phone] Encounter Details Date Type Department Care Team (Late Contact Info) Description 08/01/2022 Orders Only [facility] MED & PEDS [address] [place] [address] Zara Galicia LPN Social History Tobacco Use [...] Description 04/29/2025 11:00 AM EST Office Visit [facility] ADULT DENTAL [address] [place] [address] Liang Benz DDS [address] [place] [address] 10/07/2025 9:30 AM EDT Office Visit [facility] ADULT DENTAL [address] [place] [address] Catrina Mccartney [address] [place], [place] [phone] documented as of this encounter Visit Diagnoses Not on filedocumented in this encounter Care Teams Telecom Engineer Relationship Specialty Start Date End Date Cynthia Minor MD [address] [place] [address] PCP - General Family Medicine 06/26/18 documented as of this encounter
--- OUTSIDE RECORDS SUMMARY | 2025-04-25 08:44 | XMS_ITS | Encounter Summary ---
Author Organization [employer] [facility] Address [address] [place] [address] 7t [place] [address] Care Team Providers Care Floor Plan Adjuster Name Role Phone Cynthia Minor MD Primary Care Provider Encounter Details Date Type Department Care Team (Late st Contact Info) Description 05/23/2022 Abstract [facility] [address] [place] [address] Dental, Provider, DDS Social History Tobacco Use [...] Description 04/29/2025 11:00 AM EST Office Visit [facility] [address] [place] [address] Liang Benz DDS [address] [place] [address] 10/07/2025 9:30 AM EDT Office Visit [facility] [address] [place] [address] Cartina Mccartney [address] [place] [address] documented as of this encounter Procedures Procedure Name Priority Date/Time Associated Diagnosis Comments 17 O COMPOSITE FILLING Routine 05/23/2022 12:00 AM EST 12 DO COMPOSITE FILLING Routine 05/23/2022 12:00 AM EST documented in this encounter Visit Diagnoses Not on filedocumented in this encounter Care Teams Floor Plan Adjuster Relationship Specialty Start Date End Date Cynthia Minor MD [address] [place] [address] PCP - General Family Medicine 06/26/18 documented as of this encounter
--- OUTSIDE RECORDS SUMMARY | 2025-04-25 08:44 | XMS_ITS | Encounter Summary ---
Author Organization [employer] Address [address] [facility] 7t [place] [address] Care Team Providers Care Roving Sizer Name Role Phone Cynthia Minor MD Primary Care Provider [phone] Encounter Details Date Type Department Care Team ([facility] Contact Info) Description 12/06/2023 Orders Only [facility] MED[facility] [address] [place], [place] [phone] Cynthia Minor MD [address] [place], [place] [phone] Social History Tobacco Use Types Packs/Day Years [...] Description 04/29/2025 11:00 AM EST Office Visit [facility]ULT [facility] [address] [place] [address] Liang Benz DDS [address] [place] [address] 10/07/2025 9:30 AM EDT Office Visit [facility] [address] [place] [address] Catrina Mccartney [address] [place] [address] documented as of this encounter Visit Diagnoses Not on filedocumented in this encounter Additional Health Concerns Assessment Noted Time PHQ-9 Depression Total Score: 0 03/28/20 23 8:55 AM EDT documented as of this encounter Care Teams Roving Sizer Relationship Specialty Start Date End Date Cynthia Minor MD [address] [place] [address] PCP - General Family Medicine 06/26/18 documented as of this encounter
--- OUTSIDE RECORDS SUMMARY | 2025-04-25 08:44 | XMS_ITS | Encounter Summary ---
Author Organization [employer] [facility] Address [address] [place] [address] 7t [place] [address] Care Team Providers Care Spinner Cap Frame Name Role Phone Cynthia Minor MD Primary Care Provider [phone] Encounter Details Date Type Department Care Team (Latest Contact Info) Description 09/17/2021 Abstract [facility] CONVERSIONS Dental, Provider, DDS Social History Tobacco [...] Office Visit [facility] ADULT DENTAL [address] [place] [address] Liang Benz DDS [address] [place] [address] 10/07/2025 9:30 AM EDT Office Visit [facility] AD[facility] DENTAL [address] [place] [address] Catrina Mccartney [address] [place] [address] documented as of this encounter Visit Diagnoses Not on filedocumented in this encounter Care Teams Spinner Cap Frame Relationship Specialty Start Date End Date Cynthia Minor MD [address] [place] [address] PCP - General Family Medicine 06/26/18 documented as of this encounter
--- OUTSIDE RECORDS SUMMARY | 2025-04-25 08:44 | XMS_ITS | Encounter Summary ---
Author Organization [employer] Address [address] [facility] 7t [place] [address] Care Team Providers Care General Practitioner Name Role Phone Cynthia Minor MD Primary Care Provider [phone] Encounter Details Date Type Department Care Team ([facility] Contact Info) Description 07/20/2022 Telephone [facility] [address] [place], [place] [phone] Cynthia Minor MD [address] [place], [place] [phone] Social History Tobacco Use Types Packs/Day Years [...] Team ([facility] Contact Info) Description 04/29/2025 11:00 AM EST Office Visit [facility] ADULT DENT[facility] [address] [place], [place] [phone] Liang Benz DDS [address] [place], [place] [phone] 10/07/2025 9:30 AM EDT Office Visit [facility] ADULT DENTAL [address] [place], [place] [phone] Catrina Mccartney [address] [place] [address] documented as of this encounter Visit Diagnoses Not on filedocumented in this encounter Care Teams General Practitioner Relationship Specialty Start Date End Date Cynthia Minor MD [address] [place] [address] PCP - General Family Medicine 06/26/18 documented as of this encounter
--- OUTSIDE RECORDS SUMMARY | 2025-04-25 08:44 | XMS_ITS | Encounter Summary ---
Author Organization [employer] Address [address] [facility] 7t [place] [address] Care Team Providers Care State Assessed Properties Director Name Role Phone Cynthia Minor MD Primary Care Provider [phone] Reason for Visit * Reason Onset Date Comments Call Back Request 08/30/2023 Encounter Details Date Type Department Care Team ([facility] Contact Info) Description 08/30/2023 Telephone [facility] [address] [place], [place] [phone] Cynthia Minor MD [address] [place], [place] [phone] Call Back Request Social History Tobacco Use [...] get evaluated please call the daughter at [phone] documented in this encounter Plan of Treatment Upcoming Encounters Date Type Department Care Team (Late st Contact Info) Description 04/29/2025 11:00 AM EST Office Visit [facility] ADULT DENTAL [address] [place] [address] Liang Benz DDS [address] [place] [address] 10/07/2025 9:30 AM EDT Office Visit [facility] ADULT D[facility] [address] [place] [address] Catrina Mccartney [address] [place] [address] documented as of this encounter Visit Diagnoses Not on filedocumented in this encounter Additional Health Concerns Assessment Noted Time PHQ-9 Depression Total Score: 0 03/28/20 23 8:55 AM EDT documented as of this encounter Care Teams State Assessed Properties Director Relationship Specialty Start Date End Date Cynthia Minor MD [address] [place] [address] PCP - General Family Medicine 06/26/18 documented as of this encounter
--- OUTSIDE RECORDS SUMMARY | 2025-04-25 08:44 | XMS_ITS | Encounter Summary ---
Author Organization [employer] Address [address] [facility] 7t [place] [address] Care Team Providers Care Health Technical Writer Name Role Phone Cynthia Minor MD Primary Care Provider Encounter Details Date Type Department Care Team ([facility] Contact Info) Description 02/02/2023 Orders Only [facility] [address] [place], [place] [phone] Zara Galicia LPN Social History Tobacco Use [...] 11:00 AM EST Office Visit [facility] ADULT DENTAL [address] [place] [address] Liang Benz DDS [address] [place] [address] 10/07/2025 9:30 AM EDT Office Visit [facility] ADULT DENTAL [address] [place] [address] Catrina Mccartney [address] [place] [address] documented as of this encounter Visit Diagnoses Not on filedocumented in this encounter Care Teams Health Technical Writer Relationship Specialty Start Date End Date Cynthia Minor MD [address] [place] [address] PCP - General Family Medicine 06/26/18 documented as of this encounter
--- OUTSIDE RECORDS SUMMARY | 2025-04-25 08:44 | XMS_ITS | Encounter Summary ---
Author Organization [employer] [facility] Address [address] [place] [address] 7t [place] [address] Care Team Providers Care Juice Scaleman Name Role Phone Cynthia Minor MD Primary Care Provider [phone] Encounter Details Date Type Department Care Team (Latest Contact Info) Description 08/20/2020 Abstract [facility] Dental, Provider, DDS Social History Tobacco [...] Office Visit [facility] [address] [place] [address] Liang Benz DDS [address] [place] [address] 10/07/2025 9:30 AM EDT Office Visit [facility] [address] [place] [address] Catrina Mccartney [address] [place] [address] documented as of this encounter Visit Diagnoses Not on filedocumented in this encounter Care Teams Juice Scaleman Relationship Specialty Start Date End Date Cynthia Minor MD [address] [place] [address] PCP - General Family Medicine 06/26/18 documented as of this encounter
--- OUTSIDE RECORDS SUMMARY | 2025-04-25 08:44 | XMS_ITS | Encounter Summary ---
Author Organization [employer] [facility] Address [address] [place] [address] 7t [place] [address] Care Team Providers Care Crop Or Grain Farmer Name Role Phone Cynthia Minor MD Primary Care Provider [phone] Encounter Details Date Type Department Care Team (Latest Contact Info) Description 07/16/2019 Abstract [facility] CONVERSIONS Dental, Provider, DDS Social History Tobacco [...] Description 04/29/2025 11:00 AM EST Office Visit [facility] ADULT DENTAL [address] [place] [address] Liang Benz DDS [address] [place] [address] 10/07/2025 9:30 AM EDT Office Visit [facility] ADULT DENTAL [address] [place] [address] Catrina Mccartney [address] [place] [address] documented as of this encounter Visit Diagnoses Not on filedocumented in this encounter Care Teams Crop Or Grain Farmer Relationship Specialty Start Date End Date Cynthia Minor MD [address] [place] [address] PCP - General Family Medicine 06/26/18 documented as of this encounter
--- OUTSIDE RECORDS SUMMARY | 2025-04-25 08:45 | XMS_ITS | Encounter Summary ---
Author Organization [employer] Address [address] [facility] 7t [place] [address] Care Team Providers Care Sharepoint Designer Developer Name Role Phone Cynthia Minor MD Primary Care Provider [phone] Reason for Visit * Reason Onset Date Comments Dr. Benz referral 10/21/2024 Encounter Details Date Type Department Care Team ([facility] st Contact Info) Description 10/21/2024 Telephone [facility] ADULT DENTAL [address] [place], [place] [phone] Liang Benz, ETHEL [address] [place], [place] [phone] Dr. Benz referral Social History Tobacco Use [...] Patient is requesting referral to go to [place] to extract tooth that he has had trouble with recently and that has been filled in the past. He doesn't want to come in. He just wanted extraction for GA in [place] documented in this encounter Plan of Treatment Upcoming Encounters Date Type Department Care Team (Late st Contact Info) Description 04/29/2025 11:00 AM EST Office Visit [facility] ADULT DENTAL [address] [place] [address] Liang Benz DDS [address] [place] [address] 10/07/2025 9:30 AM EDT Office Visit [facility] ADULT DENTAL [address] [place] [address] Catrina Mccartney [address] [place] [address] documented as of this encounter Visit Diagnoses Not on filedocumented in this encounter Additional Health Concerns Assessment Noted Time PHQ-9 Depression Total Score: 14 025 9:11 AM EST documented as of this encounter Care Teams Sharepoint Designer Developer Relationship Specialty Start Date End Date Cynthia Minor MD [address] [place] [address] PCP - General Family Medicine 06/26/18 documented as of this encounter
--- OUTSIDE RECORDS SUMMARY | 2025-04-25 08:45 | XMS_ITS | Encounter Summary ---
Author Organization [employer] Address [address] [facility] [address] 7t [place] [address] Care Team Providers Care Senior Instrumentation Engineer Name Role Phone Cynthia Minor MD Primary Care Provider [phone] Reason for Visit * Reason Comments Med Refill Encounter Details Date Type Department Care Team ([facility] Contact Info) Description 05/11/2024 Refill [facility] [address] [place], [place] [phone] Kym Bella NP 230 [place] [address] Facial pressure Social History Tobacco Use Types [...] 04/29/2025 11:00 AM EST Office Visit [facility] ADULT DENTAL [address] [place] [address] Liang Benz DDS [address] [place] [address] 10/07/2025 9:30 AM EDT Office Visit [facility] ADULT DENTAL [address] [place] [address] Catrina Mccartney [address] [place] [address] documented as of this encounter Visit Diagnoses Diagnosis Facial pressure documented in this encounter Additional Health Concerns Assessment Noted Time PHQ-9 Depression Total Score: 0 03/28/20 23 8:55 AM EDT documented as of this encounter Care Teams Senior Instrumentation Engineer Relationship Specialty Start Date End Date Cynthia Minor MD [address] [place] [address] PCP - General Family Medicine 06/26/18 documented as of this encounter
--- OUTSIDE RECORDS SUMMARY | 2025-04-25 08:45 | XMS_ITS | Clinical Summary ---
Author Organization [email or web address] Address [address] [place] [address] 7[address] [place] [address] Care Team Providers Care Ruling Technician Name Role Phone Cynthia Bains MD Primary Care Provider [phone] Allergies Active Allergy Reactions Criticality Noted Date Comments Atorvastatin 09/01/2022 Topiramate 08/08/2022 Medications hydrOXYzine HCl (Atarax) 25 MG tablet TAKE 1/2 TO 1 TABLET BY MOUTH UP TO TWICE DAILY NEEDED FOR ANXIETY 3 Active zaleplon (Sonata) 10 MG capsule Take 20 mg by mouth at bedtime. 3 Active lidocaine (Xylocaine) 5 % ointmentIndicatio ns:Pain Apply to affected area once or twice daily 44 g 3 3 Active Methylcellulose, Laxative, (SM Fiber Laxative) 500 MG tabletIndications :Constipation, unspecified constipation type Take 1 tablet by mouth 2 times daily. 60 tablet 3 3 Active melatonin 5 MG tablet Take 1 tablet by mouth at bedtime. 3 Active OLANZapine (ZyPREXA) 10 MG tablet Take 1 tablet by mouth at bedtime. 3 Active venlafaxine XR (Effexor XR) 150 MG 24 hr capsule TAKE 1 CAPSULE BY MOUTH EVERY MORNING DIRECTED 3 Active clotrimazole (Lotrimin) 1 % creamIndications: Tinea pedis, unspecified laterality APPLY TO AFFECTED AREA(S) AND SURROUNDING AREA(S) TWICE DAILY IN THE MORNING AND EVENING 60 g 1 3 Active tiZANidine (Zanaflex) 4 MG tablet TAKE 1 TABLET BY MOUTH EVERY 6 TO 8 HOURS NEEDED FOR BACKACHE NO MORE THAN 3 TABLETS DAILY 60 tablet 3 3 Active OLANZapine (ZyPREXA) 5 MG tablet TAKE 1/2 TABLET BY MOUTH EVERY DAY IN THE MORNING AND TAKE 1/2 TABLET BY MOUTH NEEDED EVERY DAY 4 Active cetirizine (ZyrTEC) 10 MG tablet Take 1 tablet (10 mg) by mouth Once per day. 30 tablet 11 4 Active fluticasone (Flonase) 50 MCG/ACT nasal sprayIndications: Facial pressure Administer 1 spray into each nostril Once per day. Shake gently. Before first use, prime pump. After use, clean tip and replace cap. 16 g 11 4 Active acetaminophen (Tylenol 8 Hour) 650 MG ER tabletIndications :Facial pressure Take 1 tablet (650 mg) by mouth every 8 (eight) hours if needed for mild pain. Do not crush, chew, or split. 30 tablet 1 4 Active Arnuity Ellipta 100 MCG/ACT inhaler INHALE 1 PUFF ONCE DAILY. RINSE MOUTH AFTER USING. 30 each 11 5 Active Ketotifen Fumarate 0.035 % solutionIndicatio ns:Pruritus of both eyes Administer 1 drop into affected eye(s) if needed in the morning and at bedtime (eye redness, itching). 10 mL 5 Active ibuprofen 600 MG tablet Take 1 tablet (600 mg) by mouth every 6 (six) hours if needed for mild pain for up to 20 doses. 20 tablet 5 Active sucralfate (Carafate) 1 g tablet Take 1 tablet by mouth three times daily as needed 270 tablet 1 5 Active Ventolin HFA 108 (90 Base) MCG/ACT inhaler INHALE 2 PUFFS BY MOUTH EVERY 4 HOURS NEEDED FOR WHEEZING OR SHORTNESS OF BREATH 18 g 3 5 Active FT Fiber Laxative 625 MG tablet TAKE 1 TABLET BY MOUTH TWICE DAILY 60 tablet 2 5 Active chlorhexidine (Peridex) 0.12 % solution SWISH 15 ML BY MOUTH FOR 30 SECONDS THEN SPIT OUT . USE TWICE DAILY IN THE MORNING AND IN THE EVENING AFTER BRUSHING TEETH. SPIT OUT, DO NOT SWALLOW 5 Active PEG 4580-DIr-JyOig-Na Cl-NaSulf (PEG-3350/Electro lytes) 236 g reconstituted solution FOLLOW INSTRUCTION SHEET GIVEN TO YOU AT YOUR DOCTOR'S OFFICE DIRECTED. 5 Active benzocaine (Orajel) 10 % mucosal gelIndications:Dr levin socket Use in the mouth or throat if needed for mucositis. 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 90 tablet 3 5 Active simethicone (GAS RELIEF) 125 MG capsuleIndication s:Excessive gas TAKE 1 CAPSULE BY MOUTH THREE TIMES DAILY NEEDED WITH MEALS 90 capsule 2 5 Active tamsulosin (Flomax) 0.4 MG 24 hr capsuleIndication s:Benign prostatic hyperplasia with urinary frequency TAKE 1 CAPSULE BY MOUTH ONCE DAILY AT BEDTIME 90 capsule 3 5 Active omeprazole (PriLOSEC) [address] capsule TAKE 1 CAPSULE BY MOUTH EVERY DAY BEFORE BREAKFAST. DO NOT BREAK, CRUSH, DISSOLVE OR CHEW. 90 capsule 3 5 Active levothyroxine (Synthroid) 125 MCG tablet Take 1 tablet (125 mcg) by mouth before breakfast. Take at least 40 minutes before any other medication and food 30 tablet 11 5 026 Active Active Problems Problem Noted Date Diagnosed Date Depression 03/24/2025 Assessment & Plan (03/24/2025 5:34 AM EDT): - PHQ-9 score 24 on 03/12/2025. - [facility] provider: Yovany Enriquez - Diagnoses: Bipolar, per patient - Current [...] -Treatment Hx: Atypical odontalgia 10/22/2024 Fractured dental oriental orthodox with loss of materi al 09/16/2024 Localized [...] osseous foraminal stenosis -pt was seen by [facility] provider in 04/2020, pt was scheduled for injection tx and given tizanidine but pt requested procedure to be done under general anesthesia or stronger sedation; pt was recommended to find another specialist who can treat him. - Currently following with [facility], last seen in February 2025 -Recieved [...] can treat him. -pt was seen by [facility] -Recieved SIJ injection treatment on 11/10/21; [...] can treat him. -pt was seen by [facility] -Recieved SIJ injection treatment on 11/10/21; [...] NSAIDs or caffiene. -Consider referring back to [facility] for further evaluation Skin tag 08/02/2018 [...] Plan (03/13/2025 9:39 PM EDT): -Followed by [facility]. Last seen in August 2024 -Continue tamsulosin -Reduce caffeine intake Assessment & Plan (12/10/2024 9:56 AM EDT): -Followed by [facility]. Last seen in August 2024 -Continue tamsulosin -Reduce caffeine intake Assessment & Plan (09/17/2024 8:55 AM EDT): -Followed by [facility]. Last seen in November 2023. -Continue tamsulosin -Reduce caffeine intake Assessment & Plan (03/22/2024 11:12 AM EDT): -Followed by [facility]. Last seen in November 2023. -Continue [...] Plan (03/24/2025 5:29 AM EDT): -Followed by [facility] -Colonoscopy on 09/11/15 tubular adenoma -Colonoscopy on 09/06/19 tubular adenoma Last seen by GI in September 2024, the plan was to repeat a colonoscopy and the patient was given prep medications. Still waiting for colonoscopy. Assessment & Plan (12/10/2024 12:58 PM EDT): -Followed by [facility] -Colonoscopy on 09/11/15 tubular adenoma -Colonoscopy [...] Plan (08/14/2022 5:12 AM EST): -Followed by [facility] -Colonoscopy on 09/11/15 tubular adenoma -Colonoscopy on 09/06/19 tubular adenoma Benign paroxysmal positional vertigo 04/21/2015 Mood disorder 04/21/2015 Assessment & Plan (03/24/2025 5:31 AM EDT): - Diagnosis: Bipolar disorder. ?not confirmed with [facility] provider, pt states bipolar -[facility] provider: [facility] - PHQ-9 score 24 on 03/12/2025. No suicidal ideation. - STACEY-7 score 6 on 09/17/2024. -Current medications: Effexor 150 mg daily; Zyprexa 5 mg qhs; Zalepron 10 mg qhs (pt also seems to be taking melatonin and hydroxyzine) -Continue current treatment plan. Assessment & Plan (12/10/2024 12:58 PM EDT): - Diagnosis: Bipolar disorder. ?not confirmed with [facility] provider, pt states bipolar -[facility] provider: [facility] -Current medications: Effexor 150 mg daily; Zyprexa 5 mg qhs; Zalepron 10 mg qhs (pt also seems to be taking melatonin and hydroxyzine) -Continue current treatment plan. Assessment & Plan (09/17/2024 8:56 AM EDT): - Diagnosis: Bipolar disorder. ?not confirmed with [facility] provider, pt states bipolar -[facility] provider: [facility] -Current medications: Effexor 150 mg daily; Zyprexa 5 mg qhs; Zalepron 10 mg qhs (pt also seems to be taking melatonin and hydroxyzine) -Continue current treatment plan. Assessment & Plan (07/03/2024 2:50 PM EST): - Diagnosis: Bipolar disorder. ?not confirmed with S provider, pt states bipolar -[facility] provider: [facility] -Current medications: Effexor 150 mg daily; Zyprexa 5 mg qhs; Zalepron 10 mg qhs (pt also seems to be taking melatonin and hydroxyzine) -Continue current treatment plan. Assessment & Plan (03/12/2024 11:46 AM EDT): - Diagnosis: Bipolar disorder. ?not confirmed with S provider, pt states bipolar -[facility] provider: [facility] -Current medications: Effexor 150 mg daily; Zyprexa 5 mg qhs; Zalepron 10 mg qhs (pt also seems to be taking melatonin and hydroxyzine) -Continue current treatment plan. Assessment & Plan (12/05/2023 4:55 AM EDT): - Diagnosis: Bipolar disorder. ?not confirmed with S provider, pt states bipolar -[facility] provider: [facility] -Current medications: Effexor 150 mg daily; Zyprexa 5 mg qhs; Zalepron 10 mg qhs (pt also seems to be taking melatonin and hydroxyzine) -Continue current treatment plan. Assessment & Plan (09/05/2023 4:55 AM EDT): - Diagnosis: Bipolar disorder. ?not confirmed with S provider, pt states bipolar -[facility] provider: [facility] -Current medications: Effexor 150 mg daily; Zyprexa 5 mg qhs; Zalepron 10 mg qhs (pt also seems to be taking melatonin and hydroxyzine) -Continue current treatment plan. Assessment & Plan (04/03/2023 5:21 PM EDT): - Diagnosis: Bipolar disorder. ?not confirmed with S provider, pt states bipolar -[facility] provider: [facility] -Current medications: Effexor 150 mg daily; Zyprexa 5 mg qhs; Zalepron 10 mg qhs (pt also seems to be taking melatonin and hydroxyzine) -Continue current treatment plan. Assessment & Plan (11/26/2022 6:36 AM EDT): - Diagnosis: Bipolar disorder. ?not confirmed with S provider, pt states bipolar -[facility] provider: [facility] -Current medications: Effexor 150 mg daily; [...] Hx of alcoholic hepatitis / transaminitis in 2000. He is no longer drinking. Taking [facility] [...] (12/05/2023 9:56 AM EDT): - seen by horticultural manager in September 2023 Assessment & Plan (09/18/2023 5:25 AM EDT): Patient was referred to horticultural manager Resolved Problems Problem Noted Date Diagnosed Date [...] candidiasis 09/01/2022 11/26/2022 History of hypertension 08/08/2022 07/2 02/2025 Assessment & Plan (04/03/2023 5:23 PM EDT): [...] Encounters Date Type Department Care Team Description 04/18/2025 Orders Only [facility] External Provider, [facility] 04/07/2025 10:15 AM EDT Office Visit [facility] [address] [place] [phone] Catrina Mccartney Dental plaque (Primary Dx); Generalized gingival recession; Missing teeth, acquired; Sensitivity of root structure of tooth; Atypical odontalgia 03/14/[address] [address] Cynthia Bains MD Telephone call 03/12/2025 9:00 AM EDT Office Visit [address] [address] Cynthia Bains MD Elevated BP without diagnosis [...] Depression, unspecified depression type 03/12/2025 Results Follow-Up [facility] [address] [place], [place] [address] [address] Cynthia Bains MD TSH with Reflex to Free T4, Comprehensive Metabolic Panel, Lipid Panel with Reflex to Direct LDL 03/12/2025 Orders Only [facility] [address] [place] [address] [place] [address] Cynthia Bains MD 03/12/2025 Travel 03/11/[address] [address] Cynthia Bains MD CHART PREP 03/10/[address] [address] Cynthia Bains MD 02/22/[address] [address] Cynthia Bains MD 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 from Last 3 Months Immunizations Immunization Administration [...] free 03/12/2024 Pfizer Covid-19 Vaccine 12+ 05/03/2024, 3 Pfizer Covid-19 Vaccine 12+ Bivalent 05/17/2022 Pfizer [...] [facility] [address] [place] [address] Liang Benz DDS [address] [place] [address] 10/07/2025 9:30 AM EDT Office Visit [facility] [address] [place] [address] Catrina Mccartney [address] [place] [address] Health Maintenance Due Date Last Done Comments CT Colonography 1961 FIT DNA/Cologuard 1960 FIT 1960 FOBT 1960 Sigmoidoscopy 1960 Colonoscopy 09/05/2024 09/06/2019, 09/06/2019 Colorectal Cancer Screening 09/05/2024 Influenza Vaccine (#1) 2025 4, 03/10/2023, 03/24/2022, Additional history exists Alcohol/Substance Use [...] 02/04 Dental X-Ray: Full Mouth 04/08/2028 04/07/2025, 02/25 Lipid Panel 03/12/2030 03/12/2025, 01/0 12/2024, 12/05/2023, [...] Procedure Name Priority Date/Time Associated Diagnosis Comments FL GUIDANCE IN OR Routine 04/18/2025 9:0 0 AM EDT PERIODIC ORAL EVALUATION - ESTABLISHED PATIENT Routine [...] Recently Relevant to Health Maintenance Results * FL Guidance in OR (04/18/2025 9:00 AM EDT) Anatomical Region Laterality Modality X-Ray Angiograph y 04/18/2025 9:00 AM EDT Narrative 04/18/2025 9:46 AM EDT [address] [address] Fluoroscopy Report Signed Patient: Tristen Rome MR#: [id number] : 1960 Acct:[id number] Age/Sex: 64 / M ADM Date: 04/18/25 Loc: [facility] Attending Dr: Milton Drake MD Ordering Physician: Milton Drake MD Date of Service: 04/18/25 Procedure(s): FL guidance in OR Accession Number(s): [id number] cc: Milton Drake MD; Cynthia Bains MD Reason for Exam: l5-s1 transforaminal epidural steroid injection EXAMINATION: FL GUIDANCE ONLY HISTORY: l5-s1 transforaminal epidural steroid injection COMPARISON: None available. TECHNIQUE: Fluoroscopy time: 23.5 seconds. Cumulative Dose: 12.719 mGy. DAP: 4.1460 Gycm2 Images: 2. FINDINGS: Fluoroscopic spot films of the lumbar spine demonstrate a needle and contrast material in the region of the right L5 pedicle. FL/FL guidance in OR IMPRESSION: Fluoroscopy during procedure. Please see procedure report for additional information. Electronically signed by: Jesus Matta MD 04/18/2025 09:43 AM EDT Dictated By: Jesus Matta MD Signed By: <Electronically signed by Jesus Matta MD in OV> 04/18/25942 DD/ 9 TD/TT: 04/18/2515 Commis Chef: Procedure Note Donotuseinterpreter, Image - 04/18/[address] [address] Fluoroscopy Report Signed Patient: Tristen RomeMR#: [id number] : 1960cct:[id number] Age/Sex: 64 / MADM Date: 04/18/25 Loc: [facility] Attending Dr: Milton Drake MD Ordering Physician: Milton Drake MD Date of Service: 04/18/25 Procedure(s): FL guidance in OR Accession Number(s): [id number] cc: Milton Drake MD; Cynthia Bains MD Reason for Exam: l5-s1 transforaminal epidural steroid injection EXAMINATION: FL GUIDANCE ONLY HISTORY: l5-s1 transforaminal epidural steroid injection COMPARISON: None available. TECHNIQUE: Fluoroscopy time: 23.5 seconds. Cumulative Dose: 12.719 mGy. DAP: 4.1460 Gycm2 Images: 2. FINDINGS: Fluoroscopic spot films of the lumbar spine demonstrate a needle and contrast material in the region of the right L5 pedicle. FL/FL guidance in OR IMPRESSION: Fluoroscopy during procedure. Please see procedure report for additional information. Electronically signed by: Jesus Matta MD 04/18/2025 09:43 AM EDT Dictated By: Jesus Matta MD Signed By: <Electronically signed by Jesus Matta MD in OV> 04/18/25942 DD/ 9 TD/TT: 04/18/25914 Commis Chef: [facility] External Provider IMG IR PROCEDURES Final Result * (ABNORMAL) TSH with Reflex to Free T4 (03/12/2025 9:36 AM EDT) TSH reflex Free T4 4.86(H) 0.32 - 4.0 uIU/mL [facility] Blood 03/12/2025 9:36 AM EDT 03/12/2025 11:14 AM EDT Cynthia Bains MD LAB BLOOD ORDERABLES Final Resul t [facility] [address] [place] [phone] * Lipid Panel with Reflex to Direct LDL (03/12/2025 9:36 AM EDT) Triglycerides 89 <150 mg/dL [facility] Comment:Desirable Triglyceri de: less than 150 mg/dLBorderline High Triglyceride 150-199 mg/dLHigh Triglyceride: 200-499 mg/dLVery High Triglyceride: greater than or equal to 5OO mg/dL Cholesterol 139 <200 mg/dL [facility] Comment:Desirable Cholestero l: less than 200 mg/dLBorderline High Cholesterol: 200-239 mg/dLHigh Cholesterol: greater than 239 mg/dL LDL Cholesterol Calculated 76 <100 mg/dL [facility] Comment:Desirable LDL: less than 100 mg/dLNear Optimal/Above Optimal LDL: 110- 129 mg/dLBorderline High LDL: 130-159 mg/dLHigh LDL: 160-189 mg/dLVery High LDL: greater than or equal to 190 mg/dL HDL Cholesterol 46 >40 mg/dL [facility] Comment:Desirable HDL: great er than 40 mg/dL Note: This HDL assay may give artificially low results in patients with liver disease. Blood 03/12/2025 9:36 AM EDT 03/12/2025 11:14 AM EDT Cynthia Bains MD LAB BLOOD ORDERABLES Final Resul t Performing Organization Address City/[facility]/ZIP Co de Phone Number [facility] [address] [place] [phone] * T4, Free (03/12/2025 9:36 AM EDT) Free T4 (Free Thyroxine) 0.92 0.71 - 1.85 ng/dL [facility] 03/12/2025 9:36 AM EDT 03/12/2025 11:14 AM EDT Cynthia Bains MD LAB BLOOD ORDERABLES Final Resul t Performing Organization Address City/[facility]/ZIP Co de Phone Number [facility] [address] [place] [phone] * (ABNORMAL) Comprehensive Metabolic Panel (03/12/2025 9:36 AM EDT) Sodium 140 135 - 145 mmol/L [facility] Potassium 4.2 3.3 - 5.1 mmol/L [facility] Chloride 106 96 - 108 mmol/L [facility] Carbon Dioxide 30(H) 22 - 29 mmol/L [facility] Anion Gap 8(L) 12 - 20 [facility] Urea Nitrogen (BUN) 18(H) 9 - 16 mg/dL [facility] Creatinine, Serum 1.07 0.5 - 1.4 mg/dL [facility] Estimated Glomerular Filt Rate >60 [facility] Comment:Chronic Kidney Disea se: Estimated GFR < 60 mL/min/[id number] Kidney Disease: Estimated GFR < 15 mL/min/1.73m2 Glucose 111 60 - 115 mg/dL [facility] Calcium 9.2 8.4 - 10.2 mg/dL [facility] Bilirubin, Total 0.6 0.0 - 1.0 mg/dL [facility] Aspartate Amino Transferase 43(H) 5 - 37 U/L [facility] Alanine Aminotransferase 35 0 - 40 U/L [facility] Total Protein 7.3 6.5 - 8.0 g/dL [facility] Albumin Level 4.5 3.5 - 5.0 g/dL [facility] Alkaline Phosphatase 57 39 - 117 U/L [facility] Blood Venous blood specimen / Unknown 03/12/2025 9:36 AM EDT 03/12/2025 11:14 AM EDT us Cynthia Bains MD LAB BLOOD ORDERABLES Final Resul t [facility] [address] [place] [phone] * Hemoglobin A1c (07/02/2024 9:47 AM EST) Hemoglobin A1c 5.7 <6.0 % [facility] Comment:Hemoglobin A1C Refer ence Range Adults: 4.8 - 6.0 % Non diabetic: < 6.0 % Goal: < 7.0 %Additional Action Suggested: > 8.0 %Note: Hemoglobin A1c results are invalid for patients with abnormal amounts of HbF. Blood transfusions may impact the HbA1c concentration in the patient sample. Estimated Average Glucose 117 mg/dL [facility] Comment:eAG = Estimated ave rage glucose which is %A1C expressed asaverage glucose, using the formula of the [id number]-[id number] Glucose study (ADAG), Diabetes Care, Vol.31,#8,Jan. 2007 Blood Venous blood specimen / Unknown 07/02/2024 9:47 AM EST 07/02/2024 11:46 AM EST Cynthia Bains MD LAB BLOOD ORDERABLES Final Resul t [facility] [address] [place] [phone] [phone] * Colonoscopy (09/06/2019) Colonoscopy Normal Normal, Abnormal, BIRADS 0 , BIRADS 1 , BIRADS 2, BIRADS 3 , BIRADS 4+ Historical Provider HEALTH MAINTENANCE Edited Result - Final from Last 3 Months or Most Recently Relevant to Health Maintenance Insurance [facility]ARE < 65 [place] [id number] DENTAL - [facility] Care Teams Ruling Technician Relationship Specialty Start Date End Date Cynthia Bains MD [address] [place] [phone] PCP - General Family Medicine 06/26/18
[2025-04-25 13:03] LABS: Free T4 (Free Thyroxine) 1.00 ng/dL (0.71-1.85)
== END 2025-04-25 08:31 | disposition home or self-care (01) ==
LOC: HO.HHCL 08:30
PROVIDERS: PCP Family Medicine; Visit Provider Family Medicine
DX: E06.3 Autoimmune thyroiditis (principal)
CPT/HCPCS: 36415; 84439; 84443

== ENCOUNTER 2025-05-26 10:36 | Outpatient (AMB) | payer OTHER, SELFPAY ==
[2025-05-26 10:44] VITALS: BP 129/78; PULSE 89; RESP 16; O2SAT 92; BMI 43.2
--- NOTE | 2025-05-26 10:44 | A.OFFVIS_ITS ---
Vital Signs 05/26/25 10:44 Height 5 ft 2 in Weight 236 lb BMI 43.2 BP 129/78 Blood Pressure Location Lt brachial Position Sitting Respiration 16 Pulse 89 Pulse Source Pulse Oximeter Pulse Oximetry (%) 92 Oxygen Delivery Method Room Air Intake Visit Reasons: S/p B/l L5-S1 TFESI Flake Cutter Operator Required: Yes Flake Cutter Operator Language: Systems Administrator Services: Flake Cutter Operator Present Flake Cutter Operator Name: Jose Elias May [id number] Information Interpreted: clinical only Accompanied by: Self / Same As Patient Allergies atorvastatin Allergy (Intermediate, Verified 05/26/25 10:44) Muscle Pain gemfibrozil Allergy (Intermediate, Verified 05/26/25 10:44) itching simvastatin Allergy (Intermediate, Verified 05/26/25 10:44) GI discomfort topiramate (Topiramate) Allergy (Intermediate, Verified 05/26/25 10:44) RASH,HIVES HPI Comments Details: The patient is a 64 year old individual presenting for follow-up visit for chronic low back pain with radiculopathy. The patient has a history of mu ltilevel lumbar spondylosis with changes most pronounced at the L5-S1 level, where there is moderate to severe bilateral foraminal stenosis. On 04/18, the patient underwent a right L5-S1 facet injection under moderate sedation. An attempt to perform a left L5-S1 transforaminal epidural steroid injection was aborted because the patient was very restless during the procedure per Dr. Drake's notes. Currently, the patient reports no pain at rest but experiences some discomfort in the lower back when bending down, such as to tie shoes. Lately, the patient has been feeling numbness and frequent cramps in the legs, which is more pronounced in the left thigh. Again, patient reports his symptoms have significantly improved after recent injections and allow him to be more functional, more active and provide better sleep. Denies any recent cough, cold, infection, fever or any significant changes in medical history since last office visit. Past Procedures: 04/18/25: Right L5-S1 TFESI-100% ongoing pain relief PRIOR: Patient presents today to discuss recent lumbar spine MRI results. He reports his symptoms have progressed from moderate to severe, causing back pain that radiates to the back of the legs. Previously, the patient received injections at the L5-S1 level, which provided temporary relief. The patient is considering further injections or surgical decompression as potential interventions. The MRI findings indicate significant narrowing at the L5 level, with nerve compression on both sides, more pronounced on the left. The patient reports that walking does not exacerbate the pain, and there is no heaviness in the legs during ambulation.Denies any recent cough, cold, infection, fever or any significant changes in medical history since last office visit. PRIOR: The patient is a 64-year-old male presenting with chronic low back pain. The pain initially improved following an L5-S1 interlaminar injection administered on June 28, 2023, but has recently returned. The patient reports that the pain has been recurring for about a week, and it is exacerbated by sitting and certain movements. Denies any recent trauma, injury or falls. The patient also experiences leg pain with numbness and tingling, which sometimes affects his ability to stand properly. He denies using a cane for ambulation. Denies any recent cough, cold, infection, fever or any significant changes in medical history since last office visit. The patient has a history of thyroid disorder for which he takes levothyroxine 112 mg daily. He reports weight loss associated with this medication. - Onset: Pain returned approximately one week ago, chronic - Quality: Pain is exacerbated by sitting and certain movements; shooting, throbbing, aching, heavy - Location: Pain in the lower back, radiating to the legs posteriorly - Radiation: Pain radiates to the legs with associated numbness and tingling - Interference: Pain affects ability to stand properly, sleep, perform daily activities - Affect: Pain impacts daily activities, particularly sitting and standing - Analgesia: Previously used methocarbamol, now prescribed Flexeril - Adverse Effects: Insurance issues with medication coverage (methocarbamol) - Activities of Daily Living: Pain interferes with sitting, bending, lifting and standing - Aberrant Drug Related Behaviors: None reported Past Procedures: 06/28/23: Interlaminar epidural steroid injection, L5-S1-100% for >12 months 06/15/22: Left SIJ Steroid Injection - 90% relief. 03/02/22: L5-S1 Interlaminar KELSEY ? 100% relief. 11/10/21: Bilateral Therapeutic SIJ Injections ? Minimal relief. PRIOR: Patient is a pleasant 61 years old Gabonese speaking male who presents today to assess his response to L5-S1 interlaminar KELSEY on 03/02/[address] Parish. Patient reports 100% ongoing pain relief post procedure. Patient reports his back pain is gone and denies radiation of pain to his lower extremities. He endorses significant left sacroiliac joint pain and would like to repeat therapeutic left SIJ injection. We reviewed his prevous bilateral SIJ injections with ropivucaine that provided him minimal results. Patient reports his left upper buttock and lateral hip have been increasing. Hip exam was normal and all provocative maneuvers for left SIJ were positive today. Patient would like to schedule his injection under sedation. He denies right SIJ pain. PRIOR 12/22/21 [employer]: Tristen returns to review the effectiveness of bilateral therapeutic SIJ injections performed on 11/10/[address] Parish. Unfortunately, he reported minimal relief s/p procedure. He again notes his back is located across the lower back, typically worse on the left. He does report more constant pain with radiation into BLE, L>R and would like to discuss another intervention to target this. PRIOR: Tristen is a pleasant 60 year old male who presents to the office with complaints of low back pain. He states the pain started years ago without any inciting events, but in the past few months has been more exacerbated. He reports the pain starts midline and radiates across the low back. He notes radiation to posterior bilateral legs to the level of the knee and often feels like his legs are falling asleep. Denies any numbness, tingling of bilateral feet. Denies any bowel/bladder dysfunction or weakness. The pain is worse in the morning and less severe at night time. He reports pain onset was gradual. constant and rates the pain a 10/10. He reports his pain is exacerbated by activity as well as prolonged sitting and when driving. His pain is partially alleviated with laying flat. He states the pain is interfering with sleep, activities of daily living and he cannot function normally. He has tried OTC medications without any improvement in his pain. Previously he has tried physical therapy, the last being about four months ago. After a few sessions the patient felt his symptoms were exacerbated and could not tolerate it. Denies any chiropractic manipulation, massage or acupuncture. Denies any previous back injections or surgery. He last had imaging of his lumbar spine in 2019, this report is in his chart. He presents today to discuss injections with sedation. He was evaluated at [facility] and was given ativan prior to the procedure but states his anxiety was so elevated he could not proceed with the procedure. Their office recommended he come to this office to have a procedure with sedation. His past medical history is significant for GERD, Impaired fasting glucose, BPPV, mood disorder, cholcystectomy, bilateral hearing impairment, asthma and HTN. He denies current tobacco and alcohol use. [facility] Medical History Depression Mild cognitive impairment Pre-diabetes Hx of renal calculi Liver disease Benign prostate hyperplasia Benign paroxysmal positional vertigo Anxiety Thyroid disease Sacroiliac joint pain Hearing impairment Asthma Mood disorder HTN (hypertension) Sleep apnea Elevated cholesterol GERD (gastroesophageal reflux disease) Surgical History Hx laparoscopic cholecystectomy Hx of hemorrhoidectomy History of esophagogastroduodenoscopy (EGD) H/O colonoscopy Social History Patient Tobacco Use Status: Former Tobacco user Tobacco use type: Cigarette Current occupational status: disabled Review of Systems Const All systems reviewed & are unremarkable except as noted in HPI and below Physical Exam Vital Signs: Last Vital Signs Pulse 89 05/26/25 10:44 Resp 16 05/26/25 10:44 BP 129/78 05/26/25 10:44 Pulse Ox 92 05/26/25 10:44 Oxygen Delivery Method Room Air 05/26/25 10:44 BMI result Body Mass Index 43.2 General: Appears afebrile. Alert and oriented. Mood and affect appropriate. Follows and participates in conversation appropriately. Respiratory effort is unlabored. Able to transition from sit to stand unassisted. Ambulates with antalgic gait, no assistive devices used with ambulation. General: Yes no CVA tenderness Back/Spine/Pelvis Other: Limited lumbar ROM due to pain. Lumbar extension and flexion reproduces mild to moderate pain. Demonstrates 5/5 strength of quadriceps bilaterally as well as flexion/dorsiflexion of bilateral feet against resistance. 2+ pedal pulses bilaterally. Straight leg rise with dorsiflexion positive bilaterally. +1 patellar and achilles reflexes bilaterally. Facet loading test positive bilaterally. Venu sign, Bennie?s, Pelvic compression and Stinchfield tests are positive bilaterally. No groin pain with I/E hip rotations. Valsalva maneuver is negative. Back: no CVA tenderness Cervical Spine: cervical ROM normal and No Cervical spine tenderness Thoracic/Lumbar Spine: thoracic and lumbar spine normal to inspection, Lasegue's sign positive bilateral and diffuse, pain with thoraco-lumbar ROM, paraspinal muscle tenderness, thoraco-lumbar ROM limited, No thoracic spinal tenderness and lumbar spinal tenderness (L4-S1) Sacroiliac joints: bilaterally (left>right) tender to palpation Extrem General: Yes capillary refill normal, Yes no clubbing, cyanosis or edema and Yes no calf tenderness Results Reviewed Results Reviewed: MR LUMBAR SPINE WITHOUT CONTRAST 02/19/25 RAYUS INDICATION: Spinal stenosis, without neurogenic claudication, lumbar spondylosis TECHNIQUE: Standard lumbar spine protocol without contrast COMPARISON: Lumbar spine MRI report from March 2020. Images are not available for direct comparison, and could not be retrieved. FINDINGS: Vertebral bodies demonstrate normal height and alignment. Small right-sided renal cyst is present. Conus demonstrates normal contour and signal and terminates at L1 level. L1-2 level is unremarkable. L2-L3 level shows central and foraminal disc bulge and mild disc degeneration with endplate shows node formation. The canal and foramina are patent. L3-L4 level shows minor disc bulge, and disc desiccation with anterior endplate spurring. The canal, recesses and foramina are patent. L4-L5 level shows developing Schmorl's node formation overlying the lower L4 endplate with endplate marrow edema. Mild facet arthrosis is seen. The canal, recesses and foramina are patent. At L5-S1 level, there is central and foraminal disc osteophyte complex, mild disc degeneration and moderate facet arthrosis. Slight anterolisthesis of L5 on S1 is seen. The canal and recesses are preserved. There is moderate to severe bilateral osseous foraminal stenosis, encroaching on the exiting L5 nerve roots. Early endplate changes are seen due to mild disc degeneration. IMPRESSION: Multilevel lumbar spondylotic changes, most pronounced at L5-S1 level, where there is moderate to severe bilateral osseous foraminal stenosis as discussed. Other changes of lumbar spondylosis. No significant central canal stenosis is present. Assessment & Plan Assessment & Plan (1) Sacroiliac joint pain: Code(s): M53.3 - Sacrococcygeal disorders, not elsewhere classified Category: Medical (2) Spondylosis of lumbar region without myelopathy or radiculopathy: Code(s): M47.816 - Spondylosis without myelopathy or radiculopathy, lumbar region Category: Medical (3) Stenosis, spinal, lumbar: Code(s): M48.061 - Spinal stenosis, lumbar region without neurogenic claudication Category: Medical (4) Multilevel degenerative disc disease: Code(s): M53.9 - Dorsopathy, unspecified Category: Medical (5) Lumbosacral spondylosis: Code(s): M47.817 - Spondylosis without myelopathy or radiculopathy, lumbosacral region Category: Medical Plan The plan is to continue monitoring the patient's symptoms. The right-sided injection is expected to provide pain relief for approximately three months. If the left leg pain, numbness, or cramping becomes bothersome over the next month, the patient is advised to call the office to schedule a left-sided injection. We also discussed referral to a Neurosurgery evaluation if symptoms return sooner and worsen. All questions and concerns have been answered and patient agreed with the treatment plan. Follow up as needed. Patient was informed and verbally consented to the use of an ambient scribe for clinic note documentation during this visit. Coding Level of Care Code Est Pt Level 3 (03906) Complex visit Add On G2211 Diagnoses Sacroiliac joint pain M53.3 Spondylosis of lumbar region without myelopathy or radiculopathy M47.816 Stenosis, spinal, lumbar M48.061 Multilevel degenerative disc disease M53.9 Lumbosacral spondylosis M47.817
--- OUTSIDE RECORDS SUMMARY | 2025-05-26 13:26 | XMS_ITS | Encounter Summary ---
Author Organization [employer] Address [address] [place] [address] Care Team Providers Care Donor Recruiter Name Role Phone Cynthia Minor MD Primary Care Provider [phone] Reason for Visit * Reason Onset Date Comments Call Back Request 08/30/2023 Encounter Details Date Type Department Care Team ([facility] Contact Info) Description 08/30/2023 Telephone [facility] [address] [place], [place] [phone] Cynthia Minor MD [address] [place], [place] [phone] Call Back Request Social History Tobacco Use [...] get evaluated please call the daughter at [phone] documented in this encounter Plan of Treatment Upcoming Encounters Date Type Department Care Team (Late st Contact Info) Description 10/07/2025 9:30 AM EDT Office Visit [facility] [address] [place] [address] Ricky Mccartneyaris [address] [place] [address] documented as of this encounter Visit Diagnoses Not on filedocumented in this encounter Additional Health Concerns Assessment Noted Time PHQ-9 Depression Total Score: 0 03/28/20 23 8:55 AM EDT documented as of this encounter Care Teams Donor Recruiter Relationship Specialty Start Date End Date Cynthia Minor MD [address] [place] [address] PCP - General Family Medicine 06/26/18 documented as of this encounter
--- OUTSIDE RECORDS SUMMARY | 2025-05-26 13:26 | XMS_ITS | Encounter Summary ---
Author Organization [employer] Address [address] [facility] [address] [place] [address] Care Team Providers Care Fly Maker Name Role Phone Cynthia Minor MD Primary Care Provider [phone] Encounter Details Date Type Department Care Team ([facility] Contact Info) Description 12/06/2023 Orders Only [facility] [address] [place], [place] [phone] Cynthia Minor MD [address] [place], [place] [phone] Social History Tobacco Use Types Packs/Day Years [...] Description 10/07/2025 9:30 AM EDT Office Visit [facility] [address] [place] [address] Catrina Mccartney [address] [place] [address] documented as of this encounter Visit Diagnoses Not on filedocumented in this encounter Additional Health Concerns Assessment Noted Time PHQ-9 Depression Total Score: 0 03/28/20 23 8:55 AM EDT documented as of this encounter Care Teams Fly Maker Relationship Specialty Start Date End Date Cynthia Minor MD [address] [place] [address] PCP - General Family Medicine 06/26/18 documented as of this encounter
--- OUTSIDE RECORDS SUMMARY | 2025-05-26 13:26 | XMS_ITS | Encounter Summary ---
Author Organization [employer] Address [address] [facility] [address] [place] [address] Care Team Providers Care Ribbon Tier Name Role Phone Cynthia Minor MD Primary Care Provider [phone] Encounter Details Date Type Department Care Team (Late Contact Info) Description 08/01/2022 Orders Only [facility] [address] [place], [place] [phone] Zara Galicia LPN Social History Tobacco Use [...] Department Care Team (Late Contact Info) Description 10/07/2025 9:30 AM EDT Office Visit [facility] [address] [place], [place] [phone] Bib, Catrina [address] [place], [place] [phone] documented as of this encounter Visit Diagnoses Not on filedocumented in this encounter Care Teams Ribbon Tier Relationship Specialty Start Date End Date Cynthia Minor MD [address] [place] [address] PCP - General Family Medicine 06/26/18 documented as of this encounter
--- OUTSIDE RECORDS SUMMARY | 2025-05-26 13:26 | XMS_ITS | Encounter Summary ---
Author Organization [employer] Address [address] [facility] [address] [facility] [address] [place] [address] Care Team Providers Care Director Of Employer Services Name Role Phone Cynthia Minor MD Primary Care Provider [phone] Encounter Details Date Type Department Care Team ([facility] Contact Info) Description 02/02/2023 Orders Only [facility] [address] [place], [place] [phone] Zara Galicia LPN Social History Tobacco Use [...] Description 10/07/2025 9:30 AM EDT Office Visit [facility] AD[facility] [address] [place] [address] Bib, Catrina [address] [place] [address] documented as of this encounter Visit Diagnoses Not on filedocumented in this encounter Care Teams Director Of Employer Services Relationship Specialty Start Date End Date Cynthia Minor MD [address] [place], [place] [phone] PCP - General Family Medicine 06/26/18 documented as of this encounter
--- OUTSIDE RECORDS SUMMARY | 2025-05-26 13:26 | XMS_ITS | Encounter Summary ---
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) [...] Upcoming Encounters Date Type Department Care Team ([facility] Contact Info) Description 10/07/2025 9:30 AM EDT Office Visit [facility] ADULT DENTAL [address] [place] [address] Catrina Mccartney [address] [place] [address] documented as of this encounter Procedures Procedure [...] (Free Thyroxine) 0.71 0.71 - 1.85 ng/dL [facility] Blood Venous blood specimen / Unknown 05/08/2023 9:45 AM EST 05/08/2023 10:59 AM EST Cynthia Minor MD LAB BLOOD ORDERABLES Final Resul t Performing Organization Address City/[facility] Co de Phone Number [facility] [address] [place] [phone] * (ABNORMAL) TSH (05/08/2023 9:45 AM EST) Thyroid Stimulating Hormone 4.55(H) 0.32 - 4.0 uIU/mL [facility] Comment:Note: A sustained TS H level above 2.5 uIU/mL may warrant further investigation. TSH 3rd Generation ([facility]) Blood Venous blood specimen / Unknown 05/08/2023 9:45 AM EST 05/08/2023 10:59 AM EST Cynthia Minor MD LAB BLOOD ORDERABLES Final Resul t [facility] [address] [place] [phone] * XR Sacroiliac Joints 3+ Views (04/10/2023 3:06 PM EDT) Anatomical Region Laterality Modality Sacroiliac joint, Pelvis Radiogr aphic Imaging 04/10/2023 3:06 PM EDT Narrative 04/13/2023 9:52 AM EDT [address] [address] XRay Report Signed Patient: Tristen Rome MR#: [id number] : 1960 Acct:[id number] Age/Sex: 62 / M ADM Date: 04/10/23 Loc: [facility] Attending Dr: Odessa HILLIARD Ordering Physician: Odessa Ulrich Date of Service: 04/10/23 Procedure(s): XR sacroiliac joint min 3V Accession Number(s): [id number] cc: Odessa Ulrich; Cynthia Minor MD EXAMINATION: [...] in OV> 04/13/23 0948 DD/ 1506 TD/TT: College Advisor: Procedure Note Donamyinterpreter, Image - 04/13/[address] [address] XRay Report Signed Patient: Tristen RomeMR#: [id number] : 1960cct:[id number] Age/Sex: 62 / MADM Date: 04/10/23 Loc: [facility] Attending Dr: Odessa HILLIARD Ordering Physician: Odessa Ulrich Date of Service: 04/10/23 Procedure(s): XR sacroiliac joint min 3V Accession Number(s): [id number] cc: Odessa Ulrich; Cynthia Minor MD EXAMINATION: [...] in OV> 04/13/23 0948 DD/ 1506 TD/TT: College Advisor: [facility] External Provider IMG XR PROCEDURES Final Result * XR Lumbar Spine Complete 4+ Views (04/10/2023 3:06 PM EDT) Anatomical Region Laterality Modality Spine, L-spine Radiographic Sammi ging 04/10/2023 3:06 PM EDT Narrative 04/13/2023 9:50 AM EDT [address] [address] XRay Report Signed Patient: Tristen Rome MR#: [id number] : 1960 Acct:[id number] Age/Sex: 62 / M ADM Date: 04/10/23 Loc: [facility] Attending Dr: Odessa HILLIARD Ordering Physician: Odessa Ulrich Date of Service: 04/10/23 Procedure(s): XR lumbar spine 4V min Accession Number(s): [id number] cc: Odessa Ulrich; Cynthia Minor MD EXAMINATION: [...] in OV> 04/13/23 0947 DD/ 1506 TD/TT: College Advisor: Procedure Note Donotuseinterpreter, Image - 04/13/2023 [place] [address] XRay Report Signed Patient: Tristen Rome#: [id number] : 2Acct:[id number] Age/Sex: 62 / MADM Date: 04/10/23 Loc: [facility] Attending Dr: Odessa HILLIARD Ordering Physician: Odessa Ulrich Date of Service: 04/10/23 Procedure(s): XR lumbar spine 4V min Accession Number(s): [id number] cc: Odessa Ulrich; Cynthia Minor MD EXAMINATION: [...] in OV> 04/13/23 0947 DD/ 1506 TD/TT: College Advisor: [facility] External Provider IMG XR PROCEDURES Final Result * US Extremity Non Vascular (03/31/2023 1:25 PM EDT) Anatomical Region Laterality Modality Ultrasound 03/31/2023 1:25 PM EDT Narrative 04/05/2023 7:11 PM EDT [facility] [address] [facility] [place] [address] Ultrasound Report Signed Patient: Tristen Rome MR#: [id number] : 1960 Acct:[id number] Age/Sex: 62 / M ADM Date: 03/31/23 [facility]: Hannah Hudson NETWORK/TELECOM ENGINEER Ordering Physician: Hannah Hudson Date of Service: 03/31/23 Procedure(s): US extremity nonvascular Accession Number(s): [id number] cc: Hannah HudsonP; Cynthia Minor MD EXAMINATION: [...] in OV> 04/05/23 1907 DD/ 1325 TD/TT: College Advisor: DARRYL Procedure Note Donotuseinterpreter, Image - 04/05/2023 [facility] [place] [address] Ultrasound Report Signed Patient: Tristen RomeMR#: [id number] : 2Acct:[id number] Age/Sex: 62 / MADM Date: 03/31/23 Loc: [facility] Attending Dr: Hannah HILLIARD Ordering Physician: Hannah Hudson Date of Service: 03/31/23 Procedure(s): US extremity nonvascular Accession Number(s): [id number] cc: Hannah Hudson; Cynthia Minor MD EXAMINATION: [...] foreign body is noted. 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
--- OUTSIDE RECORDS SUMMARY | 2025-05-26 13:26 | XMS_ITS | Encounter Summary ---
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) [...] Description 10/07/2025 9:30 AM EDT Office Visit [facility] ADULT DENTAL [address] [place] [address] Ibb, Catrina [address] [place] [address] documented as of this encounter Procedures Procedure Name Priority Date/Time Associated Diagnosis Comments TSH W/REFLEX TO FT4 Routine 09/17/2024 1 2:40 PM EDT 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 documented in this encounter Results * TSH with Reflex to Free T4 (09/17/2024 12:40 PM EDT) TSH reflex Free T4 2.68 0.32 - 4.0 uIU/mL [facility] Blood 09/17/2024 12:4 0 PM EDT 09/17/2024 2:15 PM EDT us Cynthia Minor MD LAB BLOOD ORDERABLES Final Resul t [facility] [address] [place] [phone] documented in this encounter Visit Diagnoses Diagnosis 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- Primary documented in this encounter Additional Health Concerns Assessment Noted Time PHQ-9 Depression Total Score: 14 025 9:11 AM EST documented as of this encounter Care Teams Fountain Pen Nibs Inspector Relationship Specialty Start Date End Date Cynthia Minor MD [address] [place] [address] PCP - General Family Medicine 06/26/18 documented as of this encounter
--- OUTSIDE RECORDS SUMMARY | 2025-05-26 13:27 | XMS_ITS | Encounter Summary ---
Author Organization [employer] Address [address] [facility] [address] 7[address] [place] [address] Care Team Providers Care Division Sales Manager Name Role Phone Cynthia Minor MD Primary Care Provider Reason for Visit * Reason Comments Med Refill Encounter Details Date Type Department Care Team ([facility] Contact Info) Description 05/11/2024 Refill [facility] [address] [place], [place] [phone] Kym Bella NP [address] [place] [address] Facial pressure Social History Tobacco Use Types [...] Description 10/07/2025 9:30 AM EDT Office Visit [facility] ADULT DENTAL [address] [place] [address] Catrina Mccartney [address] [place] [address] documented as of this encounter Visit Diagnoses Diagnosis Facial pressure documented in this encounter Additional Health Concerns Assessment Noted Time PHQ-9 Depression Total Score: 0 03/28/20 23 8:55 AM EDT documented as of this encounter Care Teams Division Sales Manager Relationship Specialty Start Date End Date Cynthia Minor MD [address] [place] [address] PCP - General Family Medicine 06/26/18 documented as of this encounter
--- OUTSIDE RECORDS SUMMARY | 2025-05-26 13:27 | XMS_ITS | Encounter Summary ---
Author Organization [employer] Address [address] [facility] 7t [place] [address] Care Team Providers Care Dumb Waiter Operator Name Role Phone Cynthia Minor MD Primary Care Provider [phone] Encounter Details Date Type Department Care Team (Latest Contact Info) Description 09/17/2021 Abstract [facility] CONVERSIONS Dental, Provider, DDS Social History [...] Description 10/07/2025 9:30 AM EDT Office Visit [facility] ADULT DENTAL [address] [place] [address] Bib, Catrina [address] [place] [address] documented as of this encounter Visit Diagnoses Not on filedocumented in this encounter Care Teams Dumb Waiter Operator Relationship Specialty Start Date End Date Cynthia Minor MD [address] [place] [address] PCP - General Family Medicine 06/26/18 documented as of this encounter
--- OUTSIDE RECORDS SUMMARY | 2025-05-26 13:27 | XMS_ITS | Encounter Summary ---
Author Organization [employer] Address [address] [facility] 7t [place] [address] Care Team Providers Care Smoke Tester Name Role Phone Cynthia Minor MD Primary Care Provider [phone] Encounter Details Date Type Department Care Team ([facility] Contact Info) Description 07/20/2022 Telephone [facility] MEDICINE [address] [place], [place] [phone] Cynthia Minor MD [address] [place], [place] [phone] Social History Tobacco Use Types Packs/Day Years [...] Upcoming Encounters Date Type Department Care Team ([facility] Contact Info) Description 10/07/2025 9:30 AM EDT Office Visit [facility] ADULT DENTAL [address] [place], [place] [phone] Catrina Mccartney [address] [place], [place] [phone] documented as of this encounter Visit Diagnoses Not on filedocumented in this encounter Care Teams Smoke Tester Relationship Specialty Start Date End Date Cynthia Minor MD [address] [place] [address] PCP - General Family Medicine 06/26/18 documented as of this encounter
--- OUTSIDE RECORDS SUMMARY | 2025-05-26 13:27 | XMS_ITS | Clinical Summary ---
Author Organization [id number] Address [address] [place] [address] 7t [place] [address] Care Team Providers Care Flame Hardening Machine Setter Name Role Phone Cynthia Minor MD Primary Care Provider [phone] Allergies Active Allergy Reactions Criticality Noted Date [...] per day. 30 tablet 11 4 Active Additional Information Patient not taking.Reported on 04/29/2025 fluticasone (Flonase) 50 MCG/ACT nasal sprayIndications: Facial [...] OUT, DO NOT SWALLOW 5 Active PEG 4176-XXy-OpSqf-Na Cl-NaSulf (PEG-3350/Electro lytes) 236 g reconstituted solution FOLLOW INSTRUCTION SHEET GIVEN TO YOU AT YOUR DOCTOR'S OFFICE DIRECTED. 5 Active benzocaine (Orajel) 10 % mucosal gelIndications:Dr levin socket Use in the mouth or throat if needed for mucositis. 5.3 g 5 026 Active levothyroxine (Synthroid, Levoxyl) 112 MCG tabletIndications [...] ONCE DAILY AT BEDTIME 90 capsule 3 05/12/2025 1:49 PM EST 5 Active omeprazole (PriLOSEC) [address] capsule TAKE 1 CAPSULE BY MOUTH EVERY DAY BEFORE BREAKFAST. DO NOT BREAK, CRUSH, DISSOLVE OR CHEW. 90 capsule 3 5 Active levothyroxine (Synthroid) 125 MCG tablet Take 1 tablet (125 mcg) by mouth before breakfast. Take at least 40 minutes before any other medication and food 30 tablet 11 05/09/2025 12:15 PM EST 5 026 Active chlorhexidine (Peridex) 0.12 % solution Swish 15 mL morning and night for 1 minute. Spit, do not swallow. Do not eat or drink for 30 minutes following use. 473 mL 5 Active Active Problems Problem Noted Date Diagnosed Date Oral candidiasis 04/29/2025 Depression 03/24/2025 Assessment & Plan (03/24/2025 5:34 AM EDT): - PHQ-9 score 24 on 03/12/2025. - [facility] provider: Yovany Enriquez - Diagnoses: Bipolar, [...] can treat him. - Currently following with [facility] painter and grader cork, last seen in February 2025 -Recieved SIJ [...] can treat him. -pt was seen by [facility] painter and grader cork -Recieved SIJ injection treatment on 11/10/21; received [...] from Spinal Stenosis -pt was seen by [facility] provider in 04/2020, pt was scheduled for injection tx and given tizanidine but pt requested procedure to be done under general anesthesia or stronger sedation; pt was recommended to find another specialist who can treat him. -pt was seen by [facility] painter and grader cork -Recieved SIJ injection treatment on 11/10/21; received [...] NSAIDs or caffiene. -Consider referring back to [facility] for further evaluation Skin tag [...] Plan (03/13/2025 9:39 PM EDT): -Followed by [facility]. Last seen in August 2024 -Continue tamsulosin -Reduce caffeine intake Assessment & Plan (12/10/2024 9:56 AM EDT): -Followed by [facility]. Last seen in August 2024 -Continue tamsulosin -Reduce caffeine intake Assessment & Plan (09/17/2024 8:55 AM EDT): -Followed by [facility]. Last seen in November 2023. -Continue tamsulosin -Reduce caffeine intake Assessment & Plan (03/22/2024 11:12 AM EDT): -Followed by [facility]. Last seen in November [...] Plan (03/24/2025 5:29 AM EDT): -Followed by [facility] -Colonoscopy on 09/11/15 tubular adenoma -Colonoscopy on 09/06/19 tubular adenoma Last seen by GI in September 2024, the plan was to repeat a colonoscopy and the patient was given prep medications. Still waiting for colonoscopy. Assessment & Plan (12/10/2024 12:58 PM EDT): -Followed by [facility] -Colonoscopy on 09/11/15 tubular adenoma -Colonoscopy on 09/06/19 tubular adenoma Assessment & Plan (09/17/2024 8:55 AM EDT): -Followed by [facility] -Colonoscopy on 09/11/15 tubular adenoma -Colonoscopy on 09/06/19 tubular adenoma Assessment & Plan (07/08/2024 5:29 AM EST): -Followed by [facility] -Colonoscopy on 09/11/15 tubular adenoma -Colonoscopy on 09/06/19 tubular adenoma Assessment & Plan (11/26/2022 6:53 AM EDT): -Followed by [facility] -Colonoscopy on 09/11/15 tubular adenoma -Colonoscopy on 09/06/19 tubular adenoma Assessment & Plan (08/14/2022 5:12 AM EST): -Followed by [facility] -Colonoscopy on 09/11/15 tubular adenoma -Colonoscopy on 09/06/19 tubular adenoma Benign paroxysmal positional vertigo 04/21/2015 Mood disorder 04/21/2015 Assessment & Plan (03/24/2025 5:31 AM EDT): - Diagnosis: Bipolar disorder. ?not confirmed with [facility] provider, pt states bipolar -[facility] provider: [facility] - PHQ-9 score 24 on 03/12/2025. No suicidal ideation. - STACEY-7 score 6 on 09/17/2024. -Current medications: Effexor 150 mg daily; Zyprexa 5 mg qhs; Zalepron 10 mg qhs (pt also seems to be taking melatonin and hydroxyzine) -Continue current treatment plan. Assessment & Plan (12/10/2024 12:58 PM EDT): - Diagnosis: Bipolar disorder. ?not confirmed with [facility] provider, pt states bipolar -[facility] provider: [facility] -Current medications: Effexor 150 mg daily; Zyprexa 5 mg qhs; Zalepron 10 mg qhs (pt also seems to be taking melatonin and hydroxyzine) -Continue current treatment plan. Assessment & Plan (09/17/2024 8:56 AM EDT): - Diagnosis: Bipolar disorder. ?not confirmed with S provider, pt states bipolar -[facility] provider: [facility] -Current medications: Effexor 150 mg daily; Zyprexa 5 mg qhs; Zalepron 10 mg qhs (pt also seems to be taking melatonin and hydroxyzine) -Continue current treatment plan. Assessment & Plan (07/03/2024 2:50 PM EST): - Diagnosis: Bipolar disorder. ?not confirmed with S provider, pt states bipolar -[facility] provider: [facility] -Current medications: Effexor 150 mg daily; Zyprexa 5 mg qhs; Zalepron 10 mg qhs (pt also seems to be taking melatonin and hydroxyzine) -Continue current treatment plan. Assessment & Plan (03/12/2024 11:46 AM EDT): - Diagnosis: Bipolar disorder. ?not confirmed with S provider, pt states bipolar -[facility] provider: [facility] -Current medications: Effexor 150 mg daily; Zyprexa 5 mg qhs; Zalepron 10 mg qhs (pt also seems to be taking melatonin and hydroxyzine) -Continue current treatment plan. Assessment & Plan (12/05/2023 4:55 AM EDT): - Diagnosis: Bipolar disorder. ?not confirmed with S provider, pt states bipolar -[facility] provider: [facility] -Current medications: Effexor 150 mg daily; Zyprexa 5 mg qhs; Zalepron 10 mg qhs (pt also seems to be taking melatonin and hydroxyzine) -Continue current treatment plan. Assessment & Plan (09/05/2023 4:55 AM EDT): - Diagnosis: Bipolar disorder. ?not confirmed with S provider, pt states bipolar -[facility] provider: [facility] -Current medications: Effexor 150 mg daily; Zyprexa 5 mg qhs; Zalepron 10 mg qhs (pt also seems to be taking melatonin and hydroxyzine) -Continue current treatment plan. Assessment & Plan (04/03/2023 5:21 PM EDT): - Diagnosis: Bipolar disorder. ?not confirmed with S provider, pt states bipolar -[facility] provider: [facility] -Current medications: Effexor 150 mg daily; Zyprexa 5 mg qhs; Zalepron 10 mg qhs (pt also seems to be taking melatonin and hydroxyzine) -Continue current treatment plan. Assessment & Plan (11/26/2022 6:36 AM EDT): - Diagnosis: Bipolar disorder. ?not confirmed with S provider, pt states bipolar -[facility] provider: Yovany Enriquez -Current medications: Effexor 150 [...] Continue monitoring. --Follow-up in 3 months Plantar lenard 02/13/2012 Assessment & Plan (12/05/2023 9:56 AM EDT): - seen by fire prevention engineer in September 2023 Assessment & Plan (09/18/2023 5:25 AM EDT): Patient was referred to fire prevention engineer Resolved Problems Problem Noted Date Diagnosed Date [...] Encounters Date Type Department Care Team Description 04/29/2025 11:00 AM EST Office Visit [facility]ULT [facility] [address] [place] [address] Liang Benz DDS Oral candidiasis (Primary Dx) 04/28/2025 Telephone [facility] [address] [place], [place] [phone] Windy Villegas, AFSHAN Results 04/27/2025 Orders Only [facility] [address] [place], [place] [phone] Cynthia Minor MD 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) 04/27/2025 Telephone [facility] [address] [place], [place] [phone] Cynthia Minor MD Error (VOID this visit) 04/25/2025 Orders Only [address] [address] Cynthia Minor MD 04/18/2025 Orders Only [facility] External Provider, [facility] 04/07/2025 10:15 AM EDT Office Visit [facility] [address] [place] [address] Catrina Mccartney Dental plaque (Primary Dx); Generalized gingival recession; Missing teeth, acquired; Sensitivity of root structure of tooth; Atypical odontalgia 03/14/[address] [address] Cynthia Minor MD Telephone call 03/12/2025 9:00 AM EDT Office Visit [address] [address] Cynthia Minor MD Elevated BP without diagnosis [...] Depression, unspecified depression type 03/12/2025 Results Follow-Up [address] [address] Cynthia Minor MD TSH with Reflex to Free T4, Comprehensive Metabolic Panel, Lipid Panel with Reflex to Direct LDL 03/12/2025 Orders Only [address] [address] Cynthia Minor MD 03/12/2025 Travel 03/11/[address] [address] Cynthia Minor MD CHART PREP 03/10/[address] [address] Cynthia Minor MD from Last 3 Months Immunizations Immunization Administration [...] Description 10/07/2025 9:30 AM EDT Office Visit [facility] [address] [place] [address] Catrina Mccartney [address] [place] [address] Health Maintenance Due Date Last Done Comments CT Colonography 1960 FIT DNA/Cologuard 1960 FIT 1960 FOBT 1960 Sigmoidoscopy 1960 Colonoscopy 09/05/2024 09/06/2019, 09/06/2019 Colorectal Cancer Screening 09/05/2024 Alcohol/Substance Use Screening 07/02/2025 07/02/2024 Diabetes: Hemoglobin A1C 07/02/2025 025, 12/05/2023, 11/16/2022, Additional history exists Depression Monitoring 09/09/2025 03/12/2025, 025 Disability Screening 09/17/2025 09/17/2024 SDOH Screening 09/17/2025 09/17/2024 Dental Oral Exam 10/07/2025 04/07/2025, 02/05/2024 Dental Prophylaxis 10/07/2025 04/07/2025, 0 08/16/2024, 02/05/2024, Additional history exists Dental X-Ray: Bitewings 04/08/2026 04/07/2025, 02/04 Tobacco Screening 04/29/2026 04/29/2025 Dental X-Ray: Full Mouth 04/08/2028 04/07/2025, 0911/2021 Lipid Panel 03/12/2030 03/12/2025, 01/0 12/2024, 12/05/2023, Additional history exists DTaP/Tdap/Td Vaccines (4 - Td or Tdap) 01/11/2033 01/11/2023, 11/16/2022, 05/21/2012, Additional history exists Hepatitis B Vaccines Completed 02/21/2007, 08/30/2006, 08/02/2006 Zoster Vaccines Completed 03/30/2020, 01/27/2020 Pneumococcal Vaccine: 50+ Years Completed 07/20/2023, 10/20/2009, 03/26/1996 RSV Patients and Patients Aged 60 years or older Completed 07/20/2023 COVID-19 Vaccine Completed 04/21/2025, 01/2024, 03/27/2023, Additional history exists Influenza Vaccine Completed 04/21/2025, , 03/10/2023, Additional history exists HIB Vaccines Aged Out [...] Procedure Name Priority Date/Time Associated Diagnosis Comments CASE PRESENTATION, DETAILED AND EXTENSIVE TREATMENT PLANNING Routine 04/29/2025 11:00 AM EST LIMITED ORAL EVALUATION - PROBLEM FOCUSED Routine 04/29/2025 11:00 AM EST T4, FREE Routine 04/25/2025 8:33 AM EDT TSH W/REFLEX TO FT4 Routine 04/25/2025 8 :33 AM EDT 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 FL GUIDANCE IN OR Routine 04/18/2025 9:0 [...] to Health Maintenance Results * (ABNORMAL) TSH W/Reflex to FT4 (04/25/2025 8:33 AM EDT) Only the most recent of2 resultswithin the time period is included. TSH reflex Free T4 6.84(H) 0.32 - 4.0 uIU/mL [facility] Blood Venous blood specimen / Unknown 04/25/2025 8:33 AM EDT 04/25/2025 11:16 AM EDT us Cynthia Minor MD LAB BLOOD ORDERABLES Final Resul t [facility] [address] [place] [phone] * T4, Free (04/25/2025 8:33 AM EDT) Only the most recent of2 resultswithin the time period is included. Free T4 (Free Thyroxine) 1.00 0.71 - 1.85 ng/dL [facility] 04/25/2025 8:33 AM EDT 04/25/2025 11:16 AM EDT Cynthia Minor MD LAB BLOOD ORDERABLES Final Resul t Performing Organization Address City/State/[facility] Co de Phone Number [facility] [address] [place] [phone] * FL Guidance in [place] (04/18/2025 9:00 AM EDT) Anatomical Region Laterality Modality X-Ray Angiograph y 04/18/2025 9:00 AM EDT Narrative 04/18/2025 9:46 AM EDT [address] [address] Fluoroscopy Report Signed Patient: Tristen Rome MR#: [id number] : 1960 Acct:[id number] Age/Sex: 64 / M ADM Date: 04/18/25 Loc: .[facility] Attending Dr: Milton Drake MD Ordering Physician: Milton Drake MD Date of Service: 04/18/25 Procedure(s): FL guidance in OR Accession Number(s): [id number] cc: Milton Drake MD; Cynthia Minor MD Reason for Exam: l5-s1 transforaminal epidural [...] in OV> 04/18/25942 DD/ 9 TD/TT: 04/18/25914 Front Desk Administrator: Procedure Note Darron, Image - 04/18/2025 [place] [address] Fluoroscopy Report Signed Patient: Tristen RomeMR#: [id number] : 2Acct:[id number] Age/Sex: 64 / MADM Date: 04/18/25 Loc: HO.[facility] Attending Dr: Milton Drake MD Ordering Physician: Milton Drake MD Date of Service: 04/18/25 Procedure(s): FL guidance in OR Accession Number(s): [id number] cc: Milton Drake MD; Cynthia Minor MD Reason for Exam: l5-s1 transforaminal epidural [...] in OV> 04/18/25942 DD/ 9 TD/TT: 04/18/25914 Front Desk Administrator: us [facility] External Provider IMG IR PROCEDURES Final Result * Lipid Panel with Reflex to Direct LDL (03/12/2025 9:36 AM EDT) Triglycerides 89 <150 mg/dL [facility] Comment:Desirable Triglyceri de: less than 150 mg/dLBorderline High Triglyceride 150-199 mg/dLHigh Triglyceride: 200-499 mg/dLVery High Triglyceride: greater than or equal to 5OO mg/dL Cholesterol 139 <200 mg/dL [facility] Comment:Desirable Cholestero l: less than 200 mg/dLBorderline High Cholesterol: 200-239 mg/dLHigh Cholesterol: greater than 239 mg/dL LDL Cholesterol Calculated 76 <100 mg/dL [facility] Comment:Desirable LDL: less than 100 mg/dLNear Optimal/Above Optimal LDL: 110- 129 mg/dLBorderline High LDL: 130-159 mg/dLHigh LDL: 160-189 mg/dLVery High LDL: greater than or equal to 190 mg/dL HDL Cholesterol 46 >40 mg/dL [facility] Comment:Desirable HDL: great er than 40 mg/dL Note: This HDL assay may give artificially low results in patients with liver disease. Blood 03/12/2025 9:36 AM EDT 03/12/2025 11:14 AM EDT us Cynthia Minor MD LAB BLOOD ORDERABLES Final Resul t [facility] [address] [place] [phone] * (ABNORMAL) Comprehensive Metabolic Panel (03/12/2025 9:36 AM EDT) Sodium 140 135 - 145 mmol/L [facility] Potassium 4.2 3.3 - 5.1 mmol/L [facility] Chloride 106 96 - 108 mmol/L [facility] Carbon Dioxide 30(H) 22 - 29 mmol/L [facility] Anion Gap 8(L) 12 - 20 [facility] Urea Nitrogen (BUN) 18(H) 9 - 16 mg/dL [facility] Creatinine, Serum 1.07 0.5 - 1.4 mg/dL [facility] Estimated Glomerular Filt Rate >60 [facility] Comment:Chronic Kidney Disea se: Estimated GFR < 60 mL/min/[id number] Kidney Disease: Estimated GFR < 15 mL/min/1.73m2 Glucose 111 60 - 115 mg/dL [facility] Calcium 9.2 8.4 - 10.2 mg/dL [facility] Bilirubin, Total 0.6 0.0 - 1.0 mg/dL [facility] Aspartate Amino Transferase 43(H) 5 - 37 U/L [facility] Alanine Aminotransferase 35 0 - 40 U/L [facility] Total Protein 7.3 6.5 - 8.0 g/dL [facility] Albumin Level 4.5 3.5 - 5.0 g/dL [facility] Alkaline Phosphatase 57 39 - 117 U/L [facility] Blood Venous blood specimen / Unknown 03/12/2025 9:36 AM EDT 03/12/2025 11:14 AM EDT Cynthia Minor MD LAB BLOOD ORDERABLES Final Resul t [facility] [address] [place] [phone] * Hemoglobin A1c (07/02/2024 9:47 AM EST) Hemoglobin A1c 5.7 <6.0 % [facility] Comment:Hemoglobin A1C Refer ence Range Adults: 4.8 - 6.0 % Non diabetic: < 6.0 % Goal: < 7.0 %Additional Action Suggested: > 8.0 %Note: Hemoglobin A1c results are invalid for patients with abnormal amounts of HbF. Blood transfusions may impact the HbA1c concentration in the patient sample. Estimated Average Glucose 117 mg/dL [facility] Comment:eAG = Estimated ave rage glucose which is %A1C expressed asaverage glucose, using the formula of the [id number] Glucose study (ADAG), Diabetes Care, Vol.31,#8,Jan. 2007 Blood Venous blood specimen / Unknown 07/02/2024 9:47 AM EST 07/02/2024 11:46 AM EST us Cynthia Minor MD LAB BLOOD ORDERABLES Final Resul t [facility] [address] [place] [phone] * Colonoscopy (09/06/2019) Colonoscopy Normal Normal, Abnormal, BIRADS 0 , BIRADS 1 , BIRADS 2, BIRADS 3 , BIRADS 4+ Historical Provider HEALTH MAINTENANCE Edited Result - Final from Last 3 Months or Most Recently Relevant to Health Maintenance Insurance [facility] < [address] [facility] Care Teams Flame Hardening Machine Setter Relationship Specialty Start Date End Date Cynthia Minor MD [address] [place] [phone] PCP - General Family Medicine 06/26/18
--- OUTSIDE RECORDS SUMMARY | 2025-05-26 13:27 | XMS_ITS | Encounter Summary ---
Author Organization [employer] Address [address] [facility] [address]t [place] [address] Care Team Providers Care Gin Operator Name Role Phone Cynthia Minor MD Primary Care Provider [phone] Reason for Visit * Reason Onset Date Comments Dr. Benz referral 10/21/2024 Encounter Details Date Type Department Care Team ([facility] st Contact Info) Description 10/21/2024 Telephone [facility] [address] [place], [place] [phone] Liang Benz, ETHEL [address] [place], [place] [phone] Dr. Benz referral Social History Tobacco Use [...] Patient is requesting referral to go to [place] to extract tooth that he has had trouble with recently and that has been filled in the past. He doesn't want to come in. He just wanted extraction for GA in [place] documented in this encounter Plan of Treatment Upcoming Encounters Date Type Department Care Team (Late st Contact Info) Description 10/07/2025 9:30 AM EDT Office Visit [facility] [address] [place] [address] Bib Catrina [address] [place] [address] documented as of this encounter Visit Diagnoses Not on filedocumented in this encounter Additional Health Concerns Assessment Noted Time PHQ-9 Depression Total Score: 14 025 9:11 AM EST documented as of this encounter Care Teams Gin Operator Relationship Specialty Start Date End Date Cynthia Minor MD [address] [place] [address] PCP - General Family Medicine 06/26/18 documented as of this encounter
--- OUTSIDE RECORDS SUMMARY | 2025-05-26 13:27 | XMS_ITS | Encounter Summary ---
Author Organization [employer] Address [address] [facility] [address]t [place] [address] Care Team Providers Care Solder Leveler Printed Circuit Boards Name Role Phone Cynthia Minor MD Primary Care Provider [phone] Encounter Details Date Type Department Care Team (Latest Contact Info) Description 07/16/2019 Abstract [facility] CONVERSIONS Dental, Provider, DDS Social History [...] Care Team ( st Contact Info) Description 10/07/2025 9:30 AM EDT Office Visit [facility]ULT [facility] [address] [place] [address] Bib, Catrina [address] [place] [address] documented as of this encounter Visit Diagnoses Not on filedocumented in this encounter Care Teams Solder Leveler [employer]ed [employer] Boards Relationship Specialty Start Date End Date Cynthia Minor MD [address] [place] [address] PCP - General Family Medicine 06/26/18 documented as of this encounter
--- OUTSIDE RECORDS SUMMARY | 2025-05-26 13:27 | XMS_ITS | Encounter Summary ---
Author Organization [employer] Address [address] [facility] [address] [place] [address] Care Team Providers Care Watch Engineer Name Role Phone Cynthia Minor MD Primary Care Provider [phone] Encounter Details Date Type Department Care Team (Latest Contact Info) Description 08/20/[address] [facility] CONVERSIONS Dental, Provider, DDS Social History [...] Description 10/07/2025 9:30 AM EDT Office Visit [facility] ADULT [facility] [address] [place] [address] Bib, Catrina [address] [place] [address] documented as of this encounter Visit Diagnoses Not on filedocumented in this encounter Care Teams Watch Engineer Relationship Specialty Start Date End Date Cynthia Minor MD [address] [place] [address] PCP - General Family Medicine 06/26/18 documented as of this encounter
--- OUTSIDE RECORDS SUMMARY | 2025-05-26 13:27 | XMS_ITS | Encounter Summary ---
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) [...] Description 10/07/2025 9:30 AM EDT Office Visit [facility] [address] [place] [address] Bib, Catrina [address] [place] [address] Scheduled Orders Name Type Priority Associated Diagnoses Orde r Schedule TSH with Reflex to Free T4 Lab Routine 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 Expected: 06/08/2025 (Approximate), Expires: 04/27/2026 documented as of this encounter Visit Diagnoses Diagnosis 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- Primary documented in this encounter Additional Health Concerns Assessment Noted Time PHQ-9 Depression Total Score: 24 025 9:03 AM EDT documented as of this encounter Care Teams Drafter Electrical Relationship Specialty Start Date End Date Cynthia Minor MD [address] [place] [address] PCP - General Family Medicine 06/26/18 documented as of this encounter
--- OUTSIDE RECORDS SUMMARY | 2025-05-26 13:27 | XMS_ITS | Encounter Summary ---
Author Organization [facility] [facility] [facility] Address [address] [place] [address] [address] [place] [address] Care Team Providers Care Combined Rail Operator Name Role Phone Cynthia Minor MD Primary Care Provider [phone] Encounter Details Date Type Department Care Team (Late st Contact Info) Description 05/23/2022 Abstract [facility] [address] [place] [address] Dental, Provider, DDS Social History Tobacco Use [...] Description 10/07/2025 9:30 AM EDT Office Visit [facility] [address] [place] [address] Catrina Mccartney [address] [place] [address] documented as of this encounter Procedures Procedure Name Priority Date/Time Associated Diagnosis Comments 17 O COMPOSITE FILLING Routine 05/23/2022 12:00 AM EST 12 DO COMPOSITE FILLING Routine 05/23/2022 12:00 AM EST documented in this encounter Visit Diagnoses Not on filedocumented in this encounter Care Teams Combined Rail Operator Relationship Specialty Start Date End Date Cynthia Minor MD [address] [place], [place] [id number] PCP - General Family Medicine 06/26/18 documented as of this encounter
== END 2025-05-26 11:12 | disposition home or self-care (01) ==
PROVIDERS: PCP Family Medicine; Visit Provider Nurse Practitioner Family
DX: M53.3 Sacrococcygeal disorders, not elsewhere classified (principal); M47.816 Spondylosis without myelopathy or radiculopathy, lumbar region; M48.061 Spinal stenosis, lumbar region without neurogenic claudication; M53.9 Dorsopathy, unspecified; M47.817 Spondylosis without myelopathy or radiculopathy, lumbosacral region
CPT/HCPCS: 99213; G2211

== ENCOUNTER → 2025-05-26 10:36 | Outpatient (BNVA) | payer OTHER, SELFPAY | PROVIDERS: PCP Family Medicine; Visit Provider Nurse Practitioner Family | DX: M53.3 Sacrococcygeal disorders, not elsewhere classified (principal); M47.816 Spondylosis without myelopathy or radiculopathy, lumbar region; M48.061 Spinal stenosis, lumbar region without neurogenic claudication; M47.817 Spondylosis without myelopathy or radiculopathy, lumbosacral region | CPT/HCPCS: 99212 ==

== ENCOUNTER 2025-06-05 08:45 | Outpatient (REF) | payer OTHER, SELFPAY | END 2025-06-05 08:46 | LOC: HO.HHCL 08:45 | PROVIDERS: PCP Family Medicine; Visit Provider Family Medicine | DX: E06.3 Autoimmune thyroiditis (principal) | CPT/HCPCS: 36415; 84443 ==